=== PATIENT | female | born 1950 | race Caucasian/White ===

== ENCOUNTER 2023-01-04 13:51 | Outpatient (OUT) | payer MEDICARE, BC, SELFPAY ==
--- NOTE | 2023-01-04 | XR_ITS ---
The [address] [address] Patient Name: JOSE YANG MRN: [id number] date: 1950 Sex: F Assigned Patient Location: [facility] Current Patient Location: [facility] Accession/Order Number: [id number] Exam Date: 01/04/2023 13:50 Report Date: 01/05/2023 19:03 At the request of: GALINA HDEZ Procedure: XR ankle LT min 3V EXAM: XR foot LT min 3V, XR ankle LT min 3V HISTORY: LEFT FOOT PAIN COMPARISON: None. TECHNIQUE: 3 views of the left ankle and 3 views of the left foot were obtained. FINDINGS/IMPRESSION: Left ankle: 1. No acute fracture or subluxation is seen. Evidence of prior surgery at the tibial plafond. 2. Mild polyarticular osteoarthritis. Left foot: 1. Evidence of open reduction and internal fixation with arthrodesis hardware at the first metatarsophalangeal joint with periprosthetic lucency measuring up to 4 mm. I do not see fracture of the hardware. However the joint space remains visible. 2. Moderate polyarticular osteoarthritis at the tarsometatarsal, metatarsophalangeal and interphalangeal joints. Electronically authenticated by: TAHMINA BURRELL Date: 01/05/2023 19:03
--- NOTE | 2023-01-04 | XR_ITS ---
The [address] [address] Patient Name: JOSE YANG MRN: [id number] date: 1950 Sex: F Assigned Patient Location: [facility] Current Patient Location: [facility] Accession/Order Number: [id number] Exam Date: 01/04/2023 13:50 Report Date: 01/05/2023 19:03 At the request of: GALINA HDEZ Procedure: XR foot LT min 3V EXAM: XR foot LT min 3V, XR ankle LT min 3V HISTORY: LEFT FOOT PAIN COMPARISON: None. TECHNIQUE: 3 views of the left ankle and 3 views of the left foot were obtained. FINDINGS/IMPRESSION: Left ankle: 1. No acute fracture or subluxation is seen. Evidence of prior surgery at the tibial plafond. 2. Mild polyarticular osteoarthritis. Left foot: 1. Evidence of open reduction and internal fixation with arthrodesis hardware at the first metatarsophalangeal joint with periprosthetic lucency measuring up to 4 mm. I do not see fracture of the hardware. However the joint space remains visible. 2. Moderate polyarticular osteoarthritis at the tarsometatarsal, metatarsophalangeal and interphalangeal joints. Electronically authenticated by: TAHMINA BURRELL Date: 01/05/2023 19:03
== END 2023-01-04 13:52 | disposition home or self-care (01) ==
PROVIDERS: Visit Provider Podiatrist Foot & Ankle Surgery
DX: M25.572 Pain in left ankle and joints of left foot (principal); M79.672 Pain in left foot
CPT/HCPCS: 73610; 73630

== ENCOUNTER 2024-01-31 14:35 | Outpatient (OUT) | payer MEDICARE, BC, SELFPAY ==
--- NOTE | 2024-01-31 14:44 | XR_ITS ---
The [address] [address] Patient Name: JOSE YANG MRN: [id number] date: 1950 Sex: F Assigned Patient Location: [facility] Current Patient Location: Accession/Order Number: [id number] Exam Date: 01/31/2024 14:50 Report Date: 02/01/2024 13:35 At the request of: GALINA HDEZ Procedure: XR ankle LT min 3V PROCEDURE: XR ankle LT min 3V, XR foot LT min 3V HISTORY: Left Ankle Pain ; left ankle and heel pain since falling 2 weeks ago COMPARISON: XR ankle left 01/04/2023 FINDINGS: BONES:Nondisplaced fracture through anterior neck of the calcaneus. Mechanical fusion the first metatarsophalangeal joint via dorsal plate and screws. Prior bone harvesting from distal tibial metaphysis. SOFT TISSUES:No visible soft tissue swelling. EFFUSION:None visible. OTHER: Negative. XR/XR ankle LT min 3V IMPRESSION: 1. Nondisplaced fracture involving anterior neck/process of the calcaneus. Electronically authenticated by: LAKEISHA MCGARRY Date: 02/01/2024 13:35
--- NOTE | 2024-01-31 14:48 | XR_ITS ---
The [address] [address] Patient Name: JOSE YANG MRN: [id number] date: 1950 Sex: F Assigned Patient Location: [facility] Current Patient Location: Accession/Order Number: [id number] Exam Date: 01/31/2024 14:50 Report Date: 02/01/2024 13:35 At the request of: GALINA HDEZ Procedure: XR foot LT min 3V PROCEDURE: XR ankle LT min 3V, XR foot LT min 3V HISTORY: Left Ankle Pain ; left ankle and heel pain since falling 2 weeks ago COMPARISON: XR ankle left 01/04/2023 FINDINGS: BONES:Nondisplaced fracture through anterior neck of the calcaneus. Mechanical fusion the first metatarsophalangeal joint via dorsal plate and screws. Prior bone harvesting from distal tibial metaphysis. SOFT TISSUES:No visible soft tissue swelling. EFFUSION:None visible. OTHER: Negative. XR/XR foot LT min 3V IMPRESSION: 1. Nondisplaced fracture involving anterior neck/process of the calcaneus. Electronically authenticated by: LAKEISHA MCGARRY Date: 02/01/2024 13:35
== END 2024-01-31 14:36 | disposition home or self-care (01) ==
LOC: RAD 14:38
PROVIDERS: Visit Provider Podiatrist Foot & Ankle Surgery
DX: M25.572 Pain in left ankle and joints of left foot (principal); S92.025D Nondisplaced fracture of anterior process of left calcaneus, subsequent encounter for fracture with routine healing; M24.675 Ankylosis, left foot
CPT/HCPCS: 73610; 73630

== ENCOUNTER 2024-02-28 13:30 | Outpatient (OUT) | payer MEDICARE, BC, SELFPAY ==
--- NOTE | 2024-02-28 13:34 | XR_ITS ---
The [address] [address] Patient Name: JOSE YANG MRN: [id number] date: 1950 Sex: F Assigned Patient Location: [facility] Current Patient Location: Accession/Order Number: [id number] Exam Date: 02/28/2024 13:35 Report Date: 02/29/2024 05:14 At the request of: GALINA HDEZ Procedure: XR foot LT min 3V PROCEDURE: XR foot LT min 3V HISTORY: Left Foot Pain COMPARISON: XR foot left 01/31/2024, 01/03/2023, CT foot 01/21/2023 FINDINGS: BONES:Prior mechanical fusion the first metatarsophalangeal joint via dorsal plate and screws; no appreciable hardware fracture or loosening. Persistent thin linear lucency at base of the neck of the anterior calcaneus suggestive of nondisplaced fracture. SOFT TISSUES:No visible soft tissue swelling. EFFUSION:None visible. OTHER: Negative. XR/XR foot LT min 3V IMPRESSION: 1. Fracture of anterior neck of calcaneus versus summation artifact. Appearance is similar to prior study suggesting fracture. Consider CT foot for additional evaluation. 2. Stable surgical changes and fusion of first metatarsophalangeal joint. Electronically authenticated by: LAKEISHA MCGARRY Date: 02/29/2024 05:14
--- OUTSIDE RECORDS SUMMARY | 2024-02-28 13:49 | XMS_ITS | CCD ---
Author Organization [facility] Care Team Providers Care Shift Superintendent Name Role Phone CHRISTIANERADHA Elpidio Unavailable Unavailable Physician, PCP Unknown Unavailable Unavailab Rock Moran Primary Care Physician Unavail able Rock Ulrich Unavailable Unavailable Joseph Waters Primary Care Physician Unavailab Rock Moran Primary Care Physician Unavail able Joseph Waters Primary Care Physician Unavailab Kika Castellanos Primary Care Provider Joseph Waters Primary Care Physician Unavailab Joseph Villalobos Primary Care Physician Unavailab Kika Castellanos Primary Care Provider Joseph Waters Primary Care Physician Unavailab le Joseph Waters Primary Care Physician Unavailab brenna HeRock montes Primary Care Physician Unavail able Joseph Waters Primary Care Physician Unavailab Joseph Villalobos Primary Care Physician Unavailab le Joseph Waters Primary Care Physician Unavailab Kika Castellanos Primary Care Provider [phone] Rock Ulrich Primary Care Physician Unavail able Joseph Waters Primary Care Physician Unavailab Rock Moran Primary Care Physician Unavail able Joseph Waters Primary Care Physician Unavailab Rock Moran Primary Care Physician Unavail able Joseph Waters Primary Care Physician Unavailab Rock Moran Unavailable Unavailable Kika Patrick DO Primary Care Provider [phone] Joseph Waters Primary Care Physician Unavailab le Joseph Waters Primary Care Physician Unavailab le Joseph Waters Primary Care Physician Unavailab brenna MéndezreKika mae DO Primary Care Provider Joseph Waters Primary Care Physician Unavailab GALINA Naqvi Admitting Unavailable DR LAKEISHA MCGARRY Consulting Unavailable GALINA HDEZ Attending Unavailable GALINA HDEZ Consulting Unavailable AASHISH PAUL Admitting Unavailable AASHISH PAUL Attending Unavailable ZIEBER, DR LAKEISHA Mea Consulting Unavailable BEVERLY, AASHISH Consulting Unavailable WEST, DR BORIS Panchal Consulting Unavailable BEVERLY, AASHISH Admitting Unavailable BEVERLY, AASHISH Attending Unavailable BEVERLY, AASHISH Consulting Unavailable BEVERLY, AASHISH Admitting Unavailable BEVERLY, AASHISH Attending Unavailable WEST, DR BORIS Panchal Consulting Unavailable BEVERLY, AASHISH Consulting Unavailable BEVERLY, AASHISH Admitting Unavailable BEVERLY, AASHISH Attending Unavailable WEST, DR BORIS Panchal Consulting Unavailable BEVERLY, AASHISH Consulting Unavailable BEVERLY, AASHISH Admitting Unavailable BEVERLY, AASHISH Attending Unavailable WEST, DR BORIS Panchal Consulting Unavailable BEVERLY, AASHISH Consulting Unavailable BEVERLY, AASHISH Admitting Unavailable BEVERLY, AASHISH Attending Unavailable ZIEBER, DR LAKEISHA Mae Consulting Unavailable BEVERLY, AASHISH Consulting Unavailable BEVERLY, AASHISH Admitting Unavailable BEVERLY, AASHISH Attending Unavailable ZIEBER, DR LAKEISHA Mae Consulting Unavailable BEVERLY, AASHISH Consulting Unavailable Joseph Waters Primary Care Physician Unavailab brenna Waters, Joseph Dowell Primary Care Physician Unavailab Joseph Villalobos Primary Care Physician Unavailab brenna Waters, Joseph Dowell Primary Care Physician Unavailab le Celina GALICIA, Kika Red Primary Care Provider FABIANO NICOLAS Referring Unavaila KIKA Winters Primary Care Unavailable Celina GALICIA, Kika Red Primary Care Provider Celina DO, Kika Red Primary Care Provider [phone] Joseph Waters Primary Care Physician UnavailRock Harris Unavailable Unavailable Lillian Inman CNP Primary Care Unavailable Joseph Waters Attending Unavailable Celina DO, Kika [facility] Unava ilable Maxime JENKINS, Coco Hirsch Attending Pravin Yee MD Referring Unavaila ble Maxime JENKINS, Coco Hirsch Attending Elsy Patrick DO, Kika [facility] Unava ilable Celina DO, Kika [facility] Unava ilable Bert LOPES, Lillian Hirsch Primary Care Unavailable Joseph Waters Attending Unavailable FABIANO NICOLAS KIMBERLEE Referring Unavaila ble CELINAIKKA CAM Primary Care Unavailable FABIANO NICOLAS KIMBERLEE Referring Unavaila ble KIKA PATRICK Neda Primary Care Unavailable FABIANO NICOLAS KIMBERLEE Referring Unavaila ble KIKA PATRICK Neda Primary Care Unavailable GERSON, FABIANO KIMBERLEE Referring Unavaila medardo PATRICK KIKA Red Primary Care Unavailable CelinaKika mae DO Primary Care Provider Kika Patrick DO Primary Care Provider [phone] Bert MANAGER SOCIAL SERVICESLillian Unavailable Celina GALICIA Kika Red Unavailable RINE, LILLIAN L Attending Unavailable RINE, LILLIAN L Attending Unavailable RINE, LILLIAN L Attending Unavailable RINE, LILLIAN L Attending Unavailable Rine [employer] - MANAGER SOCIAL SERVICES, Lillian L Primary Care Provider RINE, LILLIAN L Referring Unavailable KIKA PATRICK Primary Care Unavailable RINE, LILLIAN L Referring Unavailable KIKA PATRICK Primary Care Unavailable RINE, LILLIAN L Primary Care Unavailable Allergies Allergy Classification Reported Allergen(s) Allergy Type Date of Onset Reaction(s) Facility Adhesive Tape (14 sources) [facility] Cephalosporins (antibiotic) (15 sources) Cefuroxime; Translations: [Ceftin] [facility] eriBULin (1 source) eriBULin; Translations: [levofloxacin] [facility] Nafronyl (1 source) Nafronyl; Translations: [Adhesive Tape] Drug Allergy sensitive to [employer] [facility] NSAIDs (15 sources) Etodolac; Translations: [etodolac] Drug Allergy 7 abdominal pain [facility] Quinolones (antibiotic) (14 sources) levoFLOXacin Drug Allergy 7 [facility] (20 sources) Adhesive Tape; Translations: [Adhesive Tape] Allergy to substance (disorder) 0 sensitive to [employer] (20 sources) Cefuroxime; Translations: [Ceftin] Drug Allergy [facility] Repository (20 sources) Etodolac; Translations: [etodolac] Drug Allergy 7 abdominal pain [facility] (20 sources) levoFLOXacin; Translations: [levofloxacin] Drug Allergy 7 Hives, Itching, Unknown [facility] (20 sources) eriBULin; Translations: [levofloxacin] Drug Allergy [facility] (20 sources) Cefuroxime Drug Allergy 2 [place], [place] (1 source) Cefuroxime Drug Allergy [facility] Repository (1 source) levoFLOXacin Drug Allergy [facility] Repository (1 source) endolac; Translations: [endolac] Propensity to adverse reactions to drug (disorder) [facility] Repository (10 sources) Cefuroxime Drug Allergy 2 Hives, Itching, Rash [facility] Healthcare Work Phone: (10 sources) Etodolac Propensity to adverse reactions 7 Unknown [facility] (10 sources) Wound Dressing Adhesive Drug Intolerance 7 [facility] Medications Current Medications Medication Drug Class(es) Dates Sig (Normalized) Sig (Original) alendronic acid 70 mg oral tablet (20 sources) Bisphosphonate alendronate (FOS AMAX) 70 MG tablet Take 1 tablet by mouth every 7 days Wednesdays Active End: 04-05-2023 take 1 tablet by mouth every week in the morning alendronate 70 mg oral tablet 04/05/2023 take 1 tablet (70 mg) by oral route once weekly in the morning, at least 30 min before first food, beverage, or medication of day apixaban 5 mg oral tablet (20 sources) Factor Xa Inhibitor Start: 12-12-2019 take 1 tablet by mouth twice daily apixaban (ELIQUIS) 5 MG TABS tablet Take 1 tablet by mouth 2 times daily 180 tablet 3 05/04/2023 Active Start: 02-03-2018 End: 05-23-2018 take 1 tablet by mouth twice daily ELIQUIS 2.5 MG TABS tablet take 1 tablet by mouth twice a day 0 02/03/2018 Active atorvastatin 10 mg oral tablet (20 sources) HMG-CoA Reductase Inhibitor Start: 11-01-2023 take 1 tablet by mouth once daily atorvastatin (Lipitor) 10 MG tablet Indications: Dry eye syndrome of both eyes , Saddle embolism of abdominal aorta (CMS/HCC) Take 1 tablet (10 mg) by mouth Daily 68 tablet 1 11/01/2023 Active Start: 10-31-2023 End: 10-31-2023 take 1 tablet by mouth every other day, then take 1 tablet by mouth every other day atorvastatin (Lipitor) 10 MG tablet Indications: Dry eye syndrome of both eyes , Saddle embolism of abdominal aorta (CMS/HCC) TAKE 1 TABLET BY MOUTH EVERY OTHER DAY ALTERNATING WITH ONE HALF TABLET EVERY OTHER DAY 68 tablet 1 10/31/2023 10/31/2023 Discontinued (Reorder) Start: 10-09-2018 End: 10-31-2023 take 1 tablet by mouth once daily atorvastatin (Lipitor) 10 MG tablet Indications: Dry eye syndrome of both eyes , Saddle embolism of abdominal aorta (CMS/HCC) Take 1 tablet (10 mg) by mouth Daily 68 tablet 1 11/01/2023 Active azithromycin 250 mg oral tablet (1 source) Macrolide Antimicrobial Start: 01-24-2024 End: 01-28-2024 take 2 tablets by mouth once daily, then take 1 tablet by mouth once daily azithromycin (Zithromax) 250 MG tablet Indications: Symptoms of upper respiratory infection (URI) Take 2 tablets (500 mg) by mouth Daily for 1 day, THEN 1 tablet (250 mg) Daily for 4 days. 6 tablet 01/24/2024 01/28/2024 Active biotin 10 mg oral tablet (20 sources) End: 06-26-2020 take 1 tablet by mouth in the morning biotin 10 MG tablet Take 1 tablet by mouth in the morning. Active Calcium Carbonate / Vitamin D (10 sources) Calcium Carbonate-Vitamin D (CALTRATE 600+D PO) Indications: Vitamin D deficiency Caltrate 600+D Active cetirizine hydrochloride 10 mg oral capsule (9 sources) Histamine-1 Receptor Antagonist Start: 11-01-2023 Cetirizine HCl 10 MG capsule Administer ZYRTEC 10mg PO pre-infusion (REMICADE). 11/01/2023 Active Start: 06-17-2022 take 10 mg by mouth once daily 10 mg, Oral, DAILY, First dose on Tue06/17/22 at 2100, Until Discontinued Substituted for Loratadine (CLARITIN). 50 ml clindamycin 12 mg/ml injection (2 sources) Lincosamide Antibacterial Start: 06-17-2022 End: 06-18-2022 600 mg, IntraVENous, EVERY 8 HOURS, 3 doses, First dose on Tue06/17/22 at 1830, Last dose on Tue06/18/22 at 1030 Antimicrobial Indications: Surgical Prophylaxis Start: 06-17-2022 End: 06-17-2022 clindamycin (CLEOCIN) 900 mg in dextrose 5 % 50 mL IVPB diclofenac sodium 50 mg delayed release oral tablet (20 sources) Nonsteroidal Anti-inflammatory Drug Start: 02-18-2018 take 1 tablet by mouth twice daily diclofenac (VOLTAREN) 50 MG EC tablet take 1 tablet by mouth twice a day 0 02/18/2018 Active diphenhydrAMINE (1 source) Histamine-1 Receptor Antagonist Start: 06-17-2022 diphenhydrAMINE (BENADRYL) capsule 25 mg doxycycline hyclate 100 mg oral tablet (2 sources) Tetracycline-class Drug Start: 12-30-2023 End: 01-09-2024 doxycycline (Vibra-Tabs) 100 MG tablet Indications: Tick bite of back wall of thorax, unspecified location, subsequent encounter Take 1 tablet (100 mg) by mouth in the morning and 1 tablet (100 mg) before bedtime. Do all this for 10 days. Take with a full glass of water and do not lie down for at least 30 minutes after.. 20 tablet 12/30/2023 01/09/2024 Active DULoxetine 30 mg delayed release oral capsule (20 sources) Serotonin and Norepinephrine Reuptake Inhibitor Start: 04-02-2020 take 1 capsule by mouth once daily at bedtime DULoxetine (CYMBALTA) 30 MG extended release capsule take 1 capsule by mouth once daily at bedtime 04/02/2020 Active fluticasone propionate 0.05 mg/actuat metered dose nasal spray (20 sources) Corticosteroid Start: 08-02-2023 take 2 spray(s) nasal route once daily as needed for rhinitis fluticasone (Flonase) 50 MCG/ACT nasal spray Indications: Environmental and seasonal allergies Administer 2 sprays into each nostril Daily as needed for rhinitis or allergies 16 g 2 08/02/2023 Active Start: 06-17-2022 1 spray, Nasal , PRN, Starting on Nisreen 06/17/22 at 2031, Until Discontinued, Rhinitis, Allergies Start: 05-10-2022 fluticasone (F LONASE) 50 MCG/ACT nasal spray 1 spray by Nasal route as needed 05/10/2022 Active inFLIXimab 100 mg injection (20 sources) Tumor Necrosis Factor Pablito inFLIXimab (Remicade ) 100 MG injection Indications: 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) as directed Intravenous Active inFLIXimab (SACHIN ESTHER IV) Infuse intravenously Active Remicade 100 mg intravenous solution infuse 3 mg/kg over no less than 2 hour(s) by intravenous route every 8 weeks inFLIXimab (SACHIN ESTHER IV) Infuse intravenously 0 Active loratadine 10 mg oral tablet (20 sources) take 1 tablet by mouth every twenty-four hours as needed loratadine (Claritin) 10 MG tablet Take 1 tablet by mouth Daily as needed for allergies Active 12 hr loratadine 5 mg / pseudoephedrine sulfate 120 mg extended release oral tablet (10 sources) alpha-Adrenergi c Agonist Start: 08-02-19 End: 08-02-19 25 take 1 tablet by mouth once in the morning, then take 1 tablet by mouth every twelve hours at bedtime loratadine-pseudoeph edrine ER (SM Loratadine D 12HR) 5-120 MG 12 hr tablet Indications: Environmental and seasonal allergies Take 1 tablet by mouth in the morning and 1 tablet before bedtime. Do not crush, chew, or split.. 08/02/2023 08/01/2024 Active Magnesium (20 sources) Magnesium 400 MG capsule Indications: Medicare annual wellness visit, subsequent as directed Orally Active take 1 tablet by mouth twice ryan ly magnesium 200 MG TABS tablet Take 1 tablet by mouth 2 times daily Active take 1 tablet by mouth twice ryan ly magnesium 200 MG TABS tablet Take 1 tablet by mouth 2 times daily 0 Active take 1 tablet by mouth once sj y Magnesium 500 MG TABS Magnesium magnesium 200 mg oral tablet take 1 tablet by oral route daily [facility] ([id number]) 0 Active take 1 tablet by mouth once sj y magnesium 200 mg oral tablet take 1 tablet by oral route daily 24 hr metFORMIN hydrochloride 500 mg extended release oral tablet (20 sources) Biguanide Start: 01-09-2017 End: 12-16-2023 take 1 tablet by mouth once daily at dinner metFORMIN XR (Glucophage-XR) 500 MG 24 hr tablet Indications: Elevated glucose TAKE 1 TABLET BY MOUTH DAILY WITH EVENING MEAL 90 tablet 1 12/16/2023 Active take 1 tablet by mouth once sj y metformin 500 mg oral tablet take 1 tablet by oral route daily methotrexate 25 mg/ml injectable solution (20 sources) Folate Analog Metabolic Inhibitor Start: 04-05-2023 inject 0.05 mL by intramuscular injection every week methotrexate sodium 25 mg/mL injection solution 04/05/2023 inject 0.05 milliliter by intramuscular route once weekly Start: 04-05-2023 inject 0.05 mL by in tramuscular injection every week methotrexate sodium 25 mg/mL injection solution 04/05/2023 inject 0.05 milliliter by intramuscular route once weekly Start: 03-29-2022 inject 0.7 mL by int ramuscular injection every week methotrexate sodium 25 mg/mL injection solution 03/29/2022 inject 0.7 milliliter by intramuscular route once weekly Start: 06-26-2020 inject 0.9 mL by int ramuscular injection every week methotrexate sodium injection solution 25 mg/mL 06/26/2020 inject 0.9 milliliter by intramuscular route once weekly Start: 10-05-2019 inject 0.6 mL by sub cutaneous injection every week methotrexate 50 MG/2ML injection INJECT 0.6 ML SUBCUTANEOUSLY ONCE A WEEK 07/23/2023 Active Start: 09-19-2019 inject 0.6 mL by int ramuscular injection every week methotrexate sodium 25 mg/mL injection solution 09/19/2019 inject 0.6 milliliter (15 mg) by intramuscular route once weekly inject 0.6 mL by int ramuscular injection every week methotrexate sodium 25 mg/mL injection solution inject 0.6 milliliter (15 mg) by intramuscular route once weekly Methotrexate, PF , 15 MG/0.4ML SOAJ Inject into the skin once a week 0 Active methylPREDNISolone 4 mg oral tablet (3 sources) Corticosteroid Start: 05-04-2023 methylPREDNISo lone (MEDROL DOSEPACK) 4 MG tablet Take as per the package insert. 1 kit 05/04/2023 Active Start: 07-08-2020 End: 07-08-2020 methylPREDNISolone acetate ( DEPO-MEDROL) injection 80 mg 5 ml metoprolol tartrate 1 mg/ml injection (1 source) beta-Adrenergic Pablito Start: 06-17-2022 metoprolol (LOPRESSOR) injection 5 mg Multiple Vitamins-Minerals (PRESERVISION AREDS 2+MULTI VIT) CAPS (20 sources) take 1 capsule by mouth in the morning Multiple Vitamins-Minerals (PRESERVISION AREDS 2+MULTI VIT) CAPS Take 1 capsule by mouth in the morning and 1 capsule in the evening. Active take 1 capsule by mo uth in the morning Multiple Vitamins-Minerals (PRESERVISION AREDS 2+MULTI VIT) CAPS Take 1 capsule by mouth in the morning and 1 capsule in the evening. 0 Active take 2 capsules by mouth twice d aily Multiple Vitamins-Minerals (PRESERVISION AREDS 2+MULTI VIT) CAPS Take 2 capsules by mouth 2 times daily 0 Active Multiple Vitamins-Minerals (PreserVision AREDS 2+Multi Vit) capsule (10 sources) take 1 capsule by mouth in the morning Multiple Vitamins-Minerals (PreserVision AREDS 2+Multi Vit) capsule Take 1 capsule by mouth in the morning and 1 capsule in the evening. Take with meals. Active omeprazole 20 mg delayed release oral capsule (20 sources) Proton Pump Inhibitor Start: take 1 capsule by mouth in the morning omeprazole (PriLOSEC) [address] capsule Indications: Gastroesophageal reflux disease without esophagitis Take 1 capsule (20 mg) by mouth in the morning and 1 capsule (20 mg) before bedtime. Do not crush or chew.. 180 capsule 1 05/20/2023 Active Start: 11-07-2019 take 1 capsule by mo ut once daily omeprazole 40 mg oral capsule,delayed release(DR/EC) 11/07/2019 take 1 capsule by oral route daily Start: 10-30-2018 take 1 capsule by mo uth once daily omeprazole 40 mg oral capsule,delayed release(DR/EC) 10/30/2018 take 1 capsule by oral route daily Start: 10-24-2018 take 1 capsule by mo ut once daily before mealtime omeprazole 40 mg oral capsule,delayed release(DR/EC) 10/24/2018 take 1 capsule (40 mg) by oral route once daily before a meal in combination with clarithromycin Start: 01-03-2017 take 1 tablet by ledy th twice daily omeprazole 20 MG EC tablet Take 1 tablet by mouth 2 times daily 0 01/03/2017 Active Start: 03-09-2016 End: 05-23-2018 take 1 capsule by mouth once daily before mealtime omeprazole 40 mg oral capsule,delayed release(DR/EC) 03/09/2016 05/23/2018 take 1 capsule (40 mg) by oral route once daily before a meal ondansetron (ZOFRAN-ODT) disintegrating tablet 4 mg (1 source) Start: 06-17-2022 ondansetron (Z OFRAN-ODT) disintegrating tablet 4 mg oxyCODONE (3 sources) Opioid Agonist Start: 06-17-2022 oxyCODONE (YOLI ICODONE) immediate release tablet 5 mg Start: 06-17-2022 End: 06-22-2022 take 1 tablet by mouth every six hours as needed for pain oxyCODONE (ROXICODONE) 5 MG immediate release tablet Indications: S/P total knee arthroplasty, left Take 1 tablet by mouth every 6 hours as needed for Pain for up to 5 days. Intended supply: 5 days. Take lowest dose possible to manage pain Max Daily Amount: 20 mg 20 tablet 0 06/17/2022 06/22/2022 Active pregabalin 75 mg oral capsule (6 sources) Start: 06-17-2022 End: 07-01-2022 take 1 capsule by mouth twice daily as needed for pain pregabalin (LYRICA) 75 MG capsule Indications: S/P total knee arthroplasty, left Take 1 capsule by mouth 2 times daily as needed (breakthrough pain) for up to 14 days. Max Daily Amount: 150 mg 28 capsule 06/17/2022 Active traMADol hydrochloride 50 mg oral tablet (20 sources) Opioid Agonist Start: 07-14-2023 take 1 tablet by mouth every six hours for pain traMADol (Ultram) 50 MG tablet Indications: Chronic low back pain, unspecified back pain laterality, unspecified whether sciatica present Take 1 tablet (50 mg) by mouth every 6 (six) hours if needed for severe pain 28 tablet 07/14/2023 Active Start: 07-14-2019 End: 06-17-2022 take 0.5-1 tablets by mouth every six hours for pain traMADol (ULTRAM) 50 MG tablet TAKE 2 TO 1 TABLET BY MOUTH EVERY 6 HOURS IF NEEDED FOR PAIN 0 07/14/2019 06/17/2022 Discontinued (Stop Taking at Discharge) End: 10-24-2018 take 0.5 tablet by mouth once daily as needed for pain tramadol 50 mg oral tablet 10/24/2018 take 0.5 tablet daily as needed for pain 7 actuat umeclidinium 0.0625 mg/actuat / vilanterol 0.025 mg/actuat dry powder inhaler (20 sources) Anticholinergic, beta2-Adrenergic Agonist Start: 04-05-2023 take 1 puff(s) by inhalation once daily Anoro Ellipta 62.5 mcg-25 mcg/actuation powder for inhalation 04/05/2023 inhale 1 puff by inhalation route once daily at the same time each day Start: 04-05-2023 take 1 puff(s) by in halation once daily Anoro Ellipta 62.5 mcg-25 mcg/actuation powder for inhalation 04/05/2023 inhale 1 puff by inhalation route once daily at the same time each day Start: 01-29-2022 take 1 puff(s) by in halation once daily Anoro Ellipta inhalation blister with device 62.5-25 mcg/actuation 01/29/2022 inhale 1 puff by inhalation route once daily at the same time each day Start: 12-29-2020 take 1 puff(s) by in halation once daily Anoro Ellipta inhalation blister with device 62.5-25 mcg/actuation 12/29/2020 inhale 1 puff by inhalation route once daily at the same time each day Start: 06-26-2020 take 1 puff(s) by in halation once daily Anoro Ellipta inhalation blister with device 62.5-25 mcg/actuation 06/26/2020 inhale 1 puff by inhalation route once daily at the same time each day Start: 05-07-2019 take 1 puff(s) by in halation once daily Anoro Ellipta 62.5-25 mcg/actuation inhalation blister with device 05/07/2019 inhale 1 puff by inhalation route once daily at the same time each day Umeclidinium-Gregorio anterol (Anoro Ellipta) 62.5-25 MCG/ACT aerosol powder Inhale. Active take 1 puff(s) by in halation once daily umeclidinium-vilanterol (ANORO ELLIPTA) 62.5-25 MCG/INH AEPB inhaler Inhale 1 puff into the lungs daily Active vitamin b12 0.1 mg oral tablet (20 sources) Vitamin B12 take 1 tablet by mouth in the morning cyanocobalamin (Vitamin B-12) 100 MCG tablet Indications: Medicare annual wellness visit, subsequent Take 100 mcg by mouth in the morning. Active Completed/Discontinued Medications Medication Drug Class(es) Dates Sig (Normalized) Sig (Original) acetaminophen 325 mg oral tablet (20 sources) Start: 06-17-2022 take 650 mg by mouth every six hours, then take 4000 mg by mouth every twenty-four hours 650 mg, Oral, EVERY 6 HOURS, First dose on [facility] 06/17/22 at 1500, Until Discontinued Maximum dose of acetaminophen is 4000 mg from all sources in 24 hours. Post-op Start: 06-17-2022 End: 06-17-2022 acetaminophen (TYLENOL) tabl et 1,000 mg take 2 tablets by mo uth twice daily acetaminophen (TYLENOL) 500 MG tablet Take 2 tablets by mouth 2 times daily Active Acetaminophen (T YLENOL ARTHRITIS PAIN PO) Indications: Medicare annual wellness visit, subsequent Tylenol Arthritis Pain Active acetaminophen (T YLENOL) 500 MG tablet Take by mouth 0 Active acetaminophen 325 mg / HYDROcodone bitartrate 5 mg oral tablet (2 sources) Opioid Agonist Start: 01-19-2024 End: 01-19-2024 1 tablet, Oral, ONCE, 1 dose, On [facility] 01/19/24 at 2030 Start: 01-19-2024 End: 01-22-2024 HYDROcodone-acetaminophen (N ORCO) 5-325 MG per tablet Indications: Sprain of left foot, initial encounter , Contusion of left knee, initial encounter , Contusion of back, unspecified laterality, initial encounter Take 1 tablet by mouth every 6 hours as needed for Pain for up to 3 days. Intended supply: 3 days. Take lowest dose possible to manage pain Max Daily Amount: 4 tablets 12 tablet 01/19/2024 01/22/2024 Active 30 actuat aclidinium bromide 0.4 mg/actuat dry powder inhaler (20 sources) Start: 12-14-2018 End: 05-07-2019 take 1 puff(s) by inhalation every twelve hours Tudorza Pressair 400 mcg/actuation inhalation aerosol powdr breath activated 12/14/2018 05/07/2019 inhale 1 puff (400 mcg) by inhalation route every 12 hours [id number] 200 actuat albuterol 0.09 mg/actuat metered dose inhaler (20 sources) beta2-Adrenerg ic Agonist ProAir HFA inhalation HFA aerosol inhaler 90 mcg/actuation inhale 2 puffs by inhalation route as needed ProAir HFA inhal ation HFA aerosol inhaler 90 mcg/actuation inhale 2 puffs by inhalation route as needed ProAir HFA inhal ation HFA aerosol inhaler 90 mcg/actuation inhale 2 puffs by inhalation route as needed bisacodyl 5 mg delayed release oral tablet (1 source) Stimulant Laxative Start: 06-17-2022 take 5 mg by mouth once daily as needed 5 mg, Oral, DAILY PRN, Starting on Tue06/17/22 at 1407, Until Discontinued, Constipation First line therapy for constipation. Post-op 5 ml bupivacaine hydrochloride 5 mg/ml injection (1 source) Amide Local Anesthetic Start: 07-08-2020 End: 07-08-2020 bupivacaine (PF) (MARCAINE) 0.5 % injection 150 mg Start: 07-08-2020 End: 07-08-2020 bupivacaine (PF) (MARCAINE) 0.5 % injection 150 mg calcium carbonate 500 mg chewable tablet (17 sources) Start: 06-18-2022 take 500 mg by mouth once daily in the morning 500 mg, Oral, EVERY MORNING, First dose on Tue06/18/22 at 0900, Until Discontinued take 1 tablet by ledy once daily in the morning Calcium Carbonate (CALTRATE 600 PO) Take 1 tablet by mouth every morning Active take 1 tablet by ledy th once daily in the morning Calcium Carbonate (CALTRATE 600 PO) Take 1 tablet by mouth every morning 0 Active calcium carbonate 1250 mg / cholecalciferol 0.01 mg oral tablet (10 sources) Vitamin D take 1 tablet by mouth twice daily Calcium 500 + D 500 mg-10 mcg (400 unit) tablet take 1 tablet by oral route 2 times a day take 1 tablet by mouth twice ryan ly Calcium 500 + D 500 mg-10 mcg (400 unit) tablet take 1 tablet by oral route 2 times a day calcium chloride 0.0014 meq/ml / potassium chloride 0.004 meq/ml / sodium chloride 0.103 meq/ml / sodium lactate 0.028 meq/ml injectable solution (1 source) Start: 06-17-2022 End: 06-17-2022 lactated ringers IV soln infusion celecoxib 100 mg oral capsule (20 sources) Nonsteroidal Anti-inflammatory Drug Start: 06-17-2022 End: 06-17-2022 celecoxib (CELEBREX) capsule 100 mg End: 05-23-2018 take 1 capsule by mouth once daily celecoxib 200 mg oral capsule 05/23/2018 take 1 capsule (200 mg) by oral route once daily cholecalciferol 0.025 mg oral tablet (20 sources) Vitamin D Start: 06-17-2022 take 2000 [IU] by mouth once daily in the evening 2,000 Units, Oral, EVERY EVENING, First dose on Nisreen 06/17/22 at 2100, Until Discontinued Start: 12-29-2020 take 1 tablet by ledy three times daily Vitamin D3 25 mcg (1,000 unit) tablet 12/29/2020 take 1 tablet by oral route 3 times a day Start: 11-29-2019 End: 06-17-2022 Cholecalciferol (VITAMIN D3) 1.25 MG (17958 UT) CAPS take 1 tablet by ledy th once in the morning cholecalciferol (RA Vitamin D-3) 25 MCG (1000 UT) tablet Indications: Vitamin D deficiency Take 25 mcg by mouth in the morning. Active take 1 capsule by mo [facility] once daily in the evening Cholecalciferol (VITAMIN D) 50 MCG (2000 UT) CAPS capsule Take 1 capsule by mouth every evening Active take 1 tablet by ledy th once daily Vitamin D3 125 mcg (5,000 unit) oral tablet take 1 tablet by oral route daily cyclobenzaprine hydrochloride 10 mg oral tablet (20 sources) Muscle Relaxant End: 10-24-2018 take 1 tablet by mouth twice daily as needed cyclobenzaprine 10 mg oral tablet 10/24/2018 take 1 tablet (10 mg) by oral route 2 times per day as needed dexlansoprazole 60 mg delayed release oral capsule (20 sources) Proton Pump Inhibitor Start: 03-20-2018 End: 10-10-2018 take 1 capsule by mouth once daily Dexilant 60 mg oral capsule,biphase delayed releas 03/20/2018 10/10/2018 take 1 capsule (60 mg) by oral route once daily dimenhyDRINATE 50 mg oral tablet (1 source) Start: 06-17-2022 End: 06-17-2022 dimenhyDRINATE (DRAMAMINE) tablet 50 mg Start: 06-17-2022 End: 06-17-2022 dimenhyDRINATE (DRAMAMINE) t ablet 50 mg fexofenadine hydrochloride 180 mg oral tablet (1 source) Histamine-1 Receptor Antagonist Start: 07-31-2021 End: 06-17-2022 take 1 tablet by mouth once daily fexofenadine (TAMMIE) 180 MG tablet 1 tablet Swallow whole with water; do not take with fruit juices. Orally Once a day for 30 day(s) 0 07/31/2021 06/17/2022 Discontinued (LIST CLEANUP) Fish Oil Oral 1,200-144-216 mg Capsule (16 sources) End: 01-29-2014 take 1 capsule by mouth once daily Fish Oil Oral 1,200-144-216 mg Capsule 01/29/2014 Take 1 capsule by mouth once a day Fish Oils (19 sources) End: 01-29-2014 take 1 capsule by mouth once daily Fish Oil Oral 1,200-144-216 mg Capsule 01/29/2014 Take 1 capsule by mouth once a day folic acid 1 mg oral tablet (20 sources) Start: 12-27-2019 take 2 tablets by mouth once daily folic acid 1 mg oral tablet 12/27/2019 take 2 tablets by oral route daily take 1 tablet by mouth in the ev ening folic acid (Folvite) 1 MG tablet Indications: 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) Take 1 mg by mouth in the evening. Takes two tablets in evening Active take 1 tablet by mouth once sj y folic acid (FOLVITE) 1 MG tablet Take 1 tablet by mouth daily 0 Active gabapentin 300 mg oral capsule (1 source) Anti-epileptic Agent Start: 06-17-2022 End: 06-17-2022 gabapentin (NEURONTIN) capsule 300 mg Start: 06-17-2022 End: 06-17-2022 gabapentin (NEURONTIN) capsu le 300 mg Glucosamine-Chondroitin Complx oral capsule (20 sources) End: 03-14-2018 take 2 capsules by mouth once daily Glucosamine-Chondroitin Complx oral capsule 03/14/2018 take 2 capsules by oral route daily hyoscyamine sulfate 0.125 mg sublingual tablet (20 sources) Start: 03-09-2016 End: 05-23-2018 hyoscyamine sulfate 0.125 mg sublingual tablet, sublingual 03/09/2016 05/23/2018 place 1 tablet under tongue by translingual route As needed End: 03-09-2016 take 1 tablet by mouth every four hours as needed hyoscyamine sulfate 0.125 mg oral tablet 03/09/2016 take 1 tablet (0.125 mg) by oral route every 4 hours as needed iohexol (OMNIPAQUE 240) injection 10 mL (1 source) Start: 07-08-2020 End: 07-08-2020 iohexol (OMNIPAQUE 240) injection 10 mL iopamidol (ISOVUE-370) 76 % injection 100 mL (1 source) Start: 04-26-2022 End: 04-26-2022 iopamidol (ISOVUE-370) 76 % injection 100 mL 10 ml lidocaine hydrochloride 10 mg/ml injection (1 source) Antiarrhythmic, Amide Local Anesthetic Start: 07-08-2020 End: 07-08-2020 lidocaine PF 1 % injection Suprep Bowel Prep Kit 17.5-3.13-1.6 gram oral recon soln (20 sources) Start: 05-23-2018 Suprep Bowel P rep Kit 17.5-3.13-1.6 gram oral recon soln 05/23/2018 take as directed Start: 03-14-2018 End: 05-23-2018 Suprep Bowel Prep Kit 17.5-3 .13-1.6 gram oral recon soln 03/14/2018 05/23/2018 take as directed meloxicam 15 mg oral tablet (20 sources) Nonsteroidal Anti-inflammatory Drug Start: 04-11-2013 End: 03-14-2018 take 1 tablet by mouth once daily as needed meloxicam oral tablet 15 mg 04/11/2013 03/14/2018 take 1 tablet (15 mg) by oral route once daily as needed multivitamin Oral capsule (20 sources) End: 03-09-2016 take 1 capsule by mouth once daily multivitamin Oral capsule 03/09/2016 take 1 capsule by oral route daily 10 actuat olodaterol 0.0025 mg/actuat / tiotropium 0.0025 mg/actuat inhalation spray (1 source) Anticholinergic, beta2-Adrenergic Agonist Start: 06-17-2022 take 2 puff(s) by inhalation once daily 2 puff, Inhalation, DAILY, First dose on Tue06/17/22 at 1430, Until Discontinued Substituted for Umeclidinium-Gregorio anterol (ANORO ELLIPTA). pantoprazole 40 mg delayed release oral tablet (1 source) Proton Pump Inhibitor Start: 06-18-2022 take 40 mg by mouth once daily before breakfast 40 mg, Oral, DAILY BEFORE BREAKFAST, First dose on Tue06/18/22 at 0700, Until Discontinued Do not crush or break. Substituted for Omeprazole (PRILOSEC). PreserVision AREDS-2 [id number] xn-znol-ri-mg oral capsule (20 sources) take 1 capsule by mouth twice daily PreserVision AREDS-2 [id number]-tnwc-bu-mg oral capsule take 1 capsule by oral route 2 times a day Psyllium (20 sources) End: 04-11-2013 Metamucil Oral 3.3 gram/5.95 gram Powder 04/11/2013 Take 1 scoop dissovled in water once a day raNITIdine 150 mg oral capsule (20 sources) Histamine-2 Receptor Antagonist End: 04-11-2013 take 1 capsule by mouth once daily ranitidine HCl Oral capsule 150 mg 04/11/2013 take 1 capsule by oral route daily sennosides, fpc 8.6 mg oral tablet (1 source) Start: 06-17-2022 take 1 tablet by mouth once daily as needed 8.6 mg (1 tablet), Oral, DAILY PRN, Starting on Tue06/17/22 at 1407, Until Discontinued, Constipation Second line therapy for constipation, After 24 hours, if no result from first line PRN therapy, give second line therapy in combination with first line therapy. Post-op 5 ml sodium chloride 9 mg/ml injection (4 sources) Start: 06-17-2022 take 1 dose intravenously twice daily 5-40 mL, IntraVENous, EVERY 12 HOURS SCHEDULED (2 times per day), First dose on Tue06/17/22 at 2100, Until Discontinued For Line Patency: Peripheral IV = 5 mL; Midline or Central Line = 10 mL/lumen.&nb sp; If following IV push medication, administer flush at same rate as the IV push. Flush volume is determined by type of infusion therapy being given. &nbs p;For non-viscous solutions use: Periph eral IV = 5 mL Midline or Central Line = 10 mL/lumen &n bsp;For viscous solutions (i.e. blood components, parenteral nutrition, contrast media, or after obtaining blood sample) use: Periph eral IV = 10 mL Midline or Central Line = 20 mL/lumen Post-op Start: 06-17-2022 take 1 mL by mouth every hour IntraVENous, at 100 mL/hr, CONTINUOUS, Starting on Nisreen 06/17/22 at 1430 May convert to saline lock once PO intake >500mL in 8 hours Post-op Start: 06-17-2022 IntraVENous, a t 5-250 mL/hr, PRN, if patient receiving piggyback infusions and maintenance fluids are not ordered OR KVO fluids to protect IV site / prevent frequent line interruptions/ long duration, Starting on Nisreen 06/17/22 at 1407 For piggyback infusion, administer at same rate as piggyback for a total of 25 mL. Enter 25 mL into dose field and piggyback rate into rate field of order. If piggyback is infusing at a rate less than 100 mL/hr, enter 25 mL into dose field and 100 mL/hr into rate field of order. For KVO fluids, enter rate of 20 mL/hr or less into rate field of order. Post-op Start: 06-17-2022 take 5-40 mL intrave nously once as needed 5-40 mL, IntraVENous, PRN, Starting on Nisreen 06/17/22 at 1407, Until Discontinued, Line Care, After every IV line use For Line Patency: Peripheral IV = 5 mL; Midline or Central Line = 10 mL/lumen. If following IV push medication, administer flush at same rate as the IV push. Flush volume is determined by type of infusion therapy being given. For non-viscous solutions use: Peripheral IV = 5 mL Midline or Central Line = 10 mL/lumen For viscous solutions (i.e. blood components, parenteral nutrition, contrast media, or after obtaining blood sample) use: Peripheral IV = 10 mL Midline or Central Line = 20 mL/lumen Post-op Suprep Bowel Prep Kit 17.5-3.13-1.6 gram oral recon soln (3 sources) Start: 05-23-2018 Suprep Bowel P rep Kit 17.5-3.13-1.6 gram oral recon soln 05/23/2018 take as directed Start: 03-14-2018 End: 05-23-2018 Suprep Bowel Prep Kit 17.5-3 .13-1.6 gram oral recon soln 03/14/2018 05/23/2018 take as directed Problems Active Problems Problem Classification Problem Date Documented Date Episodic/Chronic Aortic and peripheral arterial embolism or thrombosis (12 sources) Aortic bifurcation syndrome; 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] Onset: 023 07-26-2022 Chronic Cardiac dysrhythmias (1 source) Tachycardia; Translations: [Tachycardia, unspecified] Episodic Chronic obstructive pulmonary disease and bronchiectasis (20 sources) Chronic airway obstruction, not elsewhere classified; Translations: [Chronic obstructive lung disease] Onset: 019 07-26-2022 Chronic Coagulation and hemorrhagic disorders (20 sources) Primary hypercoagulable state; Translations: [Hypercoagulability state] Onset: 019 07-26-2022 Chronic Diabetes mellitus without complication (3 sources) Prediabetes; Translations: [Prediabetes] 11-29-2023 Episodic Disorders of lipid metabolism (20 sources) Mixed hyperlipidemia; Translations: [Mixed hyperlipidemia] Onset: 023 Resolve d: 024 07-26-2022 Chronic Esophageal disorders (20 sources) Dyskinesia of esophagus; Translations: [Esophageal reflux] Onset: 014 07-26-2022 Chronic Essential hypertension (12 sources) Essential hypertension; Translations: [Essential (primary) hypertension] Onset: 023 07-26-2022 Chronic Headache; including migraine (10 sources) Migraine without aura, not refractory ; Translations: [Migraine without aura, not intractable, without status migrainosus] Onset: 07-26-2022 Chronic Heart valve disorders (1 source) Abnormal cardiac rate; Translations: [Unspecified abnormalities of heart beat] Episodic Hemorrhoids (20 sources) Unspecified hemorrhoids without mention of complication; Translations: [Hemorrhoids] Episodic Immunizations and screening for infectious disease (20 sources) Other and unspecified nonspecific immunological findings; Translations: [Raised antibody titer] Episodic Nutritional deficiencies (10 sources) Vitamin D deficiency; Translations: [Vitamin D deficiency, unspecified] Onset: 07-26-2022 Chronic Osteoarthritis (20 sources) Arthritis of right hip; Translations: [Unilateral primary osteoarthritis, right hip] Onset: Chronic Other circulatory disease (1 source) Upper respiratory tract finding; Translations: [Other specified symptoms and signs involving the circulatory and respiratory systems] 01-24-2024 Episodic Other connective tissue disease (20 sources) History of total knee arthroplasty; Translations: [Presence of left artificial knee joint] Onset: Chronic Other connective tissue disease (4 sources) Pain in left foot; Translations: [PAIN IN LEFT FOOT] Onset: Episodic Other connective tissue disease (1 source) Pain in left lower limb; Translations: [Pain in left leg] Episodic Other diseases of veins and lymphatics (20 sources) Lymphedema of bilateral lower limbs; Translations: [Lymphedema, not elsewhere classified] Onset: 05-09-2022 Chronic Other diseases of veins and lymphatics (2 sources) Lymphedema, not elsewhere classified; Translations: [Lymphedema, not elsewhere classified] Onset: Chronic Other diseases of veins and lymphatics (1 source) Vascular insufficiency; Translations: [Venous insufficiency (chronic) (peripheral)] Episodic Other diseases of veins and lymphatics (1 source) Venous insufficiency (chronic) (peripheral); Translations: [Venous insufficiency (chronic) (peripheral)] Onset: Episodic Other endocrine disorders (10 sources) Adrenal hyperplasia; Translations: [Other specified disorders of adrenal gland] Onset: 06-12-2 023 06-12-2023 Chronic Other gastrointestinal disorders (10 sources) Irritable bowel syndrome; Translations: [Irritable bowel syndrome without diarrhea] Onset: 07-26-2022 Chronic Other lower respiratory disease (14 sources) Solitary pulmonary nodule Onset: Episodic Other lower respiratory disease (20 sources) Solitary pulmonary nodule Onset: Episodic Other nervous system disorders (10 sources) Chronic pain; Translations: [Other chronic pain] Onset: Resolve d: 07-27-2022 Chronic Other nutritional; endocrine; and metabolic disorders (16 sources) 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 Other nutritional; endocrine; and metabolic disorders (17 sources) Methylenetetrahydrofolate reductase deficiency Chronic Other nutritional; endocrine; and metabolic disorders (12 sources) 5,10-Methylenetetrahydrofola te reductase deficiency; Translations: [Methylenetetrahydrofolate reductase deficiency] Onset: 07-26-2022 Chronic Other upper respiratory disease (10 sources) Allergic disposition; Translations: [Other allergic rhinitis] Onset: 07-26-2022 Chronic Residual codes; unclassified (17 sources) Tobacco user; Translations: [Tobacco Abuse] Onset: Chronic Residual codes; unclassified (1 source) Postmenopausal state; Translations: [Asymptomatic age-related postmenopausal state] Episodic Residual codes; unclassified (20 sources) Tobacco use Onset: Episodic Residual codes; unclassified (1 source) Menopause present; Translations: [Asymptomatic menopausal state] Episodic Retinal detachments; defects; vascular occlusion; and retinopathy (10 sources) Nonexudative age-related macular degeneration; Translations: [Nonexudative age-related macular degeneration, bilateral, early dry stage] Onset: 07-26-2022 Chronic Rheumatoid arthritis and related disease (12 sources) Rheumatoid arthritis of multiple joints; Translations: [Rheumatoid arthritis 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] Onset: 07-26-2022 Chronic Spondylosis; intervertebral disc disorders; other back problems (10 sources) Inflammation of sacroiliac joint; Translations: [Sacroiliitis, not elsewhere classified] Onset: 07-26-2022 Chronic Sprains and strains (4 sources) Sprain of left ankle; Translations: [Sprain of unspecified ligament of left ankle, initial encounter] Onset: 024 01-19-2024 Episodic Substance-related disorders (20 sources) Tobacco use disorder Onset: Chronic Superficial injury; contusion (6 sources) Tick bite; Translations: [Insect bite (nonvenomous) of unspecified back wall of thorax, subsequent encounter] Onset: 024 12-30-2023 Episodic Thyroid disorders (10 sources) Hypothyroidism; Translations: [Other specified hypothyroidism] Onset: 07-26-2022 Chronic Unclassified (2 sources) Patient encounter status; Translations: [Screening breast examination] Past or Other Problems Problem Classification Problem Date Documented Da te Episodic/Chronic Abdominal pain (20 sources) Abdominal pain, unspecified site; Translations: [Abdominal pain] Onset: 11-29-2016 Episodic Acquired foot deformities (10 sources) Toe joint rigid; Translations: [Hallux rigidus, left foot] Onset: 02-16-2023 Resolved: 02-16-2023 02-16-2023 Chronic Allergic reactions (10 sources) Eczema; Translations: [Dermatitis, unspecified] Onset: 07-26-2022 07-26-2022 Episodic Anxiety disorders (10 sources) Acute stress disorder; Translations: [Acute stress reaction] Onset: 07-26-2022 Resolved: 07-27-2022 07-27-2022 Chronic Complications of surgical procedures or medical care (10 sources) Pseudarthrosis after fusion or arthrodesis; Translations: [Pseudarthrosis after fusion or arthrodesis] Onset: 02-16-2023 Resolved: 02-16-2023 02-16-2023 Episodic Diverticulosis and diverticulitis (20 sources) Diverticulitis of colon (without mention of hemorrhage); Translations: [Diverticulitis of intestine, part unspecified, without perforation or abscess without bleeding] Onset: 05-23-2018 Resolved: 07-27-2022 07-27-2022 Chronic Fracture of lower limb (1 source) Displaced fracture of proximal phalanx of left lesser toe(s), initial encounter for closed fracture; Translations: [DSPL FX PRX PHAL LT LSR TOE INIT CL] Onset: 06-11-2021 Episodic Gastrointestinal hemorrhage (20 sources) Hematemesis; Translations: [Hematemesis] Onset: 05-23-2018 Episodic Other acquired deformities (10 sources) Leg length inequality; Translations: [Unequal limb length (acquired), unspecified site] Onset: 07-26-2022 07-26-2022 Episodic Other bone disease and musculoskeletal deformities (1 source) Other specified disorders of bone density and structure, unspecified site; Translations: [Other specified disorders of bone density and structure, unspecified site] Onset: 09-27-2023 Episodic Other connective tissue disease (1 source) Arthrodesis status; Translations: [ARTHRODESIS STATUS] Onset: 03-09-2021 Episodic Other connective tissue disease (10 sources) Pain of left lower leg; Translations: [Pain in left lower leg] Onset: 07-26-2022 Resolved: 07-27-2022 07-27-2022 Episodic Other diseases of veins and lymphatics (20 sources) Occlusion of iliac vein; Translations: [Compression of vein] Onset: 05-09-2022 05-09-2022 Episodic Other eye disorders (12 sources) Tear film insufficiency; Translations: [Dry eye syndrome of unspecified lacrimal gland] Onset: 07-26-2022 07-26-2022 Episodic Other female genital disorders (11 sources) Abnormal uterine bleeding; Translations: [Abnormal uterine and vaginal bleeding, unspecified] Onset: 07-26-2022 Resolved: 07-27-2022 07-27-2022 Chronic Other female genital disorders (20 sources) Pelvic congestion syndrome; Translations: [Other specified conditions associated with female genital organs and menstrual cycle] Onset: 02-03-2018 02-03-2018 Episodic Other lower respiratory disease (20 sources) Shortness of breath Onset: 09-27-2018 Episodic Other lower respiratory disease (20 sources) Solitary nodule of lung; Translations: [Solitary pulmonary nodule] Onset: 09-03-2019 Episodic Other lower respiratory disease (20 sources) Shortness of breath Onset: 09-27-2018 Episodic Other lower respiratory disease (10 sources) Imaging of lung abnormal ; Translations: [Other nonspecific abnormal finding of lung field] Onset: 07-26-2022 Resolved: 07-27-2022 07-27-2022 Episodic Other non-traumatic joint disorders (1 source) Pain in left ankle and joints of left foot; Translations: [PAIN IN LEFT ANKLE] Onset: 08-12-2021 Episodic Other screening for suspected conditions (not mental disorders or infectious disease) (3 sources) Patient encounter status; Translations: [Encounter for screening mammogram for malignant neoplasm of breast] Onset: 09-27-2023 Episodic Phlebitis; thrombophlebitis and thromboembolism (20 sources) Acute venous embolism and thrombosis of unspecified deep vessels of lower extremity; Translations: [Acute deep vein thrombosis of lower limb] Onset: 09-18-2018 Resolved: 07-27-2022 09-18-2018 Episodic Pulmonary heart disease (10 sources) Saddle embolus of pulmonary artery; Translations: [Saddle embolus of pulmonary artery with acute cor pulmonale] Onset: 07-26-2022 Resolved: 07-27-2022 07-27-2022 Chronic Pulmonary heart disease (20 sources) Pulmonary embolism; Translations: [Other pulmonary embolism and infarction] Onset: 09-18-2018 Resolved: 07-27-2022 09-18-2018 Episodic Residual codes; unclassified (20 sources) Family history of polyp of colon; Translations: [Family history of colonic polyps] Onset: 12-20-2011 12-20-2011 Episodic Residual codes; unclassified (16 sources) Tobacco user; Translations: [Tobacco use disorder] Onset: 10-10-2018 Episodic Residual codes; unclassified (10 sources) History of colectomy; Translations: [Acquired absence of other specified parts of digestive tract] Onset: 07-26-2022 07-26-2022 Episodic Residual codes; unclassified (1 source) Asymptomatic menopausal state; Translations: [Asymptomatic menopausal state] Onset: 09-27-2023 Episodic Screening and history of mental health and substance abuse codes (20 sources) Personal history of nicotine dependence Onset: 07-15-2021 Episodic Spondylosis; intervertebral disc disorders; other back problems (20 sources) Backache; Translations: [Dorsalgia, unspecified] Onset: 02-02-2018 Resolved: 07-27-2022 02-03-2018 Episodic Unclassified (2 sources) Onset: 05-05-2022 05-05-2022 Results Test Name Value Interpretation Reference Range Facility XR KNEE LEFT (1-2 VIEWS)on 03-27-2023 XR KNEE LEFT (1-2 VIEWS) EXAMINATION: THREE XRAY VIEWS OF THE LUMBAR SPINE; TWO XRAY VIEWS OF THE LEFT KNEE 01/19/2024 8:49 pm; 01/19/2024 8:51 pm COMPARISON: Left knee films 06/17/2022, CT abdomen/pelvis 02/22/2018. HISTORY: ORDERING SYSTEM PROVIDED HISTORY: Trauma/pain TECHNOLOGIST PROVIDED HISTORY: Trauma/pain FINDINGS: LUMBAR SPINE: There is no acute fracture or subluxation. The lower thoracic and lumbar vertebral bodies are normal in height and alignment. The posterior elements are intact and aligned. There is minimal spondylosis within the lower lumbar spine. There is mild disc space loss and endplate sclerosis at L4-L5 and L5-S1. No destructive osseous lesion is seen. Multiple surgical devices overlie the lower abdomen and pelvis, including bilateral iliac stents. LEFT KNEE: Frontal and lateral views of the left knee were performed. There is no acute fracture or dislocation. A joint effusion is not identified. There are postsurgical changes evident status post left knee arthroplasty and patellar resurfacing, with stable chronic lucency beneath the tibial stem, unchanged from 06/17/2022, and likely postsurgical in etiology. Mild atherosclerotic calcifications are seen. No additional soft tissue abnormality is evident. IMPRESSION: LUMBAR SPINE: No acute abnormality of the lumbar spine. LEFT KNEE: No acute abnormality of the left knee. Intact left knee arthroplasty, without evidence of orthopedic hardware complication. Interpreted by: Ra Bowers MD Signed by: Ra Bowers MD 01/25/24 Final result Normal [facility] XR LUMBAR SPINE (2-3 VIEWS)o n 01-25-2024 XR LUMBAR SPINE (2-3 VIEWS) EXAMINATION: THREE XRAY VIEWS OF THE LUMBAR SPINE; TWO XRAY VIEWS OF THE LEFT KNEE 01/19/2024 8:49 pm; 01/19/2024 8:51 pm COMPARISON: Left knee films 06/17/2022, CT abdomen/pelvis 02/22/2018. HISTORY: ORDERING SYSTEM PROVIDED HISTORY: Trauma/pain TECHNOLOGIST PROVIDED HISTORY: Trauma/pain FINDINGS: LUMBAR SPINE: There is no acute fracture or subluxation. The lower thoracic and lumbar vertebral bodies are normal in height and alignment. The posterior elements are intact and aligned. There is minimal spondylosis within the lower lumbar spine. There is mild disc space loss and endplate sclerosis at L4-L5 and L5-S1. No destructive osseous lesion is seen. Multiple surgical devices overlie the lower abdomen and pelvis, including bilateral iliac stents. LEFT KNEE: Frontal and lateral views of the left knee were performed. There is no acute fracture or dislocation. A joint effusion is not identified. There are postsurgical changes evident status post left knee arthroplasty and patellar resurfacing, with stable chronic lucency beneath the tibial stem, unchanged from 06/17/2022, and likely postsurgical in etiology. Mild atherosclerotic calcifications are seen. No additional soft tissue abnormality is evident. IMPRESSION: LUMBAR SPINE: No acute abnormality of the lumbar spine. LEFT KNEE: No acute abnormality of the left knee. Intact left knee arthroplasty, without evidence of orthopedic hardware complication. Interpreted by: Ra Bowers MD Signed by: Ra Bowers MD 01/25/24 Final result Normal [facility] No Panel Informationon 01-18 1. No acute osseous abnormality. 2. Status post 1st metatarsophalangeal arthrodesis without complication identified. No significant osseous fusion of the joint. [facility] EXAMINATION: THREE XRAY VIEWS OF THE LEFT FOOT; THREE XRAY VIEWS OF THE LEFT ANKLE 01/19/2024 8:47 pm; 01/19/2024 8:48 pm COMPARISON: CT left foot 01/21/2023. HISTORY: ORDERING SYSTEM PROVIDED HISTORY: Trauma/pain TECHNOLOGIST PROVIDED HISTORY: Trauma/pain FINDINGS: Diffuse osseous demineralization. The ankle mortise is intact. Old screw tract in the distal tibial epiphysis. The tibial plafond and talar dome are normal in appearance. The subtalar joint is intact. Normal midfoot alignment is maintained. Status post 1st metatarsophalangeal arthrodesis. Severe 1st metatarsophalangeal degenerative changes without significant osseous fusion identified. No hardware complication is seen. No fracture or dislocation. The soft tissues are unremarkable. [facility] Ayaan Gary MD - 01/19/2024 EXAMINATION: THREE XRAY VIEWS OF THE LEFT FOOT; THREE XRAY VIEWS OF THE LEFT ANKLE 01/19/2024 8:47 pm; 01/19/2024 8:48 pm COMPARISON: CT left foot 01/21/2023. HISTORY: ORDERING SYSTEM PROVIDED HISTORY: Trauma/pain TECHNOLOGIST PROVIDED HISTORY: Trauma/pain FINDINGS: Diffuse osseous demineralization. The ankle mortise is intact. Old screw tract in the distal tibial epiphysis. The tibial plafond and talar dome are normal in appearance. The subtalar joint is intact. Normal midfoot alignment is maintained. Status post 1st metatarsophalangeal arthrodesis. Severe 1st metatarsophalangeal degenerative changes without significant osseous fusion identified. No hardware complication is seen. No fracture or dislocation. The soft tissues are unremarkable. IMPRESSION: 1. No acute osseous abnormality. 2. Status post 1st metatarsophalangeal arthrodesis without complication identified. No significant osseous fusion of the joint. [facility] No Panel InformationOrdered By: Ayaan Gary on 01-19-2024 [facility] Work Phone: XR ANKLE LEFT (MIN 3 VIEWS)o n 01-19-2024 XR ANKLE LEFT (MIN 3 VIEWS) EXAMINATION: THREE XRAY VIEWS OF THE LEFT FOOT; THREE XRAY VIEWS OF THE LEFT ANKLE 01/19/2024 8:47 pm; 01/19/2024 8:48 pm COMPARISON: CT left foot 01/21/2023. HISTORY: ORDERING SYSTEM PROVIDED HISTORY: Trauma/pain TECHNOLOGIST PROVIDED HISTORY: Trauma/pain FINDINGS: Diffuse osseous demineralization. The ankle mortise is intact. Old screw tract in the distal tibial epiphysis. The tibial plafond and talar dome are normal in appearance. The subtalar joint is intact. Normal midfoot alignment is maintained. Status post 1st metatarsophalangeal arthrodesis. Severe 1st metatarsophalangeal degenerative changes without significant osseous fusion identified. No hardware complication is seen. No fracture or dislocation. The soft tissues are unremarkable. IMPRESSION: 1. No acute osseous abnormality. 2. Status post 1st metatarsophalangeal arthrodesis without complication identified. No significant osseous fusion of the joint. Interpreted by: Ayaan Gary MD Signed by: Ayaan Gary MD 01/19/24 Final result Normal [facility] XR Ankle - left 3 [facility] Study observation (narrative) [facility] XR FOOT LEFT (MIN 3 VIEWS)on 01-19-2024 XR FOOT LEFT (MIN 3 VIEWS) EXAMINATION: THREE XRAY VIEWS OF THE LEFT FOOT; THREE XRAY VIEWS OF THE LEFT ANKLE 01/19/2024 8:47 pm; 01/19/2024 8:48 pm COMPARISON: CT left foot 01/21/2023. HISTORY: ORDERING SYSTEM PROVIDED HISTORY: Trauma/pain TECHNOLOGIST PROVIDED HISTORY: Trauma/pain FINDINGS: Diffuse osseous demineralization. The ankle mortise is intact. Old screw tract in the distal tibial epiphysis. The tibial plafond and talar dome are normal in appearance. The subtalar joint is intact. Normal midfoot alignment is maintained. Status post 1st metatarsophalangeal arthrodesis. Severe 1st metatarsophalangeal degenerative changes without significant osseous fusion identified. No hardware complication is seen. No fracture or dislocation. The soft tissues are unremarkable. IMPRESSION: 1. No acute osseous abnormality. 2. Status post 1st metatarsophalangeal arthrodesis without complication identified. No significant osseous fusion of the joint. Interpreted by: Ayaan Gary MD Signed by: Ayaan Gary MD 01/19/24 Final result Normal [facility] XR Foot - left 3 [facility] Radiology Study observation (narrative) [facility] DEXA BONE DENSITY AXIAL SKEL ETONon 09-28-2023 DEXA BONE DENSITY AXIAL SKELETON EXAMINATION: BONE DENSITOMETRY 09/27/2023 12:43 pm TECHNIQUE: A bone density dual x-ray absorptiometry (DXA) scan was performed of the lumbar spine and left hip on a [employer] system. COMPARISON: 07/14/2021. HISTORY: ORDERING SYSTEM PROVIDED HISTORY: Osteopenia after menopause Gender: F Age: 72 y/o FINDINGS: LUMBAR SPINE: L1-L4 BMD: 0.946 g/cm2 T-score: -1.9 Z-score: -0.4 There has been no statistically significant change in the bone mineral density of the lumbar spine since the prior exam date listed above. LEFT TOTAL HIP: BMD: 0.778 g/cm2 T-score: -1.8 Z-score: -0.4 LEFT FEMORAL NECK: BMD: 0.737 g/cm2 T-score: -2.2 Z-score: -0.5 There has been no statistically significant change in the bone mineral density of the total hip since the prior exam date listed above. FRAX 10-YEAR PROBABILITY OF FRACTURE: 10-year fracture risk is performed using the [employer] FRAX calculator based on patient-reported risk factors. Major osteoporotic fracture: 17.1% Hip fracture: 4.2% Other situations known to alter the reliability of the FRAX score should be considered when making treatment decisions, including chronic glucocorticoid use and past treatments. Further guidance on treatment can be found at the National Osteoporosis Foundation's website bonesource.org. IMPRESSION: Osteopenia by WHO criteria. RECOMMENDATIONS: 1. All patients should optimize their calcium and vitamin D intake. 2. Consider FDA-approved medical therapies in postmenopausal women and men aged 50 years and older, based on the following: - A hip or vertebral (clinical or morphometric) fracture - T-score less than or equal to -2.5 at the femoral neck or spine after appropriate evaluation to exclude secondary causes - Low bone density (T-score between -1.0 and -2.5 at the femoral neck or spine) and a 10-year probability of a hip fracture greater than or equal to 3% or a 10-year probability of a major osteoporosis-related fracture greater than or equal to 20% based on FRAX calculation. - Clinician judgment and/or patient preferences may indicate treatment for people with 10-year fracture probabilities above or below these levels - Further guidance on treatment can be found at the National Osteoporosis Foundation's website bonesource.org. 3. Patients with diagnosis of osteoporosis or at high risk for fracture should have regular bone mineral density tests. For patients eligible for Medicare, routine testing is allowed once every 2 years. The testing frequency can be increased to one year for patients who have rapidly progressing disease, those who are receiving or discontinuing medical therapy to restore bone mass or have additional risk factors. Template code: [id number] Interpreted by: Des Millan MD Signed by: Des Millan MD 09/28/23 Final result Normal [facility] DBT Breast - bilateral scree christina 09-27-2023 No evidence of malignancy. Advise annual screening mammography. BI-RADS 2 BIRADS: BIRADS - CATEGORY 2 Benign Findings. Normal interval follow-up is recommended in 12 months. OVERALL ASSESSMENT - BENIGN A letter of notification will be sent to the patient regarding the results. The [employer] recommends annual mammograms for women 40 years and older. [facility] EXAMINATION: SCREENING DIGITAL BILATERAL MAMMOGRAM WITH TOMOSYNTHESIS, 09/27/2023 TECHNIQUE: Screening mammography was performed with tomosynthesis including MLO and CC views of the bilateral breasts. Computer aided detection was used for the interpretation of this exam. COMPARISON: 25 August 2022; 07 May 2021 HISTORY: Screening. Positive family history of breast cancer; sister at age 50. 5 year history of oral contraception. Month history of hormonal replacement therapy. No prior breast interventions. FINDINGS: Both breasts are composed of scattered fibroglandular density. No skin thickening, nipple contour changes, suspicious calcifications, suspicious masses, areas of architectural distortion or significant interval changes are noted. A stable nodule is present outer central right breast middle depth containing a biopsy marker.. [facility] Radiology Study observation (narrative) [facility] DBT Breast - bilateral scree ningOrdered By: Caron De La Cruz on 09-27-2023 [facility] Work Phone: [facility] DIGITAL SCREEN BILA JAVIERALotiffani 09-27-2023 [facility] DIGITAL SCREEN BILATERAL EXAMINATION: SCREENING DIGITAL BILATERAL MAMMOGRAM WITH TOMOSYNTHESIS, 09/27/2023 TECHNIQUE: Screening mammography was performed with tomosynthesis including MLO and CC views of the bilateral breasts. Computer aided detection was used for the interpretation of this exam. COMPARISON: 25 August 2022; 07 May 2021 HISTORY: Screening. Positive family history of breast cancer; sister at age 50. 5 year history of oral contraception. Month history of hormonal replacement therapy. No prior breast interventions. FINDINGS: Both breasts are composed of scattered fibroglandular density. No skin thickening, nipple contour changes, suspicious calcifications, suspicious masses, areas of architectural distortion or significant interval changes are noted. A stable nodule is present outer central right breast middle depth containing a biopsy marker.. IMPRESSION: No evidence of malignancy. Advise annual screening mammography. BI-RADS 2 BIRADS: BIRADS - CATEGORY 2 Benign Findings. Normal interval follow-up is recommended in 12 months. OVERALL ASSESSMENT - BENIGN A letter of notification will be sent to the patient regarding the results. The [employer] recommends annual mammograms for women 40 years and older. Interpreted by: Caron De La Cruz MD Signed by: Caron De La Cruz MD 09/27/23 Final result Normal [facility] No Panel Informationon 04-05 Tobacco smoking status Former Tobacco User Invalid Interpretation Code InnoCentive CT Chest w/o Contraston 02 CT Chest w/o Contrast EXAMINATION: CT Ch est w/o Contrast HISTORY: Solitary pulmonary nodule COMPARISON: CT chest 03/22/2022 TECHNIQUE: CT examination of the chest without IV contrast. Coronal and sagittal reformations were performed. Dose reduction techniques were achieved by using automated exposure control and/or adjustment of mA and/or kV according to patient size and/or use of iterative reconstruction technique. FINDINGS: Right lower lobe pulmonary nodule has decreased in size compared to the previous exam, now measuring 8 mm (image 34 series 3) Minimal lingular airspace disease is stable. There is no new nodule or mass. There is no pleural or pericardial fluid. There is no hilar or mediastinal adenopathy. There is a small hiatal hernia. There are coronary artery calcifications. There is no dilatation of the thoracic aorta or central pulmonary arteries. There is no cardiac enlargement. There is no chest wall abnormality. Thyroid gland and thoracic inlet are normal. There is no significant osseous abnormality. Limited images of the upper abdomen demonstrate a stable 2.8 cm left adrenal mass. There is a stone in the right kidney. IMPRESSION: Decrease in size of previously described right lower lobe pulmonary nodule. Lung rads category 2. 12 month follow-up CT scan recommended. Radiation Dose Estimate: CTDI(mGy):0.329459 / / / kVp:110.412465 / mAs:0.304006 / / / DLP(mGy-cm):2.107586Il dy Part: Chest CTDI(mGy):3.595833 / / / kVp:110.092390 / mAs:49.706337 / / / DLP(mGy-cm):131.067451 Body Part: Chest Final Dictated by: Albania Gregory MD Dictated DT/TM: 03.29.2023 12:12 pm Signed by: Albania Gregory MD Signed (Electronic Signature): 03.29.2023 12:23 pm (If Report Is Signed, Electronically Signed in Other Vendor System) Normal [facility] No Panel Informationon 09-09 Tobacco smoking status Former Smoker Invalid Interpretation Code [facility] [employer] Radiologyon 08-25-2022 MG Breast Screening Mammogram Invalid Interpretation Code 50 - 74 [facility] [email or web address] Basic Metabolic Panelon Anion gap [Moles/Vol] 6 mmol/L Low 9 - 17 mmol/L [facility] Calcium [Mass/Vol] 8.9 mg/dL 8.6 - 10. 4 mg/dL [facility] Chloride [Moles/Vol] 109 mmol/L High 98 - 10 7 mmol/L [facility] [employer] CO2 [Moles/Vol] 26 mmol/L 20 - 31 mmol/L [facility] Creatinine [Mass/Vol] 0.7 mg/dL 0.50 - 0.90 mg/dL [facility] [employer] GFR/1.73 sq M.predicted MDRD (S/P/Bld) [Vol rate/Area] - PINF [facility] Comment on above: These results are not intended for use in patients <18 years of age. eGFR results are calculated without a race factor using the 2020 CKD-EPI equation. Careful clinical correlation is recommended, particularly when comparing to results calculated using previous equations. The CKD-EPI equation is less accurate in patients with extremes of muscle mass, extra-renal metabolism of creatine, excessive creatine ingestion, or following therapy that affects renal tubular secretion. Glucose [Mass/Vol] 112 mg/dL High 70 - 99 mg/dL [facility] Interpretation and review of laboratory results Abnormal [facility] Potassium [Moles/Vol] 4.7 mmol/L 3.7 - 5.3 mmol/L [facility] Sodium [Moles/Vol] 141 mmol/L 135 - 144 mmol/L [facility] [employer] [facility] Urea nitrogen [Mass/Vol] 12 mg/dL 8 - 23 mg/dL [facility] Urea nitrogen/Creatinine (Bld) [Mass ratio] 17 9 - 20 [facility] Glucose, Whole Bloodon 06-18 Glucose [Mass/Vol] 103 mg/dL High 74 - 100 mg/dL [facility] Interpretation and review of laboratory results Abnormal [facility] [employer] Hemoglobin and Hematocriton 06-18-2022 Hematocrit (Bld) [Volume fraction] 33.6 % Low 36.3 - 47.1 % [facility] Hemoglobin (Bld) [Mass/Vol] 10.8 g/dL Low 11.9 - 15.1 g/dL [facility] Interpretation and review of laboratory results Abnormal [facility] Glucose, Whole Bloodon 06-17 Glucose [Mass/Vol] 206 mg/dL High 74 - 100 mg/dL [facility] Interpretation and review of laboratory results Abnormal [facility] Glucose [Mass/Vol] 213 mg/dL High 74 - 100 mg/dL [facility] Interpretation and review of laboratory results Abnormal [facility] XR CHEST (2 VW)on 05-25-2022 No acute process. [facility] EXAMINATION: TWO XRAY VIEWS OF THE CHEST 05/25/2022 10:03 am COMPARISON: 03/03/2015 HISTORY: ORDERING SYSTEM PROVIDED HISTORY: PREOP TECHNOLOGIST PROVIDED HISTORY: PREOP FINDINGS: The lungs are without acute focal process. There is no effusion or pneumothorax. The cardiomediastinal silhouette is stable. The osseous structures are stable. [facility] Kika Joyner MD - 05/25/2022 EXAMINATION: TWO XRAY VIEWS OF THE CHEST 05/25/2022 10:03 am COMPARISON: 03/03/2015 HISTORY: ORDERING SYSTEM PROVIDED HISTORY: PREOP TECHNOLOGIST PROVIDED HISTORY: PREOP FINDINGS: The lungs are without acute focal process. There is no effusion or pneumothorax. The cardiomediastinal silhouette is stable. The osseous structures are stable. IMPRESSION: No acute process. [facility] Work Phone: Radiology Study observation (narrative) [facility]MARYLigoCy[facility] Pharm[facility] Phone: XR CHEST (2 VW)Ordered By: Maikol Joyner on 05-25-2022 [facility] Phone: Otolaryngology Office/Clinic Noteon 05-10-2022 Otolaryngology Office/Clinic Note Chief Complaint Pt states Here for HL History of Present Illness History of Present Illness HPI: Jose is here today as a new patient for HL. States she had recent hearing test at outside facility [facility] in [place] and was told she had HL in both ears.THis was recently repeated and there is low freq 20 db conductive hearing loss in 2 frequencies. She feels she is listening in a tunnel often. NO pain or drainage. She feels hearing is more difficult on day to day basis Review of Systems General Adult ROS Fatigue: No Appetite change: No Other General: No Weakness: No Weight gain: No Weight Loss: No Cardiovascular Chest pain/pressure: No Claudication: No Edema: No Orthopnea: No Other Cardiovascular: No Palpitations: No Syncope: No EENMT Bleeding gums: No Dental pain: No Ear drainage: No Ear pain: No Facial pain: No Hearing loss: Yes Hoarseness: No Mouth lesions: No Nasal congestion: No Nasal discharge: No Nosebleeds: No Other EENMT: No Postnasal drainage: No Sore_throat: No Tinnitus: Yes Vision Changes: No Gastrointestinal Abdominal pain: No Constipation: No Diarrhea: No Dysphagia: No Fecal incontinence: No Heartburn: No Nausea: No Other GI: No Stools, black/bloody: No Vomiting: No Vomiting blood: No Genitourinary Decreased urine output: No Dysuria: No Frequency: No Genital irritation: No Hematuria: No Hesitancy: No Impaired urge sensation: No Other Genitourinary: No Polyuria: No Sexual dysfunction: No Urgency: No Urinary Incontinence: No Vaginal discharge: No Hematologic/Lymphatic Musculoskeletal Neurological Psychiatric Respiratory Apnea: No Cough: No Hemoptysis: No Other Respiratory: No Shortness_of_breath: No Snoring: No Sputum production: No Wheezing: No Skin Physical Exam Additional Vitals No qualifying data available. Overall:[Communication mode is clear, normal] [Appearance- no acute distress, appears stated age and is well nourished] Assistive device:[ none] Head:[normocephalic, no trauma, lesions or asymmetry] Ocular appearance:[ Conjuctiva- clear and bright, no drainage or infection. EOM intact] Ears:[ external ear- normal shape, no signs of infection, mass, lesion or asymmetry bilaterally. Ear canal is healthy, free from wax and infection, bilaterally] [Eardrum-healthy, no sign of infection, trauma, perforation or infection] [Middle ear- healthy, no obvious fluid present or infection] Nose:[ External- healthy, no sign of asymmetry, lesion or infection] Septum:[ Midline, no sign of perforation, infection or deviation] Turbinates:[ normal, no hypertrophy, mass or polyp] Nasal passages:[ clear, no infection, drainage or obstruction] Oral cavity:[ Normal, tongue healthy no mass, lesion or infection. Soft and hard palate normal. Bimanual palpation is normal. Mucosa moist, free from infection][ Benign gingiva, good dental hygiene][Tonsil size is normal, no asymmetry, mass or lesionn][oropharynx- clear, no evidence of post nasal drip, cobblestoning or other abnormalities] Nasopharynx:[ unable to view with mirror due to gagging] Larynx:[ Unable to view with mirror due to gagging] Neck:[ Salivary gland exam is normal, no enlargement or tenderness. No lymph node enlargement. TMJ exam is normal, no tenderness noted][ Thyroid exam is normal, no masses or tenderness] Mental Status:[Alert and oriented x3][Mood and affect normal][Gait is normal]. Tympanogram: [neg pressure bilat] Assessment/Plan 1. Conductive hearing loss in left ear Pt has conductive hearing loss low freq, this is mild and likely related to ET issues. Pt advised ear exam is normal. Included in differential diagnosis is otosclerosis, however this at this point would only be monitored. Suggest at least annual checks for hearing. PLan also to try meds to see if will help with symptoms. Rx written for prednisone and flonase. REcheck in several weeks to reassess. 2. Abnormal auditory perception 3. Dysfunction of both eustachian tubes Medical Decision Making Chronic conditions NOT treated during this visit that affected my overall medical decision making: [] Treatment plans discussed but not opted for at this time: [] Prescribed medication that requires intensive monitoring for toxicity: [] I have reviewed the patient?s medication list for medication interactions/contraind ications and/or for upcoming procedures: [yes or no] Time Spent with the Patient I have personally spent [35] minutes on this date, directly related to today's patient visit, including pre and post visit work, for this date of service. Time listed does not include time spent on separately billable services. Problem List/Past Medical History Ongoing Acute deep vein thrombosis (DVT) of lower extremity Arthritis Difficulty swallowing Diverticulitis Dyspepsia Fibromyalgia GERD Heartburn Hx pulmonary embolism MTHFR gene mutation Rheumatoid arthri (more content not included)... Normal [facility] CTA ABDOMEN PELVIS W WO CONT Mirna 04-26-2022 CTA ABDOMEN PELVIS W WO CONTRAST EXAMINATION: CTA ABDOMEN PELVIS W WO CONTRAST HISTORY: STAT Creatinine as needed:->Yes. 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 Iliac stents were also placed. COMPARISON: 02/22/2018. TECHNIQUE: Contrast-enhanced CTA was performed of the abdomen and pelvis. Delayed images were obtained on 2 separate occasions. MIP (maximum intensity projection) images were performed. Dose reduction techniques were achieved by using automated exposure control and/or adjustment of mA and/or kV according to patient size and/or use of iterative reconstruction technique. FINDINGS: CT ABDOMEN AND PELVIS: The liver is unremarkable. No renal hydronephrosis is evident. Spleen is unremarkable. Pancreas is unremarkable. No fluid is seen within the abdomen or pelvis. Colonic diverticula are noted. The uterus and adnexa are unremarkable. Degenerative changes seen in the lumbar spine predominantly at L5-S1 with disc space narrowing. CTA: The aorta is widely patent. No significant visceral vessel stenosis is seen. No aneurysm is noted. Plaque is seen within the common iliac arteries but no significant stenosis. Amplatzer plugs are seen within the bilateral internal iliac veins. Coil embolization an Amplatzer plug embolization was performed of the left ovarian vein. An Amplatzer plug is seen at the expected location of the right ovarian vein. There are bilateral common iliac stents. Stent patency is difficult to evaluate however, with delayed imaging there was progressive enhancement within the stents suggesting stent patency. On the arterial portion of the scan the mean Hounsfield reading was 65 Hounsfield units. On the immediate delayed image the Hounsfield reading was 120 and on the second delayed image the Hounsfield reading was 134 units. This likely indicates bilateral common iliac stent patency. IMPRESSION: 1. Probable bilateral common iliac stent patency. 2. Status post Amplatzer plug placement in the bilateral internal iliac veins, expected location of the right ovarian vein origin and embolization was performed of the left ovarian vein. 3. No abdominal aortic aneurysm. 4. No visceral artery stenosis. 5. See above for details. Interpreted by: Gayla Ying MD Signed by: Gayla Ying MD 04/26/22 Final result Normal [facility] 1. Probable bilateral common iliac stent patency. 2. Status post Amplatzer plug placement in the bilateral internal iliac veins, expected location of the right ovarian vein origin and embolization was performed of the left ovarian vein. 3. No abdominal aortic aneurysm. 4. No visceral artery stenosis. 5. See above for details. [facility] EXAMINATION: CTA ABDOMEN PELVIS W WO CONTRAST HISTORY: STAT Creatinine as needed:->Yes. 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 Iliac stents were also placed. COMPARISON: 02/22/2018. TECHNIQUE: Contrast-enhanced CTA was performed of the abdomen and pelvis. Delayed images were obtained on 2 separate occasions. MIP (maximum intensity projection) images were performed. Dose reduction techniques were achieved by using automated exposure control and/or adjustment of mA and/or kV according to patient size and/or use of iterative reconstruction technique. FINDINGS: CT ABDOMEN AND PELVIS: The liver is unremarkable. No renal hydronephrosis is evident. Spleen is unremarkable. Pancreas is unremarkable. No fluid is seen within the abdomen or pelvis. Colonic diverticula are noted. The uterus and adnexa are unremarkable. Degenerative changes seen in the lumbar spine predominantly at L5-S1 with disc space narrowing. CTA: The aorta is widely patent. No significant visceral vessel stenosis is seen. No aneurysm is noted. Plaque is seen within the common iliac arteries but no significant stenosis. Amplatzer plugs are seen within the bilateral internal iliac veins. Coil embolization an Amplatzer plug embolization was performed of the left ovarian vein. An Amplatzer plug is seen at the expected location of the right ovarian vein. There are bilateral common iliac stents. Stent patency is difficult to evaluate however, with delayed imaging there was progressive enhancement within the stents suggesting stent patency. On the arterial portion of the scan the mean Hounsfield reading was 65 Hounsfield units. On the immediate delayed image the Hounsfield reading was 120 and on the second delayed image the Hounsfield reading was 134 units. This likely indicates bilateral common iliac stent patency. [facility] Gayla Ying MD - 04/26/2022 EXAMINATION: CTA ABDOMEN PELVIS W WO CONTRAST HISTORY: STAT Creatinine as needed:->Yes. 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 Iliac stents were also placed. COMPARISON: 02/22/2018. TECHNIQUE: Contrast-enhanced CTA was performed of the abdomen and pelvis. Delayed images were obtained on 2 separate occasions. MIP (maximum intensity projection) images were performed. Dose reduction techniques were achieved by using automated exposure control and/or adjustment of mA and/or kV according to patient size and/or use of iterative reconstruction technique. FINDINGS: CT ABDOMEN AND PELVIS: The liver is unremarkable. No renal hydronephrosis is evident. Spleen is unremarkable. Pancreas is unremarkable. No fluid is seen within the abdomen or pelvis. Colonic diverticula are noted. The uterus and adnexa are unremarkable. Degenerative changes seen in the lumbar spine predominantly at L5-S1 with disc space narrowing. CTA: The aorta is widely patent. No significant visceral vessel stenosis is seen. No aneurysm is noted. Plaque is seen within the common iliac arteries but no significant stenosis. Amplatzer plugs are seen within the bilateral internal iliac veins. Coil embolization an Amplatzer plug embolization was performed of the left ovarian vein. An Amplatzer plug is seen at the expected location of the right ovarian vein. There are bilateral common iliac stents. Stent patency is difficult to evaluate however, with delayed imaging there was progressive enhancement within the stents suggesting stent patency. On the arterial portion of the scan the mean Hounsfield reading was 65 Hounsfield units. On the immediate delayed image the Hounsfield reading was 120 and on the second delayed image the Hounsfield reading was 134 units. This likely indicates bilateral common iliac stent patency. IMPRESSION: 1. Probable bilateral common iliac stent patency. 2. Status post Amplatzer plug placement in the bilateral internal iliac veins, expected location of the right ovarian vein origin and embolization was performed of the left ovarian vein. 3. No abdominal aortic aneurysm. 4. No visceral artery stenosis. 5. See above for details. [facility] Work Phone: Radiology Study observation (narrative) [employer] Phone: CTA ABDOMEN PELVIS W WO CONT RASTOrdered By: Gayla Ying on 04-26-2022 [facility] VL DUP LOWER EXTREMITY VENOU S LEFTon 04-09-2022 Ronaldo Mancera DO - 04/09/2022 [facility] Vascular Lower Extremities DVT Study Procedure Patient Name CELIA Date of Study 04/09/2022 JOSE Cassidy Date of 1950 Gender Female Age 71 year(s) Race Room Number Corporate ID [id number] # Patient Acct [id number] # MR # [id number] [employer] Donte Simmons RVT Interpreting Physician Ronaldo Mancera DO Referring [facility] Referring Physician Nurse Lillian Practitioner Additional Comments Results were called to Rosemary Inman 04/09/22 @ 1500. Procedure Type of Study: Veins: Lower Extremities DVT Study, Venous Scan Lower Left. Indications for Study:Hx of DVT and Pain and swelling. Patient Status:STAT. Technical Quality:Adequate visualization. Comments:Simultaneous real time imaging utilizing B-Mode, color doppler and spectral waveform analysis was performed on the left lower extremity for venous examination of the deep and superficial systems. Conclusions Summary No evidence of superficial or deep venous thrombosis in the left lower extremity. Signature Left Impression: The common femoral, superficial and deep femoral, popliteal, tibials, peroneal, and saphenous veins were evaluated. All veins were compressible with normal doppler responses. Velocities are measured in cm/s ; Diameters are measured in cm Left Lower Extremities DVT Study Measurements Left 2D Measurements + +------ ----+ +- --------- + !Location !Visualized!Compressib ility!Thrombosis! + +------ ----+ +- --------- + !Common Femoral !Yes !Yes !None ! + +------ ----+ +- --------- + !Prox Femoral !Yes !Yes !None ! + +------ ----+ +- --------- + !Mid Femoral !Yes !Yes !None ! + +------ ----+ +- --------- + !Dist Femoral !Yes !Yes !None ! + +------ ----+ +- --------- + !Deep Femoral !Yes !Yes !None ! + +------ ----+ +- --------- + !Popliteal !Yes !Yes !None ! + +------ ----+ +- --------- + !Sapheno Femoral Junction !Yes !Yes !None ! + +------ ----+ +- --------- + !PTV !Yes !Yes !None ! + +------ ----+ +- --------- + !Peroneal !Yes !Yes !None ! + +------ ----+ +- --------- + !Gastroc !Yes !Yes !None ! + +------ ----+ +- --------- + !GSV Thigh !Yes !Yes !None ! + +------ ----+ +- --------- + !GSV Knee !Yes !Yes !None ! + +------ ----+ +- --------- + !GSV Ankle !Yes !Yes !None ! + +------ ----+ +- --------- + !SSV !Yes !Yes !None ! + +------ ----+ +- --------- + Left Doppler Measurements + ------+------+------+- --------- + !Location !Signal!Reflux!Reflux (msec) ! + ------+------+------+- --------- + !Common Femoral !Phasic! ! ! + ------+------+------+- --------- + !Prox Femoral !Phasic! ! ! + ------+------+------+- --------- + !Popliteal !Phasic! ! ! + ------+------+------+- --------- + [employer] Phone: Radiology Study observation (narrative) [employer] Phone: VL DUP LOWER EXTREMITY VENOU S LEFTOrdered By: Ronaldo Mancera on 04-09-2022 [employer] Phone: No Panel Informationon 03-29 Body mass index (BMI) [Percentile] Per age and sex 0.1 {percentile} Invalid Interpretation Code [place] [id number] Per age and sex 0.1 {percentile} Invalid Interpretation Code [employer] No Panel Informationon 07-15 4 Invalid Interpretation Code [employer] 7 Invalid Interpretation Code [employer] DEXA BONE DENSITY AXIAL SKBRADLY ETONon 07-14-2021 Osteopenia by WHO criteria. [facility] EXAMINATION: BONE DENSITOMETRY 07/14/2021 11:19 am TECHNIQUE: A bone density dual x-ray absorptiometry (DEXA) scan was performed of the lumbar spine and left hip on a [employer] system. COMPARISON: July 11, 2019 HISTORY: ORDERING SYSTEM PROVIDED HISTORY: Routine general medical examination at a health care facility FINDINGS: LUMBAR SPINE: The bone mineral density in the lumbar spine including the L1-L4 levels is measured at 0.934 g/cm2, which corresponds to a T-score of -2.0 and a Z-score of -0.5. This is within the osteopenia range by WHO criteria. This reflects increased from prior study by 6% LEFT HIP: The bone mineral density in the total hip is measured at 0.801 g/cm2 corresponding to a T-score of -1.6 and a Z-score of -0.3. This is within the osteopenia range by WHO criteria. The bone mineral density of the femoral neck is measured at 0.721 g/cm2 corresponding to a T-score of -2.3 and a Z-score of 0.7. This is within the osteopenia range by WHO criteria. 10 year probability major osteoporotic fracture 17.2%. Hip 4%. [facility] Ronaldo Mancera DO - 07/14/2021 EXAMINATION: BONE DENSITOMETRY 07/14/2021 11:19 am TECHNIQUE: A bone density dual x-ray absorptiometry (DEXA) scan was performed of the lumbar spine and left hip on a [employer] system. COMPARISON: July 11, 2019 HISTORY: ORDERING SYSTEM PROVIDED HISTORY: Routine general medical examination at a health care facility FINDINGS: LUMBAR SPINE: The bone mineral density in the lumbar spine including the L1-L4 levels is measured at 0.934 g/cm2, which corresponds to a T-score of -2.0 and a Z-score of -0.5. This is within the osteopenia range by WHO criteria. This reflects increased from prior study by 6% LEFT HIP: The bone mineral density in the total hip is measured at 0.801 g/cm2 corresponding to a T-score of -1.6 and a Z-score of -0.3. This is within the osteopenia range by WHO criteria. The bone mineral density of the femoral neck is measured at 0.721 g/cm2 corresponding to a T-score of -2.3 and a Z-score of 0.7. This is within the osteopenia range by WHO criteria. 10 year probability major osteoporotic fracture 17.2%. Hip 4%. IMPRESSION: Osteopenia by WHO criteria. [employer] Phone: Radiology Study observation (narrative) [employer] Phone: DEXA BONE DENSITY AXIAL SKEL ETONOrdered By: Ronaldo Mancera on 07-14-2021 [employer] Phone: Comprehensive Metabolic Pane casper 06-15-2021 Albumin [Mass/Vol] 4.4 g/dL Normal 3.6-5.1 [facility] [employer] Comment on above: Performed By: #### C MP, TSH reflex FT4, LIPD #### [facility] [address], [place] [id number] Albumin/Globulin [Mass ratio] 2.1 {ratio} Normal 1.0-2.5 [facility] [employer] Comment on above: Performed By: #### C MP, TSH reflex FT4, LIPD #### [facility] [address] [place] [id number] ALP [Catalytic activity/Vol] 79 U/L Normal 35-119 [facility] [employer] Comment on above: Performed By: #### C MP, TSH reflex FT4, LIPD #### [facility] [address], [place] [id number] ALT [Catalytic activity/Vol] 17 U/L Normal 6-33 [facility] [employer] Comment on above: Result Comment: 01/14 Female reference range changed. Performed By: #### C MP, TSH reflex FT4, LIPD #### [facility] [address], [place] [id number] Anion gap [Moles/Vol] 17 mmol/L Normal 12-20 [place] Comment on above: Result Comment: Effe ctive 02/19/2019 reference range changed. Performed By: #### C MP, TSH reflex FT4, LIPD #### [facility] [address], [place] [id number] AST [Catalytic activity/Vol] 20 U/L Normal 9-34 [facility] Comment on above: Performed By: #### C MP, TSH reflex FT4, LIPD #### [facility] [address], [place] [id number] Bilirubin [Mass/Vol] 0.31 mg/dL Normal 0.30-1.20 [facility] Comment on above: Performed By: #### C MP, TSH reflex FT4, LIPD #### [facility] [address], [place] [id number] BUN/CREA 18 Ratio Normal 6-22 [facility] Comment on above: Performed By: #### C MP, TSH reflex FT4, LIPD #### [facility] [address], [place] [id number] Calcium [Mass/Vol] 9.7 mg/dL Normal 8.6-10.[address] [facility] Comment on above: Performed By: #### C MP, TSH reflex FT4, LIPD #### [facility] [address], [place] [id number] Chloride [Moles/Vol] 105 mmol/L Normal 98-107 [facility] Comment on above: Performed By: #### C MP, TSH reflex FT4, LIPD #### [facility] [address], [place] [id number] CO2 [Moles/Vol] 25 mmol/L Normal 20-31 [facility] Comment on above: Performed By: #### C MP, TSH reflex FT4, LIPD #### [facility] [address], [place] [id number] Creatinine [Mass/Vol] 0.8 mg/dL Normal 0.6-1.4 [facility] [employer] Comment on above: Performed By: #### C MP, TSH reflex FT4, LIPD #### [facility] [address], [place] [id number] eGFRAA 89 mL/min/1.73m2 Normal >60 [facility] Comment on above: Performed By: #### C MP, TSH reflex FT4, LIPD #### [facility] [address], [place] [id number] eGFRNAA 73 mL/min/1.73m2 Normal >60 [facility] [employer] Comment on above: Performed By: #### C MP, TSH reflex FT4, LIPD #### [facility] [address], [place] [id number] Globulin (S) [Mass/Vol] 2.1 g/dL Normal 1.9-3.7 [facility] [employer] Comment on above: Performed By: #### C MP, TSH reflex FT4, LIPD #### [facility] [address], [place] [id number] Glucose [Mass/Vol] 86 mg/dL Normal 65-99 [facility] [employer] Comment on above: Result Comment: For FASTING Glucose --- ADA reference ranges: Normal 65-99 mg/dl Prediabetes 100-125 Diabetes >/= 126 Performed By: #### C MP, TSH reflex FT4, LIPD #### [facility] [address], [place] [id number] Potassium [Moles/Vol] 4.6 mmol/L Normal 3.5-5.5 [facility] [employer] Comment on above: Performed By: #### C MP, TSH reflex FT4, LIPD #### [facility] [address], [place] [id number] Protein [Mass/Vol] 6.5 g/dL Normal 6.1-8.1 [facility] [employer] Comment on above: Performed By: #### C MP, TSH reflex FT4, LIPD #### [facility] [address], [place] [id number] Sodium [Moles/Vol] 141 mmol/L Normal 135-[address] [facility] Comment on above: Performed By: #### C MP, TSH reflex FT4, LIPD #### [facility] [address], [place] [id number] Urea nitrogen [Mass/Vol] 14 mg/dL Normal 7-25 [facility] Specialist Comment on above: Performed By: #### C MP, TSH reflex FT4, LIPD #### [facility] [address], [place] [id number] Hemoglobin A1Con 06-15-2021 EAG 128.37 Normal [facility] Comment on above: Performed By: #### A 1C #### [facility] [address], [place] [id number] HbA1c (Bld) [Mass fraction] 6.1 % High 4.0-6.0 [facility] Specialist Comment on above: Performed By: #### A 1C #### [facility] [address], [place] [id number] Lipid Panelon 06-15-2021 Cholesterol [Mass/Vol] 221 mg/dL High 125-200 [facility] Special[facility] Comment on above: Result Comment: Low risk < 200mg/dL Borderline risk 201-239 mg/dl High risk > or equal to 240 Performed By: #### C MP, TSH reflex FT4, LIPD #### [facility] [address], [place] [id number] Cholesterol in HDL [Mass/Vol] 93 mg/dL Normal >40 [facility] Special[facility] Comment on above: Result Comment: High Cardiovascular Risk HDL <40 mg/dL Low Cardiovascular Risk HDL > or equal to 60 mg/dl Performed By: #### C MP, TSH reflex FT4, LIPD #### [facility] [address], [place] [id number] Cholesterol in LDL [Mass/Vol] 102 mg/dL Normal [facility] Specialist Comment on above: Result Comment: LDL ATP III CLASSIFICATION LDL less than 100 mg/dl Optimal LDL 100-129 mg/dl Near or above optimal LDL 130-159 Borderline high LDL 160-189 High LDL greater than 189 mg/dl Very High Performed By: #### C MP, TSH reflex FT4, LIPD #### [facility] [address], [place] [id number] Cholesterol in VLDL [Mass/Vol] 26 mg/dL Normal [facility] Specialist Comment on above: Performed By: #### C MP, TSH reflex FT4, LIPD #### [facility] [address], [place] [id number] Cholesterol.total/Cho lesterol in HDL [Mass ratio] 2 {ratio} Normal [facility] Specialist Comment on above: Performed By: #### C MP, TSH reflex FT4, LIPD #### [facility] [address], [place] [id number] Triglyceride [Mass/Vol] 128 mg/dL Normal 30-150 [facility] Specialist Comment on above: Result Comment: TRIG ATPIII CLASSIFICATIONS TRIG less than 150 mg/dl Normal TRIG 150-199 mg/dl Borderline High TRIG 200-500 mg/dl High TRIG greather than 500 mg/dl Very High Performed By: #### C MP, TSH reflex FT4, LIPD #### [facility] [address], [place] [id number] TSH w/ Reflex to Free T4on 0 06-15-2021 TSH 1.520 uIU/mL Normal 0.400-4.500 [facility] [employer] Comment on above: Performed By: #### C MP, TSH reflex FT4, LIPD #### [facility] [address], [place] [id number] [facility]RON[facility] WALTER DIGITAL SCREEN SELF REFERRAL W OR WO CAD BILATERALon 05-07-2021 No evidence of malignancy. Advise annual screening mammography. BI-RADS 2 BIRADS: BIRADS - CATEGORY 2 Benign Findings. Normal interval follow-up is recommended in 12 months. OVERALL ASSESSMENT - BENIGN A letter of notification will be sent to the patient regarding the results. The [employer] recommends annual mammograms for women 40 years and older. [facility] EXAMINATION: SCREENING DIGITAL BILATERAL MAMMOGRAM WITH TOMOSYNTHESIS, 05/07/2021 TECHNIQUE: Screening mammography of the bilateral breasts was performed with tomosynthesis. 2D standard and 3D tomosynthesis combination imaging performed through both breasts in the MLO and CC projection. Computer aided detection was utilized in the interpretation of this exam. COMPARISON: 17 March 2020; 31 October 2018 HISTORY: Screening. Positive family history of breast cancer; maternal grandmother around age 50 and sister at age 60. 6 year history of oral contraceptive usage. Short term hormonal replacement therapy less than 1 year. Prior right surgical biopsy in cyst aspiration. FINDINGS: The breasts are composed of scattered fibroglandular tissue. No skin thickening, nipple contour changes, malignant type microcalcifications areas of architectural distortion or significant interval changes are noted. Stable breast mass is present outer central right breast containing a biopsy clip. Few benign-appearing calcifications are noted. [facility] Radiology Study observation (narrative) [employer] Phone: [employer] DIGITAL SCREEN SELF REFERRAL W OR WO CAD BILATERALOrdered By: Caron Jono on 05-07-2021 [employer] Phone: ALT-SGPTon 04-26-2021 ALT [Catalytic activity/Vol] 16 U/L Normal 0-31 [facility] Comment on above: Result Comment: [facility] [address] AST-SGOTon 04-26-2021 AST-SGOT 20 U/L Normal 0-41 [facility] Comment on above: Result Comment: Perf ormed at [facility] [address] [facility] [address] C REACTIVE PROTEIN (INFLAMMA TORY)on 04-26-2021 C REACTIVE PROTEIN 0.2 mg/dL Normal 0.000-0.744 [facility] Comment on above: Result Comment: Perf ormed at [facility] 0 [facility] [address] [facility] [address] [place] [address] CLIA No. [id number] CAP Accreditation No. [id number] Refractory Mixer: Quique Garcia M.D. CBC W/AUTO DIFFon 04-26-2021 ABS NEUTROPHILS 3.3 X10E9/L Normal 1.5-6.6 [facility] Basophils (Bld) [#/Vol] 0.0 10*3/uL Normal 0.0-0.2 [facility] Comment on above: Result Comment: Perf ormed at [facility] [address] [facility] [address] Basophils/100 WBC (Bld) 0.8 % Normal [facility] Eosinophils (Bld) [#/Vol] 0.1 10*3/uL Normal 0.0-0.4 [facility] Eosinophils/100 WBC (Bld) 1.8 % Normal [facility] Erythrocyte distribution width (RBC) [Ratio] 15.9 % High 11.5-15.0 [facility] Hematocrit (Bld) [Volume fraction] 40.4 % Normal 35-47 [facility] Hemoglobin (Bld) [Mass/Vol] 13.2 g/dL Normal 11.7-15.5 [facility] Lymphocytes (Bld) [#/Vol] 0.9 10*3/uL Low 1.0-3.5 [facility] Lymphocytes/100 WBC (Bld) 18.3 % Normal [facility] MCH (RBC) [Entitic mass] 30.8 pg Normal 27-34 [facility] MCHC (RBC) [Mass/Vol] 32.6 g/dL Normal 32-36 [facility] [employer] MCV (RBC) [Entitic vol] 95 fL Normal 80-100 [facility] Monocytes (Bld) [#/Vol] 0.4 10*3/uL Normal 0-0.9 [facility] Monocytes/100 WBC (Bld) 8.6 % Normal [facility] Neutrophils/100 WBC (Bld) 70.5 % Normal [facility] Platelet mean volume (Bld) [Entitic vol] 8.6 fL Normal 7-12 [facility] Platelets (Bld) [#/Vol] 272 10*3/uL Normal 150-450 [facility] RBC 4.27 X10E12/L Normal 3.80-5.20 [facility] WBC (Bld) [#/Vol] 4.7 10*3/uL Normal 4.0-11.0 [facility] CREATININE WITH GFRon 2021 Creatinine [Mass/Vol] 0.85 mg/dL Normal 0.40-1.00 [facility] Comment on above: Result Comment: METH OD TRACEABLE TO IDMS STANDARD GFR/1.73 sq M.predicted among blacks MDRD (S/P/Bld) [Vol rate/Area] mL/min/{1.73_m2} Normal >59 [facility] Comment on above: Result Comment: Perf ormed at [facility] [address] [address] GFR/1.73 sq M.predicted among non-blacks MDRD (S/P/Bld) [Vol rate/Area] mL/min/{1.73_m2} Normal >59 [facility] SED RATEon 04-26-2021 SED RATE 11 mm/h Normal 0-30 [facility] Comment on above: Result Comment: Perf ormed at [facility] [address] [address] C-Reactive ProteinOrdered By : Hiren Gary on 09-01-2020 CRP [Mass/Vol] mg/L 0.0 - 5.0 mg/L [employer] Phone: DirectLaw Phone: Sedimentation RateOrdered By : Hiren Gary on 09-01-2020 Sed Rate 17 mm 0 - 20 mm [employer] Phone: Direct[employer] Phone: IR INJ ARTHROGRAM HIP RIGHTO rdered By: Hiren Gary on 07-08-2020 Successful fluoroscopic-guided right hip joint injection. [employer] Phone: EXAMINATION: FLUOROSCOPIC GUIDED INJECTION OF THE RIGHT HIP 07/08/2020 10:39 am HISTORY: ORDERING SYSTEM PROVIDED HISTORY: Arthritis of right hip Right hip osteoarthritis. Joint injection has been requested. FLUOROSCOPY DOSE AND TYPE OR TIME AND EXPOSURES: 0.3 minutes, 1.97 mGy, 1 fluoroscopic spot image. PROCEDURE: TURNAROUND ENGINEER: Ra Sam MD Informed consent was obtained and universal protocol was observed. Under standard sterile condition, local anesthesia with subcutaneous 2% lidocaine was administered. A skin entry site was selected with fluoroscopy. A 22 gauge spinal needle was inserted into the right hip joint under fluoroscopic guidance. Approximately 2 ml of iodinated contrast was injected into the joint to confirm location. Subsequently, 6 ml of a mixture of 80 mg of Depo-Medrol and 4 mL 0.5% Marcaine was injected into the joint. The needle was removed and a sterile bandage was placed. [employer] Phone: Drew, pn Incoming Radiant Results From [employer] - 07/08/2020 1:45 PM EDT EXAMINATION: FLUOROSCOPIC GUIDED INJECTION OF THE RIGHT HIP 07/08/2020 10:39 am HISTORY: ORDERING SYSTEM PROVIDED HISTORY: Arthritis of right hip Right hip osteoarthritis. Joint injection has been requested. FLUOROSCOPY DOSE AND TYPE OR TIME AND EXPOSURES: 0.3 minutes, 1.97 mGy, 1 fluoroscopic spot image. PROCEDURE: TURNAROUND ENGINEER: Ra Sam MD Informed consent was obtained and universal protocol was observed. Under standard sterile condition, local anesthesia with subcutaneous 2% lidocaine was administered. A skin entry site was selected with fluoroscopy. A 22 gauge spinal needle was inserted into the right hip joint under fluoroscopic guidance. Approximately 2 ml of iodinated contrast was injected into the joint to confirm location. Subsequently, 6 ml of a mixture of 80 mg of Depo-Medrol and 4 mL 0.5% Marcaine was injected into the joint. The needle was removed and a sterile bandage was placed. IMPRESSION: Successful fluoroscopic-guided right hip joint injection. [employer] Work Phone: [employer] Phone: CALPROTECTIN, FECALon 2020 CALPROTECTIN, FECAL 32 ug/g Normal <=49 [facility] Comment on above: Result Comment: REFE RENCE INTERVAL: Calprotectin, Fecal by Immunoassay Less than 50 ug/g.........Normal 50-120 ug/g...............Borderline elevated, test should be re-evaluated in 4-6 weeks. 121 ug/g or greater.......Elevated Performed by [employer], [address] [place] [id number] [email or web address], Horace Domingo MD, Lab. Director [employer] (FECE S)on 07-03-2020 H. PYLORI AG, FECES Negative Normal NEGATIVE [facility] Comment on above: Result Comment: Test performed at [facility] [address] [place] [id number] CLIA Number [id number] CAP Accreditation Number [id number] ------ LACTOFERRIN, FECALon 021 LACTOFERRIN, FECAL Negative Normal Negative [facility] Comment on above: Result Comment: Perf ormed at [facility] [address] [place] [id number] [facility] [address] [place] [address] CLIA No. [id number] CAP Accreditation No. [id number] Refractory Mixer: Quique Garcia M.D. No Panel Informationon 06-26 3 Invalid Interpretation Code [facility] DIGITAL SCREEN BILA TERALon 03-17-2020 No mammographic evidence of malignancy. BIRADS: BIRADS - CATEGORY 2 Benign, no evidence of malignancy. Normal follow-up is recommended in 12 months. OVERALL ASSESSMENT - BENIGN A letter of notification will be sent to the patient regarding the results. [employer] recommends annual mammograms for women 40 years and older. [place], [place] EXAMINATION: SCREENI NG DIGITAL BILATERAL MAMMOGRAM WITH TOMOSYNTHESIS 03/17/2020 TECHNIQUE: Screening mammography was performed with tomosynthesis including MLO and CC views of the bilateral breasts. Computer aided detection was used for the interpretation of this exam. COMPARISON: 10/31/2018, 06/29/2017 HISTORY: Screening. Remote right breast biopsy. Family history of breast cancer. FINDINGS: There are scattered areas of fibroglandular density. No new dominant mass, suspicious microcalcifications, or other abnormality seen. Stable right breast mass with associated biopsy clip. Lifetime risk for breast cancer of 15.0% per the Tyrer-Cuzick model. [place], [place] Drew, Mhpn Incoming Radiant Results From [facility] - 03/17/2020 1:58 PM EST EXAMINATION: SCREENING DIGITAL BILATERAL MAMMOGRAM WITH TOMOSYNTHESIS 03/17/2020 TECHNIQUE: Screening mammography was performed with tomosynthesis including MLO and CC views of the bilateral breasts. Computer aided detection was used for the interpretation of this exam. COMPARISON: 10/31/2018, 06/29/2017 HISTORY: Screening. Remote right breast biopsy. Family history of breast cancer. FINDINGS: There are scattered areas of fibroglandular density. No new dominant mass, suspicious microcalcifications, or other abnormality seen. Stable right breast mass with associated biopsy clip. Lifetime risk for breast cancer of 15.0% per the Tyrer-Cuzick model. IMPRESSION: No mammographic evidence of malignancy. BIRADS: BIRADS - CATEGORY 2 Benign, no evidence of malignancy. Normal follow-up is recommended in 12 months. OVERALL ASSESSMENT - BENIGN A letter of notification will be sent to the patient regarding the results. [employer] recommends annual mammograms for women 40 years and older. RF Code [employer] Otheron 01-30-2020 1. Normal appearance of the left ovary. Right ovary is surgically absent. 2. Endometrial stripe thickness within normal limits for a symptomatic postmenopausal female with bleeding measuring 3 mm. 3. Anteverted uterus. No uterine mass or fibroid. [facility] [place] EXAMINATION: PELVIC ULTRASOUND 01/30/2020 TECHNIQUE: Transabdominal and transvaginal pelvic ultrasound was performed with color doppler flow evaluation. COMPARISON: 07/03/2018 HISTORY: ORDERING SYSTEM PROVIDED HISTORY: DUB (dysfunctional uterine bleeding) TECHNOLOGIST PROVIDED HISTORY: 69-year-old female with dysfunctional uterine bleeding FINDINGS: Measurements: Uterus: 5.2 x 4.6 x 2.2 cm Endometrial stripe: 3 mm Right Ovary: Surgically absent. Left Ovary: 3.0 x 1.6 x 1.6 cm. Ultrasound Findings: Uterus: Uterus demonstrates normal myometrial echotexture. No uterine mass or fibroid. Anteverted uterus. Endometrial stripe: Endometrial stripe is within normal limits. Right Ovary: Surgically absent. Left Ovary: Left ovary is within normal limits. Free Fluid: No evidence of free fluid. [facility] [place] Drew, Mhpn Incoming Radiant Results From [facility] [employer] - 01/30/2020 2:19 PM EST EXAMINATION: PELVIC ULTRASOUND 01/30/2020 TECHNIQUE: Transabdominal and transvaginal pelvic ultrasound was performed with color doppler flow evaluation. COMPARISON: 07/03/2018 HISTORY: ORDERING SYSTEM PROVIDED HISTORY: DUB (dysfunctional uterine bleeding) TECHNOLOGIST PROVIDED HISTORY: 69-year-old female with dysfunctional uterine bleeding FINDINGS: Measurements: Uterus: 5.2 x 4.6 x 2.2 cm Endometrial stripe: 3 mm Right Ovary: Surgically absent. Left Ovary: 3.0 x 1.6 x 1.6 cm. Ultrasound Findings: Uterus: Uterus demonstrates normal myometrial echotexture. No uterine mass or fibroid. Anteverted uterus. Endometrial stripe: Endometrial stripe is within normal limits. Right Ovary: Surgically absent. Left Ovary: Left ovary is within normal limits. Free Fluid: No evidence of free fluid. IMPRESSION: 1. Normal appearance of the left ovary. Right ovary is surgically absent. 2. Endometrial stripe thickness within normal limits for a symptomatic postmenopausal female with bleeding measuring 3 mm. 3. Anteverted uterus. No uterine mass or fibroid. [employer] Otheron 09-19-2019 3 Invalid Interpretation Code [facility] DEXA BONE DENSITY AXIAL [facility] 07-11-2019 Osteoporosis by WHO criteria. Fracture risk is high. Pharmacological treatment if not already prescribed, should be started. [employer] EXAMINATION: BONE DENSITOMETRY 07/11/2019 2:26 pm TECHNIQUE: A bone density dual x-ray absorptiometry (DEXA) scan was performed of the lumbar spine and left hip on a [employer] system. COMPARISON: 06/10/2011 HISTORY: ORDERING SYSTEM PROVIDED HISTORY: Asymptomatic age-related postmenopausal state 68-year-old female with asymptomatic age-related postmenopausal state FINDINGS: LUMBAR SPINE: The bone mineral density in the lumbar spine including the L1-L4 levels is measured at 0.881 g/cm2, which corresponds to a T-score of -2.5 and a Z-score of -0.8. This is within the osteoporosis range by WHO criteria. This represents a 2% decrease in bone mineral density from 06/10/2011. LEFT HIP: The bone mineral density in the total hip is measured at 0.792 g/cm2 corresponding to a T-score of -1.7 and a Z-score of -0.4. This is within the osteopenia range by WHO criteria. This represents a 5.5% decrease in bone mineral density from 06/10/2011. The bone mineral density of the femoral neck is measured at 0.695 g/cm2 corresponding to a T-score of -2.5 and a Z-score of -0.9. This is within the osteoporosis range by WHO criteria. [employer] Drew, Mhpn Incoming Radiant Results From [facility] - 07/11/2019 3:09 PM EDT EXAMINATION: BONE DENSITOMETRY 07/11/2019 2:26 pm TECHNIQUE: A bone density dual x-ray absorptiometry (DEXA) scan was performed of the lumbar spine and left hip on a [employer] system. COMPARISON: 06/10/2011 HISTORY: ORDERING SYSTEM PROVIDED HISTORY: Asymptomatic age-related postmenopausal state 68-year-old female with asymptomatic age-related postmenopausal state FINDINGS: LUMBAR SPINE: The bone mineral density in the lumbar spine including the L1-L4 levels is measured at 0.881 g/cm2, which corresponds to a T-score of -2.5 and a Z-score of -0.8. This is within the osteoporosis range by WHO criteria. This represents a 2% decrease in bone mineral density from 06/10/2011. LEFT HIP: The bone mineral density in the total hip is measured at 0.792 g/cm2 corresponding to a T-score of -1.7 and a Z-score of -0.4. This is within the osteopenia range by WHO criteria. This represents a 5.5% decrease in bone mineral density from 06/10/2011. The bone mineral density of the femoral neck is measured at 0.695 g/cm2 corresponding to a T-score of -2.5 and a Z-score of -0.9. This is within the osteoporosis range by WHO criteria. IMPRESSION: Osteoporosis by WHO criteria. Fracture risk is high. Pharmacological treatment if not already prescribed, should be started. [employer] Otheron 02-05-2019 4 Invalid Interpretation Code InnoCentive [employer] DIGITAL SCREEN W OR WO C AD BILATERALon 11-01-2018 Benign findings. BI-RADS 2 BIRADS: BIRADS - CATEGORY 2 Benign, no evidence of malignancy. Normal interval follow-up is recommended in 12 months. OVERALL ASSESSMENT - BENIGN A letter of notification will be sent to the patient regarding the results. The [employer] recommends annual mammograms for women 40 years and older. [facility] [place] EXAMINATION: BILATER AL DIGITAL SCREENING MAMMOGRAM, 10/31/2018 TECHNIQUE: CC and MLO views of the left and right breasts were obtained. Computer aided detection was utilized in the interpretation of this exam. 3D tomosynthesis images were obtained. COMPARISON: June 29, 2017, October 08, 2015 HISTORY: Screening. FINDINGS: The breasts are heterogeneously dense. There is no suspicious mass, suspicious microcalcification, or area of architectural distortion. Biopsied ovoid mass in the central right breast again demonstrated. [place], [place] Drew, Mhpn Incoming Radiant Results From [employer] - 11/01/2018 8:14 AM EDT EXAMINATION: BILATERAL DIGITAL SCREENING MAMMOGRAM, 10/31/2018 TECHNIQUE: CC and MLO views of the left and right breasts were obtained. Computer aided detection was utilized in the interpretation of this exam. 3D tomosynthesis images were obtained. COMPARISON: June 29, 2017, October 08, 2015 HISTORY: Screening. FINDINGS: The breasts are heterogeneously dense. There is no suspicious mass, suspicious microcalcification, or area of architectural distortion. Biopsied ovoid mass in the central right breast again demonstrated. IMPRESSION: Benign findings. BI-RADS 2 BIRADS: BIRADS - CATEGORY 2 Benign, no evidence of malignancy. Normal interval follow-up is recommended in 12 months. OVERALL ASSESSMENT - BENIGN A letter of notification will be sent to the patient regarding the results. [employer] recommends annual mammograms for women 40 years and older. [facility] No Panel Informationon 06-26 Colonoscopy Invalid Interpretation Code [facility] Glarity [facility] Basic Metabolic Panelon BUN/Creatinine Ratio 21 mg/mg Normal [facility] Calcium 8.8 mg/dL Normal 8.5-10.6 [facility] Chloride 107 mmol/L Normal 98-107 [facility] CO2 27 mmol/L Normal 21-32 [facility] Creatinine 0.81 mg/dL Normal 0.55-1.02 [facility] Glucose mass conc 68 mg/dL Low 74-106 [facility] Potassium molar conc 4.4 mmol/L Normal 3.5-5.1 [facility] Sodium 143 mmol/L Normal 136-145 [facility] Urea nitrogen 17 mg/dL Normal 7-18 [facility] CBC with Differentialon 07-0 -2017 Basophils Auto #/vol (Bld) 0.0 thou/mcL Normal 0.0-0.2 [facility] Basophils/100 WBC Auto (Bld) 0.8 % Normal 0-3 [facility] Diff Method AUTOMATED DIFFERENTIAL Normal [facility] Eosinophils 0.1 thou/mcL Normal 0.0-0.4 [facility] Eosinophils/100 leukocytes 1.3 % Normal 0-7 [facility] Erythrocyte distribution width Auto Ratio (RBC) 13.6 % Normal 11.7-15.0 [facility] Erythrocytes (RBC) 4.86 x(10)6/mcL Normal 3.80-5.60 [facility] Hematocrit (HCT) 42.6 % Normal 34.0-50.0 [facility] Hemoglobin mass conc (Bld) 14.4 g/dL Normal 11.5-17.0 [facility] Lymphocytes 1.6 thou/mcL Normal 0.7-4.5 [facility] Lymphocytes/100 leukocytes 27.7 % Normal 14-46 [facility] MCH 29.6 Picograms Normal 27.0-34.0 [facility] MCHC mass conc (RBC) 33.7 g/dL Normal 32.0-36.0 [facility] M[facility] 87.6 fL Normal 80-98 [facility] Monocytes 0.5 thou/mcL Normal 0.1-1.0 [facility] Monocytes/100 leukocytes 8.5 % Normal 4-13 [facility] Neutrophils 3.4 thou/mcL Normal 1.5-7.8 [facility] Neutrophils/100 WBC Auto (Bld) 61.7 % Normal 40-74 [facility] Platelet mean volume (PMV) 8.5 fL Normal 7.5-11.2 [facility] Platelets 282 thou/mcL Normal 140-415 [facility] WBC (Leukocytes) 5.6 thou/mcL Normal 4.0-10.5 [facility] Partial Thromboplastin Time (aPTT)on 08-18-2017 aPTT 27 Sec Normal 24.4-37.5 [facility] Prothrombin Timeon 8 INR Coag RelTime (Bld) 1.0 {INR} Normal 0.8-1.2 [facility] Comment on above: Result Comment: SATYA DREW THE INDUCTION PHASE OF ORAL ANTICOAGULATION, THE INR MAY NOT REFLECT THE ANTICOAGULANT STATUS OF THE PATIENT. THERAPEUTIC RANGES FOR INR'S ARE: MOST CLINICAL SITUATIONS: INR 2.0-3.0 MECHANICAL PROSTHETIC VALVES: INR 2.5-3.5 CRITICAL: INR 5.0 Prothrombin time (PT) Coag time (PPP) 10.1 Sec Normal 9.4-12.5 [facility] Cardiacon 11-29-2016 CRP mass conc 6.0 mg/L Invalid Interpretation Code 0.0-4.9 [facility] Hematologyon 11-29-2016 Basophils #/vol (Bld) 0.0 10*3/uL Invalid Interpretation Code 0.0-0.1 [employer] Basophils/100 WBC (Bld) 0.60 % Invalid Interpretation Code 0.0-1.0 [facility] Eosinophils #/vol (Bld) 0.10 10*3/uL Invalid Interpretation Code 0.0-0.5 [facility] Eosinophils/100 WBC (Bld) 2.20 % Invalid Interpretation Code 0.0-7.0 [facility] Hematocrit Volume Fraction (Bld) 40.50 % Invalid Interpretation Code 35.7-47.1 [facility] Hemoglobin mass conc (Bld) 13.90 g/dL Invalid Interpretation Code 11.9-15.7 [facility] Lymphocytes #/vol (Bld) 1.10 10*3/uL Invalid Interpretation Code 0.9-3.1 [facility] Lymphocytes/100 WBC (Bld) 18.30 % Invalid Interpretation Code 15.0-46.0 [facility] MCH Entitic mass (RBC) 30.30 pg Invalid Interpretation Code 23.2-33.3 [facility] MCV Entitic volume (RBC) 88.0 fL Invalid Interpretation Code 82.0-98.4 [facility] Monocytes #/vol (Bld) 0.50 10*3/uL Invalid Interpretation Code 0.3-1.0 [facility] Monocytes/100 WBC (Bld) 8.70 % Invalid Interpretation Code 4.0-12.0 [employer] Neutrophils #/vol (Bld) 4.30 10*3/uL Invalid Interpretation Code 1.8-7.9 [facility] Neutrophils/100 WBC (Bld) 70.20 % Invalid Interpretation Code 43.0-76.0 [facility] Platelets #/vol (Bld) 256.0 10*3/uL Invalid Interpretation Code 150-400 [facility] RBC #/vol (Bld) 4.60 10*6/uL Invalid Interpretation Code 3.72-5.24 [facility] WBC #/vol (Bld) 6.0 10*3/uL Invalid Interpretation Code 3.9-10.3 [facility] Metabolic Panelon 11-29-2016 Albumin mass conc 4.0 g/dL Invalid Interpretation Code 3.7-4.5 [facility] ALP enzyme act/vol 101.0 U/L Invalid Interpretation Code 31-155 [facility] ALT enzyme act/vol 18.0 U/L Invalid Interpretation Code 0-50 [facility] Anion gap molar conc 14 mmol/L Invalid Interpretation Code 10-20 [employer] [employer] AST enzyme act/vol 20.0 U/L Invalid Interpretation Code 0-40 [employer] Bilirubin mass conc 0.10 mg/dL Invalid Interpretation Code 0.0-1.0 [employer] Calcium mass conc 9.40 mg/dL Invalid Interpretation Code 8.5-10.8 [employer] [employer] Chloride molar conc 103 mmol/L Invalid Interpretation Code 100-112 [employer] [employer] CO2 molar conc 29 mmol/L Invalid Interpretation Code 23-30 [employer] Creatinine mass conc 0.90 mg/dL Invalid Interpretation Code 0.5-1.5 [employer] GFR/1.73 sq M predicted among non-blacks MDRD vol rate/area (S/P/Bld) 63 mL/min/{1.73_m2} Invalid Interpretation Code [employer] Glucose mass conc 99.0 mg/dL Invalid Interpretation Code 80-117 [employer] Potassium molar conc 4.1 mmol/L Invalid Interpretation Code 3.5-5.3 [employer] Protein mass conc 7.10 g/dL Invalid Interpretation Code 6.3-7.9 [employer] Sodium molar conc 142 mmol/L Invalid Interpretation Code 135-148 [employer] Urea nitrogen mass conc 14.0 mg/dL Invalid Interpretation Code 7-25 [employer] Urea nitrogen/Creatinine mass ratio 16 mg/mg Invalid Interpretation Code 6-20 [employer] Otheron 10-16-2017 Albumin/Globulin mass ratio 1.3 {ratio} Invalid Interpretation Code 1.0-2.4 [facility] Erythrocyte distribution width Ratio (RBC) 12.90 % Invalid Interpretation Code 11.5-15.5 [facility] MCHC mass conc (RBC) 34.40 g/dL Invalid Interpretation Code 32.0-36.0 [facility] Platelet mean volume Entitic volume (Bld) 8.40 fL Invalid Interpretation Code 7.4-10.4 [facility] Vital Signs Date Time Vital Sign Value Performing Clinician Facility 01-19-2024 21:30-0500 Diastolic blood pressure 94 mm[Hg] Lillian Akosuae [employer] - MANAGER [employer] Work Phone: [facility] [employer] [place] 01-19-2024 21:30-0500 Heart rate 85 /min Lillian Rine [employer] - MANAGER [employer] [facility] [place] 01-19-2024 21:30-0500 Respiratory rate 18 /min Lillian Rine [employer] - MANAGER [employer]IAL SERVICES Work Phone: [facility] [place] 01-19-2024 21:30-0500 Systolic blood pressure 171 mm[Hg] Lillian Rine [employer] - MANAGER SOCIAL SERVICES [facility] [place] 01-19-2024 21:00-0500 SaO2% (BldA) [Mass fraction] 93 % Lillian Rine [employer] - MANAGER [employer]IAL SERVICES Work Phone[facility] [place] 01-19-2024 20:19-0500 Body temperature 98.6 [degF] Lillian Akosuae [employer] - MANAGER [employer] Work Phone: [facility] 12-30-2023 09:40-0500 Body height 165.1 cm Lillian Rine MANAGER SOCIAL SERVICES Work Phone: [facility] 12-30-2023 09:40-0500 Body mass index (BMI) [Ratio] 25.39 kg/m2 Lillian Rine MANAGER SOCIAL SERVICES Work Phone: [facility] 12-30-2023 09:40-0500 Body temperature 96.91 [degF] Lillian Rine MANAGER SOCIAL SERVICES Work Phone: [facility] 12-30-2023 09:40-0500 Body weight 69.22 kg Lillian Rine MANAGER SOCIAL SERVICES Work Phone: [facility] 12-30-2023 09:40-0500 Diastolic blood pressure 76 mm[Hg] Lillian Rine MANAGER SOCIAL SERVICES Work Phone: [facility] 12-30-2023 09:40-0500 Heart rate 86 /min Lillian Rine MANAGER SOCIAL SERVICES Work Phone: [facility] 12-30-2023 09:40-0500 Respiratory rate 18 /min Lillian Rine MANAGER SOCIAL SERVICES Work Phone: [facility] 12-30-2023 09:40-0500 SaO2% (BldA) [Mass fraction] 95 % Lillian Rine MANAGER SOCIAL SERVICES Work Phone: [facility] 12-30-2023 09:40-0500 Systolic blood pressure 138 mm[Hg] Lillian Rine MANAGER SOCIAL SERVICES Work Phone: [facility] 11-29-2023 09:37-0400 Body height 165.1 cm Lillian Rine MANAGER SOCIAL SERVICES Work Phone: [facility] 11-29-2023 09:37-0400 Body mass index (BMI) [Ratio] 25.46 kg/m2 Lillian Rine MANAGER SOCIAL SERVICES Work Phone: [facility] 11-29-2023 09:37-0400 Body temperature 98.4 [degF] Lillian Rine MANAGER SOCIAL SERVICES Work Phone: [facility] 11-29-2023 09:37-0400 Body weight 69.4 kg Lillian Rine MANAGER SOCIAL SERVICES Work Phone: [facility] 11-29-2023 09:37-0400 Diastolic blood pressure 88 mm[Hg] Lillian Rine MANAGER SOCIAL SERVICES Work Phone: [facility] 11-29-2023 09:37-0400 Heart rate 86 /min Lillian Southe MANAGER SOCIAL SERVICES Work Phone: [facility] 11-29-2023 09:37-0400 Respiratory rate 18 /min Lillian Akousae MANAGER SOCIAL SERVICES Work Phone: [facility] 11-29-2023 09:37-0400 SaO2% (BldA) [Mass fraction] 98 % Lillian Akosuae MANAGER SOCIAL SERVICES Work Phone: [facility] 11-29-2023 09:37-0400 Systolic blood pressure 148 mm[Hg] Lillian Akosuae MANAGER SOCIAL SERVICES Work Phone: [facility] 09-27-2023 12:37-0400 Body height 165.1 cm [facility] 09-27-2023 12:37-0400 Body mass index (BMI) [Ratio] 25.29 kg/m2 [facility] 09-27-2023 12:37-0400 Body weight 68.95 kg [facility] 04-05-2023 13:05-0500 Body height 162.56 cm [employer] 04-05-2023 13:05-0500 Body mass index (BMI) [Ratio] 26.43 kg/m2 [employer] 04-05-2023 13:05-0500 Body surface area Derived from formula 1.78 m2 [facility] [employer] 04-05-2023 13:05-0500 Body temperature 97.2 [degF] Joseph Waters [facility] [employer] 04-05-2023 13:05-0500 Body weight 69.85 kg Joseph [employer] 04-05-2023 13:05-0500 Diastolic blood pressure 70 mm[Hg] Joseph [employer] 04-05-2023 13:05-0500 Heart rate 84 /min Joseph Story [employer] [facility] 04-05-2023 13:05-0500 Respiratory rate 18 /min Joseph Story [facility] [employer] [facility] 04-05-2023 13:05-0500 Systolic blood pressure 134 mm[Hg] Joseph Rochahard [employer] [facility] 06-18-2022 09:16-0400 Respiratory rate 18 /min Hiren Gary MD Work Phone: [facility] 06-18-2022 07:06-0400 Body temperature 97.59 [degF] Hiren Gary MD Work Phone: [facility] 06-18-2022 07:06-0400 Diastolic blood pressure 70 mm[Hg] Hiren Gary MD Work Phone: [facility] 06-18-2022 07:06-0400 Heart rate 68 /min Hiren Gary MD Work Phone: [facility] 06-18-2022 07:06-0400 SaO2% (BldA) [Mass fraction] 96 % Hiren Gary MD Work Phone: [facility] 06-18-2022 07:06-0400 Systolic blood pressure 153 mm[Hg] Hiren Gary MD Work Phone: [facility] 06-17-2022 09:20-0400 Body height 165.1 cm Hiren Gary MD Work Phone: [facility] 06-17-2022 09:20-0400 Body mass index (BMI) [Ratio] 25.33 kg/m2 Hiren Gary MD Work Phone: [facility] 06-17-2022 09:20-0400 Body weight 69.04 kg Hiren Gary MD Work Phone: [facility] 03-29-2022 12:50-0500 Body height 163.83 cm Joseph Waters Story [employer] [facility] 03-29-2022 12:50-0500 Body mass index (BMI) [Ratio] 26.03 kg/m2 Joseph [employer] 03-29-2022 12:50-0500 Body surface area Derived from formula 1.78 m2 [employer] 03-29-2022 12:50-0500 Body temperature 98 [degF] Joseph [employer] 03-29-2022 12:50-0500 Body weight 69.85 kg [employer] 03-29-2022 12:50-0500 Body weight 0.1 {percentile} [employer] 03-29-2022 12:50-0500 Diastolic blood pressure 70 mm[Hg] [employer] 03-29-2022 12:50-0500 Heart rate 68 /min [employer] 03-29-2022 12:50-0500 Respiratory rate 16 /min [employer] 03-29-2022 12:50-0500 Systolic blood pressure 120 mm[Hg] [employer] 01-06-2022 12:52-0500 Body temperature 98.1 [degF] [employer] 01-06-2022 12:52-0500 Body weight 69.4 kg [employer] 01-06-2022 12:52-0500 Diastolic blood pressure 70 mm[Hg] [employer] 01-06-2022 12:52-0500 Heart rate 68 /min [employer] 01-06-2022 12:52-0500 Respiratory rate 16 /min Joseph [employer] 01-06-2022 12:52-0500 Systolic blood pressure 122 mm[Hg] Joseph [employer] 07-15-2021 12:35-0400 Body height 163.83 cm Joseph [employer] [facility] 07-15-2021 12:35-0400 Body mass index (BMI) [Ratio] 24.76 kg/m2 Joseph [employer] 07-15-2021 12:35-0400 Body surface area Derived from formula 1.74 m2 [employer] [facility] 07-15-2021 12:35-0400 Body temperature 97 [degF] Joseph [employer] [facility] 07-15-2021 12:35-0400 Body weight 66.45 kg Joseph [employer] [facility] 07-15-2021 12:35-0400 Diastolic blood pressure 60 mm[Hg] Joseph [employer] 07-15-2021 12:35-0400 Heart rate 92 /min Joseph [employer] [facility] 07-15-2021 12:35-0400 Respiratory rate 16 /min Joseph [employer] [facility] 07-15-2021 12:35-0400 Systolic blood pressure 118 mm[Hg] Ojseph [employer] 01-14-2021 12:55-0500 Body height 163.83 cm [employer] 01-14-2021 12:55-0500 Body mass index (BMI) [Ratio] 25.35 kg/m2 Joseph [employer] 01-14-2021 12:55-0500 Body surface area Derived from formula 1.76 m2 [employer] [facility] 01-14-2021 12:55-0500 Body temperature 97.9 [degF] Joseph [employer] [facility] 01-14-2021 12:55-0500 Body weight 68.04 kg Joseph [employer] 01-14-2021 12:55-0500 Diastolic blood pressure 70 mm[Hg] [employer] 01-14-2021 12:55-0500 Heart rate 84 /min [employer] 01-14-2021 12:55-0500 Respiratory rate 18 /min [employer] [facility] 01-14-2021 12:55-0500 Systolic blood pressure 152 mm[Hg] [employer] 12-29-2020 12:08-0500 Body height 163.83 cm [employer] [facility] 12-29-2020 12:08-0500 Body mass index (BMI) [Ratio] 25.35 kg/m2 Joseph [employer] [facility] 12-29-2020 12:08-0500 Body surface area Derived from formula 1.76 m2 [employer] [facility] 12-29-2020 12:08-0500 Body temperature 97.5 [degF] [employer] 12-29-2020 12:08-0500 Body weight 68.04 kg [employer] 12-29-2020 12:08-0500 Diastolic blood pressure 74 mm[Hg] Joseph [employer] 12-29-2020 12:08-0500 Heart rate 76 /min Joseph Waters [employer] 12-29-2020 12:08-0500 Respiratory rate 16 /min Joseph [employer] 12-29-2020 12:08-0500 Systolic blood pressure 138 mm[Hg] Joseph [employer] 07-08-2020 10:39-0400 Diastolic blood pressure 73 mm[Hg] [facility] Work Phone: 07-08-2020 10:39-0400 Heart rate 80 /min [facility] Work Phone: 07-08-2020 10:39-0400 Respiratory rate 12 /min [facility] Work Phone: 07-08-2020 10:39-0400 SaO2% (BldA) [Mass fraction] 96 % [facility] Work Phone: 07-08-2020 10:39-0400 Systolic blood pressure 169 mm[Hg] [facility] Work Phone: 06-26-2020 12:39-0400 Body height 163.83 cm Joseph [employer] 06-26-2020 12:39-0400 Body mass index (BMI) [Ratio] 24.17 kg/m2 Joseph [employer] 06-26-2020 12:39-0400 Body surface area Derived from formula 1.72 m2 Joseph [employer] 06-26-2020 12:39-0400 Body temperature 98 [degF] Joseph [employer] 06-26-2020 12:39-0400 Body weight 64.86 kg Joseph [employer]ume [employer] 06-26-2020 12:39-0400 Diastolic blood pressure 66 mm[Hg] Joseph Story [employer] 06-26-2020 12:39-0400 Heart rate 78 /min Joseph Story [employer] 06-26-2020 12:39-0400 Respiratory rate 16 /min Joseph Waters Story [employer] 06-26-2020 12:39-0400 Systolic blood pressure 118 mm[Hg] Joseph [employer]Blume [employer] 12-27-2019 12:30-0500 BMI (Body Mass Index) 24.21 kg/m2 Joseph Waters [employer] 12-27-2019 12:30-0500 Body Temperature 97.9 [degF] Joseph Waters Story [employer] 12-27-2019 12:30-0500 Body weight 66 kg Joseph [employer]Bl[employer] 12-27-2019 12:30-0500 BP Diastolic 64 mm[Hg] Joseph Waters [employer] 12-27-2019 12:30-0500 BP Systolic 126 mm[Hg] Joseph VALOREMncBl[employer] 12-27-2019 12:30-0500 BSA (Body Surface Area) 1.74 m2 Joseph [employer] 12-27-2019 12:30-0500 Height 165.1 cm Joseph Waters [employer] 12-27-2019 12:30-0500 Pulse (Heart Rate) 92 /min Joseph Waters Story [employer] 12-27-2019 12:30-0500 Respiratory Rate 20 /min Joseph RochaBenhauerle [employer] 09-19-2019 12:11-0400 Body Temperature 97.5 [degF] Joseph Lynch [employer] 09-19-2019 12:11-0400 Body weight 63.65 kg Joseph [employer] 09-19-2019 12:11-0400 BP Diastolic 78 mm[Hg] Joseph [employer] 09-19-2019 12:11-0400 BP Systolic 130 mm[Hg] Joseph [employer]Bl[employer] 09-19-2019 12:11-0400 Pulse (Heart Rate) 72 /min Joseph Bar [employer] 09-03-2019 13:35-0400 Body Temperature 97.8 [degF] Joseph Story [employer] 09-03-2019 13:35-0400 Body weight 63.65 kg Joseph RochaBlume [employer] 09-03-2019 13:35-0400 BP Diastolic 70 mm[Hg] Joseph [employer]Bl[employer] 09-03-2019 13:35-0400 BP Systolic 120 mm[Hg] Joseph Waters [employer] 09-03-2019 13:35-0400 Pulse (Heart Rate) 80 /min Joseph Waters [employer] 09-03-2019 13:35-0400 Respiratory Rate 14 /min Joseph RochaCrossfader 07-25-2019 16:40-0400 BMI (Body Mass Index) 23.63 kg/m2 Rock Ulrich [employer] 07-25-2019 16:40-0400 Body Temperature 97.8 [degF] Rock [employer] 07-25-2019 16:40-0400 Body weight 64.41 kg Rock Story [employer] 07-25-2019 16:40-0400 BP Diastolic 64 mm[Hg] Rock Story [employer] 07-25-2019 16:40-0400 BP Systolic 122 mm[Hg] Rock R[employer]Blume [employer] 07-25-2019 16:40-0400 BSA (Body Surface Area) 1.72 m2 Rock [employer] 07-25-2019 16:40-0400 Height 165.1 cm Rock Ulrich [employer] 07-25-2019 16:40-0400 Pulse (Heart Rate) 72 /min Rock [employer]jaAr[employer] 05-07-2019 13:09-0400 BMI (Body Mass Index) 23.46 kg/m2 Joseph [employer] 05-07-2019 13:09-0400 Body Temperature 98.1 [degF] Joseph RochaBenhauerle [employer] 05-07-2019 13:09-0400 Body weight 63.96 kg Joseph [employer] 05-07-2019 13:09-0400 BP Diastolic 80 mm[Hg] Joseph [employer] 05-07-2019 13:09-0400 BP Systolic 138 mm[Hg] Joseph [employer] 05-07-2019 13:09-0400 BSA (Body Surface Area) 1.71 m2 Joseph [employer] 05-07-2019 13:09-0400 Height 165.1 cm Joseph Story [employer] 05-07-2019 13:09-0400 Pulse (Heart Rate) 76 /min Joseph Petersonncdouglas richardson [employer] 05-07-2019 13:09-0400 Respiratory Rate 14 /min Joseph Petersonncdouglas [employer] 02-19-2019 13:22-0500 Body height 162.6 cm [facility] Work Phone: 02-19-2019 13:22-0500 Body mass index (BMI) [Ratio] 24.03 kg/m2 [facility] Work Phone: 02-19-2019 13:22-0500 Body weight 63.5 kg [facility] Work Phone: 02-19-2019 13:22-0500 Diastolic blood pressure 66 mm[Hg] [facility] Work Phone: 02-19-2019 13:22-0500 Heart rate 82 /min [facility] Work Phone: 02-19-2019 13:22-0500 Respiratory rate 18 /min [facility] Work Phone: 02-19-2019 13:22-0500 SaO2% (BldA) [Mass fraction] 94 % [facility] Work Phone: 02-19-2019 13:22-0500 Systolic blood pressure 132 mm[Hg] [facility] Work Phone: 02-05-2019 16:39-0500 BMI (Body Mass Index) 23.66 kg/m2 Joseph Story [employer] 02-05-2019 16:39-0500 Body Temperature 97.7 [degF] Joseph Petersonnchard Cris [employer] 02-05-2019 16:39-0500 Body weight 63.5 kg Joseph Waters [employer] 02-05-2019 16:39-0500 BP Diastolic 62 mm[Hg] Joseph R[employer]Bl[employer] 02-05-2019 16:39-0500 BP Systolic 130 mm[Hg] Joseph Waters [employer] 02-05-2019 16:39-0500 BSA (Body Surface Area) 1.7 m2 Joseph Waters [employer] 02-05-2019 16:39-0500 Height 163.83 cm Joseph [employer] 02-05-2019 16:39-0500 Pulse (Heart Rate) 90 /min Joseph [facility] Dipika [employer] 02-05-2019 16:39-0500 Respiratory Rate 18 /min Joseph [employer] 01-23-2019 18:07-0500 BMI (Body Mass Index) 23.83 kg/m2 Rock TruongNanosolarStoryBlume Distillation 01-23-2019 18:07-0500 Body Temperature 97.8 [degF] Rock [employer] 01-23-2019 18:07-0500 Body weight 63.96 kg Rock TruongNanosolarStoryBlume Distillation 01-23-2019 18:07-0500 BP Diastolic 74 mm[Hg] [employer] 01-23-2019 18:07-0500 BP Systolic 130 mm[Hg] Rock [employer] 01-23-2019 18:07-0500 BSA (Body Surface Area) 1.71 m2 [employer] 01-23-2019 18:07-0500 Height 163.83 cm Rock Story [employer] 01-23-2019 18:07-0500 Pulse (Heart Rate) 76 /min Rock cejaArbor[employer] 10-30-2018 17:06-0400 Pulse Oximetry 98 % Joseph R[employer]Blume [employer] 10-30-2018 17:06-0400 SaO2% (BldA) [Mass fraction] 98 % Joseph Waters [employer] 10-30-2018 16:37-0400 Body Temperature 97.4 [degF] Joseph PetersonZaya 10-30-2018 16:37-0400 Body weight 63.5 kg Joseph PetersonMevion Medical Systems[employer] Inc[employer] 10-30-2018 16:37-0400 BP Diastolic 70 mm[Hg] Joseph PetersonCycell [employer] 10-30-2018 16:37-0400 BP Systolic 138 mm[Hg] Joseph PetersonCycell Inc 10-30-2018 16:37-0400 Pulse (Heart Rate) 82 /min Joseph Rochahard Dipika [employer]Arboribus 10-30-2018 16:37-0400 Respiratory Rate 18 /min Joseph Waters Note 10-24-2018 17:03-0400 BMI (Body Mass Index) 23.49 kg/m2 Rock Ulrich [employer] 10-24-2018 17:03-0400 Body Temperature 98.5 [degF] Rock RochaCrossfader 10-24-2018 17:03-0400 Body weight 63.05 kg Rock Ulrich [employer] 10-24-2018 17:03-0400 BP Diastolic 76 mm[Hg] Rock Ulrich Story [employer] 10-24-2018 17:03-0400 BP Systolic 134 mm[Hg] Rock Ulrich [employer] 10-24-2018 17:03-0400 BSA (Body Surface Area) 1.69 m2 Rock BernalCaring in PlacencBlume [employer] 10-24-2018 17:03-0400 Height 163.83 cm Rock SalonBookrncBlume Distillation 10-24-2018 17:03-0400 Pulse (Heart Rate) 76 /min Rock richardson [employer] 10-10-2018 12:34-0400 Pulse Oximetry 98 % Joseph [employer] 10-10-2018 12:34-0400 SaO2% (BldA) [Mass fraction] 98 % Joseph [employer] 10-10-2018 11:59-0400 BMI (Body Mass Index) 23.32 kg/m2 Joseph [employer] 10-10-2018 11:59-0400 Body Temperature 98 [degF] Joseph VALOREMnchard Cris dorman [employer] 10-10-2018 11:59-0400 Body weight 62.6 kg Joseph [employer] 10-10-2018 11:59-0400 BP Diastolic 62 mm[Hg] [employer] 10-10-2018 11:59-0400 BP Systolic 140 mm[Hg] Joseph [employer] 10-10-2018 11:59-0400 BSA (Body Surface Area) 1.69 m2 Joseph Waters [employer] 10-10-2018 11:59-0400 Height 163.83 cm Joseph RochaBlume [employer]illation 10-10-2018 11:59-0400 Pulse (Heart Rate) 84 /min Joseph Bar [employer] 10-10-2018 11:59-0400 Respiratory Rate 18 /min Joseph Waters [employer] 07-19-2018 16:44-0400 BMI (Body Mass Index) 23.15 kg/m2 Joseph Waters [employer] 07-19-2018 16:44-0400 Body Temperature 99.7 [degF] Rock [facility] Health 07-19-2018 16:44-0400 Body weight 62.14 kg Rock BernalNanothera Corp 07-19-2018 16:44-0400 BP Diastolic 64 mm[Hg] Rock [employer] 07-19-2018 16:44-0400 BP Systolic 124 mm[Hg] Rock [employer] 07-19-2018 16:44-0400 BSA (Body Surface Area) 1.68 m2 Joseph Waters [employer] 07-19-2018 16:44-0400 Height 163.83 cm Rock [employer] 07-19-2018 16:44-0400 Pulse (Heart Rate) 112 /min Rock SalonBookrncP[employer] 05-23-2018 16:23-0400 BMI (Body Mass Index) 23.32 kg/m2 Rock [employer] 05-23-2018 16:23-0400 Body Temperature 98.1 [degF] Rock Story [employer] 05-23-2018 16:23-0400 Body weight 62.6 kg Rock Story [employer] 05-23-2018 16:23-0400 BP Diastolic 70 mm[Hg] Rock TruongNanosolarStoryBlume Distillation 05-23-2018 16:23-0400 BP Systolic 132 mm[Hg] Rock SalonBookrncBlume [employer]illation 05-23-2018 16:23-0400 BSA (Body Surface Area) 1.69 m2 Rock RochaBl[employer] 05-23-2018 16:23-0400 Height 163.83 cm Rock TruongNanosolarStoryBlume [employer]illation 05-23-2018 16:23-0400 Pulse (Heart Rate) 100 /min Rock cejaAr[employer]ibus 05-23-2018 16:23-0400 Weight 62.6 kg Rock RochaBl[employer] 03-14-2018 18:10-0500 BMI (Body Mass Index) 23.66 kg/m2 Rock TruongNanosolarStoryBlume [employer]illation 03-14-2018 18:10-0500 Body Temperature 98.1 [degF] Rock RochaCrossfader 03-14-2018 18:10-0500 Body weight 63.5 kg Rock BernalCaring in [employer]acencBlume [employer] 03-14-2018 18:10-0500 BP Diastolic 74 mm[Hg] Rock SalonBookrncBlume [employer]illation 03-14-2018 18:10-0500 BP Systolic 136 mm[Hg] Rock [employer] 03-14-2018 18:10-0500 BSA (Body Surface Area) 1.7 m2 Rock BernalCaring in [employer]Bl[employer] 03-14-2018 18:10-0500 Height 163.83 cm Rock BernalCaring in PlacencBlume [employer] 03-14-2018 18:10-0500 Pulse (Heart Rate) 80 /min Rock Story [employer] 03-14-2018 18:10-0500 Weight 63.5 kg Rock SalonBookrncBlume [employer]illation 11-29-2016 17:39-0400 BMI (Body Mass Index) 23.18 kg/m2 [employer] 11-29-2016 17:39-0400 Body Temperature 98.9 [degF] Rock Alchipazaelappening StoryCrossfader 11-29-2016 17:39-0400 Body weight 62.6 kg Rock TruongNanosolarStoryBlume [employer]illation 11-29-2016 17:39-0400 BP Diastolic 64 mm[Hg] [employer] 11-29-2016 17:39-0400 BP Systolic 140 mm[Hg] [employer] 11-29-2016 17:39-0400 BSA (Body Surface Area) 1.69 m2 [employer] 11-29-2016 17:39-0400 Height 164.34 cm [employer] 11-29-2016 17:39-0400 Pulse (Heart Rate) 100 /min Rock [employer] 11-29-2016 17:39-0400 Weight 62.6 kg Rock Ulrich [employer] 03-09-2016 16:44-0500 BMI (Body Mass Index) 22.59 kg/m2 Rock Ulrich [employer] 03-09-2016 16:44-0500 Body Temperature 98.1 [degF] Rock Truongappening StoryCrossfader 03-09-2016 16:44-0500 Body weight 61.01 kg Rock BernalCaring in PlacencBlume [employer] 03-09-2016 16:44-0500 BP Diastolic 86 mm[Hg] Rock [employer] 03-09-2016 16:44-0500 BP Systolic 162 mm[Hg] Rock BernalNanothera Corp 03-09-2016 16:44-0500 BSA (Body Surface Area) 1.67 m2 Rock SalonBookrncBlume [employer]illation 03-09-2016 16:44-0500 Height 164.34 cm Rock BernalCaring in [facility]acencBlume [employer] 03-09-2016 16:44-0500 Pulse (Heart Rate) 84 /min Rock cejaAr[employer]ibus 03-09-2016 16:44-0500 Weight 61.01 kg Rock BernalNanothera Corp 01-29-2014 16:52-0500 BMI (Body Mass Index) 20.32 kg/m2 Rock [employer] 01-29-2014 16:52-0500 Body Temperature 99.6 [degF] [facility] 01-29-2014 16:52-0500 Body weight 56.25 kg Rock RochaAndela Inc 01-29-2014 16:52-0500 BP Diastolic 70 mm[Hg] Rock BernalCaring in [employer]ela [employer] 01-29-2014 16:52-0500 BP Systolic 112 mm[Hg] Rock [employer] 01-29-2014 16:52-0500 BSA (Body Surface Area) 1.61 m2 Rock SalonBookrncBlume [employer]illation 01-29-2014 16:52-0500 Height 166.37 cm Rock [employer] [facility] 01-29-2014 16:52-0500 Pulse (Heart Rate) 92 /min Rock [employer] Story [facility] [employer] 01-29-2014 16:52-0500 Weight 56.25 kg Rock SalonBookrncBlume [employer]illation 04-11-2013 17:22-0500 BMI (Body Mass Index) 19.83 kg/m2 Rock [employer] 04-11-2013 17:22-0500 Body Temperature 97.1 [degF] Rock Alchipazaelappening Story [facility] [employer] 04-11-2013 17:22-0500 Body weight 54.89 kg Rock SalonBookrncAndela [facility] 04-11-2013 17:22-0500 BP Diastolic 72 mm[Hg] [employer] 04-11-2013 17:22-0500 BP Systolic 150 mm[Hg] [employer] 04-11-2013 17:22-0500 BSA (Body Surface Area) 1.59 m2 [employer] 04-11-2013 17:22-0500 Height 166.37 cm Rock Burns [employer] 04-11-2013 17:22-0500 Pulse (Heart Rate) 76 /min Rock richardson [employer] 04-11-2013 17:22-0500 Weight 54.89 kg Rock Burns [employer] Encounters Encounter Date Encounter Type Care Provider Facility Start: 01-24-2024 End: 01-24-2024 Telephone encounter Lillian Inman MANAGER SOCIAL SERVICES Work Phone: [facility] Comment on above: URI Start: 01-19-2024 End: 01-19-2024 [facility]: Sprain of left ankle , unspecified ligament, initial encounter (Primary Dx); Sprain of left foot, initial encounter; Contusion of left knee, initial encounter; Contusion of back, unspecified laterality, initial encounter Start: 12-30-2023 End: 12-30-2023 Bamboo flowsheet Lillian L Akosuae MANAGER SOCIAL SERVICES Work Phone: [facility] Start: 12-30-2023 End: 12-30-2023 Bamboo flowsheet Lillian L Akosuae MANAGER SOCIAL SERVICES Work Phone: [facility] Start: 12-30-2023 End: 12-30-2023 Office outpatient visit 15 minutes Lillian Joel Southe MANAGER SOCIAL SERVICES Work Phone: [facility] Comment on above: Tick bite of back wa ll of thorax, unspecified location, subsequent encounter (Primary Dx) Start: 12-30-2023 End: 12-30-2023 ambulatory LILLIAN Joel SOUTHE Not Available Start: 12-16-2023 End: 12-16-2023 Refill Lillian Joel Southe MANAGER SOCIAL SERVICES Work Phone: [facility] Comment on above: Elevated glucose Start: 11-29-2023 End: 11-29-2023 Bamboo flowsheet Lillian L Rine MANAGER SOCIAL SERVICES Work Phone: [facility] Start: 11-29-2023 End: 11-29-2023 Bamboo flowsheet Lillian L Rine MANAGER SOCIAL SERVICES Work Phone: [facility] Start: 11-29-2023 End: 11-29-2023 Office outpatient visit 25 minutes Lillian L Akosuae MANAGER SOCIAL SERVICES Work Phone: [facility] Comment on above: Prediabetes (Primary Dx); Essential hypertension (CMS/HCC); Methylenetetrahydrofolate reductase deficiency (CMS/HCC); 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) Start: 11-29-2023 End: 11-29-2023 ambulatory LILLIAN L RINE Not Available Start: 10-31-2023 End: 10-31-2023 Refill Lillian L Rine MANAGER SOCIAL SERVICES Work Phone: [facility] Comment on above: Dry eye syndrome of both eyes; Saddle embolism of abdominal aorta (CMS/HCC) Start: 10-31-2023 End: 11-01-2023 Refill Lillian L Rine MANAGER SOCIAL SERVICES Work Phone: [facility] Comment on above: Dry eye syndrome of both eyes; Saddle embolism of abdominal aorta (CMS/HCC) Start: 09-27-2023 End: 09-29-2023 ambulatory LILLIAN L AKOSUAE [facility] Start: 09-27-2023 End: 09-29-2023 Subsequent hospital visit by physician [facility] Mammography Comment on above: Encounter for screen ing mammogram for malignant neoplasm of breast Start: 08-02-2023 End: 08-02-2023 ambulatory LILLIAN L RINE Not Available Start: 04-05-2023 ambulatory Lillian Inman DRAWING KILN OPERATOR Fac ility:[facility] Start: 04-05-2023 Office outpatient vi sit 25 minutes Joseph Cary [facility] Office Start: 03-29-2023 End: 03-30-2023 ambulatory Lillian Inman DRAWING KILN OPERATOR Facility:[facility] Start: 02-16-2023 End: 02-16-2023 ambulatory LILLIAN INMAN Not Available Start: 11-09-2022 End: 11-10-2022 ambulatory FABIANO NICOLAS [facility] Start: 09-01-2022 End: 09-01-2022 Subsequent hospital visit by physician Maria [facility] Comment on above: Arrived Start: 08-30-2022 End: 08-30-2022 Subsequent hospital visit by physician Jose Houston [facility] Comment on above: Arrived Start: 08-11-2022 End: 08-11-2022 Subsequent hospital visit by physician Maria Victoria Scott [facility] Comment on above: Arrived Start: 08-06-2022 End: 08-06-2022 Subsequent hospital visit by physician Jose Houston [facility] Comment on above: Arrived Start: 07-28-2022 End: 07-28-2022 Subsequent hospital visit by physician Jose Houston [facility] Comment on above: Arrived Start: 07-21-2022 End: 07-21-2022 Subsequent hospital visit by physician Maria Victoria Scott PT [facility] Comment on above: Arrived Start: 07-19-2022 End: 07-19-2022 Subsequent hospital visit by physician Fabiana Graham [facility] Comment on above: Arrived Start: 07-16-2022 End: 07-16-2022 Subsequent hospital visit by physician Maria Victoria Scott [facility] Comment on above: Arrived Start: 07-14-2022 End: 07-14-2022 Subsequent hospital visit by physician Jose Houston [facility] Comment on above: Arrived Start: 07-13-2022 End: 07-13-2022 Subsequent hospital visit by physician Jose Houston PTA [facility] Comment on above: Arrived Start: 06-28-2022 End: 06-28-2022 Subsequent hospital visit by physician Maria Victoria Scott [facility] Comment on above: Arrived Start: 06-24-2022 End: 06-24-2022 Subsequent hospital visit by physician Maria Victoria Scott [facility] Comment on above: Arrived Start: 06-21-2022 End: 06-21-2022 Subsequent hospital visit by physician Maria Victoria Scott PT [facility] Physical Therapy Comment on above: Arrived Start: 06-17-2022 End: 06-18-2022 Subsequent hospital visit by physician Hiren Gary MD Work Phone: [facility] Comment on above: S/P total knee arthr oplasty, left (Primary Dx) Start: 06-10-2022 End: 06-11-2022 ambulatory [facility] Start: 06-10-2022 End: 06-10-2022 Subsequent hospital visit by physician Mitzy Jeffery OT [facility] Start: 06-07-2022 End: 06-08-2022 ambulatory Pravin Randhawa MD Facility[facility] Start: 06-04-2022 End: 06-04-2022 Subsequent hospital visit by physician Jennifer Garcia PT [facility] Physical Therapy Comment on above: Arrived Start: 06-03-2022 End: 06-04-2022 ambulatory [facility] Start: 06-03-2022 End: 06-03-2022 Subsequent hospital visit by physician Mitzy Jeffery OT [facility] Start: 05-25-2022 End: 05-27-2022 Subsequent hospital visit by physician Hiren Gary MD Work Phone: [facility] Radiology Comment on above: Arrived Start: 05-18-2022 End: 05-19-2022 ambulatory [facility] Start: 05-18-2022 End: 05-18-2022 Subsequent hospital visit by physician Mitzy Jeffery OT [facility] Occup[facility] Comment on above: Arrived Start: 05-10-2022 End: 05-11-2022 ambulatory Kika Patrick DO Facility:[facility] Start: 04-26-2022 End: 04-29-2022 ambulatory [facility] Start: 04-26-2022 End: 04-28-2022 Subsequent hospital visit by physician [facility] Cat Scan Room [facility] CT Scan Comment on above: Venous reflux Start: 04-09-2022 End: 04-11-2022 Subsequent hospital visit by physician [facility] Room [facility] Vascular Lab Comment on above: Left leg pain Start: 03-29-2022 Office outpatient vi sit 25 minutes Joseph Waters Other [facility] Office Start: 01-06-2022 Medicare Lab Joseph Waters Other [facility] Start: 01-06-2022 Office outpatient vi sit 25 minutes Joseph Waters Other [facility] Office Start: 12-09-2021 End: 12-10-2021 ambulatory GALINA HDEZ Facility:H1 Start: 08-06-2021 End: 08-07-2021 ambulatory AASHISH PAUL Facility:H1 Start: 07-17-2021 End: 07-17-2021 Subsequent hospital visit by physician [facility] Comment on above: Arrived Start: 07-15-2021 End: 07-15-2021 Subsequent hospital visit by physician Maria Victoria Scott PT [facility] Physical Therapy Comment on above: Arrived Start: 07-15-2021 Office outpatient vi sit 15 minutes Joseph Waters Other [facility] Start: 07-14-2021 End: 07-14-2021 Subsequent hospital visit by physician Sanna See PT [facility] Physical Therapy Comment on above: Arrived Start: 07-14-2021 End: 07-16-2021 Patient encounter status [facility] Mammography Start: 07-14-2021 End: 07-16-2021 Subsequent hospital visit by physician Chris Kapadia [facility] [place] Mammography Comment on above: Routine general medi amparo examination at a health care facility; Menopause Start: 07-09-2021 End: 07-09-2021 Subsequent hospital visit by physician Hong [facility] Comment on above: Arrived Start: 07-07-2021 End: 07-07-2021 Subsequent hospital visit by physician Maria Victoria [facility] Comment on above: Arrived Start: 06-30-2021 End: 06-30-2021 Subsequent hospital visit by physician Hong [facility] Comment on above: Arrived Start: 06-26-2021 End: 06-26-2021 Subsequent hospital visit by physician Maria Victoria Scott PT [facility] Physical Therapy Comment on above: Arrived Start: 06-24-2021 End: 06-24-2021 Subsequent hospital visit by physician Dory Harris PTA [facility] Physical Therapy Comment on above: Arrived Start: 06-19-2021 End: 06-19-2021 Subsequent hospital visit by physician Maria Victoria Scott PT [facility] Physical Therapy Comment on above: Arrived Start: 06-09-2021 End: 06-10-[address] BORIS GUTHRIE Facility:H1 Start: 05-12-2021 End: 05-13-2021 ambulatory AASHISH PAUL Facility:H1 Start: 05-07-2021 End: 05-09-2021 Subsequent hospital visit by physician [facility] Mammography Room At [facility] Comment on above: Breast cancer screen ing by mammogram Start: 04-21-2021 End: 04-22-2021 ambulatory AASHISH PAUL Facility:H1 Start: 02-24-2021 End: 02-25-2021 ambulatory AASHISH PAUL Facility:H1 Start: 01-14-2021 Office outpatient vi sit 25 minutes Joseph Waters Other [facility] Start: 01-13-2021 End: 01-14-2021 ambulatory AASHISH PAUL Facility:H1 Start: 12-29-2020 Office outpatient vi sit 25 minutes Joseph Waters Other [facility] Start: 12-16-2020 End: 12-17-2020 ambulatory AASHISH PAUL Facility:H1 Start: 10-17-2020 End: 10-17-2020 Subsequent hospital visit by physician Brooke Palafox PT [facility] Physical Therapy Comment on above: Arrived Start: 10-15-2020 End: 10-15-2020 Subsequent hospital visit by physician Brooke Palafox PT [facility] Physical Therapy Comment on above: Arrived Start: 10-13-2020 End: 10-13-2020 Subsequent hospital visit by physician Dory Harris PTA [facility] Physical Therapy Comment on above: Arrived Start: 10-08-2020 End: 10-08-2020 Subsequent hospital visit by physician Brooke Palafox PT [facility] Physical Therapy Comment on above: Arrived Start: 10-06-2020 End: 10-06-2020 Subsequent hospital visit by physician Jose Houston [facility] Comment on above: Arrived Start: 10-03-2020 End: 10-03-2020 Subsequent hospital visit by physician [facility] Comment on above: Arrived Start: 10-01-2020 End: 10-01-2020 Subsequent hospital visit by physician Brooke [facility] Comment on above: Arrived Start: 09-29-2020 End: 09-29-2020 Subsequent hospital visit by physician Brooke [facility] Comment on above: Arrived Start: 09-26-2020 End: 09-26-2020 Subsequent hospital visit by physician Brooke [facility] Comment on above: Arrived Start: 09-24-2020 End: 09-24-2020 Subsequent hospital visit by physician Corazon Poole [facility] Comment on above: Arrived Start: 09-22-2020 End: 09-22-2020 Subsequent hospital visit by physician Corazon Poole [facility] Comment on above: Arrived Start: 09-19-2020 End: 09-19-2020 Subsequent hospital visit by physician Corazon Poole [facility] Comment on above: Arrived Start: 09-18-2020 End: 09-18-2020 Subsequent hospital visit by physician Jose Houston PTA [facility] Comment on above: Arrived Start: 09-16-2020 End: 09-16-2020 Subsequent hospital visit by physician Jose Houston PTA [facility] Comment on above: Arrived Start: 09-10-2020 End: 09-10-2020 Subsequent hospital visit by physician Brooke [facility]afox [facility] Comment on above: Arrived Start: 09-09-2020 End: 09-09-2020 Subsequent hospital visit by physician Corazon Poole PT [facility] Comment on above: Arrived Start: 09-05-2020 End: 09-05-2020 Subsequent hospital visit by physician Brooke Palafox [facility] Comment on above: Arrived Start: 09-01-2020 End: 09-01-2020 Subsequent hospital visit by physician Kika Patrick DO Work Phone: [facility] Laboratory Start: 07-08-2020 End: 07-10-2020 Subsequent hospital visit by physician [facility] Gen Radiologist [facility] Radiology Comment on above: Arthritis of right h ip Start: 06-30-2020 End: 06-30-2020 Subsequent hospital visit by physician [facility] Veterinary Medicine Doctor Rm [facility] EKG Comment on above: Tachycardia; Abnormal heart rate Start: 06-26-2020 Office outpatient vi sit 15 minutes Joseph Magalys Waters Other [facility] Office Start: 03-17-2020 End: 03-19-2020 Subsequent hospital visit by physician [facility] Mammography Room At [facility] Mammography Comment on above: Encounter for screen ing breast examination Start: 01-30-2020 End: 02-01-2020 Subsequent hospital visit by physician [facility] Ultrasound Room [facility] Ultrasound Comment on above: DUB (dysfunctional u terine bleeding) Start: 12-27-2019 Office outpatient vi sit 25 minutes Joseph D Waters Other [facility] Start: 09-19-2019 Office outpatient vi sit 25 minutes Joseph D Waters Other [facility] Start: 09-03-2019 Office outpatient vi sit 25 minutes Joseph D Waters Other [facility] Start: 07-30-2019 End: 07-30-2019 Subsequent hospital visit by physician [facility] Cardiopulm Rehab Rm 3 [facility] Comment on above: Arrived Start: 07-26-2019 End: 07-26-2019 Subsequent hospital visit by physician [facility] Cardiopulm Rehab Rm 3 [facility] Comment on above: Arrived Start: 07-25-2019 Office outpatient vi sit 15 minutes Rock Ulrich Other [facility] Start: 07-23-2019 End: 07-23-2019 Subsequent hospital visit by physician [facility] Cardiopulm Rehab Rm 3 [facility] Re[facility] Comment on above: Arrived Start: 07-19-2019 End: 07-19-2019 Subsequent hospital visit by physician [facility] Cardiopulm Rehab Rm 3 [facility] Comment on above: Arrived Start: 07-18-2019 End: 07-18-2019 Subsequent hospital visit by physician [facility] Cardiopulm Rehab Rm 3 [facility] Card[facility] Re[facility] Comment on above: Arrived Start: 07-16-2019 End: 07-16-2019 Subsequent hospital visit by physician [facility] Cardiopulm Rehab Rm 3 [facility] Re[facility] Comment on above: Arrived Start: 07-12-2019 End: 07-12-2019 Subsequent hospital visit by physician [facility] Cardiopulm Rehab Rm 3 [facility] Card[facility] Re[facility] Comment on above: Arrived Start: 07-11-2019 End: 07-13-2019 Subsequent hospital visit by physician [facility] Dexa [facility] Mammography Comment on above: Asymptomatic age-rel ated postmenopausal state Start: 07-05-2019 End: 07-05-2019 Subsequent hospital visit by physician [facility] Cardiopulm Rehab Rm 3 [facility] Comment on above: Arrived Start: 07-04-2019 End: 07-04-2019 Subsequent hospital visit by physician [facility] Cardiopulm Rehab Rm 3 [facility] Comment on above: Arrived Start: 07-02-2019 End: 07-02-2019 Subsequent hospital visit by physician [facility] Cardiopulm Rehab Rm 3 [facility] Comment on above: Arrived Start: 06-28-2019 End: 06-28-2019 Subsequent hospital visit by physician [facility] Cardiopulm Rehab Rm 3 [facility] Comment on above: Arrived Start: 06-27-2019 End: 06-27-2019 Subsequent hospital visit by physician [facility] Cardiopulm Rehab Rm 3 [facility] Card[facility] Re[facility] Comment on above: Arrived Start: 06-25-2019 End: 06-25-2019 Subsequent hospital visit by physician [facility] Cardiopulm Rehab Rm 3 [facility] Cardiac Re[facility] Comment on above: Arrived Start: 05-16-2019 End: 05-16-2019 Subsequent hospital visit by physician [facility] Cardiopulm Rehab Rm 3 [facility] Cardiac Re[facility] Start: 05-07-2019 Office outpatient vi sit 25 minutes Joseph Waters Other [facility] Office Start: 04-26-2019 End: 04-26-2019 Subsequent hospital visit by physician [facility] Cardiopulm Rehab Rm 3 [facility] Cardiac Re[facility] Comment on above: Arrived Start: 04-25-2019 End: 04-25-2019 Subsequent hospital visit by physician [facility] Cardiopulm Rehab Rm 3 [facility] Cardiac Rehab Comment on above: Arrived Start: 04-19-2019 End: 04-19-2019 Subsequent hospital visit by physician [facility] Cardiopulm Rehab [address] [facility] Cardiac Rehab Comment on above: Arrived Start: 04-18-2019 End: 04-18-2019 Subsequent hospital visit by physician [facility] Cardiopulm Rehab [address] [facility] Cardiac Rehab Comment on above: Arrived Start: 04-16-2019 End: 04-16-2019 Subsequent hospital visit by physician [facility] Cardiopulm Rehab [address] [facility] Cardiac Rehab Comment on above: Arrived Start: 04-12-2019 End: 04-12-2019 Subsequent hospital visit by physician [facility] Cardiopulm Rehab 3 [facility] Cardiac Rehab Comment on above: Arrived Start: 04-09-2019 End: 04-09-2019 Subsequent hospital visit by physician [facility] Cardiopulm Rehab 3 [facility] Cardiac Rehab Comment on above: Arrived Start: 04-05-2019 End: 04-05-2019 Subsequent hospital visit by physician [facility] Cardiopulm Rehab [address] [facility] Cardiac Rehab Comment on above: Arrived Start: 04-04-2019 End: 04-04-2019 Subsequent hospital visit by physician [facility] Cardiopulm Rehab [address] [facility] Cardiac Rehab Comment on above: Arrived Start: 04-02-2019 End: 04-02-2019 Subsequent hospital visit by physician [address] Cardiac Rehab Comment on above: Arrived Start: 03-29-2019 End: 03-29-2019 Subsequent hospital visit by physician [address] Cardiac Rehab Comment on above: Arrived Start: 03-26-2019 End: 03-26-2019 Subsequent hospital visit by physician [facility] [address] [facility] Cardiac Rehab Comment on above: Arrived Start: 03-22-2019 End: 03-22-2019 Subsequent hospital visit by physician [address] Cardiac Rehab Comment on above: Arrived Start: 03-21-2019 End: 03-21-2019 Subsequent hospital visit by physician [address] Cardiac Rehab Start: 03-19-2019 End: 03-19-2019 Subsequent hospital visit by physician [address] Cardiac Rehab Comment on above: Arrived Start: 03-15-2019 End: 03-15-2019 Subsequent hospital visit by physician [address] Cardiac Rehab Comment on above: Arrived Start: 03-12-2019 End: 03-12-2019 Subsequent hospital visit by physician [address] Cardiac Rehab Comment on above: Arrived Start: 03-08-2019 End: 03-08-2019 Subsequent hospital visit by physician [facility] Demarcus [facility] Cardiac Rehab Comment on above: Arrived Start: 03-07-2019 End: 03-07-2019 Subsequent hospital visit by physician [facility] [address] [facility] Cardiac Rehab Comment on above: Arrived Start: 03-05-2019 End: 03-05-2019 Subsequent hospital visit by physician [facility] Demarcus [facility] Cardiac Rehab Comment on above: Arrived Start: 02-19-2019 End: 02-19-2019 Subsequent hospital visit by physician Chris Perez [facility] Cardiac Rehab Comment on above: Arrived Start: 02-12-2019 End: 02-12-2019 Subsequent hospital visit by physician Brooke Palafox PT [facility] Physical Therapy Comment on above: Arrived Start: 02-09-2019 End: 02-09-2019 Subsequent hospital visit by physician Jose Houston PTA [facility] Physical Therapy Comment on above: Arrived Start: 02-08-2019 End: 02-08-2019 Subsequent hospital visit by physician Jose Houston PTA [facility] Physical Therapy Comment on above: Arrived Start: 02-05-2019 Office outpatient vi sit 15 minutes Joseph Waters Other [facility] Office Start: 02-02-2019 End: 02-02-2019 Subsequent hospital visit by physician Jose Houston PTA [facility] Physical Therapy Comment on above: Arrived Start: 01-31-2019 End: 01-31-2019 Subsequent hospital visit by physician Maria Victoria [place] PT [facility] Physical Therapy Comment on above: Arrived Start: 01-23-2019 Office outpatient vi sit 15 minutes Rock Ulrich Other [facility] Office Start: 01-22-2019 End: 01-22-2019 Subsequent hospital visit by physician Brooke Palafox PT [facility] Physical Therapy Comment on above: Arrived Start: 01-19-2019 End: 01-19-2019 Subsequent hospital visit by physician Maria Victoria [place] [facility] Physical Therapy Comment on above: Arrived Start: 01-17-2019 End: 01-17-2019 Subsequent hospital visit by physician Jose Houston [facility] Physical Therapy Comment on above: Arrived Start: 01-12-2019 End: 01-12-2019 Subsequent hospital visit by physician Brooke Palafox [facility] Physical Therapy Comment on above: Arrived Start: 01-09-2019 End: 01-09-2019 Subsequent [facility] Comment on above: Arrived Start: 01-05-2019 End: 01-05-2019 Subsequent hospital visit by physician Jose Houston [facility] Comment on above: Arrived Start: 01-03-2019 End: 01-03-2019 Subsequent hospital visit by physician Jose Houston [facility] Comment on above: Arrived Start: 01-01-2019 End: 01-01-2019 Subsequent hospital visit by physician Jose Houston [facility] Comment on above: Arrived Start: 12-28-2018 End: 12-28-2018 Subsequent hospital visit by physician Brooke Palafox [facility] Physical Therapy Comment on above: Arrived Start: 10-31-2018 End: 11-02-2018 Subsequent hospital visit by physician [facility] Mammography Room At [facility] Mammography Comment on above: Screening breast exa mination Start: 10-30-2018 Office outpatient vi sit 15 minutes Joseph Waters Other [facility] Office Start: 10-24-2018 Office outpatient vi sit 15 minutes Rock Ulrich Other [facility] Office Start: 10-24-2018 Office Services Rock ford Other [facility] Office Start: 10-18-2018 Procedure Joseph Waters Other [facility] Start: 10-10-2018 Office consultation new/estab patient 80 min Joseph Waters Other [facility] Office Start: 07-19-2018 Office outpatient vi sit 15 minutes Rock Ulrich Other [facility] Office Start: 06-26-2018 Procedure Rock ford Other [facility] Start: 05-23-2018 Office outpatient vi sit 15 minutes Rock Ulrich Other [facility] Office Start: 03-27-2018 Procedure Rock Truong ck Other [facility] Start: 03-14-2018 Office outpatient vi sit 15 minutes Rock Ulrich Other [facility] Office Start: 08-19-2017 End: 08-19-2017 Ambulatory RADHA E CHRISTIANE Facility:[place] Start: 11-29-2016 Office consultation new/estab patient 40 min Rock Ulrich Other [facility] Office Start: 03-09-2016 Office outpatient vi sit 15 minutes Rock Ulrich Other [facility] Office Start: 11-18-2015 Procedure Rock Bernalazael ck Other [facility] Start: 01-29-2014 Office Services Rock Bernalazael ck Other [facility] Office Start: 04-11-2013 Office Services Rock Bernalazael ck Other [facility] Start: 03-22-2012 Office Services Rock Bernalazael ck Other [facility] Office Procedures Date Procedure Procedure Detail Performing Clinician Start: 01-19-2024 End: 01-19-2024 Radex spine lumbosacral 2/3 views Sang Holt PA-C Work Phone: Start: 09-27-2023 End: 09-27-2023 Screening mammography bi 2-view breast inc cad Lillian Inman [employer] Work Phone: Start: 04-05-2023 Docrev cur meds by janine Waters Start: 03-29-2023 CT Chest w/o Contrast for Lung Nodule Follow Up (LUNG1) Joseph Waters Start: 03-29-2023 Ct thorax w/o contrast material Joseph woo Start: 06-18-2022 GLUCOSE, WHOLE BLOOD Hiren Gary MD Work Phone: Start: 06-18-2022 Basic metabolic panel calcium total Abig ail Altagracia PA Work Phone: Start: 06-17-2022 GLUCOSE, WHOLE BLOOD Hiren Gary MD Work Phone: Start: 06-17-2022 GLUCOSE, WHOLE BLOOD Hiren Gary MD Work Phone: Start: 06-17-2022 End: 06-17-2022 Arthrp kne condyle&platu medial&lat compartments Hiren Gary MD Work Phone: Start: 05-25-2022 Radiologic exam chest 2 views Hiren aiken MD Work Phone: Start: 04-26-2022 Ct angio abd&plvis cntrst mtrl w/wo cntrst img Fabiano Nicolas MD Work Phone: Start: 04-09-2022 Dup-scan xtr veins unilateral/limited study Lillian L Rine Work Phone: Start: 04-08-2022 CT of chest Joseph Waters Start: 03-29-2022 Docrev cur meds by Alleantia Joseph Jt Start: 01-06-2022 Docrev cur meds by Alleantia Joseph Jt Start: 01-06-2022 Nodify Lung Nodule Risk Assessment-blood Joseph Waters Start: 12-28-2021 CT low dose lung CA screen Joseph Waters Start: 07-15-2021 Docrev cur meds by Alleantia Joseph Jt Start: 07-14-2021 Dxa bone density study 1/> sites axial skel Lillian L Bert Work Phone: Start: 05-07-2021 Screening mammography bi 2-view breast inc cad Lillian L Akosuae Work Phone: Start: 01-14-2021 Docrev cur meds by [employer] Joseph Waters Start: 01-06-2021 PET study for localization of tumor Joseph Waters Start: 12-29-2020 Docrev cur meds by Alleantia Joseph Jt Start: 12-27-2020 CT low dose lung CA screen Joseph Waters Start: 09-01-2020 C-reactive protein Hiren Gary MD Work Phone: Start: 09-01-2020 Sedimentation rate rbc automated Hiren Gary MD Work Phone: Start: 07-08-2020 Injection hip arthrography w/o anesthesia Hiren Gary MD Work Phone: Start: 06-26-2020 Docrev cur meds by Alleantia Joseph Waters Start: 03-17-2020 Screening mammography bi 2-view breast inc cad Lillian L Rine Work Phone: Start: 01-30-2020 Us pelvic nonobstetric real-time image complete Lillian Inman Work Phone: Start: 01-30-2020 Us transvaginal Lillian Inman Work Phone: Start: 12-27-2019 Doc meds verified w/pt or re Joseph Waters Start: 12-20-2019 CT of thorax with contrast Joseph Waters Start: 12-20-2019 Ct thorax w/o & w/contrast material Joseph Waters Start: 09-19-2019 Doc meds verified w/pt or re Joseph Waters Start: 09-06-2019 CT low dose lung CA screen Joseph Waters Start: 09-03-2019 Doc meds verified w/pt or re Joseph Waters Start: 09-03-[address] attenuation skull base mid-thigh Joseph Waters Start: 07-25-2019 Doc meds verified w/pt or re Rock Heac ock Start: 07-11-2019 Dxa bone density study 1/> sites axial skel Lillian Inman Work Phone: Start: 05-07-2019 Doc meds verified w/pt or re Joseph Waters Start: 04-19-2019 PULMONARY PHASE II Hpf Scanning Start: 04-16-2019 PULMONARY PHASE II Hpf Scanning Start: 03-07-2019 PULMONARY PHASE II Hpf Scanning Start: 02-19-2019 PULMONARY PHASE II Hpf Scanning Start: 02-05-2019 Doc meds verified w/pt or re Joseph Waters Start: 02-05-2019 Pulmaonary Rehbilitation Consultation Joseph Waters Start: 01-23-2019 Doc meds verified w/pt or re Rock Heac ock Start: 10-31-2018 Screening digital breast tomosynthesis bi Lillian Inman Work Phone: Start: 10-30-2018 Doc meds verified w/pt or re Joseph Waters Start: 10-24-2018 Doc meds verified w/pt or re Rock Heac ock Start: 10-10-2018 Doc meds verified w/pt or re Joseph Waters Start: 10-10-2018 Radiologic exam chest 2 views Rock hanson Start: 10-10-2018 Unlisted pulmonary service/procedure Rock Ulrich Start: 10-04-2018 Radiologic exam chest 2 views Joseph nixon Start: 06-22-2018 Colonoscopy flx dx w/collj spec when pfrmd Rock Ulrich Start: 06-22-2018 Egd percutaneous placement gastrostomy tube Rock Ulrich Start: 06-22-2018 Esophagogastroduodenoscopy Joseph Waters Start: 06-22-2018 Esophagogastroduodenoscopy transoral diagnostic Rock Ulrich Start: 06-22-2018 Colonoscopy Mth Mt Start: 05-23-2018 Egd percutaneous placement gastrostomy tube Rock Ulrich Start: 05-23-2018 Doc meds verified w/pt or re Rock Heac ock Start: 03-14-2018 Colonoscopy flx dx w/collj spec when pfrmd Joseph Waters Start: 03-14-2018 Doc meds verified w/pt or re Rock Heac ock Start: 12-11-2016 Ct abdomen & pelvis w/o contrast material Rock Ulrich Start: 12-11-2016 CT of abdomen and pelvis without contrast Joseph Waters Start: 11-29-2016 Blood count complete auto&auto difrntl wbc Rock Ulrich Start: 11-29-2016 C-reactive protein Rock Ulrich Start: 11-29-2016 C-reactive protein measurement Joseph perez Start: 11-29-2016 Complete blood count Joseph Waters Start: 11-29-2016 Comprehensive metabolic panel Rock hanson Start: 11-29-2016 Doc meds verified w/pt or re Rock Heac ock Start: 01-29-2014 Doc meds verified w/pt or re Rock Heac ock Start: 01-29-2014 Flu immunize no order/admin Rock Trunog ck Start: 01-29-2014 Tobacco abuse prevention Rock Ulrich Start: 04-11-2013 Doc meds verified w/pt or re Rock Heac ock Start: 04-11-2013 Flu immunize no order/admin Rock Bernalaco ck Start: 04-11-2013 Tobacco abuse prevention Rock Ulrich Plan of Treatment Date Care Activity Detail Author Start: 06-22-2028 Screening for malignant neoplasm of colon [facility] Start: 07-02-2025 DTaP/Tdap/Td vaccine (3 - Td or Tdap) DTaP/Tdap/Td vaccine (3 - Td or Tdap) [facility] Start: 07-02-2025 DTaP/Tdap/Td vaccine (3 - Td) DTaP/Tdap/Td vaccine (3 - Td) [facility] [place], [place] Start: 07-02-2025 DTaP/Tdap/Td vaccine (5 - Td or Tdap) DTaP/Tdap/Td vaccine (5 - Td or Tdap) [facility] Start: 02-12-2025 Influenza vaccination Influenza Vacc ine (#1) [facility] Comment on above: Postponed from 10/15 (Patient Refused) Start: 09-26-2024 Screening for malignant neoplasm of breast [facility] Start: 05-09-2024 End: 05-09-2024 Patient encounter procedure 05/09/2024 1:00 PM EDT Office Visit [facility] Part of [place] [id number] Nehemiah Espinoza MD [address] [place] [address] F/U DVT [facility] of [facility] [facility] Comment on above: F/U DVT Start: 02-26-2024 Hemoglobin A1c measurement Diabetes: Hemoglobin A1C [facility] Start: 11-29-2023 End: 11-29-2023 Patient encounter procedure [facility] Comment on above: Essential hypertensi on ([facility]) Start: 10-16-2023 COVID-19 Vaccine ( season) COVID-19 Vaccine ( season) [facility] Start: 10-16-2023 Influenza vaccination Influenza Vacc ine (#1) [facility] Start: 09-15-2023 Influenza vaccination Flu vaccine (# 1) [facility] Start: 08-26-2023 Screening for malignant neoplasm of breast Breast cancer screen [facility] Start: 05-04-2023 End: 05-04-2023 Patient encounter procedure 05/04/2023 Office Visit Oncology Nehemiah Espinoza MD [address] [place], [place] [id number] [facility] Part [facility] Start: 04-09-2023 Urine screening for protein Diabetes: Urine Protein Screening [facility] Start: 03-29-2023 CT Chest w/o C ontrast for Lung Nodule Follow Up (LUNG1) [facility] Start: 01-10-2023 Annual Wellness Visi t (Medicare) Annual Wellness Visit (Medicare) [facility] Start: 11-09-2022 End: 11-09-2022 Patient encounter procedure 11/09/2022 Office Visit Vascular Surgery Fabiano Nicolas MD [facility] [id number] [id number] [place] [address] [facility] [place] Start: 10-15-2022 COVID-19 Vaccine () COVID-19 Vaccine () [facility] Start: 09-14-2022 Influenza vaccination Flu vaccine (# 1) [facility] Start: 09-08-2022 End: 09-08-2022 Patient encounter procedure 09/08/2022 Appointment Physical Therapy Maria Victoria Scott PT [facility] Start: 09-06-2022 End: 09-06-2022 Patient encounter procedure 09/06/2022 Appointment Physical Therapy Jose Houston PTA [facility] Start: 09-06-2022 End: 09-06-2022 Patient encounter procedure 09/06/2022 Appointment Physical Therapy Jose Houston PTA [facility] Start: 09-01-2022 End: 09-01-2022 Patient encounter procedure 09/01/2022 Appointment Physical Therapy Maria Victoria Scott PT [facility] Start: 08-30-2022 End: 08-30-2022 Patient encounter procedure 08/30/2022 Appointment Physical Therapy Jose Houston PTA [facility] Start: 08-25-2022 End: 08-25-2022 Patient encounter procedure 08/25/2022 Appointment Physical Therapy Jose Houston PTA [facility] Start: 08-23-2022 End: 08-23-2022 Patient encounter procedure 08/23/2022 Appointment Physical Therapy Jose Houston PTA [facility] Start: 08-19-2022 End: 08-19-2022 Patient encounter procedure 08/19/2022 Appointment Physical Therapy Maria Victoria Scott, PT [facility] Start: 08-16-2022 End: 08-16-2022 Patient encounter procedure 08/16/2022 Appointment Physical Therapy Maria Victoria Scott, PT [facility] Start: 08-13-2022 End: 08-13-2022 Patient encounter procedure 08/13/2022 Appointment Physical Therapy Jose Houston, BOT[employer] PROFESSOR [facility] Start: 08-11-2022 End: 08-11-2022 Patient encounter procedure 08/11/2022 Appointment Physical Therapy Maria Victoria Scott, PT [facility] Start: 08-09-2022 End: 08-09-2022 Patient encounter procedure 08/09/2022 Appointment Physical Therapy Jose Houston BOTANY PROFESSOR [facility] Start: 08-06-2022 End: 08-06-2022 Patient encounter procedure 08/06/2022 Appointment Physical Therapy Jose Houston BOTANY PROFESSOR [facility] Start: 08-04-2022 End: 08-04-2022 Patient encounter procedure 08/04/2022 Appointment Physical Therapy Jose Houston, BOT[employer] PROFESSOR [facility] Start: 08-02-2022 End: 08-02-2022 Patient encounter procedure 08/02/2022 Appointment Physical Therapy Jose Houston BOTANY PROFESSOR [facility] Start: 07-30-2022 End: 07-30-2022 Patient encounter procedure 07/30/2022 Appointment Physical Therapy Jose Houston BOTANY PROFESSOR [facility] Start: 07-28-2022 End: 07-28-2022 Patient encounter procedure 07/28/2022 Appointment Physical Therapy Jose Houston BOTANY PROFESSOR [facility] Start: 07-26-2022 End: 07-26-2022 Patient encounter procedure 07/26/2022 Appointment Physical Therapy Jose Houston BOTANY PROFESSOR [facility] Start: 07-23-2022 End: 07-23-2022 Patient encounter procedure 07/23/2022 Appointment Physical Therapy Jennifer Garcia, PT [facility] Start: 07-21-2022 End: 07-21-2022 Patient encounter procedure 07/21/2022 Appointment Physical Therapy Maria Victoria Scott, PT [facility] Start: 07-19-2022 End: 07-19-2022 Patient encounter procedure 07/19/2022 Appointment Physical Therapy Fabiana Graham, BOT[employer] PROFESSOR [facility] Start: 07-16-2022 End: 07-16-2022 Patient encounter procedure 07/16/2022 Appointment Physical Therapy Maria Victoria Scott, PT [facility] Start: 07-14-2022 End: 07-14-2022 Patient encounter procedure 07/14/2022 Appointment Physical Therapy Maria Victoria Scott, PT [facility] Start: 07-13-2022 End: 07-13-2022 Patient encounter procedure 07/13/2022 Appointment Physical Therapy Jose Houston BOTANY PROFESSOR [facility] Start: 07-09-2022 End: 07-09-2022 Patient encounter procedure 07/09/2022 Appointment Physical Therapy Jose Houston BOTANY PROFESSOR [facility] Start: 07-07-2022 End: 07-07-2022 Patient encounter procedure 07/07/2022 Appointment Physical Therapy Maria Victoria Scott, PT [facility] Start: 07-05-2022 End: 07-05-2022 Patient encounter procedure 07/05/2022 Appointment Physical Therapy Maria Victoria Scott, PT [facility] Start: 07-02-2022 End: 07-02-2022 Patient encounter procedure 07/02/2022 Appointment Physical Therapy Maria Victoria Scott, PT [facility] Start: 06-30-2022 End: 06-30-2022 Patient encounter procedure 06/30/2022 Appointment Physical Therapy Jose Houston BOTANY PROFESSOR [facility] Start: 06-28-2022 End: 06-28-2022 Patient encounter procedure 06/28/2022 Appointment Physical Therapy Maria Victoria Scott, PT [facility] Start: 06-24-2022 End: 06-24-2022 Patient encounter procedure 06/24/2022 Appointment Physical Therapy Maria Victoria Scott, PT [facility] Start: 06-21-2022 End: 06-21-2022 Patient encounter procedure 06/21/2022 Appointment Physical Therapy Maria Victoria Scott, PT [facility] Start: 06-17-2022 End: 06-17-2022 Admission to same day surgery center 06/17/2022 Surgery IP Unit Hiren Gary MD [address] [place] [address] KNEE TOTAL ARTHROPLASTY [facility] Comment on above: KNEE TOTAL ARTHROPLA [facility] Start: 06-17-2022 End: 06-17-2022 Anesthesia consultation 06/17/2022 Anesthesia Event IP Unit Abdirahman Carrie M, SODA DIALYZER - DELTA SYSTEM [employer] [address] [place] [id number] [facility] Start: 06-17-2022 End: 06-17-2022 Arthrp kne condyle&platu medial&lat compartments KNEE TOTAL ARTHROPLASTY Chronic pain of left knee Primary osteoarthritis of left knee Rheumatoid arthritis involving left knee, unspecified whether rheumatoid factor present ([facility]) 06/17/2022 11:[address] [facility] Start: 06-17-2022 Subsequent hospital visit by physician 06/17/2022 Hospital Encounter IP Unit Hiren Gary MD [address] [place] [address] [facility] Start: 06-15-2022 Lipid panel Lipids [facility] Start: 06-10-2022 End: 06-10-2022 Patient encounter procedure 06/10/2022 Appointment Occupational Therapy Mitzy Trinidad OT [facility] Start: 06-04-2022 End: 06-04-2022 Patient encounter procedure 06/04/2022 Appointment Physical Therapy [facility] Start: 06-03-2022 End: 06-03-2022 Patient encounter procedure 06/03/2022 Appointment Occupational Therapy Mitzy Trinidad, KOFI [facility] Start: 05-07-2022 Screening for malignant neoplasm of breast Breast cancer screen [facility] Start: 05-05-2022 End: 05-05-2022 Patient encounter procedure 05/05/2022 Office Visit Oncology Nehemiah Espinoza MD [address] [place] [address] [facility] Start: 05-04-2022 End: 05-04-2022 Patient encounter procedure 05/04/2022 Office Visit Vascular Surgery Fabiano Nicolas MD [address] [id number] [id number] [place] [address] [facility] [place] Start: 04-08-2022 CT of chest [facility] Start: 04-08-2022 CT Chest w/o C ontrast for Lung Nodule Follow Up (LUNG1) [facility] Start: 04-07-2022 End: 04-07-2022 Patient encounter procedure 04/07/2022 Office Visit Oncology Princess Lane MD [address] [place] [address] [facility] Start: 10-31-2021 COVID-19 Vaccine (5 - Booster for Moderna series) COVID-19 Vaccine (5 - Booster for Moderna series) [facility] Start: 07-17-2021 End: 07-17-2021 Patient encounter procedure 07/17/2021 Appointment Physical Therapy Maria Victoria Scott, PT [facility] Start: 07-15-2021 End: 07-15-2021 Patient encounter procedure 07/15/2021 Appointment Physical Therapy Maria Victoria Scott, PT [facility] Start: 07-14-2021 End: 07-14-2021 Patient encounter procedure [facility] Start: 07-10-2021 End: 07-10-2021 Patient encounter procedure 07/10/2021 Appointment Physical Therapy Maria Victoria Scott, PT [facility] Start: 07-10-2021 Subsequent hospital visit by physician 07/10/2021 Hospital Encounter Physical Therapy Maria Victoria Scott, PT [facility] Start: 07-09-2021 End: 07-09-2021 Patient encounter procedure 07/09/2021 Appointment Physical Therapy Hong Roy [facility] Physical Therapy Start: 07-07-2021 End: 07-07-2021 Patient encounter procedure 07/07/2021 Appointment Physical Therapy Maria Victoria Scott, PT [facility] Physical Therapy Start: 07-03-2021 End: 07-03-2021 Patient encounter procedure 07/03/2021 Appointment Physical Therapy Maria Victoria Scott, PT [facility] Physical Therapy Start: 07-01-2021 End: 07-01-2021 Patient encounter procedure 07/01/2021 Appointment Physical Therapy Maria Victoria Scott, PT [facility] Physical Therapy Start: 06-30-2021 End: 06-30-2021 Patient encounter procedure 06/30/2021 Appointment Physical Therapy Hong Roy [facility] Physical Therapy Start: 06-26-2021 End: 06-26-2021 Patient encounter procedure 06/26/2021 Appointment Physical Therapy Maria Victoria Scott, PT [facility] Physical Therapy Start: 06-24-2021 End: 06-24-2021 Patient encounter procedure 06/24/2021 Appointment Physical Therapy Dory Harris, MATILDE [facility] Physical Therapy Start: 06-22-2021 End: 06-22-2021 Patient encounter procedure 06/22/2021 Appointment Physical Therapy Hong Roy [facility] Physical Therapy Start: 04-08-2021 End: 04-08-2021 Patient encounter procedure 04/08/2021 Office Visit Oncology Princess Lane MD [address] [place] [address] [facility] Start: 03-17-2021 Screening for malignant neoplasm of breast Breast cancer screen [place], [place] Start: 02-08-2021 Glaucoma screening Diabetes: R etinopathy Screening [facility] Start: 01-06-2021 PET study for localization of tumor PET IMAGING SKULL BASE TO MID-THIGH [facility] Start: 12-21-2020 COVID-19 Vaccine (4 - Booster for Moderna series) COVID-19 Vaccine (4 - Booster for Moderna series) [facility] Start: 10-17-2020 End: 10-17-2020 Patient encounter procedure 10/17/2020 Appointment Physical Therapy Brooke Palafox, PT [facility] Start: 10-15-2020 Influenza vaccination Flu vaccine (# 1) [facility] Work Phone: Start: 10-15-2020 End: 10-15-2020 Patient encounter procedure 10/15/2020 Appointment Physical Therapy Brooke Palafox PT [facility] Start: 10-13-2020 End: 10-13-2020 Patient encounter procedure 10/13/2020 Appointment Physical Therapy Brooke Palafox PT [facility] Start: 10-10-2020 End: 10-10-2020 Patient encounter procedure 10/10/2020 Appointment Physical Therapy Brooke Palafox PT [facility] Start: 10-08-2020 End: 10-08-2020 Patient encounter procedure 10/08/2020 Appointment Physical Therapy Brooke Palafox PT [facility] Start: 10-06-2020 End: 10-06-2020 Patient encounter procedure 10/06/2020 Appointment Physical Therapy Brooke Palafox PT [facility] Start: 10-05-2020 COVID-19 Vaccine (3 - Booster for Moderna series) COVID-19 Vaccine (3 - Booster for Moderna series) [facility] Start: 10-03-2020 End: 10-03-2020 Patient encounter procedure 10/03/2020 Appointment Physical Therapy Brooke Palafox PT [facility] Start: 10-01-2020 End: 10-01-2020 Patient encounter procedure [facility] Start: 09-29-2020 End: 09-29-2020 Patient encounter procedure 09/29/2020 Appointment Physical Therapy Brooke Palafox PT [facility] Start: 09-26-2020 End: 09-26-2020 Patient encounter procedure 09/26/2020 Appointment Physical Therapy Brooke Palafox PT [facility] Start: 09-24-2020 End: 09-24-2020 Patient encounter procedure 09/24/2020 Appointment Physical Therapy Brooke Palafox PT [facility] Start: 09-22-2020 End: 09-22-2020 Patient encounter procedure 09/22/2020 Appointment Physical Therapy Corazon Poole, PT [facility] Physical Therapy Start: 09-19-2020 End: 09-19-[address] [facility] Physical Therapy Start: 09-18-2020 End: 09-18-2020 Patient encounter procedure 09/18/2020 Appointment Physical Therapy Jose Houston, MATILDE [facility] Start: 09-16-2020 End: 09-16-2020 Patient encounter procedure 09/16/2020 Appointment Physical Therapy Jose Houston, MATILDE [facility] Start: 09-12-2020 End: 09-12-2020 Patient encounter procedure 09/12/2020 Appointment Physical Therapy Corazon Poole, PT [facility] Physical Therapy Start: 09-10-2020 End: 09-10-2020 Patient encounter procedure 09/10/2020 Appointment Physical Therapy Brooke Palafox, PT [facility] Physical Therapy Start: 09-09-2020 End: 09-09-2020 Patient encounter procedure 09/09/2020 Appointment Physical Therapy Corazon Poole, PT [facility] Physical Therapy Start: 09-05-2020 End: 09-05-2020 Patient encounter procedure 09/05/2020 Appointment Physical Therapy Brooke Palafox, PT [facility] Physical Therapy Start: 04-09-2020 End: 04-09-2020 Office Visit 04/09/2020 Office Visit Oncology Princess Lane MD [address] [place] [address] [facility] Start: 03-17-2020 End: 03-17-2020 Appointment 03/17/2020 Appointment Radiology [facility] Mammography Start: 02-04-2020 Cervical cancer screen Cervical canc er screen [place], [place] Start: 12-20-2019 CT of thorax with contrast CT chest w/ and w/o contrast [facility] Start: 11-01-2019 Breast cancer screen Breast cancer s [place], [place] Start: 11-01-2019 Screening for malignant neoplasm of breast Breast cancer screen [place], [place] Start: 10-16-2019 Influenza vaccination Flu vaccine (# 1) [place], [place] Start: 10-10-2019 End: 10-10-2019 Office Visit [facility] Start: 09-03-[address] 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 Start: 07-25-2019 End: 07-25-2019 Appointment 07/25/[address] [facility] Start: 07-23-2019 End: 07-23-2019 Appointment 07/23/[address] [facility] Start: 07-19-2019 End: 07-19-2019 Appointment 07/19/[address] [facility] Start: 07-16-2019 End: 07-16-2019 Appointment 07/16/[address] [facility] Start: 07-12-2019 End: 07-12-2019 Appointment 07/12/[address] [facility] Start: 07-11-2019 End: 07-11-[address] [facility] Start: 07-09-2019 End: 07-09-2019 Appointment 07/09/[address] [facility] Start: 07-05-2019 End: 07-05-2019 Appointment 07/05/[address] [facility] Start: 07-04-2019 End: 07-04-2019 Appointment 07/04/[address] [facility] Start: 07-02-2019 End: 07-02-2019 Appointment 07/02/[address] [facility] Start: 06-28-2019 End: 06-28-2019 Appointment 06/28/[address] [facility] Start: 06-27-2019 End: 06-27-2019 Appointment 06/27/[address] [facility] Start: 05-24-2019 End: 05-24-2019 Appointment 05/24/[address] [facility] Start: 05-23-2019 End: 05-23-2019 Appointment 05/23/[address] [facility] Start: 05-21-2019 End: 05-21-2019 Appointment 05/21/[address] [facility] Start: 05-17-2019 End: 05-17-2019 Appointment 05/17/[address] [facility] Start: 05-16-2019 End: 05-16-2019 Appointment 05/16/[address] [facility] Start: 05-14-2019 End: 05-14-2019 Appointment 05/14/[address] [facility] Start: 05-10-2019 End: 05-10-2019 Appointment 05/10/[address] [facility] Start: 05-09-2019 End: 05-09-2019 Appointment 05/09/[address] [facility] Start: 05-07-2019 End: 05-07-2019 Appointment 05/07/[address] [facility] Start: 05-03-2019 End: 05-03-2019 Appointment 05/03/[address] [facility] Start: 05-02-2019 End: 05-02-2019 Appointment 05/02/[address] [facility] Start: 04-30-2019 End: 04-30-2019 Appointment 04/30/[address] [facility] Start: 04-26-2019 End: 04-26-2019 Appointment 04/26/[address] [facility] Start: 04-25-2019 End: 04-25-2019 Appointment 04/25/[address] [facility] Start: 04-23-2019 End: 04-23-2019 Appointment 04/23/[address] [facility] Start: 04-19-2019 End: 04-19-2019 Appointment 04/19/[address] [facility] Start: 04-18-2019 End: 04-18-2019 Appointment 04/18/[address] [facility] Start: 04-16-2019 End: 04-16-2019 Appointment 04/16/[address] [facility] Start: 04-12-2019 End: 04-12-2019 Appointment 04/12/[address] [facility] Start: 04-11-2019 End: 04-11-2019 Appointment 04/11/[address] [facility] Start: 04-09-2019 Annual Wellness Visi t (AWV) Annual Wellness Visit (AWV) [facility] Start: 04-09-2019 End: 04-09-2019 Office Visit 04/09/2019 Office Visit Oncology Pooja Carrillo MD [address] [facility] [place] [address] [phone] [facility] Start: 04-09-2019 End: 04-09-2019 Appointment 04/09/[address] [facility] Start: 04-05-2019 End: 04-05-2019 Appointment 04/05/[address] [facility] Start: 04-04-2019 End: 04-04-2019 Appointment 04/04/[address] [facility] Start: 04-02-2019 End: 04-02-2019 Appointment 04/02/[address] [facility] Start: 03-29-2019 End: 03-29-2019 Appointment 03/29/[address] [facility] Start: 03-28-2019 End: 03-28-2019 Appointment 03/28/[address] [facility] Start: 03-26-2019 End: 03-26-2019 Appointment 03/26/[address] [facility] Start: 03-22-2019 End: 03-22-2019 Appointment 03/22/[address] [facility] Start: 03-21-2019 End: 03-21-2019 Appointment 03/21/[address] [facility] Start: 03-19-2019 End: 03-19-2019 Patient encounter procedure 03/19/[address] [facility] Start: 03-15-2019 End: 03-15-2019 Patient encounter procedure 03/15/[address] [facility] Start: 03-14-2019 End: 03-14-2019 Patient encounter procedure 03/14/[address] [facility] Start: 03-12-2019 End: 03-12-2019 Patient encounter procedure 03/12/[address] [facility] Start: 03-08-2019 End: 03-08-2019 Patient encounter procedure 03/08/[address] [facility] Start: 03-07-2019 End: 03-07-2019 Patient encounter procedure 03/07/[address] [facility] Start: 02-12-2019 End: 02-12-2019 Appointment 02/12/2019 Appointment Physical Therapy Brooke Palafox PT [facility] Physical Therapy Start: 02-09-2019 End: 02-09-2019 Appointment 02/09/2019 Appointment Physical Therapy Jose Houston [facility] Start: 02-08-2019 End: 02-08-2019 Appointment 02/08/2019 Appointment Physical Therapy Jose Houston [facility] Start: 02-06-2019 End: 02-06-2019 Appointment 02/06/2019 Appointment Physical Therapy Jose Houston [facility] Start: 02-02-2019 End: 02-02-2019 Appointment 02/02/2019 Appointment Physical Therapy Jose Houston [facility] Start: 01-31-2019 End: 01-31-2019 Appointment [facility] Start: 01-29-2019 End: 01-29-2019 Appointment 01/29/2019 Appointment Physical Therapy Jose Houston [facility] Start: 01-26-2019 End: 01-26-2019 Appointment 01/26/2019 Appointment Physical Therapy Jose Houston [facility] Start: 01-24-2019 End: 01-24-2019 Appointment 01/24/2019 Appointment Physical Therapy Jose Houston [facility] Start: 01-22-2019 End: 01-22-2019 Appointment 01/22/2019 Appointment Physical Therapy Brooke Palafox PT [facility] Physical Therapy Start: 01-19-2019 End: 01-19-2019 Appointment [facility] Start: 01-17-2019 End: 01-17-2019 Appointment 01/17/2019 Appointment Physical Therapy [facility] Start: 01-15-2019 End: 01-15-2019 Appointment 01/15/2019 Appointment Physical Therapy Brooke Palafox PT [facility] Physical Therapy Start: 01-12-2019 End: 01-12-2019 Appointment 01/12/2019 Appointment Physical Therapy Brooke Palafox PT [facility] Physical Therapy Start: 01-10-2019 End: 01-10-2019 Appointment 01/10/2019 Appointment Physical Therapy Jose Houston PTA [facility] Physical Therapy Start: 01-09-2019 End: 01-09-2019 Appointment 01/09/2019 Appointment Physical Therapy Brooke Palafox PT [facility] Physical Therapy Start: 01-05-2019 End: 01-05-2019 Appointment 01/05/2019 Appointment Physical Therapy Jose Houston PTA [facility] Physical Therapy Start: 01-03-2019 End: 01-03-2019 Appointment 01/03/2019 Appointment Physical Therapy Jose Houston PTA [facility] Physical Therapy Start: 01-01-2019 End: 01-01-2019 Appointment 01/01/2019 Appointment Physical Therapy Jose Houston, MATILDE [facility] Physical Therapy Start: 10-15-2018 Influenza vaccination Flu vaccine (# 1) [place], [place] Start: 10-10-2018 Unlisted pulmonary service/procedure Complete Pulmonary Function Test @ [facility] Start: 10-10-2018 Chest PA & LAT [facility] Start: 10-04-2018 Chest PA & LAT [facility] Start: 2017 Pneumococcal 65+ yea rs Vaccine (2 of 2 - PPSV23) Pneumococcal 65+ years Vaccine (2 of 2 - PPSV23) [place], [place] Start: 2012 Respiratory Syncytia l Virus (RSV) or age 60 yrs+ (1 - 1-dose 60+ series) Respiratory Syncytial Virus (RSV) or age 60 yrs+ (1 - 1-dose 60+ series) [facility] Start: 2012 Respiratory Syncytia l Virus (RSV) or age 60 yrs+ (1 - Risk 60-74 years 1-dose series) Respiratory Syncytial Virus (RSV) or age 60 yrs+ (1 - Risk 60-74 years 1-dose series) [facility] Start: 09-22-2012 Colon Cancer Screen FIT/FOBT Colon Cancer Screen FIT/FOBT [place] Start: 09-22-2012 Screening for malignant neoplasm of colon Colon Cancer Screen FIT/FOBT [place] Start: 1997 Screening for malignant neoplasm of colon [facility] Start: 1992 Lipid screen Lipid screen [place], [place] Start: 11-27-1987 Diabetes screen Diabetes screen [facility] Start: 1970 Hepatitis C screening Hepatitis C [facility] Start: 11-27-1967 HIV screen HIV screen [place], [place] Start: 1964 Depression Screen Depression Screen [facility] Start: 1962 Lipid panel [facility] Start: 1962 Lipid screen Lipid screen [place], [place] Start: 1952 Annual Wellness Visi t (AWV) Annual Wellness Visit (AWV) [facility] Start: 1952 Hepatitis C screen Hepatitis C scree n [place], [place] Start: 1952 Hepatitis C screening Hepatitis C [facility] End: 06-20-2022 Basic metabolic 2000 panel - Serum or Plasma Basic Metabolic Panel Lab Routine Daily for 3 Days starting 06/18/2022 until 06/20/2022, 1 completed [facility] Phone: Comment on above: Daily for 3 Days sta rting 06/18/2022 until 06/20/2022, 1 completed Glucose [Mass/volume ] in Serum or Plasma POCT Glucose Point of Care Testing Routine 4X Daily (AC & HS) until discontinued starting 06/17/2022 [facility] Phone: Comment on above: 4X Daily (AC & HS) u ntil discontinued starting 06/17/2022 Nasal Cannula Oxygen Nasal Cannu la Oxygen Respiratory Care Routine Daily until discontinued starting 06/17/2022 [facility] Phone: Comment on above: Daily until disconti nued starting 06/17/2022 Oxygen therapy [Minimum Data Set] Initiate Oxygen Therapy Protocol Respiratory Care Routine As Needed until discontinued starting 06/17/2022 [facility] Phone: Comment on above: As Needed until disc ontinued starting 06/17/2022 End: 06-17-2022 TYPE AND SCREEN TYPE AND SCREEN Blood Bank Routine One Time for 1 Occurrences starting 06/17/2022 until 06/17/2022 [facility] Work Phone: Comment on above: One Time for 1 Occur rences starting 06/17/2022 until 06/17/2022 XR Knee - left 1 or 2 Views XR KNEE LEFT (1-2 VIEWS) Imaging STAT 01/19/2024 8:51 PM EST [facility] End: 06-17-2022 XR KNEE LEFT (1-2 VIEWS) [facility] Work Phone: Comment on above: Once for 1 Occurrenc es starting 06/17/2022 until 06/17/2022 XR Lumbar spine 2 or 3 Views XR LUMBAR SPINE (2-3 VIEWS) Imaging STAT 01/19/2024 8:49 PM EST [facility] Immunizations Immunization Date Immunization Notes Care Provider Aruna victor 12-22-2021 Influenza, High-dose Seasonal, Quadrivalent, Preservative Free Lillian Rine [employer] Work Phone: [facility] 12-22-2021 influenza virus vacc ine, unspecified formulation Lillian Rine [employer]NAGER [employer] Work Phone: [facility] 11-11-2020 Influenza, Seasonal, Quadrivalent, Adjuvanted Lillian Rine MANAGER [employer] Work Phone: [facility] 11-03-2020 influenza, high dose seasonal, preservative-free [employer] 10-26-2020 COVID-19, Moderna, 100mcg/0.5ml [employer] 05-05-2020 COVID-19, Moderna, 100mcg/0.5ml [employer] 04-07-2020 COVID-19, Moderna, 100mcg/0.5ml [employer] 11-15-2019 influenza, seasonal, injectable Lillian Rine MANAGER [employer] Work Phone: [facility] 11-01-2019 influenza, injectabl e, quadrivalent, preservative free Lillina Rine MANAGER SOCIAL SERVICES Work Phone: [facility] 04-23-2019 pneumococcal polysaccharide vaccine, 23 valent Lillian Rine MANAGER [employer] Work Phone: [facility] 11-30-2018 influenza, injectabl e, quadrivalent, preservative free Lillian Rine MANAGER [employer] SERVICES Work Phone: [facility] 11-27-2018 pneumococcal conjuga te vaccine, 13 valent Lillian Rine MANAGER [employer] Work Phone: [facility] 08-29-2018 zoster vaccine recombinant Joseph [facility] 07-26-2018 zoster vaccine recombinant Lillian Rine MANAGER [employer] SERVICES Work Phone: [facility] 06-15-2018 zoster vaccine recombinant Joseph Waters [facility] 05-11-2018 zoster vaccine recombinant Lillian Rine MANAGER [employer] Work Phone: [facility] 12-26-2017 pneumococcal conjuga te vaccine, 13 valent Lillian Rine MANAGER [employer] Work Phone: [facility] 12-06-2017 influenza, injectabl e, quadrivalent, contains preservative Lillian Rine MANAGER [employer] SERVICES Work Phone: [facility] 12-01-2017 influenza, injectabl e, quadrivalent, preservative free Lillian Rine MANAGER [employer] Work Phone: [facility] 12-15-2016 Influenza Vaccine, unspecified formulation [place] 12-15-2016 influenza, seasonal, injectable Lillian Rine MANAGER [employer] Work Phone: [facility] 12-07-2016 influenza, injectabl e, quadrivalent, preservative free Lillian Rine MANAGER [employer] Work Phone: [facility] 12-05-2015 influenza, injectabl e, quadrivalent, preservative free Lillian Rine MANAGER [employer] Work Phone: [facility] 07-03-2015 tetanus toxoid, redu maxim diphtheria toxoid, and acellular pertussis vaccine, adsorbed Lillian Rine MANAGER [employer] SERVICES Work Phone: [facility] 12-02-2014 influenza, injectabl e, quadrivalent, preservative free Lillian Rine MANAGER [employer] Work Phone: [facility] 06-28-2013 tetanus toxoid, redu maxim diphtheria toxoid, and acellular pertussis vaccine, adsorbed Lillian Rine MANAGER [employer] Work Phone: [facility] 07-21-2011 tetanus and diphther ia toxoids, adsorbed, preservative free, for adult use (5 Lf of tetanus toxoid and 2 Lf of diphtheria toxoid) Lillian Rine MANAGER [employer]IAL SERVICES Work Phone: [facility] 02-15-2008 tetanus toxoid, redu maxim diphtheria toxoid, and acellular pertussis vaccine, adsorbed [employer] 02-14-2002 hepatitis B vaccine, adult dosage [employer] 02-14-2002 tetanus and diphther ia toxoids, not adsorbed, for adult use [employer] Payers Date Payer Category Payer [facility] [id number] 2019 Medicare MEDICARE MEDICAR E PART A AND B xxxxxxxxxxx 2019-Present [phone] [address] [address] [place] [address] xxxxxxxxxxx [id number] 2019 Medicare 2019 Unknown BCBS [facility] CARE SUPP xxxxxxxxxxxx 2019-Present [address] [place] [address] xxxxxxxxxxxx [id number] 2019 Unknown 2017 Private Health Insurance [id number] 2014 Unknown xxxxxxxx [id number] 1959 Medicare [id number] 2.16.840.1.384901.3.441 1959 Unknown [id number] 2.16.840.1.795892.3.441 1952 Unknown [id number] 2.16.840.1.778538.3.579.2 .593 1952 Unknown [id number] 2.16.840.1.286352.3.579.2 .593 1952 Unknown [id number] 2.16.840.1.223406.3.579.2 .593 1952 Unknown [id number] 2.16.840.1.405401.3.579.2 .593 1952 Unknown [id number] 2.16.840.1.870529.3.579.2 .593 1952 Unknown [id number] 2.16.840.1.392903.3.579.2 .593 1952 Unknown [id number] 2.16.840.1.715821.3.579.2 .593 1952 Unknown [id number] 2.16.840.1.586153.3.579.2 .593 1952 Unknown [id number] 2.16.840.1.792874.3.579.2 .174 1952 Unknown [id number] 2.16.840.1.015605.3.579.2 .196 1952 Unknown [id number] 2.16.840.1.087171.3.579.2 .196 1952 Unknown [id number] 2.16.840.1.201371.3.579.2 .196 1952 Unknown [id number] 2.16.840.1.019507.3.579.2 .196 1952 Unknown [id number] 2.16.840.1.924772.3.579.2 .196 1952 Unknown [id number] 2.16.840.1.362962.3.579.2 .175 1952 Unknown [id number] 2.16.840.1.901003.3.579.2 .175 1952 Unknown [id number] 2.16.840.1.921236.3.579.2 .175 1952 Unknown [id number] 2.16.840.1.785385.3.579.2 .175 1952 Unknown [id number] 2.16.840.1.983311.3.579.2 .1259 1952 Unknown [id number] 2.16.840.1.600041.3.579.2 .1259 1952 Unknown [id number] 2.16.840.1.416407.3.579.2 .1259 1952 Unknown [id number] 2.16.840.1.239778.3.579.2 .1259 1952 Unknown [id number] 2.16.840.1.158597.3.579.2 .173 1952 Unknown [id number] 2.16.840.1.768507.3.579.2 .173 1952 Unknown [id number] 2.16.840.1.700080.3.579.2 .173 Private Health Insurance [id number] 2.840.1.732169.3.441 Unknown [id number] 2.840.1.507946.3.441 Unknown [id number] 2.840.1.978518.3.441 Unknown [id number] 2.840.1.518991.3.441 Social History Date Type Detail Facility Start: 10-09-2018 End: 11-09-2022 [facility] Start: Caffeine [facility] History of tobacco use Cigar Smoker [facility] [place] Start: 10-09-2018 End: 11-22-2023 Alcohol intake Yes [email or web address] Start: 1950 Sex Assigned At Not on file [facility] [place] Start: 10-09-2018 End: 12-30-2023 Alcohol intake Current drinker of alcohol (finding) [place], [place] History of tobacco use Cigarette Smoker [facility] Work Phone: Start: 02-19-2019 End: 11-22-2023 Cigarettes smoked current (pack per day) - Reported [email or web address] Start: 10-10-2019 End: 11-09-2022 Tobacco use and exposure [facility] [place] [place] Start: 05-15-2022 End: 05-25-2022 Exposure to SARS-CoV-2 (event) Not sure [place] History of tobacco use Current smoker [facility] [employer] Work Phone: PHQ-2 Score [employer] Start: 11-09-2022 Tobacco Comment 1 ppd smoker x 33 yrs; quit 2005 [facility] Start: 09-28-2022 Tobacco smoking status NHIS Tobacco smoking consumption unknown [facility] Work Phone: Within the last year , have you been afraid of your partner or ex-partner? No [facility] Do you belong to any clubs or organizations such as anabaptist groups, unions, fraternal or athletic groups, or school groups? Yes [facility] Are you now , , , , never or living with a partner? [facility] How often to you hav e a drink containing alcohol? Monthly or less [facility] How many standard dr inks containing alcohol do you have on a typical day? 1 or 2 [facility] How often do you hav e 6 or more drinks on 1 occasion? Never [facility] How hard is it for y ou to pay for the very basics like food, housing, medical care, and heating Somewhat hard [facility] Do you feel stress - tense, restless, nervous, or anxious, or unable to sleep at night because your mind is troubled all the time - these days [OSQ] Only a little [facility] Start: 07-26-2022 Alcohol Comment 1-2 drinks less than monthly in the past year [facility] Start: 1950 Sex assigned at Female [facility] Start: 04-28-2022 Gender identity Identifies as female gender (finding) [facility] Start: 07-26-2022 Sexual orientation Heterosexual (finding) [facility] How often to you hav e a drink containing alcohol? 2-4 times a month [facility] (I/We) worried wheth er (my/our) food would run out before (I/we) got money to buy more. Never true [facility] Medical Equipment Procedure Code Equipment Code Equipment Origin al Text Equipment Identifier Dates Dup Use [id number] I mpl Knee Psn Tib Stm 5 Deg Sz D L - [id number] Start: 06-17-2022 Component Artc S urf Ps 6-9 Cd 12 Mm Lt Tib Knee Fix Bear - [id number] Start: 06-17-2022 Cement Bne 40gm Hi Visc Radpq For Rev Surg - [id number] Start: 06-17-2022 Cement Bne 40gm Hi Visc Radpq For Rev Surg - [id number] Start: 06-17-2022 Component Pat [id number] Thk8mm Std Vivacit-E Ángel Inset For - [id number] Start: 06-17-2022 Component Fem Sz 7 Brian L Knee Co Chrom Ángel Post Stbl Cor - [id number] Start: 06-17-2022 Daily testing [id number] Start: 11-29-2023 Daily testing [id number] Start: 11-29-2023 Clinical Notes 01-22-2019 to 01-24-2024 Telephone Encounter - Lillian Inman NP - 01/24/2024 6:03 AM ESTTelephone Encounter - Lillian Inman NP - 01/24/2024 6:03 AM Danielle Inman NP - 12/30/2023 9:30 AM ESTPatient InstructionsInstructions Note Date & Type Note Facility 01-24-2024 Telephone encounter Note Sent antibiotic given that she has resp sx and spouse in hospital, pt aware per personal text, call if no better [facility] 01-24-2024 Miscellaneous Notes Sent antibiotic given that she has resp sx and spouse in hospital, pt aware per personal text, call if no better documented in this encounter [facility] 12-30-2023 History of Present illness Narrative Jose Yang is a 73 y.o. female presents with chief complaint of Tick Removal (Removed Tick about a week ago Tuesday however feels it had been in for over a week feeding) HPI: Approx 2 weeks had spot itching, could see something in mirror, spouse thought was a mole Eventually after 1-2 weeks, he pulled a large tic off of her , this was engorged with blood. Off for about a week. Has had some itching in the area since For the week the tic was on her, has some headaches, but weather has been changing and this did not strike her odd She has no fever, no rashes, no numbness or tingling, NGO has resolved Wondering what to do now SUBJECTIVE: MEDICATIONS: Current Outpatient Medications Medication Instructions Acetaminophen (TYLENOL ARTHRITIS PAIN PO) Tylenol Arthritis Pain atorvastatin (LIPITOR) 10 mg, Oral, Daily biotin 10 MG tablet 1 tablet, Daily Calcium Carbonate-Vitamin D (CALTRATE 600+D PO) Caltrate 600+D Cetirizine HCl 10 MG capsule Administer ZYRTEC 10mg PO pre-infusion (REMICADE). cholecalciferol (RA VITAMIN D-3) 25 mcg, Daily cyanocobalamin (VITAMIN B-12) 100 mcg, Daily Cymbalta 30 mg, Daily doxycycline (VIBRA-TABS) 100 mg, Oral, 2 times daily, Take with a full glass of water and do not lie down for at least 30 minutes after. Eliquis 5 mg, 2 times daily fluticasone (Flonase) 50 MCG/ACT nasal spray 2 sprays, Each Nostril, Daily PRN folic acid (FOLVITE) 1 mg, Every evening glucose blood test strip Daily testing inFLIXimab (Remicade) 100 MG injection as directed Intravenous Lancet Devices (Autolet) lancing device Daily testing loratadine (Claritin) 10 MG tablet 1 tablet, Daily PRN loratadine-pseudoephedrine ER (SM Loratadine D 12HR) 5-120 MG 12 hr tablet 1 tablet, Oral, 2 times daily, Do not crush, chew, or split. Magnesium 400 MG capsule as directed Orally metFORMIN XR (Glucophage-XR) 500 MG 24 hr tablet TAKE 1 TABLET BY MOUTH DAILY WITH EVENING MEAL methotrexate 50 MG/2ML injection INJECT 0.6 ML SUBCUTANEOUSLY ONCE A WEEK Multiple Vitamins-Minerals (PreserVision AREDS 2+Multi Vit) capsule 1 capsule, 2 times daily with meals omeprazole (PRILOSEC) 20 mg, Oral, 2 times daily, Do not crush or chew. traMADol (ULTRAM) 50 mg, Oral, Every 6 hours PRN Umeclidinium-Vilanterol (Anoro Ellipta) 62.5-25 MCG/ACT aerosol powder Inhale. ALLERGIES: Allergies Allergen Reactions Etodolac Unknown Levofloxacin Hives, Itching and Unknown Wound Dressing Adhesive Cefuroxime Hives, Itching and Rash SURGICAL HISTORY: Past Surgical History: Procedure Laterality Date BACK SURGERY 1997 BREAST BIOPSY COLECTOMY 08/2018 sigmoid COLONOSCOPY 03/[address] ANGIO HEAD 06/16/2017 CT ANGIO HEAD 06/16/2017 CT ANGIOGRAM NECK 06/16/2017 CT ANGIOGRAM NECK 06/16/2017 FOOT SURGERY Left 11/2020 revision OTHER SURGICAL HISTORY 04/2017 ablasion OTHER SURGICAL HISTORY 2012 fatty tissue removed from deltoid muscle MT FUSION BIG TOE,I-P JT+TENDN XFER Left 11/2019 [facility] [place] REMOVAL OF OVARIAN CYST(S) Right 1973 TOTAL KNEE ARTHROPLASTY Right 08/[address] Quezada FAMILY HISTORY: Family History Problem Relation Name Age of Onset Aortic aneurysm Mother ruptured Other (CVA) Father Hypertension Sister Atrial fibrillation Sister Other ([place]) Sister Diabetes Sister Breast cancer Sister Emphysema Brother youngest COPD Daughter Thyroid disease Daughter Other (back problem) Daughter SOCIAL HISTORY: Social History Tobacco Use Smoking status: Unknown Substance Use Topics Alcohol use: Yes Comment: 1-2 drinks less than monthly in the past year Depression: Not at risk (08/02/2023) PHQ-2 PHQ-2 Score: 0 REVIEW OF SYMPTOMS: Review of Systems Constitutional: Negative for activity change. Eyes: Negative for visual disturbance. Respiratory: Negative for cough and wheezing. Cardiovascular: Negative for chest pain and leg swelling. Gastrointestinal: Negative for abdominal pain. Genitourinary: Negative for difficulty urinating. Musculoskeletal: Negative for arthralgias. Skin: See hpi Neurological: Negative for weakness. Psychiatric/Behavioral: Negative. Allergic/Immunologic: Negative for environmental allergies. OBJECTIVE: Visit Vitals BP 138/76 (BP Location: Left arm, Patient Position: Sitting, BP Cuff Size: Adult) Pulse 86 Temp 96.9 F (Tympanic) Resp 18 Ht 5' 5 Wt 152 lb 9.6 oz SpO2 95% BMI 25.39 kg/m Smoking Status Unknown BSA 1.78 m Physical Exam Constitutional: Appearance: Normal appearance. Comments: Appears bright and animated to her baseline Eyes: Pupils: Pupils are equal, round, and reactive to light. Neck: Comments: No cervical or supraclavicular or axillary nodes Cardiovascular: Rate and Rhythm: Normal rate and regular rhythm. Pulses: Normal pulses. Heart sounds: Normal heart sounds. Pulmonary: Effort: Pulmonary effort is normal. Breath sounds: Normal breath sounds. Musculoskeletal: Cervical back: Normal range of motion and neck supple. Lymphadenopathy: Cervical: No cervical adenopathy. Skin: General: Skin is warm and dry. Comments: 4-5 mm area that is slightly reddened to the right mid back, under bra, no open areas, some mild induration, no necrosis, no fluctuance, no surrounding redness, no other red areas are noted on the trunk Neurological: General: No focal deficit present. Mental Status: She is alert and oriented to person, place, and time. Psychiatric: Mood and Affect: Mood normal. Comments: Animated and cheerful ASSESSMENT AND PLAN: Assessment/Plan Diagnoses and all orders for this visit: Tick bite of back wall of thorax, unspecified location, subsequent encounter Comments: tick on a week, area is reddened a bit, on biologic. will treat with doxycycline, take until gone, call if any concerns. Orders: - doxycycline (Vibra-Tabs) 100 MG tablet; Take 1 tablet (100 mg) by mouth in the morning and 1 tablet (100 mg) before bedtime. Do all this for 10 days. Take with a full glass of water and do not lie down for at least 30 minutes after.. Follow up for mar recheck as previous. documented in this encounter [facility] 12-30-2023 Instructions Lillian Inman NP - 12/30/2023 9:30 AM EST Take the doxycyline twice daily and do not take at the same time as supplements documented in this encounter [facility] 11-29-2023 History of Present illness Narrative Jose Yang is a 73 y.o. female presents with chief complaint of Follow-up (Just found out her best friend past away suddenly) HPI: Here for recheck Crying, best friend suddenly passed, she is devastated Otherwise has been in an ok place in time She is utd with her specialist, not thinking clear enough to really rev today Has been walking daily, has upcoming 5 k, did this last year with a cane, does not need the cane this year Tolerates meds well Unsure what type of magnesium she is taking Sleeps fair Tolerates the antcoa well and does not need anything at this time SUBJECTIVE: MEDICATIONS: Current Outpatient Medications Medication Instructions Acetaminophen (TYLENOL ARTHRITIS PAIN PO) Tylenol Arthritis Pain atorvastatin (LIPITOR) 10 mg, Oral, Daily biotin 10 MG tablet 1 tablet, Daily Calcium Carbonate-Vitamin D (CALTRATE 600+D PO) Caltrate 600+D Cetirizine HCl 10 MG capsule Administer ZYRTEC 10mg PO pre-infusion (REMICADE). cholecalciferol (RA VITAMIN D-3) 25 mcg, Daily cyanocobalamin (VITAMIN B-12) 100 mcg, Daily Cymbalta 30 mg, Daily Eliquis 5 mg, 2 times daily fluticasone (Flonase) 50 MCG/ACT nasal spray 2 sprays, Each Nostril, Daily PRN folic acid (FOLVITE) 1 mg, Every evening glucose blood test strip Daily testing inFLIXimab (Remicade) 100 MG injection as directed Intravenous Lancet Devices (Autolet) lancing device Daily testing loratadine (Claritin) 10 MG tablet 1 tablet, Daily PRN loratadine-pseudoephedrine ER (SM Loratadine D 12HR) 5-120 MG 12 hr tablet 1 tablet, Oral, 2 times daily, Do not crush, chew, or split. Magnesium 400 MG capsule as directed Orally metFORMIN XR (Glucophage-XR) 500 MG 24 hr tablet TAKE 1 TABLET BY MOUTH DAILY WITH EVENING MEAL methotrexate 50 MG/2ML injection INJECT 0.6 ML SUBCUTANEOUSLY ONCE A WEEK Multiple Vitamins-Minerals (PreserVision AREDS 2+Multi Vit) capsule 1 capsule, 2 times daily with meals omeprazole (PRILOSEC) 20 mg, Oral, 2 times daily, Do not crush or chew. traMADol (ULTRAM) 50 mg, Oral, Every 6 hours PRN Umeclidinium-Vilanterol (Anoro Ellipta) 62.5-25 MCG/ACT aerosol powder Inhale. ALLERGIES: Allergies Allergen Reactions Etodolac Unknown Levofloxacin Hives, Itching and Unknown Wound Dressing Adhesive Cefuroxime Hives, Itching and Rash SURGICAL HISTORY: Past Surgical History: Procedure Laterality Date BACK SURGERY 1998 BREAST BIOPSY COLECTOMY 08/2018 sigmoid COLONOSCOPY 03/[address] ANGIO HEAD 06/16/2017 CT ANGIO HEAD 06/16/2017 CT ANGIOGRAM NECK 06/16/2017 CT ANGIOGRAM NECK 06/16/2017 FOOT SURGERY Left 11/2020 revision OTHER SURGICAL HISTORY 04/2017 ablasion OTHER SURGICAL HISTORY 2012 fatty tissue removed from deltoid muscle MT FUSION BIG TOE,I-P JT+TENDN XFER Left 11/2019 [facility] [place] REMOVAL OF OVARIAN CYST(S) Right 1973 TOTAL KNEE ARTHROPLASTY Right 08/[address] Quezada FAMILY HISTORY: Family History Problem Relation Name Age of Onset Aortic aneurysm Mother ruptured Other (CVA) Father Hypertension Sister Atrial fibrillation Sister Other (NV) Sister Diabetes Sister Breast cancer Sister Emphysema Brother youngest COPD Daughter Thyroid disease Daughter Other (back problem) Daughter SOCIAL HISTORY: Social History Tobacco Use Smoking status: Unknown Substance Use Topics Alcohol use: Yes Comment: 1-2 drinks less than monthly in the past year Depression: Not at risk (08/02/2023) PHQ-2 PHQ-2 Score: 0 REVIEW OF SYMPTOMS: Review of Systems Constitutional: Negative for activity change. Eyes: Negative for visual disturbance. Respiratory: Negative for cough and wheezing. Cardiovascular: Negative for chest pain and leg swelling. Gastrointestinal: Negative for abdominal pain. Genitourinary: Negative for difficulty urinating. Musculoskeletal: Negative for arthralgias. Neurological: Negative for weakness. Psychiatric/Behavioral: Negative. Allergic/Immunologic: Negative for environmental allergies. OBJECTIVE: Visit Vitals BP 148/88 (BP Location: Left arm, Patient Position: Sitting, BP Cuff Size: Adult) Pulse 86 Temp 98.4 F (Tympanic) Resp 18 Ht 5' 5 Wt 153 lb SpO2 98% BMI 25.46 kg/m Smoking Status Unknown BSA 1.78 m Physical Exam Constitutional: Appearance: Normal appearance. Eyes: Pupils: Pupils are equal, round, and reactive to light. Cardiovascular: Rate and Rhythm: Normal rate and regular rhythm. Pulses: Normal pulses. Heart sounds: Normal heart sounds. Pulmonary: Effort: Pulmonary effort is normal. Breath sounds: Normal breath sounds. Musculoskeletal: Cervical back: Normal range of motion and neck supple. Skin: General: Skin is warm and dry. Neurological: General: No focal deficit present. Mental Status: She is alert. Psychiatric: Mood and Affect: Mood normal. Comments: Alert , crying at intervals Rev nov 2023 labs Rev mammo of 09-27-23 Rev dexa of 09-28-23, penviviana, worst -2.2 left fem neck Rev 09-12-23 rheum consult, increase remicade dose prior and that helped her pain ASSESSMENT AND PLAN: Assessment/Plan Diagnoses and all orders for this visit: Prediabetes Comments: labs 11-26-23 , aic 6%.discussed diet at length. she has already made a few changes. call as needed. 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 documented in this encounter [facility] 11-29-2023 Instructions Lillian Inman NP - 11/29/2023 9:30 AM EDT Keep up the exercise, do the resistance training More fiber in diet, more protein, consider up to 2 tablespoons per day of the sal seeds, add slow Continue the walking Protein at bedtime , check bs when you feel hot flash Prolia injection order sent to [facility] , call if you do not hear from there Consider magnesium glycinate or combo (not solely the mag oxide) documented in this encounter [facility] 09-01-2022 History of Present illness Narrative [facility] Daily Note Patient: Jose Yang : 1950 CSN #: [id number] Referring Physician: Hiren Gary MD Date: 09/01/2022 Diagnosis: s/p L TKA, Z96.652 Treatment Diagnosis: s/p L TKA Onset Date: 06/17/22 PT Insurance Information: Medicare Part A and B Total # of Visits Approved: 30 Per Physician Order Total # of Visits to Date: 29 No Show: 0 Canceled Appointment: 0 09/10/22 Plan of Care/Recert Due Pre-Treatment Pain: 03/26 Subjective: Patient reports she took the dog for a walk yesterday. Exercises: Exercise 1: HEP: heel prop, quad sets, heel slides Exercise 2: Scifit x 10 mins Exercise 3: Knee flex/ext step stretches [id number] ea Exercise 4: Slantboard stretch 30sec x3 Exercise 6: Prone knee extension x3 min; prone TKE's x10 Exercise 7: Sit/stands no armrests x10; focus on L knee flexion Exercise 8: Supine heel slides with strap x8 Exercise 10: TKE PurpleTB 15x ea Exercise 12: Startrac knee flex 5pl, SL 2x15; knee ext, 3pl, 2x10 Exercise 13: Cybex leg press 6pl, DL 2x15; 3pl, SL 2x10 Manual: Joint Mobilization: PROM L knee within tolerance, gentle patellar mob's, knee ext mob's in supine Soft Tissue Mobilizaton: STM to L HS, calf to decrease tone and pain Modalities: HP to L HS in prone to improve knee extension ROM Assessment Assessment: L knee extension lacking 2* with therapist overpressure in supine following DTM to L HS and calf. Educated patient on sciatic nerve glides to help decrease L HS tone. AROM L knee flexion: 123*. Will continue. Activity Tolerance Activity Tolerance: Patient tolerated treatment well Patient Education Exercise technique Pt verbalized/demonstrated good understanding: [x] Yes [] No, pt required further clarification. Post Treatment Pain: 03/26 Plan Plan Frequency: 2 Plan weeks: 4 Goals (Total # of Visits to Date: 29) Short Term Goals Time Frame for Short Term Goals: 3 weeks Short Term Goal 1: Patient to initiate HEP for improved L knee ROM and strength.-met Short Term Goal 2: Patient to have improved L knee ROM 2-100* for improved mobility.-partially met (3-116*) Short Term Goal 3: Initiate manual techniques/modalities prn to decrease pain and edema and improve mobility.-met Hotel Administrative Assistant Goals Time Frame for Halfway Goals : 6 weeks Halfway Goal 1: Patient to be independent and compliant with HEP. Halfway Goal 2: Patient to have improved L knee AROM 0-130* for improved functional mobility.-progressing (3-121*) Halfway Goal 3: Patient to have improved L LE strength >/=4/5 grossly all major joints and planes for improved functional mobility.-progressing Halfway Goal 4: Patient to be able to walk and negotiate stairs reciprocally with no AD, no gait deviations and no increase in pain to return to PLOF.-progressing Minutes Tracking: Time In: 1024 Time Out: 1113 Minutes: 49 Timed Code Treatment Minutes: 48 Minutes Maria Victoria Scott PT, DPT Date: 09/01/2022 documented in this encounter [facility] 08-30-2022 History of Present illness Narrative [facility] Daily Note Patient: Jose Yang : 1950 CSN #: [id number] Referring Physician: Hiren Gary MD Date: 08/30/2022 Treatment Diagnosis: s/p L TKA Onset Date: 06/17/22 PT Insurance Information: Medicare Part A and B Total # of Visits Approved: 30 Per Physician Order Total # of Visits to Date: No Show: 0 Canceled Appointment: 0 09/10/22 Plan of Care/Recert Due Pre-Treatment Pain: 2/10 Subjective: Pt states she went back to the surgeon today and he is happy with progress so far and happy to see the motion advanced. Pt rates current pain a 2/10 Exercises: Exercise 1: HEP: heel prop, quad sets, heel slides Exercise 2: Scifit x 10 mins Exercise 3: Knee flex/ext step stretches [id number] ea Exercise 4: Slantboard stretch 30sec x3 Exercise 6: Prone heel prop x3 min Exercise 7: Sit/stands no armrests x10; focus on L knee flexion Exercise 9: FSU/ LSU. 8 inch 15x, SD 8 inch 10x only FSU today Exercise 10: TKE PurpleTB 15x ea Exercise 11: prone knee flexion stretch 10x 10 sec Exercise 12: Startrac knee flex 5pl, SL 2x15 Exercise 13: Cybex leg press 6pl, DL 2x15; 3pl, SL 2x10 Manual: Joint Mobilization: PROM L knee within tolerance, gentle patellar mob's, knee ext mob's in supine Assessment Assessment: L knee AROM lacking 3 to 120*. Better tolerance to exercises today. Will continue to progress as tolerable. Activity Tolerance Activity Tolerance: Patient tolerated treatment well Patient Education Patient Education: Continue ROM, HEP Pt verbalized/demonstrated good understanding: [x] Yes [] No, pt required further clarification. Post Treatment Pain: 03/26 Plan Plan Frequency: 2 Plan weeks: 4 Goals (Total # of Visits to Date: 28) Short Term Goals Time Frame for Short Term Goals: 3 weeks Short Term Goal 1: Patient to initiate HEP for improved L knee ROM and strength.-met Short Term Goal 2: Patient to have improved L knee ROM 2-100* for improved mobility.-partially met (3-116*) Short Term Goal 3: Initiate manual techniques/modalities prn to decrease pain and edema and improve mobility.-met Hotel Administrative Assistant Goals Time Frame for Halfway Goals : 6 weeks Halfway Goal 1: Patient to be independent and compliant with HEP. Halfway Goal 2: Patient to have improved L knee AROM 0-130* for improved functional mobility.-progressing (3-121*) Halfway Goal 3: Patient to have improved L LE strength >/=4/5 grossly all major joints and planes for improved functional mobility.-progressing Hotel Administrative Assistant Goal 4: Patient to be able to walk and negotiate stairs reciprocally with no AD, no gait deviations and no increase in pain to return to PLOF.-progressing Minutes Tracking: Time In: 1317 Time Out: 1400 Minutes: 43 Timed Code Treatment Minutes: 41 Minutes Jose Houston, BOTANY PROFESSOR Date: 08/30/2022 documented in this encounter [facility] 08-11-2022 History of Present illness Narrative [facility] Daily Note Patient: Jose Yang : 1950 CSN #: [id number] Referring Physician: Hiren Gary MD Date: 08/11/2022 Diagnosis: s/p L TKA, Z96.652 Treatment Diagnosis: s/p L TKA Onset Date: 06/17/22 PT Insurance Information: Medicare Part A and B Total # of Visits Approved: 30 Per Physician Order Total # of Visits to Date: 22 No Show: 0 Canceled Appointment: 0 09/10/22 Plan of Care/Recert Due Pre-Treatment Pain: 04/23 Subjective: Patient reports she is feeling pretty well today; no complaints. Exercises: Exercise 1: HEP: heel prop, quad sets, heel slides Exercise 2: Scifit x 6 mins, airdyne bike seat number 3; 5 mins for flexion Exercise 3: Knee flex/ext step stretches [id number] ea Exercise 4: Slantboard stretch 30sec x3 Exercise 7: Sit/stands B armrests x10; focus on L knee flexion Exercise 9: FSU/ LSU. 6 inch 10x, SD 4 inch 5x, 6in 5x Manual: Muscle Energy: MET to correct L innominate anterior rotation in supine Modalities: IFC and CP to L knee and HP to L HS x15 min to decrease pain/edema Assessment Assessment: Patient has attended 22 PT visits s/p L TKA and has met goals for initiating HEP and functional ROM/strengthening exercises. Patient with current ROM L knee 3-116*, progressing toward LTG. Current L LE strength is 4- to 4/5 grossly and patient was able to progress to 6in step downs today with no increase in pain and fair eccentric quad control. Patient with mild leg length discrepancy with R LE ~1cm shorter than L LE d/t hx of scoliosis and pelvic rotation. Able to correct pelvic rotation with MET today but L leg remains longer. Fitted patient for small heel lift in R shoe to normalize gait and decrease hip pain. Patient to benefit from continued physical therapy 2x/wk for 4 more weeks to meet remaining goals and return to PLOF. Activity Tolerance Activity Tolerance: Patient tolerated treatment well Patient Education Exercise technique , UPOC Pt verbalized/demonstrated good understanding: [x] Yes [] No, pt required further clarification. Post Treatment Pain: 03/26 Plan Plan Frequency: 2 Plan weeks: 4 Goals (Total # of Visits to Date: 22) Short Term Goals Time Frame for Short Term Goals: 3 weeks Short Term Goal 1: Patient to initiate HEP for improved L knee ROM and strength.-met Short Term Goal 2: Patient to have improved L knee ROM 2-100* for improved mobility.-progressing (2-97* 6/2) Short Term Goal 3: Initiate manual techniques/modalities prn to decrease pain and edema and improve mobility.-met Hotel Administrative Assistant Goals Time Frame for Hotel Administrative Assistant Goals : 6 weeks Halfway Goal 1: Patient to be independent and compliant with HEP. Halfway Goal 2: Patient to have improved L knee AROM 0-130* for improved functional mobility.-progressing (3-116*) Hotel Administrative Assistant Goal 3: Patient to have improved L LE strength >/=4/5 grossly all major joints and planes for improved functional mobility. Hotel Administrative Assistant Goal 4: Patient to be able to walk and negotiate stairs reciprocally with no AD, no gait deviations and no increase in pain to return to PLOF.-progressing Minutes Tracking: Time In: 1119 Time Out: 1221 Minutes: 62 Timed Code Treatment Minutes: 61 Minutes Maria Victoria Scott PT, DPT Date: 08/11/2022 documented in this encounter [facility] 07-21-2022 History of Present illness Narrative [facility] Daily Note Patient: Jose Yang : 1950 CSN #: [id number] Referring Physician: Hiren Gary MD Date: 07/21/2022 Diagnosis: s/p L TKA, Z96.652 Treatment Diagnosis: s/p L TKA Onset Date: 06/17/22 PT Insurance Information: Medicare Part A and B Total # of Visits Approved: 24 Per Physician Order Total # of Visits to Date: 13 No Show: 0 Canceled Appointment: 0 08/13/22 Plan of Care/Recert Due Pre-Treatment Pain: 7/10 Subjective: Patient reports 7/10 R knee pain before taking tramadol today, 4/10 afterwards. Reports sharp pains in anterior lee and soreness in HS and calf. Pt reports a lot of increased pain following last session when they tried increasing reps of sit/stands and she tried reciprocal stairsx2. Exercises: Exercise 1: HEP: heel prop, quad sets, heel slides Exercise 2: Scifit x8min, L3, hills airdyne bike 4 mins seat 5-scifit today Exercise 3: Knee flex/ext step stretches [id number] ea Exercise 4: Slantboard stretch [id number] Exercise 7: Sit/stands B armrests x10; focus on L knee flexion Exercise 9: 6in FSU x0 Manual: Soft Tissue Mobilizaton: STM to L tibialis anterior, HS, calf patellar tendon and quad to decrease tone and pain Other: Passive L tibialis anterior stretch in supine [id number] to decrease tone and pain Modalities: IFC and CP to L tibialis anterior and quad and HP to HS and calf x15 min to decrease pain Assessment Assessment: Decreased reps of sit/stands and held reciprocal stairs this date d/t increased pain. Focused on manual techniques to decrease tone and pain in L anterior lee and quad. Will continue to progress as tolerated. Activity Tolerance Activity Tolerance: Patient tolerated treatment well, Patient limited by pain Patient Education Exercise technique, continue stretching routine at home in prone and massage tender areas followed by ice to decrease pain Pt verbalized/demonstrated good understanding: [x] Yes [] No, pt required further clarification. Post Treatment Pain: 04/23 Plan Plan Frequency: 3 Plan weeks: 4 Goals (Total # of Visits to Date: 13) Short Term Goals Time Frame for Short Term Goals: 3 weeks Short Term Goal 1: Patient to initiate HEP for improved L knee ROM and strength.-met Short Term Goal 2: Patient to have improved L knee ROM 2-100* for improved mobility.-progressing (2-97* 6/2) Short Term Goal 3: Initiate manual techniques/modalities prn to decrease pain and edema and improve mobility.-met Hotel Administrative Assistant Goals Time Frame for Hotel Administrative Assistant Goals : 6 weeks Hotel Administrative Assistant Goal 1: Patient to be independent and compliant with HEP. Halfway Goal 2: Patient to have improved L knee AROM 0-130* for improved functional mobility. Halfway Goal 3: Patient to have improved L LE strength >/=4/5 grossly all major joints and planes for improved functional mobility. Hotel Administrative Assistant Goal 4: Patient to be able to walk and negotiate stairs reciprocally with no AD, no gait deviations and no increase in pain to return to PLOF. Minutes Tracking: Time In: 1615 Time Out: 1715 Minutes: 60 Timed Code Treatment Minutes: 59 Minutes Maria Victoria Scott PT, DPT Date: 07/21/2022 documented in this encounter [facility] [employer] Work Phone: 07-19-2022 History of Present illness Narrative [facility] Daily Note Patient: Jose Yang : 1950 CSN #: [id number] Referring Physician: Hiren Gary MD Date: 07/19/2022 Treatment Diagnosis: s/p L TKA Onset Date: 06/17/22 PT Insurance Information: Medicare Part A and B Total # of Visits Approved: 24 Per Physician Order Total # of Visits to Date: 12 No Show: 0 Canceled Appointment: 0 08/13/22 Plan of Care/Recert Due Pre-Treatment Pain: 6/10 Subjective: Pt reports pain 6/10 upon entering clinic. Biggest complaint is sleeping issues d/t pain and discomfort. Exercises: Exercise 1: HEP: heel prop, quad sets, heel slides Exercise 2: Scifit x8min, L3, hills airdyne bike 4 mins seat 5 Exercise 3: Knee flex/ext step stretches [id number] ea Exercise 4: Slantboard stretch [id number] Exercise 5: Seated heel slides x5; LAQ/marches x5 ea; SAQ AAROM x10 Exercise 6: Supine heel prop x3 min Exercise 7: Sit/stands B armrests x20; focus on L knee flexion Exercise 8: Supine heel slides with strap x8 Exercise 9: 4in FSU x10; 6in FSU x5 Exercise 10: TKE GTB 15x ea Exercise 11: prone knee flexion stretch 10x 10 sec Manual: Joint Mobilization: PROM L knee within tolerance, gentle patellar mob's, knee ext mob's in supine Modalities: IFC with CP to L knee in supine, 15min to reduce pain and discomfort. Assessment Assessment: Pt completed charted ex with mild discomfort throughout, continues to demo quad weakness while performing step ups and sit to stands. Removal of sterie strips this session with no adverse reactions. Continue to progress per tolerance to further progress towards goals. Activity Tolerance Activity Tolerance: Patient tolerated treatment well, Patient limited by pain Patient Education Patient Education: Continue ROM, HEP Pt verbalized/demonstrated good understanding: [x] Yes [] No, pt required further clarification. Post Treatment Pain: /10 Plan Plan Frequency: 3 Plan weeks: 4 Goals (Total # of Visits to Date: 12) Short Term Goals Time Frame for Short Term Goals: 3 weeks Short Term Goal 1: Patient to initiate HEP for improved L knee ROM and strength.-met Short Term Goal 2: Patient to have improved L knee ROM 2-100* for improved mobility.-progressing (2-97* 07/16) Short Term Goal 3: Initiate manual techniques/modalities prn to decrease pain and edema and improve mobility.-met Halfway Goals Time Frame for Hotel Administrative Assistant Goals : 6 weeks Halfway Goal 1: Patient to be independent and compliant with HEP. Halfway Goal 2: Patient to have improved L knee AROM 0-130* for improved functional mobility. Hotel Administrative Assistant Goal 3: Patient to have improved L LE strength >/=4/5 grossly all major joints and planes for improved functional mobility. Hotel Administrative Assistant Goal 4: Patient to be able to walk and negotiate stairs reciprocally with no AD, no gait deviations and no increase in pain to return to PLOF. Minutes Tracking: Time In: 1355 Time Out: 1501 Minutes: 66 Timed Code Treatment Minutes: 60 Minutes Fabiana Graham PTA Date: 07/19/2022 documented in this encounter [facility] [employer] Phone: 07-16-2022 History of Present illness Narrative [facility] Daily Note Patient: Jose Yang : 1950 CSN #: [id number] Referring Physician: Hiren Gary MD Date: 07/16/2022 Diagnosis: s/p L TKA, Z96.652 Treatment Diagnosis: s/p L TKA Onset Date: 06/17/22 PT Insurance Information: Medicare Part A and B Total # of Visits Approved: 24 Per Physician Order Total # of Visits to Date: 11 No Show: 0 Canceled Appointment: 0 08/13/22 Plan of Care/Recert Due Pre-Treatment Pain: 05/24 Subjective: Patient reports 3-05/24 pain today. Exercises: Exercise 1: HEP: heel prop, quad sets, heel slides Exercise 2: Scifit x6min, L3, hills airdyne bike 4 mins seat 5 Exercise 3: Knee flex/ext step stretches [id number] ea Exercise 4: Slantboard stretch [id number] Exercise 7: Sit/stands B armrests x10; focus on L knee flexion Exercise 9: 4in FSU x10; 6in FSU x5 Exercise 10: TKE GTB 15x ea Exercise 11: prone knee flexion stretch 10x 10 sec Manual: Joint Mobilization: PROM L knee within tolerance, gentle patellar mob's, knee ext mob's in supine Soft Tissue Mobilizaton: STM to quad to decrease tone and pain Modalities: IFC and CP to L knee x15 min to decrease pain Assessment Assessment: Patient has attended 11 PT visits for L TKA and met goals for initiating HEP and functional strengthening and ROM exercises. Pt's best ROM is with standing stretches: 2-97* today with knee flexion step stretch and with GTB TKE exercise. Patient demo's L quad weakness and decreased control with 6in step up and would benefit from continued physical therapy 3x/wk for up to 4 more weeks to meet remaining goals and return to PLOF. Activity Tolerance Activity Tolerance: Patient tolerated treatment well, Patient limited by pain Patient Education Exercise technique Pt verbalized/demonstrated good understanding: [x] Yes [] No, pt required further clarification. Post Treatment Pain: 04/23 Plan Plan Frequency: 3 Plan weeks: 4 Goals (Total # of Visits to Date: 11) Short Term Goals Time Frame for Short Term Goals: 3 weeks Short Term Goal 1: Patient to initiate HEP for improved L knee ROM and strength.-met Short Term Goal 2: Patient to have improved L knee ROM 2-100* for improved mobility.-progressing (2-97* /) Short Term Goal 3: Initiate manual techniques/modalities prn to decrease pain and edema and improve mobility.-met Halfway Goals Time Frame for Hotel Administrative Assistant Goals : 6 weeks Hotel Administrative Assistant Goal 1: Patient to be independent and compliant with HEP. Halfway Goal 2: Patient to have improved L knee AROM 0-130* for improved functional mobility. Hotel Administrative Assistant Goal 3: Patient to have improved L LE strength >/=4/5 grossly all major joints and planes for improved functional mobility. Halfway Goal 4: Patient to be able to walk and negotiate stairs reciprocally with no AD, no gait deviations and no increase in pain to return to PLOF. Minutes Tracking: Time In: 1245 Time Out: 1340 Minutes: 55 Timed Code Treatment Minutes: 54 Minutes Maria Victoria Scott PT, DPT Date: 07/16/2022 documented in this encounter [facility] [employer] Phone: 07-14-2022 History of Present illness Narrative [facility] Daily Note Patient: Jose Yang : 1950 CSN #: [id number] Referring Physician: Hiren Gary MD Date: 07/14/2022 Treatment Diagnosis: s/p L TKA Onset Date: 06/17/22 PT Insurance Information: Medicare Part A and B Total # of Visits Approved: 13 Per Physician Order Total # of Visits to Date: 10 No Show: 0 Canceled Appointment: 0 07/19/22 Plan of Care/Recert Due Pre-Treatment Pain: 05/24 Subjective: Pt reports she feels like the stretching is helping but its still been sore. Pt rates current pain a /10. Exercises: Exercise 2: Scifit x6min, L3, hills airdyne bike 4 mins seat Exercise 3: Knee flex/ext step stretches [id number] ea Exercise 6: Supine heel prop x2 min Exercise 8: Supine heel slides with strap x8 Exercise 9: 4in FSU x10 Manual: Joint Mobilization: PROM L knee within tolerance, seated EOB tibial distraction and knee flex; gentle patellar mob's, knee ext mob's in supine Modalities: IFC with CP 15 mins for discomfort. Assessment Assessment: Pt reassessed by Maria Victoria Aceves PT/ DPT for insurance update. Pt L knee flexion AROM in supine 90* and extension after heel prop lacking 5*. Continued to stress importance of prolonged stretching for greater ROM. Activity Tolerance Activity Tolerance: Patient tolerated treatment well, Patient limited by pain Patient Education Patient Education: Continue ROM. Pt verbalized/demonstrated good understanding: [x] Yes [] No, pt required further clarification. Post Treatment Pain: 4/10 Plan Plan Frequency: 3 Plan weeks: 4 Goals (Total # of Visits to Date: 10) Short Term Goals Time Frame for Short Term Goals: 3 weeks Short Term Goal 1: Patient to initiate HEP for improved L knee ROM and strength.-met Short Term Goal 2: Patient to have improved L knee ROM 2-100* for improved mobility.-progressing (2-90* 07/05) Short Term Goal 3: Initiate manual techniques/modalities prn to decrease pain and edema and improve mobility.-met Halfway Goals Time Frame for Hotel Administrative Assistant Goals : 6 weeks Hotel Administrative Assistant Goal 1: Patient to be independent and compliant with HEP. Hotel Administrative Assistant Goal 2: Patient to have improved L knee AROM 0-130* for improved functional mobility. Halfway Goal 3: Patient to have improved L LE strength >/=4/5 grossly all major joints and planes for improved functional mobility. Halfway Goal 4: Patient to be able to walk and negotiate stairs reciprocally with no AD, no gait deviations and no increase in pain to return to PLOF. Minutes Tracking: Time In: 1301 Time Out: 1400 Minutes: 59 Timed Code Treatment Minutes: 57 Minutes Jose Houston PTA Date: 07/14/2022 documented in this encounter [facility] [employer] Phone: 06-28-2022 History of Present illness Narrative [facility] Out[facility] Physical Therapy Daily Note Patient: Jose Yang : 1950 CSN #: [id number] Referring Physician: Hiren Gary MD Date: 06/28/2022 Diagnosis: s/p L TKA, Z96.652 Treatment Diagnosis: s/p L TKA Onset Date: 06/17/22 PT Insurance Information: Medicare Part A and B Total # of Visits Approved: 13 Per Physician Order Total # of Visits to Date: 3 No Show: 0 Canceled Appointment: 0 07/19/22 Plan of Care/Recert Due Pre-Treatment Pain: 07/24 Subjective: L knee pain still around 5-6/10 and really stiff; she didn't get to exercise much this weekend d/t Mother's day celebrations. Exercises: Exercise 2: Scifit x10min, L1.0, hills Exercise 3: Knee flex/ext step stretches [id number] ea Exercise 4: Slantboard stretch [id number] Manual: Joint Mobilization: PROM L knee within tolerance, seated EOB tibial distraction and knee flex; gentle patellar mob's Soft Tissue Mobilizaton: Light effleurage towards heart and STM to quad, HS, calf to decrease tone and pain Modalities: IFC and CP to L knee in elevation x15 min to decrease pain and edema Assessment Assessment: Pt with improved L knee PROM 3-80* today with therapist overpressure following manual techniques to decrease tone and encourage fluid return to the heart. Will continue. Activity Tolerance Activity Tolerance: Patient tolerated treatment well, Patient limited by pain Patient Education Exercise technique Pt verbalized/demonstrated good understanding: [x] Yes [] No, pt required further clarification. Post Treatment Pain: 05/24 Plan Plan Frequency: 3 Plan weeks: 4 Goals (Total # of Visits to Date: 3) Short Term Goals Time Frame for Short Term Goals: 3 weeks Short Term Goal 1: Patient to initiate HEP for improved L knee ROM and strength.-met Short Term Goal 2: Patient to have improved L knee ROM 2-100* for improved mobility.-progressing Short Term Goal 3: Initiate manual techniques/modalities prn to decrease pain and edema and improve mobility.-met Hotel Administrative Assistant Goals Time Frame for Hotel Administrative Assistant Goals : 6 weeks Hotel Administrative Assistant Goal 1: Patient to be independent and compliant with HEP. Hotel Administrative Assistant Goal 2: Patient to have improved L knee AROM 0-130* for improved functional mobility. Halfway Goal 3: Patient to have improved L LE strength >/=4/5 grossly all major joints and planes for improved functional mobility. Hotel Administrative Assistant Goal 4: Patient to be able to walk and negotiate stairs reciprocally with no AD, no gait deviations and no increase in pain to return to OF. Minutes Tracking: Time In: 1132 Time Out: 1228 Minutes: 56 Timed Code Treatment Minutes: 55 Minutes Maria Victoria Scott PT, DPT Date: 06/28/2022 documented in this encounter [facility] [employer] Phone: 06-24-2022 History of Present illness Narrative [facility] Therapy Daily Note Patient: Jose Yang : 1950 CSN #: [id number] Referring Physician: Hiren Gary MD Date: 06/24/2022 Diagnosis: s/p L TKA, Z96.652 Treatment Diagnosis: s/p L TKA Onset Date: 06/17/22 PT Insurance Information: Medicare Part A and B Total # of Visits Approved: 13 Per Physician Order Total # of Visits to Date: 2 No Show: 0 Canceled Appointment: 0 07/19/22 Plan of Care/Recert Due Pre-Treatment Pain: 6/10 Subjective: Pt reports 5-6/10 pain in L knee; they checked for infection and everything's okay. Exercises: Exercise 1: HEP: heel prop, quad sets, heel slides Exercise 2: Scifit x7min, L1.0, hills Exercise 3: Knee flex/ext step stretches [id number] ea Exercise 4: Slantboard stretch [id number] Exercise 5: Seated heel slides x5; LAQ/marches x5 ea Exercise 6: Supine heel prop x2 min Exercise 7: Therapist assisted SLR's x5 Exercise 8: Supine heel slides with strap x8 Modalities: IFC and CP to L knee x15 min to decrease pain/edema Assessment Assessment: Initiaed L knee ROM/strengthening within patient tolerance. Patient with improved L knee extension lacking 6* from full extension today; flexion limited to 65* today. Will continue. Activity Tolerance Activity Tolerance: Patient tolerated treatment well, Patient limited by pain Patient Education Exercise technique Pt verbalized/demonstrated good understanding: [x] Yes [] No, pt required further clarification. Post Treatment Pain: 4/10 Plan Plan Frequency: 3 Plan weeks: 4 Goals (Total # of Visits to Date: 2) Short Term Goals Time Frame for Short Term Goals: 3 weeks Short Term Goal 1: Patient to initiate HEP for improved L knee ROM and strength.-met Short Term Goal 2: Patient to have improved L knee ROM 2-100* for improved mobility.-progressing Short Term Goal 3: Initiate manual techniques/modalities prn to decrease pain and edema and improve mobility.-met Hotel Administrative Assistant Goals Time Frame for Halfway Goals : 6 weeks Hotel Administrative Assistant Goal 1: Patient to be independent and compliant with HEP. Hotel Administrative Assistant Goal 2: Patient to have improved L knee AROM 0-130* for improved functional mobility. Hotel Administrative Assistant Goal 3: Patient to have improved L LE strength >/=4/5 grossly all major joints and planes for improved functional mobility. Halfway Goal 4: Patient to be able to walk and negotiate stairs reciprocally with no AD, no gait deviations and no increase in pain to return to PLOF. Minutes Tracking: Time In: 1345 Time Out: 1443 Minutes: 58 Timed Code Treatment Minutes: 57 Minutes Maria Victoria Scott PT, DPT Date: 06/24/2022 documented in this encounter [facility] [employer] Phone: 06-21-2022 History of Present illness Narrative [facility] Out[facility] Physical Therapy Evaluation Date: 06/21/2022 Patient: Jose Yang : 1950 CSN #: [id number] Referring Physician: Hiren Gary MD Medical Diagnosis: s/p L TKA, Z96.652 Treatment Diagnosis: s/p L TKA Onset Date: 06/17/22 PT Insurance Information: Medicare Part A and B Total # of Visits Approved: 13 Total # of Visits to Date: 1 No Show: 0 Canceled Appointment: 0 Subjective Subjective: Patient reports redness and warmth since surgery and she will have this checked later today. 6/10 pain on average. Pt currently walking with a walker, Stairs are getting easier at home, she's in a split level home. She is compliant with icing, elevation and pain meds and with exercises. Additional Pertinent Hx: COPD, DM, fibromyalgia, RA, GERD, HLD, emphysema, hx of foot fusion, hx of R TKA, hx of back surgery Observations: General Observations Description: Pt amb with antalgic gait and FWW with lack of L TKE but no LOB. Moderate L knee edema and redness/warmth Objective AROM AROM LLE (degrees) L Knee Flexion (0-145): 10-84* Strength Strength LLE L Hip Flexion: 3-/5 L Hip ABduction: 3/5 L Hip ADduction: 3/5 L Knee Flexion: 3/5 L Knee Extension: 3-/5 L Ankle Dorsiflexion: 3+/5 Special Tests: Strength RLE R Hip Flexion: 4/5 R Hip ABduction: 4/5 R Hip ADduction: 4+/5 R Knee Flexion: 4-/5 R Knee Extension: 4/5 R Ankle Dorsiflexion: 4-/5 Strength LLE L Hip Flexion: 3-/5 L Hip ABduction: 3/5 L Hip ADduction: 3/5 L Knee Flexion: 3/5 L Knee Extension: 3-/5 L Ankle Dorsiflexion: 3+/5 Exercises: Exercise 1: HEP: heel prop, quad sets, heel slides Manual: Joint Mobilization: PROM L knee within tolerance Modalities: CP to L knee x10min to decrease pain/edema; held estim this date d/t pt getting checked today for possible infection Functional Outcome Measures Any of your usual work, housework, or school activities: Quite a Bit of Difficulty Your usual hobbies, recreational, or sporting activities: Extreme Difficulty or Unable to Perform Activity Getting into or out of the bath: Quite a Bit of Difficulty Walking between rooms: Moderate Difficulty Putting on your shoes or socks: Moderate Difficulty Squatting: Extreme Difficulty or Unable to Perform Activity Lifting an object, like a bag of groceries from the floor: Quite a Bit of Difficulty Performing light activities around your home: Quite a Bit of Difficulty Performing heavy activities around your home: Extreme Difficulty or Unable to Perform Activity Getting into or out of a car: Moderate Difficulty Walking 2 blocks: Quite a Bit of Difficulty Walking a mile: Extreme Difficulty or Unable to Perform Activity Going up or down 10 stairs (about 1 flight of stairs): Quite a Bit of Difficulty Standing for 1 hour: Extreme Difficulty or Unable to Perform Activity Sitting for 1 hour: A Little Bit of Difficulty Running on even ground : Extreme Difficulty or Unable to Perform Activity Running on uneven ground : Extreme Difficulty or Unable to Perform Activity Making sharp turns while running fast : Extreme Difficulty or Unable to Perform Activity Hopping: Extreme Difficulty or Unable to Perform Activity Rolling over in bed: A Little Bit of Difficulty LEFS Total Score: 18 Assessment Assessment: Patient is 71 year old female s/p L TKA who presents with increased pain 6/10 on average that is worse with WB'ing and functional mobility.Pt amb with antalgic gait and FWW with lack of L TKE but no LOB. Moderate L knee edema and redness/warmth. Patient with decreased L knee ROM 10-60* before stretching and 8-84* after stretching. Patient with decreased L LE strength 3-/5 grossly all major joints and planes. Patient to benefit from physical therapy to decrease pain and edema and improve ROM and strength to return to PLOF. Therapy Prognosis: Good Decision Making: Low Complexity Patient Education PT eval, POC, HEP Pt verbalized/demonstrated good understanding: [X] Yes [] No, pt required further clarification. Goals Short Term Goals Time Frame for Short Term Goals: 3 weeks Short Term Goal 1: Patient to initiate HEP for improved L knee ROM and strength. Short Term Goal 2: Patient to have improved L knee ROM 2-100* for improved mobility. Short Term Goal 3: Initiate manual techniques/modalities prn to decrease pain and edema and improve mobility. Hotel Administrative Assistant Goals Time Frame for Hotel Administrative Assistant Goals : 6 weeks Halfway Goal 1: Patient to be independent and compliant with HEP. Hotel Administrative Assistant Goal 2: Patient to have improved L knee AROM 0-130* for improved functional mobility. Halfway Goal 3: Patient to have improved L LE strength >/=4/5 grossly all major joints and planes for improved functional mobility. Hotel Administrative Assistant Goal 4: Patient to be able to walk and negotiate stairs reciprocally with no AD, no gait deviations and no increase in pain to return to PLOF. Minutes Tracking: Time In: 1300 Time Out: 1340 Minutes: 40 Timed Code Treatment Minutes: 30 Minutes Maria Victoria Scott PT, DPT 06/21/2022 documented in this encounter [facility] [employer] Phone: 06-18-2022 History of Present illness Narrative Discharge instructions completed at this time. Medications reviewed and questions answered. Educated on total knee discharge instructions from Dr. Gary's office. Educated the patient on signs and symptoms of infection and when to call the office. All other questions and concerns answered at this time. Entered patient's room for morning vital signs and head to toe assessment. Patient resting in the chair at this time. A&O x4, calm, and cooperative. Patient complains of pain at this time, no pain medication can be given at this time but patient stated she would take some when she can get it. Vital signs and head to toe assessment completed at this time, see flowsheets for more details. Patient denies no more needs at this time. Call light within reach. Chair wheels locked. Bed in lowest position. Orthopaedic Surgery Progress Note Subjective: Patient resting comfortably in bed. Pain well controlled. Ambulating to the bathroom. Denies chest pain or SOB. Denies numbness or tingling in her toes. Urinating without difficulty. Vitals VITALS: BP 132/62 Pulse 84 Temp 98.4 F (36.9 C) (Temporal) Resp 18 Ht 5' 5 (1.651 m) Wt 152 lb 3.2 oz (69 kg) LMP 09/22/2003 SpO2 93% BMI 25.33 kg/m DRAIN/TUBE OUTPUT: PHYSICAL EXAM: Orientation: alert and oriented to person, place and time Left Lower Extremity Incision: dressing in place, clean, dry, and intact Lower Extremity Motor : Moving lower extremities without difficulty today. Able to dorsiflex and plantar flex foot/ankle. Lower Extremity Sensory: Neurovascularly intact to gross sensation and touch in lower extremities. Pulses: present 2+ bilaterally lower extremities. LABS: INR: No results found for: PTINR CBC: Lab Results Component Value Date/Time WBC 4.6 05/25/2022 09:15 AM RBC 4.58 05/25/2022 09:15 AM RBC 4.65 04/04/2019 11:54 AM HGB 13.9 05/25/2022 09:15 AM HCT 44.9 05/25/2022 09:15 AM MCV 98.0 05/25/2022 09:15 AM MCH 30.3 05/25/2022 09:15 AM MCHC 31.0 05/25/2022 09:15 AM RDW 14.1 05/25/2022 09:15 AM PLT 273 05/25/2022 09:15 AM MPV 9.9 05/25/2022 09:15 AM BMP: Lab Results Component Value Date/Time NA 141 06/18/2022 05:33 AM K 4.7 06/18/2022 05:33 AM CL 109 06/18/2022 05:33 AM CO2 26 06/18/2022 05:33 AM BUN 12 06/18/2022 05:33 AM LABALBU 4.0 05/25/2022 09:15 AM CREATININE 0.70 06/18/2022 05:33 AM CALCIUM 8.9 06/18/2022 05:33 AM GFRAA >60 02/03/2018 06:09 AM LABGLOM >60 06/18/2022 05:33 AM GLUCOSE 112 06/18/2022 05:33 AM GLUCOSE 86 04/04/2019 11:54 AM ASSESSMENT AND PLAN: Post operative day 1 status post Left Total Knee Arthroplasty 1: Weight bearing as tolerated 2: Continue Deep venous thrombosis prophylaxis - Eliquis, SCDs, TEDs 3: Continue physical therapy 4: D/C Plan: Home today 5: Continue Pain Control 6: Dressing to remain in place until follow up. May shower over dressing 7: Outpatient follow up in 2 weeks Hiren Gary MD Orthopaedic Surgeon [facility] 06/18/2022 6:36 AM Vitals and assessment completed as charted. Patient resting in bed with no distress noted when auto service writer entered room. Patient complains of 5/10 pain to let knee, auto service writer helped position knee on a pillow and gave an ice pack. Patient denies any further needs. Call light remains within reach. RESPIRATORY ASSESSMENT PROTOCOL Patient Name: Jose Yang Room#: 0314/0314-01 : 1950 Admitting diagnosis: Chronic pain of left knee [M25.562, G89.29] Primary osteoarthritis of left knee [M17.12] Rheumatoid arthritis involving left knee, unspecified whether rheumatoid factor present (HCC) [M06.9] S/P total knee arthroplasty, left [Z96.652] Medical History: Past Medical History: Diagnosis Date Antiphospholipid syndrome (HCC) possible Arthritis rhuematoid diagnosis Chronic back pain COPD (chronic obstructive pulmonary disease) (HCC) Diabetes mellitus (HCC) Fibromyalgia GERD (gastroesophageal reflux disease) Hx of blood clots saddle & left leg DVT Hyperlipidemia Lupus anticoagulant positive Macular degeneration MTHFR mutation Pelvic congestion syndrome Rheumatoid arthritis ([facility]) PATIENT ASSESSMENT LABORATORY DATA Hematology: Lab Results Component Value Date/Time WBC 4.6 05/25/2022 09:15 AM RBC 4.58 05/25/2022 09:15 AM RBC 4.65 04/04/2019 11:54 AM HGB 13.9 05/25/2022 09:15 AM HCT 44.9 05/25/2022 09:15 AM PLT 273 05/25/2022 09:15 AM Chemistry: No results found for: PHART, [id number], PO2ART, [id number], [id number], PBEA VITALS Pulse: 75 Respirations: 16 BP: (!) 158/83 SpO2: 95 % O2 Device: Nasal cannula Temp: 97.5 F (36.4 C) SKIN COLOR [x] Normal [] Pale [] Dusky [] Cyanotic RESPIRATORY PATTERN [x] Normal [] Dyspnea [] Nito-Low [] Kussmaul [] Biots AMBULATORY [] Yes [] No [x] With Assistance PEAK FLOW Predicted: Personal Best: Patient Acuity 0 1 2 3 4 Score Level of Consciousness (LOC) [x] Alert & Oriented or Pt normal LOC [] Confused;follows directions [] Confused & uncooper-ative [] Obtunded [] Comatose 0 Respiratory Rate (RR) [x] Reg. rate & pattern. 12 - 20 bpm [] Increased RR. Greater than 20 bpm [] SOB w/ exertion or RR greater than 24 bpm [] Access- ory muscle use at rest. Abn. resp. [] SOB at rest. 0 Bilateral Breath Sounds (BBS) [] Clear [x] Diminish-ed bases [] Diminish-ed t/o, or rales [] Sporadic, scattered wheezes or rhonchi [] Persistentwheezes and, or absent BBS 1 Cough [x] Strong, effective, & non-prod. [] Effective & prod. Less than 25 ml (2 TBSP) over past 24 hrs [] Ineffective & non-prod to less than 25 ML over past 24 hrs [] Ineffective and, or greater than 25 ml sputum prod. past 24 hrs. [] Nonspon- taneous; Requires suctioning 0 Pulmonary History (PULM HX) [] No smoking and no chronic pulmonary history [] Former smoker. Quit over 12 mos. ago [] Current smoker or quit w/ in 12 mos [x] Pulm. History and, or 20 pk/yr smoking hx [] Admitted w/ acute pulm. dx and, or has been admitted w/ pulm. dx 2 or more times over past 12 mos 3 Surgical History this Admit (SURG HX) [] No surgery [x] General surgery [] Lower abdominal [] Thoracic or upper abdominal [] Thoracic w/ pulm. disease 1 Chest X-Ray (CXR)/CT Scan [x] Clear or not applicable [] Not available [] Atelectasis or pleural effusions [] Localized infiltrate or pulm. edema [] Con-solidated Infiltrates, bilateral, or in more than 1 lobe 0 TOTAL ACUITY: 5 CARE PLAN If Acuity Level is 2, 3, or 4 in any of the following: [] BILATERAL BREATH SOUNDS (BBS) [x] PULMONARY HISTORY (PULM HX) [] Respiratory Rate (RR) Goal: Improve respiratory functions in patients with airway disease and decrease WOB [x] AEROSOL PROTOCOL Total Acuity: 14-28 [] Secondary Assessment in 24 hrs Total Acuity: 9-13 [] Secondary Assessment in 24 hrs Total Acuity: 4-8 [x] Secondary Assessment in 24 hrs Total Acuity: 0-3 [] Secondary Assessment in 48 hrs HHN AEROSOL THERAPY with [physician-ordered bronchodilator(s)] q 4 & Albuterol PRN q2 hrs. Breath-Actuated Neb if BBS Acuity = 4, and pt. can use MP. Notify physician if condition deteriorates. HHN AEROSOL THERAPY with [physician-ordered bronchodilator(s)] QID and Albuterol PRN q4 hrs. Breath-Actuated Neb if BBS Acuity = 4, and pt. can use MP. Notify physician if condition deteriorates. MDI THERAPY with 2 actuations of [physician-ordered bronchodilator(s)] via spacer TID Albuterol and PRN q4 hrs. If unable to utilize MDI: HHN [physician-ordered bronchodilator(s)] TID and Albuterol PRN q4 hrs. Notify physician if condition deteriorates. MDI THERAPY with [physician-ordered bronchodilator(s)] via spacer TID PRN. If unable to utilize MDI: HHN [physician-ordered bronchodilator(s)] TID PRN. Notify physician if condition deteriorates. If Acuity Level is 2, 3, or 4 in any of the following: [] COUGH [] SURGICAL HISTORY (SURG HX) [] CHEST XRAY (CXR) Goal: Improvement in sputum mobilization in patients with ineffective airway clearance. Reverse atelectasis. [] Bronchopulmonary Hygiene Protocol Total Acuity: 14-28 [] Secondary Assessment in 24 hrs Total Acuity: 9-13 [] Secondary Assessment in 24 hrs Total Acuity: 4-8 [] Secondary Assessment in 24 hrs Total Acuity: 0-3 [] Secondary Assessment in 48 hrs METANEB QID with [physician-ordered bronchodilator(s)] if CXR Acuity = 4; otherwise: PD&P, Oscillatory Therapy, or Vest QID & PRN AND PEP QID & PRN NT Sxn PRN for ineffective cough METANEB QID with [physician-ordered bronchodilator(s)] if CXR Acuity = 4; otherwise: PD&P, Oscillatory Therapy or Vest QID & PRN AND PEP QID & PRN NT Sxn PRN for ineffective cough PD&P, Oscillatory Therapy, or Vest TID & PRN AND PEP TID & PRN Instruct patient to self-perform IS q1hr WA If Acuity Level is 2 or above in the following: [] PULMONARY HISTORY (PULM HX) Goal: Assist patient in quitting smoking to slow or stop the progression of lung disease. [] Smoking Cessation Protocol SMOKING CESSATION EDUCATION provided according to policy RT_201: (dina with an X) ____Yes ____ No ____ NA Smoking Cessation Booklet given: ____Yes ____No ____Patient Refused SpO2 97% on 2 L via nasal cannula, oxygen decreased to 1 L at this time, SpO2 remains 96%. Hospitalist consult called at this time to Dr. Burton. Shea DRAWING KILN OPERATOR also aware. Patient arrived on floor at this time, [facility]. Report received at bedside from SUPERIOR COURT JUDGE. Admission vitals and assessment obtained as charted. Blood pressure slightly elevated, vitals otherwise WNL. SpO2 94% on 2 L via nasal cannula. Patient denies pain. Patient is alert and oriented x4. Patient has numbness and tingling to BLE due to spinal block but is able to move both feet. Lungs clear to diminished throughout. Non-pitting edema present to BLE. Dressing to left knee incision is clean, dry and intact with no drainage noted. Assessment otherwise as charted. Patient is resting in the bed with bed alarm on and call light in reach, denies other needs. Abby BHATT to review admission navigator shortly. Care ongoing. [facility]red [facility]. When in elevator pt reports it feels like she bit her lip. Upon further inspection, bottom right lip does look slightly swollen and slightly red, so likely did have a small amount of trauma to lip while under anesthesia. Report given to NOVA Jennings, answered all questions. Discharge Criteria Inpatients must meet Criteria 1 through 7. All other patients are either YES or N/A. If a NO is chosen then Anesthesia or Surgeon must be notified. 1. Minimum 30 minutes after last dose of sedative medication. Yes 2. Systolic BP between 90 - 160. Diastolic BP between 60 - 90. Yes 3. Pulse between 60 - 120 Yes 4. Respirations between 8 - 25. Yes 5. SpO2 92% - 100%. Yes, on 2L NC. 6. Able to cough and swallow or return to baseline function. Yes 7. Alert and oriented or return to baseline mental status. Yes, somewhat drowsy still, but ok to transfer to [facility] per ZAYNAB Maradiaga. Pt wakes to voice, nasal trumpet removed without difficulty. Shemar instruction from Deb NEWBY received in this office. documented in this encounter [facility] [employer] Phone: 06-17-2022 Hospital Discharge instructions Fay Alford RN - 06/17/2022 12:56 PM EDT Total Joint Replacement Discharge Instructions To prevent Clot formation, you have been placed on an anticoagulant Surgical Site Care: Dressing to remain clean, dry, and intact until follow up in office in 2 weeks Sutures may be present and will likely be removed at 2 week follow up Showering is permitted over dressing as long as dressing remains fully intact. Do no shower if dressing is peeling or compromised Physical Therapy: Full Weight Bearing Status Precautions Per Physical Therapy handout Pain Medications You were given pain medication Wean off pain medications as you deem appropriate as long as pain is under control Cold packs/Ice packs/Machine May be used 3 times daily for 15-30 minutes as necessary Be sure to have a barrier (cloth, clothing, towel) between the site and the ice pack to prevent frostbite Contact [facility] office if Increased redness, swelling, drainage of any kind, and/or pain to surgery site. As well as new onset fevers and or chills. These could signify an infection. Calf or thigh tenderness to touch as well as increased swelling or redness. This could signify a clot formation. Numbness or tingling to an area around the incision site or below the incision site (toes). Any rash appears, increased or new onset nausea/vomiting occur. This may indicate a reaction to a medication. - [facility] Follow up with Surgeon at scheduled appointment time. documented in this encounter [facility] [employer] Phone: 06-07-2022 Note This is a Telephone Appointment *This visit was conducted by Telephone with real time communication and interaction. This was performed due to the current COVID-19 pandemic in order to minimize exposure to both patients and staff. The patient verbally consented to treatment. The patient understands their rights, the HIPAA risks and that they will be charged accordingly for the services rendered. Chief Complaint Pt states telephone follow up History of Present Illness History of Present Illness HPI: Jose is here today following up via telephone for HL. SHe has really not noticed any changes with medication treatment Review of Systems General Adult ROS Fatigue: No Appetite change: No Other General: No Weakness: No Weight gain: No Weight Loss: No Cardiovascular Chest pain/pressure: No Claudication: No Edema: No Orthopnea: No Other Cardiovascular: No Palpitations: No Syncope: No EENMT Bleeding gums: No Dental pain: No Ear drainage: No Ear pain: No Facial pain: No Hearing loss: No Hoarseness: No Mouth lesions: No Nasal congestion: No Nasal discharge: No Nosebleeds: No Other EENMT: No Postnasal drainage: No Sore_throat: No Tinnitus: No Vision Changes: No Gastrointestinal Abdominal pain: No Constipation: No Diarrhea: No Dysphagia: No Fecal incontinence: No Heartburn: No Nausea: No Other GI: No Stools, black/bloody: No Vomiting: No Vomiting blood: No Genitourinary Decreased urine output: No Dysuria: No Frequency: No Genital irritation: No Hematuria: No Hesitancy: No Impaired urge sensation: No Other Genitourinary: No Polyuria: No Sexual dysfunction: No Urgency: No Urinary Incontinence: No Vaginal discharge: No Hematologic/Lymphatic Musculoskeletal Neurological Psychiatric Respiratory Apnea: No Cough: No Hemoptysis: No Other Respiratory: No Shortness_of_breath: No Snoring: No Sputum production: No Wheezing: No Skin Physical Exam General: No audible acute distress. Normal conversant. Alert and oriented x 4. Attentive and appropriate. Asks appropriate questions. No gross deficits in reasoning memory or intellect. Respiratory: No audible labored breathing. No audible wheezing or stridor noted. Additional Vitals No qualifying data available. Assessment/Plan 1. Conductive hearing loss in left ear Pt has hearing loss left side with minimal change on medications. Discussed monitoring vs imaging or attempt at water pills. Pt wishes to monitor for now and will call office if wishes to proceed with additional testing or treatment.Suggest continuing flonase as directed Time Spent with the Patient Today's visit was performed via telehealth and utilized an audio only connection. Duration of the visit in conversation with the patient: [24 min] Problem List/Past Medical History Ongoing Acute deep vein thrombosis (DVT) of lower extremity Arthritis Difficulty swallowing Diverticulitis Dyspepsia Fibromyalgia GERD Heartburn Hx pulmonary embolism MTHFR gene mutation Rheumatoid arthritis, adult Historical No qualifying data Procedure/Surgical History Esophagogastroduodenoscopy cyst and right tubal removal (1972) ruptured disc (1997) lipoma excised (2009) right knee surgery (2016) total knee replacement (09/06/2017) stents (02/02/2018) colonoscopy (03/17/2018) colonoscopy (06/26/2018) Colectomy Robotic X/Xi (Left) (08/24/2018) Foot joint operations, toe fused, bone spur excised (11/2019) Colonoscopy Esophagogastrodenoscopy with Biopsy/Snare (07/21/2020) Medications alendronate 70 mg oral tablet Anoro Ellipta 62.5 mcg-25 mcg/inh inhalation powder atorvastatin 10 mg oral tablet, 10 mg= 1 tabs, Oral, ///Sa atorvastatin 10 mg oral tablet, 0.5, Oral, Mo// DULoxetine 30 mg oral delayed release capsule Eliquis 5 mg oral tablet, 5 mg, Oral, BID fluticasone 50 mcg/inh nasal spray, 1 sprays, Nasal, Daily, 1 refills folic acid 1 mg oral tablet, 2 mg= 2 tabs, Oral, Daily Glucosamine Chondroitin, 3 caps, Oral, Daily magnesium oxide 500 mg oral tablet, 500 mg= 1 tabs, Oral, Daily magnesium sulfate/potassium sulfate/sodium sulfate 1.6 g-3.13 g-17.5 g/177 mL oral liquid, 177 mL, Oral, BID metFORMIN, 500 mg, Oral methotrexate 25 mg/mL injectable solution omeprazole 40 mg oral delayed release capsule, 40 mg= 1 caps, Oral, Daily, 3 refills predniSONE 5 mg oral tablet, 5 mg= 1 tabs, Oral, Daily PreserVision oral capsule, 1 caps, Oral, BID RA VITAMIN D3 1,000 UNIT TAB traMADol 50 mg oral tablet, 50 mg= 1 tabs, Oral, q4hr, PRN Tylenol, 500 mg, Oral, As Indicated Vitamin B-12, 1, Oral, Daily Allergies Ceftin (Hives) endolac (Nausea) levoFLOXacin (Hives) Social History Alcohol Current, Beer, Wine, Liquor, 1-2 times per month Exercise Exercise type: Walking. Home/Environment Lives with Significant other. Living situation: Home/Independent. Nutrition/Health (more content not included)... [facility] 06-04-2022 History of Present illness Narrative [facility] Physical Therapy Gait Training/Discharge Summary Date: 06/04/2022 Patient Name: Jose Yang : 1950 (71 y.o.) [facility] #: [id number] Referring Physician: Hiren Gary MD Diagnosis: Z01.812 - encounter for pre-procedural laboratory examination (Left TKA) Reason for Referral: [] Crutch Training [x] Walker Training [] Other: Subjective: Pt arrives for pre-op evaluation for a left total knee replacement on 06/17/2022. Pt states she is planning on going home following surgery and participating in outpatient physical therapy. Pt lives in split level home with 6 steps between each level. 4 steps to enter. One handrail for all stairs in the home. Pt currently ambulating with single point cane and reports she has a walker at home that she will use initially post-op. Pt states she had a right TKA in 2018 and reports fair recovery, however, pt continues to have strength problems with the right knee specifically when she is going up and down stairs. Pt has good support system that will help with ADLs initially post-op. Objective Assessment: [x] Strength of uninvolved extremities are all within functional limits [] Other: Weight Bearing Status: [] Right Extremity [x] Left Extremity [] NWB [] PWB [x] WBAT [] TTWB Treatment: [x] Instructed in appropriate gait with crutches/walker [x] Crutches/walker fitted to patient at accurate height [x] Instructed on gait training at level ground [x] Instructed on gait training with use of stairs [x] Instructed on sit to stand utilizing crutches/walker [] Other: Home Exercise Program - Instructed Patient: [x] Handout given regarding LE ROM / strengthening exercises Treatment Goals: [x] Met [] Not Met 06/04/2022 [x] Patient will be independent crutch/walker training Treatment Plan: [x] Gait training, as noted above [x] Exercise education, as stated above Rehab Potential: [] Poor [] Fair [x] Good [] Excellent If there are any questions regarding the plan of care, please do not hesitate to contact the center. Thank you for your referral. Therapist s Signature: Jennifer Garica PT, DPT Date: 06/04/2022 To be completed by the referring physicians By signing below, I agree to the above treatment plan. Physician s Signature: Date: 06/04/2022 documented in this encounter [facility] [email or web address] [facility] [employer] Phone: 04-09-2022 Note [facility] Vascular Lower Extremities DVT Study Procedure Patient Name CELIA Date of Study 04/09/2022 JOSE Cassidy Date of 1950 Gender Female Age 71 year(s) Race Room Number Corporate ID [id number] # Patient Acct [id number] # MR # [id number] [employer] Donte Simmons, JUAN RAMON Interpreting Physician Ronaldo Mancera DO Referring Bert [facility] Referring Physician Nurse Lillian Practitioner Additional Comments Results were called to Rosemary Inman 04/09/22 @ 1500. Procedure Type of Study: Veins: Lower Extremities DVT Study, Venous Scan Lower Left. Indications for Study:Hx of DVT and Pain and swelling. Patient Status:STAT. Technical Quality:Adequate visualization. Comments:Simultaneous real time imaging utilizing B-Mode, color doppler and spectral waveform analysis was performed on the left lower extremity for venous examination of the deep and superficial systems. Conclusions Summary No evidence of superficial or deep venous thrombosis in the left lower extremity. Signature Left Impression: The common femoral, superficial and deep femoral, popliteal, tibials, peroneal, and saphenous veins were evaluated. All veins were compressible with normal doppler responses. Velocities are measured in cm/s ; Diameters are measured in cm Left Lower Extremities DVT Study Measurements Left 2D Measurements + -+ + +------- ---+ !Location !Visualized!Compressibility!Thrombos is! + -+ + +------- ---+ !Common Femoral !Yes !Yes !None ! + -+ + +------- ---+ !Prox Femoral !Yes !Yes !None ! + -+ + +------- ---+ !Mid Femoral !Yes !Yes !None ! + -+ + +------- ---+ !Dist Femoral !Yes !Yes !None ! + -+ + +------- ---+ !Deep Femoral !Yes !Yes !None ! + -+ + +------- ---+ !Popliteal !Yes !Yes !None ! + -+ + +------- ---+ !Sapheno Femoral Junction !Yes !Yes !None ! + -+ + +------- ---+ !PTV !Yes !Yes !None ! + -+ + +------- ---+ !Peroneal !Yes !Yes !None ! + -+ + +------- ---+ !Gastroc !Yes !Yes !None ! + -+ + +------- ---+ !GSV Thigh !Yes !Yes !None ! + -+ + +------- ---+ !GSV Knee !Yes !Yes !None ! + -+ + +------- ---+ !GSV Ankle !Yes !Yes !None ! + -+ + +------- ---+ !SSV !Yes !Yes !None ! + -+ + +------- ---+ Left Doppler Measurements + +------+ ------+ ---+ !Location !Signal!Reflux!Reflux (msec) ! + +------+ ------+ ---+ !Common Femoral !Phasic! ! ! + +------+ ------+ ---+ !Prox Femoral !Phasic! ! (more content not included)... [facility] 12-10-2021 Note PROCEDURE: XR FOOT L T MIN 3 VIEWS HISTORY: Pain in left foot COMPARISON: XR foot left 08/06/2021 FINDINGS: BONES:Mechanical fusion of the first metatarsophalangeal joint without is of hardware fracture or loosening. No bone fracture or dislocation. SOFT TISSUES:No visible soft tissue swelling. EFFUSION:None visible. OTHER: Negative. IMPRESSION: 1. No acute bone abnormality. 2. Stable surgical changes without evidence of hardware failure or change in alignment. Electronically authenticated by: LAKEISHA MCGARRY Date: 2021-12-09 22:02 [facility] 08-06-2021 Note PROCEDURE: XR ANKLE LT MIN 3 V, XR FOOT LT MIN 3 VIEWS HISTORY: Pain of left ankle joint ; acute lateral foot and ankle pain; rolled ankle 3 weeks ago COMPARISON: XR foot left 06/09/2021 FINDINGS: BONES:Prior mechanical fusion of the first metatarsophalangeal joint without is of hardware fracture or loosening. Stable alignment and ongoing bone healing of prior mid diaphyseal fracture of the third proximal phalanx. Unremarkable ankle joint. SOFT TISSUES:No visible soft tissue swelling. EFFUSION:None visible. OTHER: Negative. IMPRESSION: 1. No acute bone abnormality or suspicious findings of the ankle joint. 2. Stable alignment and ongoing bone healing of third proximal phalanx fracture. 3. Stable fusion of first metatarsophalangeal joint without hardware fracture or loosening. Electronically authenticated by: LAKEISHA MCGARRY Date: 2021-08-06 16:55 [facility] 08-06-2021 Note PROCEDURE: XR ANKLE LT MIN 3 V, XR FOOT LT MIN 3 VIEWS HISTORY: Pain of left ankle joint ; acute lateral foot and ankle pain; rolled ankle 3 weeks ago COMPARISON: XR foot left 06/09/2021 FINDINGS: BONES:Prior mechanical fusion of the first metatarsophalangeal joint without is of hardware fracture or loosening. Stable alignment and ongoing bone healing of prior mid diaphyseal fracture of the third proximal phalanx. Unremarkable ankle joint. SOFT TISSUES:No visible soft tissue swelling. EFFUSION:None visible. OTHER: Negative. IMPRESSION: 1. No acute bone abnormality or suspicious findings of the ankle joint. 2. Stable alignment and ongoing bone healing of third proximal phalanx fracture. 3. Stable fusion of first metatarsophalangeal joint without hardware fracture or loosening. 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 No pain today. Exercises: Exercise 1: Bike 10 min, L2.5 Exercise 3: FSU/SSU 6 20x Exercise 4: sit to stands 38p7--2# Exercise 6: BTB lateral/monster/retro walking at countertop 3 laps Exercise 7: DL and SL heel raises x10; standing feet together/heel to toe 60sec ea Exercise 8: toe walking, heel walking, bee bop walking 2 laps ea Manual: Soft Tissue Mobilizaton: Thermaprobe R hip and IT band Modalities: IFC and HP to R hip in sidelying x15 min to decrease soreness Assessment Assessment: Patient has attended 12 PT visits for B knee pain and met all goals for independence with HEP and improved R LE strength 4+/5 grossly and improved B ankle strength 4+/5 and reports 80-90% improvement in symptoms since beginning PT. Patient educated to continue with HEP. Will place patient on hold for two weeks and then dc prn. Activity Tolerance Activity Tolerance: Patient tolerated treatment well Patient Education Exercise technique; continue HEP Pt verbalized/demonstrated good understanding: [x] Yes [] No, pt required further clarification. Post Treatment Pain: 0/10 Plan Plan Frequency: 3 Plan weeks: 4 Goals (Total # of Visits to Date: 12) Short Term Goals Time Frame for Short term goals: 2 weeks Short term goal 1: Patient to initiate HEP for improved B hip and knee strength.-met Short term goal 2: Patient to be instructed in R LE strengthening and B ankle strengthening to improve stability with gait. -met/cont Short term goal 3: Initiate manual techniques/modalities prn to decrease pain and improve mobility. -met Hotel Administrative Assistant Goals Time Frame for jail goals : 6 weeks jail goal 1: Patient to be independent and compliant with HEP.-met terminal worker goal 2: Patient to have improved R LE strength >/=4+/5 all major joints and planes for improved gait and transfers.-met jail goal 3: Patient to have improved B ankle strength >/=4+/5 all planes for improved stability and dynamic balance.-met jail goal 4: Patient to report >/=75% improvement in symptoms for improved QOL.-met (80-90%) Minutes Tracking: Time In: 1014 Time Out: 1115 Minutes: 61 Timed Code Treatment Minutes: 60 Minutes Maria Victoria Scott PT , DPT Date: 07/17/2021 documented in this encounter [facility] [employer] Phone: 07-15-2021 History of Present illness Narrative [facility] Physical Therapy Daily Note Patient: Jose Yang : 1950 CSN #: [id number] Referring Physician: Hiren Gary MD Date: 07/15/2021 Diagnosis: Pain in L knee, M25.562; L knee chondromalacia, 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 Knees are a little achey but overall not bad. Exercises: Exercise 1: Bike 10 min, L2.5 Exercise 2: star trac extension 3pl 2x15, flexion 4pl 2x15 Exercise 3: FSU/SSU 6 20x Exercise 6: BTB lateral/monster/retro walking at countertop 3 laps Exercise 7: DL and SL heel raises x10; standing feet together/heel to toe 60sec ea Exercise 8: toe walking, heel walking, bee bop walking 2 laps ea Manual: Soft Tissue Mobilizaton: Thermaprobe R hip and IT band Assessment Assessment: Patient with improved R LE strength 4+/5 grossly meeting LTG's. Spoke to patient about continuing exercise at a local gym following conclusion of therapy. Continued heated thermaprobe to R TFL, IT band to decrease tone/pain. Will continue. Activity Tolerance Activity Tolerance: Patient tolerated treatment well Patient Education Exercise technique Pt verbalized/demonstrated good understanding: [x] Yes [] No, pt required further clarification. Post Treatment Pain: 02/23 Plan Plan Frequency: 3 Plan weeks: 4 Goals (Total # of Visits to Date: 11) Short Term Goals Time Frame for Short term goals: 2 weeks Short term goal 1: Patient to initiate HEP for improved B hip and knee strength.-met Short term goal 2: Patient to be instructed in R LE strengthening and B ankle strengthening to improve stability with gait. -met/cont Short term goal 3: Initiate manual techniques/modalities prn to decrease pain and improve mobility. -met Halfway Goals Time Frame for jail goals : 6 weeks jail goal 1: Patient to be independent and compliant with HEP. terminal worker goal 2: Patient to have improved R LE strength >/=4+/5 all major joints and planes for improved gait and transfers.-met jail goal 3: Patient to have improved B ankle strength >/=4+/5 all planes for improved stability and dynamic balance. terminal worker goal 4: Patient to report >/=75% improvement in symptoms for improved QOL. 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 Treatment Diagnosis: B knee pain Onset Date: 07/27/17 PT Insurance Information: Medicare Total # of Visits Approved: 12 Per Physician Order Total # of Visits to Date: 8 No Show: 0 Canceled Appointment: 0 Pre-Treatment Pain: 03/26 Subjective: States knee is a little achey, states she's not having pain Exercises: Exercise 1: Bike 10 min, L2.5 Exercise 2: star trac extension 3pl 2x15, flexion 4pl 2x15 Exercise 3: FSU/SSU 6 20x Exercise 4: sit to stands 84t1--4# Exercise 5: SKTC/opp knee to chest 3-5x Exercise 6: YTB lateral/monster/retro walking at countertop 3 laps Exercise 7: DL and SL heel raises x10; standing feet together/heel to toe 60sec ea Exercise 8: toe walking, heel walking, bee bop walking 2 laps ea Modalities: IFC/cp for soreness Assessment Assessment: Pt is feeling better, states she feels stronger in Left knee. Closed chain exercise tolerated well with no increase in sxs. Reviewed Hip stretching for home. IFC/cp for post exercise soreness. Activity Tolerance Activity Tolerance: Patient tolerated treatment well Patient Education Patient Education: HEP Pt verbalized/demonstrated good understanding: [x] Yes [] No, pt required further clarification. Post Treatment Pain: 02/23 Plan Plan Frequency: 3 Plan weeks: 4 Goals (Total # of Visits to Date: 8) Short Term Goals Time Frame for Short term goals: 2 weeks Short term goal 1: Patient to initiate HEP for improved B hip and knee strength.-met Short term goal 2: Patient to be instructed in R LE strengthening and B ankle strengthening to improve stability with gait. -met/cont Short term goal 3: Initiate manual techniques/modalities prn to decrease pain and improve mobility. -met Hotel Administrative Assistant Goals Time Frame for jail goals : 6 weeks terminal worker goal 1: Patient to be independent and compliant with HEP. terminal worker goal 2: Patient to have improved R LE strength >/=4+/5 all major joints and planes for improved gait and transfers. jail goal 3: Patient to have improved B ankle strength >/=4+/5 all planes for improved stability and dynamic balance. terminal worker goal 4: Patient to report >/=75% improvement in symptoms for improved QOL. 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 R lateral hip is much better. Exercises: Exercise 1: Bike 10 min, L2.5 Exercise 2: star trac extension 3pl 2x15, flexion 4pl 2x15 Exercise 4: sit to stands 96d0--5# Exercise 6: YTB lateral/monster/retro walking at countertop 3 laps Exercise 7: DL and SL heel raises x10; standing feet together/heel to toe 60sec ea Exercise 8: toe walking, heel walking, bee bop walking 2 laps ea Assessment Assessment: Introduced closed chain ankle strengthening and dynamic standing balance activities today to progress functional strength of B ankles and decrease fall risk. Patient able to complete full exercise routine with no rest breaks and no increase in knee pain. Patient denies need for manual techniques/modalities today. Will progress as tolerated. Activity Tolerance Activity Tolerance: Patient tolerated treatment well Patient Education Exercise technique; HEP update Pt verbalized/demonstrated good understanding: [x] Yes [] No, pt required further clarification. Post Treatment Pain: 0/10 Plan Plan Frequency: 3 Plan weeks: 4 Goals (Total # of Visits to Date: 7) Short Term Goals Time Frame for Short term goals: 2 weeks Short term goal 1: Patient to initiate HEP for improved B hip and knee strength.-met Short term goal 2: Patient to be instructed in R LE strengthening and B ankle strengthening to improve stability with gait. -met/cont Short term goal 3: Initiate manual techniques/modalities prn to decrease pain and improve mobility. -met Hotel Administrative Assistant Goals Time Frame for jail goals : 6 weeks jail goal 1: Patient to be independent and compliant with HEP. jail goal 2: Patient to have improved R LE strength >/=4+/5 all major joints and planes for improved gait and transfers. terminal worker goal 3: Patient to have improved B ankle strength >/=4+/5 all planes for improved stability and dynamic balance. jail goal 4: Patient to report >/=75% improvement in symptoms for improved QOL. 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 States she got a injection in R hip yesterday Exercises: Exercise 1: Bike 10 min, L1.5 Exercise 2: star trac extension 3pl 2x15, flexion 4pl 2x15 Exercise 3: FSU/SSU 6 15x Exercise 4: sit to stands 45i6--9# Exercise 5: SKTC/opp knee to chest 3-5x Exercise 6: YTB lateral walking at countertop 3 laps Manual: Soft Tissue Mobilizaton: Thermaprobe R hip and IT band Modalities: IFC/hp Assessment Assessment: Pt get injection in R hip yesterday and states she feels alittle better. Left knee is feeling better as pt states she noticed less pain with walking. No change in exercises today. Thermaprobe to hip and IT band. Will continue to progress as tolerated with exercise Activity Tolerance Activity Tolerance: Patient tolerated treatment well Patient Education Patient Education: HEP as tolerated Pt verbalized/demonstrated good understanding: [x] Yes [] No, pt required further clarification. Post Treatment Pain: 04/23 Plan Plan Frequency: 3 Plan weeks: 4 Goals (Total # of Visits to Date: 5) Short Term Goals Time Frame for Short term goals: 2 weeks Short term goal 1: Patient to initiate HEP for improved B hip and knee strength.-met Short term goal 2: Patient to be instructed in R LE strengthening and B ankle strengthening to improve stability with gait. -met/cont Short term goal 3: Initiate manual techniques/modalities prn to decrease pain and improve mobility. -met Halfway Goals Time Frame for jail goals : 6 weeks jail goal 1: Patient to be independent and compliant with HEP. terminal worker goal 2: Patient to have improved R LE strength >/=4+/5 all major joints and planes for improved gait and transfers. terminal worker goal 3: Patient to have improved B ankle strength >/=4+/5 all planes for improved stability and dynamic balance. terminal worker goal 4: Patient to report >/=75% improvement in symptoms for improved QOL. 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 Exercises: Exercise 1: Bike 10 min, L1.5 Exercise 2: star trac extensiopn 3pl 2x15, flexion 4pl 2x15 Exercise 3: FUU/SSU 6 10x Exercise 4: sit to stands 10x2 Exercise 5: SKTC/opp knee to chest 3-5x Exercise 6: YTB lateral walking at countertop 3 laps Manual: Soft Tissue Mobilizaton: Thermaprobe L hip and IT band Modalities: IFC and HP to L knee in hooklying x15 min to decrease pain/soreness Assessment Assessment: Added lateral walking with YTB and educated patient on glut strengthening to decrease stress on B IT bands. Patient demo's good understanding of glut sets, clamshells and DL bridges. Thermoprobe x8 min to L IT band today to decrease pain and tone. IFC and HP to L knee and HP To R knee in hooklying x15 min to decrease pain/soreness following session. Activity Tolerance Activity Tolerance: Patient tolerated treatment well Patient Education Exercise technique and progression; HEP update Pt verbalized/demonstrated good understanding: [x] Yes [] No, pt required further clarification. Post Treatment Pain: 3/10 Plan Plan Frequency: 3 Plan weeks: 4 Goals (Total # of Visits to Date: 4) Short Term Goals Time Frame for Short term goals: 2 weeks Short term goal 1: Patient to initiate HEP for improved B hip and knee strength.-met Short term goal 2: Patient to be instructed in R LE strengthening and B ankle strengthening to improve stability with gait. -met/cont Short term goal 3: Initiate manual techniques/modalities prn to decrease pain and improve mobility. -met Hotel Administrative Assistant Goals Time Frame for terminal worker goals : 6 weeks terminal worker goal 1: Patient to be independent and compliant with HEP. terminal worker goal 2: Patient to have improved R LE strength >/=4+/5 all major joints and planes for improved gait and transfers. terminal worker goal 3: Patient to have improved B ankle strength >/=4+/5 all planes for improved stability and dynamic balance. terminal worker goal 4: Patient to report >/=75% improvement in symptoms for improved QOL. Minutes Tracking: Time In: 1400 Time Out: 1504 Minutes: 64 Timed Code Treatment Minutes: 60 Minutes Maria Victoria Scott PT , DPT Date: 06/26/2021 documented in this encounter [employer] Phone: 06-24-2021 History of Present illness Narrative [facility] Daily Note Patient: Jose Yang : 1950 CSN #: [id number] Referring Physician: Hiren Gary MD Date: 06/24/2021 Treatment Diagnosis: B knee pain Onset Date: 07/27/17 Total # of Visits Approved: 12 Per Physician Order Total # of Visits to Date: 3 No Show: 0 Canceled Appointment: 0 Pre-Treatment Pain: 4/10 Subjective: pt reports pain 4/10 today in L knee and R hip. States she was sore after last visit but noticed reduced R hip tightness after manual/modalities. Exercises: Exercise 1: Bike 10 min, L1.5 Exercise 2: star trac extensiopn 3pl 2x15, flexion 4pl 2x15 Exercise 3: FUU/SSU 6 10x Exercise 4: sit to stands 10x2 Exercise 5: SKTC/opp knee to chest 3-5x Manual: Soft Tissue Mobilizaton: Thermaprobe R hip and IT band Modalities: IFC/MHP to decrease pain/tightness x15 min Assessment Assessment: Continued with current strengthening program within tolerance. Pt having c/o mild pain on distal L knee with FSU and LSU. Cued to avoid R knee valgus with sit to stands. Moderate tightness along R outer hip musculature. COntinued with IFC/MHP to decrease pain/tightness. Will progress. Activity Tolerance Activity Tolerance: Patient tolerated treatment well Patient Education Ex technique, HEP Pt verbalized/demonstrated good understanding: [x] Yes [] No, pt required further clarification. Post Treatment Pain: Plan Plan Frequency: 3 Plan weeks: 4 Goals (Total # of Visits to Date: 3) Short Term Goals Time Frame for Short term goals: 2 weeks Short term goal 1: Patient to initiate HEP for improved B hip and knee strength.-met Short term goal 2: Patient to be instructed in R LE strengthening and B ankle strengthening to improve stability with gait. -met/cont Short term goal 3: Initiate manual techniques/modalities prn to decrease pain and improve mobility. -met Hotel Administrative Assistant Goals Time Frame for terminal worker goals : 6 weeks jail goal 1: Patient to be independent and compliant with HEP. terminal worker goal 2: Patient to have improved R LE strength >/=4+/5 all major joints and planes for improved gait and transfers. terminal worker goal 3: Patient to have improved B ankle strength >/=4+/5 all planes for improved stability and dynamic balance. jail goal 4: Patient to report >/=75% improvement in symptoms for improved QOL. 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 Additional Pertinent Hx: RA, OA, mild COPD, recent stress fracture of third left toe, hx of saddle embolism DVT, hx of back surgery, R TKA Objective AROM AROM LLE (degrees) L Knee Flexion 0-145: 0-138* R knee ROM: 1-129 Strength Strength LLE L Hip Flexion: 4/5 L Hip ABduction: 4/5 L Hip ADduction: 4+/5 L Knee Flexion: 4/5 L Knee Extension: 4+/5 Special Tests: Strength RLE R Hip Flexion: 4-/5 R Hip ABduction: 4-/5 R Hip ADduction: 4/5 R Knee Flexion: 4-/5 R Knee Extension: 4-/5 Strength LLE L Hip Flexion: 4/5 L Hip ABduction: 4/5 L Hip ADduction: 4+/5 L Knee Flexion: 4/5 L Knee Extension: 4+/5 Exercises: HEP: lateral/retro/monster walks with tband, sit/stands Functional Outcome Measures Any of your usual work, housework, or school activities: A Little Bit of Difficulty Your usual hobbies, recreational, or sporting activities: Quite a Bit of Difficulty Getting into or out of the bath: No Difficulty Walking between rooms: A Little Bit of Difficulty Putting on your shoes or socks: No Difficulty Squatting: Moderate Difficulty Lifting an object, like a bag of groceries from the floor: A Little Bit of Difficulty Performing light activities around your home: A Little Bit of Difficulty Performing heavy activities around your home: Moderate Difficulty Getting into or out of a car: No Difficulty Walking 2 blocks: Moderate Difficulty Walking a mile: Quite a Bit of Difficulty Going up or down 10 stairs (about 1 flight of stairs): Moderate Difficulty Standing for 1 hour: Moderate Difficulty Sitting for 1 hour: No Difficulty Running on even ground : Extreme Difficulty or Unable to Perform Activity Running on uneven ground : Extreme Difficulty or Unable to Perform Activity Making sharp turns while running fast : Extreme Difficulty or Unable to Perform Activity Hopping: Extreme Difficulty or Unable to Perform Activity Rolling over in bed: No Difficulty LEFS Total Score: 44 Assessment Assessment: Patient is 70 year old female with dx of L knee pain who presents with increased B knee pain ~4/10 on average. Patient with good L knee ROM: 0-138*, R knee ROM: 1-129*, decreased R LE strength: 4-/5 grossly compared to L LE strength: 4/5 grossly. Decreased B ankle strength 4-/5 grossly. Patient to benefit from physical therapy to improve R LE strength and B ankle strength and dynamic balance/stability to decrease pain and return to PLOF. Therapy Prognosis: Good Decision Making: Low Complexity Patient Education PT eval, POC, HEP Pt verbalized/demonstrated good understanding: [X] Yes [] No, pt required further clarification. Goals Short Term Goals Time Frame for Short term goals: 2 weeks Short term goal 1: Patient to initiate HEP for improved B hip and knee strength. Short term goal 2: Patient to be instructed in R LE strengthening and B ankle strengthening to improve stability with gait. Short term goal 3: Initiate manual techniques/modalities prn to decrease pain and improve mobility. Halfway Goals Time Frame for terminal worker goals : 6 weeks jail goal 1: Patient to be independent and compliant with HEP. jail goal 2: Patient to have improved R LE strength >/=4+/5 all major joints and planes for improved gait and transfers. terminal worker goal 3: Patient to have improved B ankle strength >/=4+/5 all planes for improved stability and dynamic balance. terminal worker goal 4: Patient to report >/=75% improvement in symptoms for improved QOL. Minutes Tracking: Time In: 1330 Time Out: 1355 Minutes: 25 Timed Code Treatment Minutes: 24 Minutes Maria Victoria Scott, PT, DPT 06/19/2021 documented in this encounter [employer] Phone: 06-09-2021 Note PROCEDURE: XR FOOT L T MIN 3 VIEWS COMPARISON: 05/12/2021 HISTORY: Pain in left foot FINDINGS: BONES:Fusion of the first metatarsal-phalangeal joint with a dorsal plate and multiple screws. No mechanical failure. Increase in callus formation mid diaphysis of the third proximal phalanx consistent with a healing fracture. No new fracture or dislocation. SOFT TISSUES:Negative. No visible soft tissue swelling. EFFUSION:None visible. OTHER: Negative. IMPRESSION: Continued healing of a stable mid diaphyseal fracture third proximal phalanx Electronically authenticated by: BORIS GUTHRIE Date: 2021-06-09 15:10 [facility] 05-12-2021 Note PROCEDURE: XR FOOT L T MIN 3 VIEWS COMPARISON: 04/21/2021 HISTORY: Pain in left foot FINDINGS: BONES:No acute fracture or dislocation. Permeative pattern of the bones just osteopenia. Stable fusion the first metatarsal-phalangeal joint with a dorsal plate and multiple screws. No mechanical failure. Lucency surrounding the fusion hardware is stable. SOFT TISSUES:Negative. No visible soft tissue swelling. EFFUSION:None visible. OTHER: Negative. IMPRESSION: Stable first metatarsal-phalangeal joint fusion Electronically authenticated by: BORIS GUTHRIE Date: 2021-05-12 11:08 [facility] 04-21-2021 Note PROCEDURE: XR FOOT L T MIN 3 VIEWS COMPARISON: 02/24/2021 HISTORY: Pain in left foot FINDINGS: BONES:Stable fusion the first metatarsal-phalangeal joint with a dorsal plate and multiple screws. No mechanical failure. Mild permeative pattern of the bones, osteopenia. No acute fracture, dislocation or mechanical failure SOFT TISSUES:Negative. No visible soft tissue swelling. EFFUSION:None visible. OTHER: Negative. IMPRESSION: Stable exam with no acute abnormality Electronically authenticated by: BORIS GUTHRIE Date: 2021-04-21 19:33 [facility] 02-24-2021 Note PROCEDURE: XR FOOT L T MIN 3 VIEWS COMPARISON: 01/13/2021 HISTORY: Pain in left foot FINDINGS: BONES:Stable fusion of the first metatarsal-phalangeal joint with a dorsal plate and multiple screws. No acute fracture, dislocation or mechanical failure. SOFT TISSUES:Negative. No visible soft tissue swelling. EFFUSION:None visible. OTHER: Negative. IMPRESSION: Stable fusion first metatarsal-phalangeal joint Electronically authenticated by: BORIS GUTHRIE Date: 2021-02-24 13:09 [facility] 01-14-2021 Note PROCEDURE: XR FOOT L T MIN 3 VIEWS HISTORY: Pain in left foot COMPARISON: XR foot left 12/16/2020 FINDINGS: BONES:Mechanical fusion of the first metatarsophalangeal joints without evidence of hardware fracture or loosening. No bone fracture or dislocation. SOFT TISSUES:No visible soft tissue swelling. EFFUSION:None visible. OTHER: Skin tiara have been removed. IMPRESSION: 1. Stable fusion without evidence of hardware failure or change in alignment. Electronically authenticated by: LAKEISHA MCGARRY Date: 2021-01-14 07:37 [facility] 12-16-2020 Note PROCEDURE: XR FOOT L T MIN 3 VIEWS HISTORY: Pain in left foot COMPARISON: XR foot left 11/24/2020 FINDINGS: BONES:Mechanical fusion of the first metatarsophalangeal joint without evidence of hardware fracture or loosening. SOFT TISSUES:Slight dorsal swelling. Skin tiara remain. Cast material has been removed. EFFUSION:None visible. OTHER: Negative. IMPRESSION: 1. Mechanical fusion of the first metatarsophalangeal joint without evidence of hardware failure or change in alignment. Electronically authenticated by: LAKEISHA MCGARRY Date: 2020-12-16 14:20 [facility] 10-01-2020 History of Present illness Narrative [facility] Daily Note Patient: Jose Yang : 1950 CSN #: [id number] Referring Practitioner: Hiren Gary MD Referral Date : 09/01/20 Date: 10/01/2020 Diagnosis: Pain in right knee, M25.561; Presence of right artificial knee joint, Z96.651; Chondromalacia left knee, M94.262 Treatment Diagnosis: bilateral knee pain Onset Date: 09/01/20 PT Insurance Information: Medicare, [employer] Total # of Visits Approved: 18 Per Physician Order Total # of Visits to Date: 12 No Show: 0 Canceled Appointment: 0 Pre-Treatment Pain: 3/10 Subjective: Will see foot surgeon again tomorrow. Had CT scan yesterday on foot. Knee pain still about 3/10. Exercises: Exercise 2: Bike hills lv 5.0 [id number] Exercise 11: sit<>stands 10x3 cues for no valgus of knees. - green band around knees - 10# KB Exercise 13: single leg squat in SL - total gym level 9 - 3 sets Exercise 14: resisted side step at [place] - 12.0# - 5x each way Exercise 15: retro lunge using right LE only - 10x2 - infront of mirror Exercise 16: single leg standing - 3x 30s green Modalities: Moist heat: x15min R knee and R hip Mauro knees E-stim (parameters): IFC+MHP x15min R knee for pain Assessment Assessment: Pt tolerates progression of ex well. Pt without complaints of increase pain during ex. Pt requires little to no cueing for proper form this date. Will continue. Activity Tolerance Activity Tolerance: Patient Tolerated treatment well Patient Education Patient Education: progression of ex Pt verbalized/demonstrated good understanding: [x] Yes [] No, pt required further clarification. Post Treatment Pain: 2/10 Plan Times per week: 3 Plan weeks: 6 Goals (Total # of Visits to Date: 12) Short term goals Time Frame for Short term goals: 3 weeks Short term goal 1: Pt to be instructed in home program.- met Short term goal 2: Pt to begin strengthening of right LE to assist with functional mobility.- met terminal worker goals Time Frame for jail goals : 6 weeks terminal worker goal 1: Pt to report independence and compliance with home program. jail goal 2: Pt to demonstrate 4 to 4+/5 strength right hip to assist with functional mobility. terminal worker goal 3: Pt to present with good right VMO firing to assist with proper patellar tracking. jail goal 4: Pt to report pain no greater than 2/10 in right knee with ADL's and functional tasks. jail goal 5: Pt to achieve 4+/5 strength bilateral quads to assist with functional mobility. Minutes Tracking: Time In: 09 Time Out: 1032 Minutes: 62 Timed Code Treatment Minutes: 60 Minutes Brooke Palafox, PT , DPT, CMPT Date: 10/01/2020 documented in this encounter [employer] Work Phone: 09-29-2020 History of Present illness Narrative [facility] Daily Note Patient: Jose Yang : 1950 CSN #: [id number] Referring Practitioner: Hiren Gary MD Referral Date : 09/01/20 Date: 09/29/2020 Diagnosis: Pain in right knee, M25.561; Presence of right artificial knee joint, Z96.651; Chondromalacia left knee, M94.262 Treatment Diagnosis: bilateral knee pain Onset Date: 09/01/20 PT Insurance Information: Medicare, [employer] Total # of Visits Approved: 18 Per Physician Order Total # of Visits to Date: 11 No Show: 0 Canceled Appointment: 0 Pre-Treatment Pain: 4/10 Subjective: Pt with no new complaints. Can tell hips and knees are getting stronger. Exercises: Exercise 2: Bike hills lv 5.0 [id number] -- only 8mins this date d/t time restrictions Exercise 3: Sidestepping at countertop GTB at ankles - 5 mins Exercise 7: standing hip abd and ext with tband - 20x2 green Exercise 9: FSU 15x ea 6 inch Exercise 11: sit<>stands 10x3 cues for no valgus of knees. - green band around knees - 10# Exercise 13: single leg squat in SL - total gym level 9 Exercise 14: resisted side step at [place] - 12.0# - 5x each way Modalities: Moist heat: x15min R knee and R hip Mauro knees E-stim (parameters): IFC+MHP x15min R knee for pain Assessment Assessment: Pt continues with mild to moderate valgus collapse with squatting and stairs, verbal cues for correction. Will continue to progress as pt tolerates. Activity Tolerance Activity Tolerance: Patient Tolerated treatment well Patient Education Patient Education: continued strengthening to decrease right LE valgus with transitions Pt verbalized/demonstrated good understanding: [x] Yes [] No, pt required further clarification. Post Treatment Pain: 3/10 Plan Times per week: 3 Plan weeks: 6 Goals (Total # of Visits to Date: 11) Short term goals Time Frame for Short term goals: 3 weeks Short term goal 1: Pt to be instructed in home program.- met Short term goal 2: Pt to begin strengthening of right LE to assist with functional mobility.- met terminal worker goals Time Frame for terminal worker goals : 6 weeks terminal worker goal 1: Pt to report independence and compliance with home program. terminal worker goal 2: Pt to demonstrate 4 to 4+/5 strength right hip to assist with functional mobility. terminal worker goal 3: Pt to present with good right VMO firing to assist with proper patellar tracking. terminal worker goal 4: Pt to report pain no greater than 2/10 in right knee with ADL's and functional tasks. jail goal 5: Pt to achieve 4+/5 strength bilateral quads to assist with functional mobility. 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 Pt had injection in L knee on Tuesday. Exercises: Exercise 2: Bike hills lv 5.0 [id number] -- only 8mins this date d/t time restrictions Exercise 5: Quad sets x10ea (towel roll and tactile cuing needed for RLE); SLR 2x10 -- SLR only this date Exercise 7: standing hip abd with tband - 20x2 green Exercise 8: standing hip flexor stretch mauro - 30s 3x Exercise 9: FSU 15x ea 6 inch Exercise 11: sit<>stands 10x2 cues for no valgus of knees. Manual: Soft Tissue Mobalization: Warm thermoprobe R IT band. Modalities: Moist heat: x15min R knee and R hip Mauro knees E-stim (parameters): IFC+MHP x15min R knee for pain Assessment Assessment: Pt demonstrates improved ability to self-correct valgus collapse with improved awareness, but cont to demonstrate hip ABD/ER weakness, with valgus collapse becoming more apparent as pt fatigues. Warm thermoprobe to R ITB for STM, which pt tolerates well. IFC and MHP applied at end of tx for pain. Will progress as tolerated. Activity Tolerance Activity Tolerance: Patient Tolerated treatment well Patient Education Patient Education: Proper LE alignment. Pt verbalized/demonstrated good understanding: [x] Yes [] No, pt required further clarification. Post Treatment Pain: 4/10 Plan Times per week: 3 Plan weeks: 6 Goals (Total # of Visits to Date: 9) Short term goals Time Frame for Short term goals: 3 weeks Short term goal 1: Pt to be instructed in home program.- met Short term goal 2: Pt to begin strengthening of right LE to assist with functional mobility.- met jail goals Time Frame for jail goals : 6 weeks jail goal 1: Pt to report independence and compliance with home program. jail goal 2: Pt to demonstrate 4 to 4+/5 strength right hip to assist with functional mobility. jail goal 3: Pt to present with good right VMO firing to assist with proper patellar tracking. jail goal 4: Pt to report pain no greater than 2/10 in right knee with ADL's and functional tasks. jail goal 5: Pt to achieve 4+/5 strength bilateral quads to assist with functional mobility. 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 Pt states R knee isn't feeling too bad, but L knee and R hip are sore/painful. Exercises: Exercise 2: Cortica lv 5.0 [id number] -- only 8mins this date d/t time restrictions Exercise 6: Sidelying hip ABD 2x10 ea Exercise 8: standing hip flexor stretch mauro - 30s 3x Exercise 9: FSU 10x ea 6 inch Exercise 11: sit<>stands 10x2 cues for no valgus of knees. Exercise 12: Sidelying clamshell 2x10 Assessment Assessment: Pt demonstrates improvement with sit to stands, requiring less VC for valgus collapse. Focused primarily on hip strengthening this date, with fair tolerance. Limited tx time d/t pt having another appt after therapy. Activity Tolerance Activity Tolerance: Patient Tolerated treatment well Patient Education Patient Education: Reviewed exercise rationale Pt verbalized/demonstrated good understanding: [x] Yes [] No, pt required further clarification. Post Treatment Pain: 5/10 Plan Times per week: 3 Plan weeks: 6 Goals (Total # of Visits to Date: 8) Short term goals Time Frame for Short term goals: 3 weeks Short term goal 1: Pt to be instructed in home program.- met Short term goal 2: Pt to begin strengthening of right LE to assist with functional mobility.- met terminal worker goals Time Frame for jail goals : 6 weeks terminal worker goal 1: Pt to report independence and compliance with home program. terminal worker goal 2: Pt to demonstrate 4 to 4+/5 strength right hip to assist with functional mobility. jail goal 3: Pt to present with good right VMO firing to assist with proper patellar tracking. terminal worker goal 4: Pt to report pain no greater than 2/10 in right knee with ADL's and functional tasks. terminal worker goal 5: Pt to achieve 4+/5 strength bilateral quads to assist with functional mobility. 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 Cont to have increased pain first thing in the morning and again in the evening after being on her feet all day. Pt states steps are also aggravating and difficult d/t pain. Exercises: Exercise 1: HEP - alternating hip ER in hooklying with tband; sidestepping with GTB Exercise 2: Bike hills lv 5.0 [id number] Exercise 3: Sidestepping at countertop GTB at ankles - 5 mins Exercise 5: Quad sets x10ea (towel roll and tactile cuing needed for RLE); SLR 2x10 --Lilian from therapist on RLE Exercise 6: Sidelying hip ABD 2x10 ea Exercise 11: sit<>stands 10x2 cues for no valgus of knees. Exercise 12: Sidelying clamshell 2x10 Manual: Other: very light MFD with static cup placement to right lat thigh with passive hip adduction Modalities: Moist heat: x15min R knee and R hip Mauro knees E-stim (parameters): IFC+MHP x15min R knee for pain Assessment Assessment: Pt cont demonstrate significant valgus collapse with sit to stands and stair navigation d/t hip weakness. Pt demonstrates improvement with SLR with no assist needed and with min ext lag, indicating improved quad strength. Provided pt with GTB for side stepping exercise at home to cont progressing hip abd strength. Gentle MFD performed to lateral thigh/proximal ITB region to improve mobility, which pt tolerates well. Will progress as tolerated. Activity Tolerance Activity Tolerance: Patient Tolerated treatment well Patient Education Patient Education: Proper LE alignment to avoid valgus collapse. Pt verbalized/demonstrated good understanding: [x] Yes [] No, pt required further clarification. Post Treatment Pain: 4/10 Plan Times per week: 3 Plan weeks: 6 Goals (Total # of Visits to Date: 7) Short term goals Time Frame for Short term goals: 3 weeks Short term goal 1: Pt to be instructed in home program.- met Short term goal 2: Pt to begin strengthening of right LE to assist with functional mobility.- met terminal worker goals Time Frame for terminal worker goals : 6 weeks jail goal 1: Pt to report independence and compliance with home program. jail goal 2: Pt to demonstrate 4 to 4+/5 strength right hip to assist with functional mobility. terminal worker goal 3: Pt to present with good right VMO firing to assist with proper patellar tracking. jail goal 4: Pt to report pain no greater than 2/10 in right knee with ADL's and functional tasks. terminal worker goal 5: Pt to achieve 4+/5 strength bilateral quads to assist with functional mobility. 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 Brace cont to help with pain. Exercises: Exercise 1: HEP - alternating hip ER in hooklying with tband Exercise 2: Bike hills lv 2 x8mins Exercise 3: Sidestepping at countertop GTB x4-5 laps Exercise 4: Hooklying ER with GTB x15 Exercise 5: Quad sets x10ea (towel roll and tactile cuing needed for RLE); SLR 2x5 --Lilian from therapist on RLE Exercise 6: Sidelying hip ABD 2x10 ea Modalities: Moist heat: x15min R knee and R hip E-stim (parameters): IFC+MHP x15min R knee for pain Assessment Assessment: Progressed LE strengthening within pt tolerance this date. Pt demonstrates difficulty activating quad with quad set, but improved with tactile cuing. Pt also demonstrates improved quad activation with SLR, but does require occasional Lilian from therapist with SLR d/t weakness. Pt also instructed in sidelying hip ABD, which pt demonstrates increased difficulty on RLE compared to LLE, again d/t weakness. IFC and MHP applied at end of tx for pain. Will progress as tolerated. Activity Tolerance Activity Tolerance: Patient Tolerated treatment well Patient Education Patient Education: Ex progressions Pt verbalized/demonstrated good understanding: [x] Yes [] No, pt required further clarification. Post Treatment Pain: 2/10 Plan Times per week: 3 Plan weeks: 6 Goals (Total # of Visits to Date: 2) Short term goals Time Frame for Short term goals: 3 weeks Short term goal 1: Pt to be instructed in home program.- met Short term goal 2: Pt to begin strengthening of right LE to assist with functional mobility.- progressing terminal worker goals Time Frame for terminal worker goals : 6 weeks jail goal 1: Pt to report independence and compliance with home program. terminal worker goal 2: Pt to demonstrate 4 to 4+/5 strength right hip to assist with functional mobility. jail goal 3: Pt to present with good right VMO firing to assist with proper patellar tracking. terminal worker goal 4: Pt to report pain no greater than 2/10 in right knee with ADL's and functional tasks. jail goal 5: Pt to achieve 4+/5 strength bilateral quads to assist with functional mobility. Minutes Tracking: Time In: 0930 Time Out: 1030 Minutes: 60 Timed Code Treatment Minutes: 58 Minutes Corazon Poole PT, DPT Date: 09/09/2020 documented in this encounter [employer] Phone: 07-08-2020 Hospital Discharge instructions Terrie Johnson RN - 07/08/2020 Watch for signs and symptoms of infection: reddness, fever, drainage &swelling. documented in this encounter [employer] Phone: 07-08-2020 History of Present illness Narrative Patient currently rate right hip pain 3/10 when sitting. documented in this encounter [employer] Phone: 06-30-2020 History of Present illness Narrative Explained Holter monitor and diary. documented in this encounter [employer] Phone: 02-19-2019 History of Present illness Narrative Pulmonary Rehab Initial History and Assessment Jose Yang 1950 02/19/2019 Living Will: [x] Yes [] No On File: [x] Yes [] No Durable Power of Bindery Assistant: [x] Yes [] No Medical History Past Medical History: Diagnosis Date Arthritis rhuematoid diagnosis Chronic back pain COPD (chronic obstructive pulmonary disease) (HCC) Diabetes mellitus (HCC) GERD (gastroesophageal reflux disease) Hx of blood clots saddle & left leg DVT Hyperlipidemia Pelvic congestion syndrome Symptoms: [] Cough (frequency): [] Wheezing (Onset/Cause): [] Fluid Retention (Where/When): [x] Sleeping Problems (# Hours): 6-7 joint pain keeps awake [] Sputum (Volume/Color/Viscosity/Frequency): [x] Dyspnea (onset/cause): occ. Odd times [x] Extra Pillows (Number):2+ Dyspnea Index (choose one): [x] Class 1 - No dyspnea except on strenuous exercise [] Class 2 - SOB when walking up short hill [] Class 3 - Dyspnea limits walking pace (slower than others) and stops to breathe. 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 Occupational Exposures: [] Farm/Ranch [] Mines/Foundry [] Gas/Fumes [] Dust [] Sandblasting [] Welding [] Quarry [] Chemicals [] Pottery [] Asbestos Respiratory Infections/Hospitalizations: # infections/year: 1 Antibiotic use: # Hospitalizations/year 0 When/Problem: Vaccines: [x] Flu (yr): [x] Pneumonia (yr): Activities of Daily Living: [x] Independent Needs assist with: [] Hygiene [] Diet [] ADL [] Other (explain): [] Stairs Fluid Intake (glasses/day): Caffeine: 3-4/day Water: 2+/day Nutrition: Appetite: [] good [x] too good [] poor Eating out: 1/wk Special Diet:regular Stress Management: Stressors: Relaxation Techniques: Deep breathing Leisure activities/Hobbies: reading, Crossword puzzles Depression Screening: [] Have you been feeling sad...down in the dumps? [] Have you lost interest in your job, sports, hobbies, friends? [x] Do you often feel tired? [x] Do you have trouble sleeping or do you sleep too much? [] Have you been gaining or losing weight? [] Do you often feel down on yourself, that everything is your fault? [x] Do you have troubled making decisions or concentrating on your work? [] Do you often feel agitated or like you can barely move? [] Do you ever feel that life isn't worth living? *If greater than 5 symptoms listed, social media campaign manager notified. Pre- Program Assessment 1. The primary purpose of the lungs is to: [] A. Bring in fresh air [] B. Breathe out stale air [] C. Pump blood to our body [x] D. A and B 2. The muscle that does most of the work of breathing is the diaphragm? [x] True [] False [] Undecided 3. Smoking: [] A. Damages the lining of the lungs. [] B. Paralyzes cilia [] C. May increase mucous production. [x] D. All of the above 4. My illness makes me feel helpless, confused, and out of control of my life at times. [] True [x] False [] Undecided 5. What is your current Diet:regular 6. Parts of a treatment plan may include all of the following except: [] A. Bronchodilator medication. [x] B. Jogging at a fast pace. [] C. Drinking lots of fluid. [] D. Stop smoking. 7. Pursed lip breathing helps you to slow your breathing rate. [x] True [] False [] Undecided 8. Pursed lip breathing helps to prevent collapse of the airways. [] True [x] False [] Undecided 9. With diaphragmatic breathing your stomach moved out as you inhale. [x] True [] False [] Undecided 10. The environment around you does not affect your breathing. [] True [x] False [] Undecided 11. Signs of infection include: [] Normal temperature [] Increased fatigue and lack of energy [] Change in amount of sputum [] Increase appetite [x] B and C 12. Feeling full after a meal is normal and does not affect breathing. [] True [x] False [] Undecided 13. Smoking can cause lung disease. [x] True [] False [] Undecided 14. Work efficiency involves making tasks easier. [x] True [] False [] Undecided 15. If a little oxygen is good, then more is even better. [] True [x] False [] Undecided 16. I know the purpose for each of my medications. [x] True [] False [] Undecided 17. Relaxation makes you breath better. [x] True [] False [] Undecided 18. Drinking water has no effect on the mucous produced in your lungs. [] True [x] False [] Undecided 19. Exercise does not help people with lung disease. [] True [x] False [] Undecided 20. Cleaning my home equipment at least every 2 days with white vinegar and water (1:2) is vital to reduce the change of using contaminated equipment. [x] True [] False [] Undecided 21. If I take more than 1 inhaler, I know in which order to take them. [x] True [] False [] Undecided 22. Family communication promotes closeness and decreases fear for everyone. [x] True [] False [] Undecided 23. Nutrition labels on food packages contain. [] A. Calories [] B. Fat [] C. Protein [] D. Carbohydrates [x] E. All of the above Comments: Physical Findings BP: 132/66 Pulse: 82 Resp: 18 SpO2: 94 % Goals Increased stamina/strength to 30-50min total exercise by increasing 1-2 level/wk and/or 1-2min/wk to maintain SaO2 > 90%, achieve THR and RPE 11-13. Introduce weights/ therabands 1-2# for 5-10 reps. Less SOB on exertion by utilizing pursed-lip breathing. Proper use of inhalers, O2 therapy and meds. Increased knowledge of COPD and optimal management. [place] with chronic health changes. Manage stress by utilizing relaxation techniques. Increased knowledge of health eating. Improve/Maintain quality of life. Manage/Control blood pressure. documented in this encounter [facility] [employer] Phone: 02-12-2019 History of Present illness Narrative [facility] Out[facility] Therapy Daily Note Patient: Jose Yang : 1950 CSN #: [id number] Referring Practitioner: Lakeisha Jasso MD Referral Date : 12/25/18 Date: 02/12/2019 Diagnosis: Trochanteric bursitis right hip, M70.61; Lumbar pain, M54.5; Lumbar degenrative disc disease, M51.36; Left hip pain, M25.552 Treatment Diagnosis: low back pain, right LE pain Onset Date: 12/25/18 PT Insurance Information: UMR-25 visits then Med Necissity Review Total # of Visits Approved: 20 Per Physician Order Total # of Visits to Date: No Show: 0 Canceled Appointment: 0 Pre-Treatment Pain: 4/10 Subjective: Doing exercises at home. Found exercise ball and plans to continue with that at home as well. Still has good and bad days but overall is better. Exercises: Exercise 1: HEP - hip ER in hooklying with blue tband while maintaining TA and pelvic floor contraction; 01/09 rows and ext; 02/12 libyan ball - prone arm lift, prone walk out, prone reverse fly, alt UE & LE, supine table top, supine reverse crunch and crunch Exercise 2: SciFit bike 10 mins 4.0 Exercise 3: LAE/Rows purple TB 15x ea Exercise 11: joystick - 30x Exercise 12: prone alt hip ext on libyan ball / alt UE's on libyan ball / opp LE and UE alternating Exercise 13: supine double knee to chest with ball between knees 2x15; supine SLR 2x15 Assessment Assessment: Pt has completed 19 PT visits for low back and right LE pain. Strength bilateral hip ER with MMT has improved to 4+/5. Core strength is much improved. Pt does report occasional pain rating 5/10 but becoming less frequent. Pt has been instructed in home program and issued 10 free gym passes in order to ensure exercises are being performed properly. We will now discharge PT. Patient Education Patient Education: progression of exercises Pt verbalized/demonstrated good understanding: [x] Yes [] No, pt required further clarification. Post Treatment Pain: 4/10 Plan Times per week: 2-3 Plan weeks: 6 Goals (Total # of Visits to Date: 19) Short Term Goals - Time Frame for Short term goals: 3 weeks Short term goal 1: Pt to be instructed in home program. -MET []Met []Partially met []Not met Short term goal 2: Pt to report pain no greater than 7/10 in low back and right LE with ADL's. -MET []Met []Partially met []Not met Short term goal 3: Pt to begin core strengthening program for improved lumbar mobility. -MET []Met []Partially met []Not met []Met []Partially met []Not met Hotel Administrative Assistant Goals - Time Frame for jail goals : 6 weeks terminal worker goal 1: Pt to report independence and compliance with home program. - met []Met []Partially met []Not met jail goal 2: Pt to report pain no greater than 4/10 in low back and right LE with prolong standing activities. -Progressing []Met []Partially met []Not met terminal worker goal 3: Pt to demonstrate good core strength for improved lumbar mobility. - met []Met []Partially met []Not met jail goal 4: Pt to achieve 4+/5 bilateral hip ER strength to assist with ADL's. - met []Met []Partially met []Not met []Met []Partially met []Not met Minutes Tracking: Time In: 928 Time Out: 1019 Minutes: 50 Timed Code Treatment Minutes: 48 Minutes Brooke Palafox , PT, DPT, CMPT Date: 02/12/2019 documented in this encounter [employer] Work Phone: 02-12-2019 Hospital course Narrative [facility] Therapy Discharge Summary Patient: Jose Yang : 1950 CSN #: [id number] Referring physician: No admitting provider for patient encounter. Referring Practitioner: Lakeisha Jasso MD Diagnosis: Trochanteric bursitis right hip, M70.61; Lumbar pain, M54.5; Lumbar degenrative disc disease, M51.36; Left hip pain, M25.552 Date Treatment Initiated: 12/28/18 Date of Last Treatment: 02/12/19 PT Visit Information Onset Date: 12/25/18 PT Insurance Information: UMR-25 visits then [facility] Total # of Visits Approved: 20 Total # of Visits to Date: Plan of Care/Certification Expiration Date: 02/08/19 No Show: 0 Canceled Appointment: 0 Frequency/Duration 2-3 times per week 6 weeks Treatment Received [x] HP/CP [x] Electrical Stim [x] Therapeutic Exercise [] Gait Training [] Aquatics [] Ultrasound [x] Patient Education/HEP [x] Manual Therapy [] Traction [x] Neuro-qasim [x] Soft Tissue Mobs [] Home TENS [] Iontophoresis [] Orthotic casting/fitting [] Dry Needling Assessment Assessment: Pt has completed 19 PT visits for low back and right LE pain. Strength bilateral hip ER with MMT has improved to 4+/5. Core strength is much improved. Pt does report occasional pain rating 5/10 but becoming less frequent. Pt has been instructed in home program and issued 10 free gym passes in order to ensure exercises are being performed properly. We will now discharge PT. Goals Short term goals Time Frame for Short term goals: 3 weeks Short term goal 1: Pt to be instructed in home program. -MET Short term goal 2: Pt to report pain no greater than 7/10 in low back and right LE with ADL's. -MET Short term goal 3: Pt to begin core strengthening program for improved lumbar mobility. -MET terminal worker goals Time Frame for jail goals : 6 weeks terminal worker goal 1: Pt to report independence and compliance with home program. - met jail goal 2: Pt to report pain no greater than 4/10 in low back and right LE with prolong standing activities. -Progressing jail goal 3: Pt to demonstrate good core strength for improved lumbar mobility. - met terminal worker goal 4: Pt to achieve 4+/5 bilateral hip ER strength to assist with ADL's. - met Reason for Discharge [x] Goals Achieved [] Poor Follow Through/Attendance [x] Optimal Function Achieved [] Patient Discharged Self [] Hospitalization [] Physician discharge Thank you for this referral Brooke Palafox PT, DPT, CMPT Date: 02/12/2019 documented in this encounter [employer] Phone: 02-09-2019 History of Present illness Narrative [facility] Therapy Daily Note Patient: Jose Yang : 1950 CSN #: [id number] Referring Practitioner: Lakeisha Jasso MD Referral Date : 12/25/18 Date: 02/09/2019 Diagnosis: Trochanteric bursitis right hip, M70.61; Lumbar pain, M54.5; Lumbar degenrative disc disease, M51.36; Left hip pain, M25.552 Treatment Diagnosis: low back pain, right LE pain Onset Date: 12/25/18 PT Insurance Information: UMR-25 visits then Med Necissity Review Total # of Visits Approved: 18 Per Physician Order Total # of Visits to Date: 18 No Show: 0 Canceled Appointment: 0 Pre-Treatment Pain: 5/10 Subjective: Pt reports she was really sore last night for some reason but shes feeling alot better today. Pt rates current pain a 5/10. Exercises: Exercise 1: HEP - hip ER in hooklying with blue tband while maintaining TA and pelvic floor contraction; 01/09 rows and ext Exercise 2: SciFit bike 10 mins 4.0 Exercise 3: LAE/Rows purple TB 15x ea Exercise 4: Sit<>stand 2x10; 3# Exercise 5: Hooklying blue TB ER 3x10 Exercise 6: Bridges with alt leg lifts 3x3 Exercise 10: cable column - chest 6 plates, hips 5 plates - [id number] Exercise 11: joystick - 15x Exercise 14: retro walk 15.0 10x; side step 12.0 5x with jamila Manual: PROM: Mauro quad/ hip flexor/ hip IR/ ER stretching. Manual traction: PB man traction 8 mins Assessment Assessment: Pt upper ab MMT 4+/5. Pain remains in R LE. Patient Education Cont current HEP. Pt verbalized/demonstrated good understanding: [x] Yes [] No, pt required further clarification. Post Treatment Pain: 5/10 Plan Times per week: 2-3 Plan weeks: 6 Goals (Total # of Visits to Date: 18) Short Term Goals - Time Frame for Short term goals: 3 weeks Short term goal 1: Pt to be instructed in home program. -MET [x]Met []Partially met []Not met Short term goal 2: Pt to report pain no greater than 7/10 in low back and right LE with ADL's. -MET [x]Met []Partially met []Not met Short term goal 3: Pt to begin core strengthening program for improved lumbar mobility. -MET [x]Met []Partially met []Not met []Met []Partially met []Not met Hotel Administrative Assistant Goals - Time Frame for terminal worker goals : 6 weeks terminal worker goal 1: Pt to report independence and compliance with home program. []Met []Partially met [x]Not met terminal worker goal 2: Pt to report pain no greater than 4/10 in low back and right LE with prolong standing activities. -Progressing []Met [x]Partially met []Not met jail goal 3: Pt to demonstrate good core strength for improved lumbar mobility. []Met []Partially met [x]Not met jail goal 4: Pt to achieve 4+/5 bilateral hip ER strength to assist with ADL's. []Met []Partially met [x]Not met []Met []Partially met []Not met Minutes Tracking: Time In: 1103 Time Out: 1150 Minutes: 47 Timed Code Treatment Minutes: 46 Minutes Jose Houston PTA Date: 02/09/2019 documented in this encounter [employer] Phone: 01-31-2019 History of Present illness Narrative [facility] Daily Note Patient: Jose Yang : 1950 CSN #: [id number] Referring Practitioner: Lakeisha Jasso MD Referral Date : 12/25/18 Date: 01/31/2019 Diagnosis: Trochanteric bursitis right hip, M70.61; Lumbar pain, M54.5; Lumbar degenrative disc disease, M51.36; Left hip pain, M25.552 Treatment Diagnosis: low back pain, right LE pain Onset Date: 12/25/18 PT Insurance Information: UMR-25 visits then Med Necissity Review Total # of Visits Approved: 18 Per Physician Order Total # of Visits to Date: 14 No Show: 0 Canceled Appointment: 0 Pre-Treatment Pain: 4/10 Subjective: Patient reports 3-4/10 low back pain today and is feeling a little less sore today. Exercises: Exercise 1: HEP - hip ER in hooklying with blue tband while maintaining TA and pelvic floor contraction; 01/09 rows and ext Exercise 2: SciFit bike 10 mins 4.0 Exercise 3: LAE/Rows purple TB 15x ea Exercise 4: Sit<>stand 2x10; 3# Exercise 5: Hooklying blue TB ER 3x10 Exercise 6: Bridges with alt leg lifts 3x3 Exercise 7: sitting on libyan ball - 20x april and Exercise 14: retro walk 12.0 10x; side step 5.0 5x with jamila Manual: Manual traction: PB man traction 8 mins Assessment Assessment: Continued with manual lumbar traction to decrease pain. Patient able to tolerate all ther ex this date with no increase in pain. Will progress as able. Patient Education Exercise technique Pt verbalized/demonstrated good understanding: [x] Yes [] No, pt required further clarification. Post Treatment Pain: 2/10 Plan Times per week: 2-3 Plan weeks: 6 Goals (Total # of Visits to Date: 14) Short Term Goals - Time Frame for Short term goals: 3 weeks Short term goal 1: Pt to be instructed in home program. -MET []Met []Partially met []Not met Short term goal 2: Pt to report pain no greater than 7/10 in low back and right LE with ADL's. -MET []Met []Partially met []Not met Short term goal 3: Pt to begin core strengthening program for improved lumbar mobility. -MET []Met []Partially met []Not met []Met []Partially met []Not met Hotel Administrative Assistant Goals - Time Frame for jail goals : 6 weeks jail goal 1: Pt to report independence and compliance with home program. []Met []Partially met []Not met terminal worker goal 2: Pt to report pain no greater than 4/10 in low back and right LE with prolong standing activities. -Progressing []Met []Partially met []Not met jail goal 3: Pt to demonstrate good core strength for improved lumbar mobility. []Met []Partially met []Not met terminal worker goal 4: Pt to achieve 4+/5 bilateral hip ER strength to assist with ADL's. []Met []Partially met []Not met []Met []Partially met []Not met Minutes Tracking: Time In: 1618 Time Out: 1700 Minutes: 42 Timed Code Treatment Minutes: 40 Minutes Maria Victoria Toledo PT, DPT Date: 01/31/2019 documented in this encounter [facility] Phone: 01-22-2019 History of Present illness Narrative [facility] Outpatient Physical Therapy Daily Note Patient: Jose Yang : 1950 CSN #: [id number] Referring Practitioner: Lakeisha Jasso MD Referral Date : 12/25/18 Date: 01/22/2019 Diagnosis: Trochanteric bursitis right hip, M70.61; Lumbar pain, M54.5; Lumbar degenrative disc disease, M51.36; Left hip pain, M25.552 Treatment Diagnosis: low back pain, right LE pain Onset Date: 12/25/18 PT Insurance Information: UMR-[facility] Total # of Visits Approved: 18 Per Physician Order Total # of Visits to Date: 10 No Show: 0 Canceled Appointment: 0 Pre-Treatment Pain: 1-2/10 Subjective: Pt states pain in right LE is much improved. Right knee is still a little sore. States shot in left toe may be wearing off. Pain today rates about 1-2/10. Exercises: Exercise 2: SciFit bike 10 mins 4.0 Exercise 4: Standing ab iso 15x 10sec Exercise 7: sitting on libyan ball - 15x march and LAQ Exercise 10: cable column - chest 6 plates, hips 5 plates - 2q27-74 Exercise 11: joystick - 15x Exercise 12: prone alt hip ext on libyan ball / alt UE's on libyan ball / opp LE and UE alternating Exercise 13: supine double knee to chest with ball between knees 2x15; supine SLR 2x15 Exercise 14: retro walk 12.0 10x; side step 5.0 5x with jamila Assessment Assessment: Pt progressing well. Min c/o LBP during supine exercises. Pt requires min cueing during exercises for proper form and technique. Will continue to progress as pt tolerates. Patient Education Patient Education: new exercises Pt verbalized/demonstrated good understanding: [x] Yes [] No, pt required further clarification. Post Treatment Pain: 1/10 Plan Times per week: 2-3 Plan weeks: 6 Goals (Total # of Visits to Date: 10) Short Term Goals - Time Frame for Short term goals: 3 weeks Short term goal 1: Pt to be instructed in home program. -MET []Met []Partially met []Not met Short term goal 2: Pt to report pain no greater than 7/10 in low back and right LE with ADL's. -MET []Met []Partially met []Not met Short term goal 3: Pt to begin core strengthening program for improved lumbar mobility. -MET []Met []Partially met []Not met []Met []Partially met []Not met Hotel Administrative Assistant Goals - Time Frame for jail goals : 6 weeks jail goal 1: Pt to report independence and compliance with home program. []Met []Partially met []Not met jail goal 2: Pt to report pain no greater than 4/10 in low back and right LE with prolong standing activities. []Met []Partially met []Not met terminal worker goal 3: Pt to demonstrate good core strength for improved lumbar mobility. []Met []Partially met []Not met jail goal 4: Pt to achieve 4+/5 bilateral hip ER strength to assist with ADL's. []Met []Partially met []Not met []Met []Partially met []Not met Minutes Tracking: Time In: 1525 Time Out: 1622 Minutes: 57 Timed Code Treatment Minutes: 55 Minutes Brooke Palafox , PT, DPT, CMPT Date: 01/22/2019 documented in this encounter [employer] Phone: Evaluation note Diagnosis Tachycardia Tachycardia, unspecified Abnormal heart rate documented in this encounter [employer] Phone: evaluation note* Diagnosis Arthritis of right hip documented in this encounter [employer] Phone: evaluation note* Diagnosis Breast cancer screening by mammogram documented in this encounter [employer] Phone: evalcrktbj note* Diagnosis Routine general medical examination at a health care facility Menopause Symptomatic menopausal or female climacteric states documented in this encounter [facility] Phone: evaluation note* Diagnosis Left leg pain Pain in limb documented in this encounter [facility] Phone: evaluation note* Diagnosis Venous reflux Unspecified venous (peripheral) insufficiency documented in this encounter [facility] Phone: evaluation note* Diagnosis S/P total knee arthroplasty, left- Primary S/P total knee arthroplasty, left documented in this encounter [facility] Phone: evaluation note* Diagnosis Encounter for screening mammogram for malignant neoplasm of breast Other screening mammogram documented in this encounter [facility]* Diagnosis Prediabetes- Primary Other abnormal glucose Essential hypertension (CMS/HCC) Unspecified essential hypertension 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) documented [facility]* Diagnosis Elevated glucose Other abnormal glucose documented in this encounter [facility]* Diagnosis Tick bite of back wall of thorax, unspecified location, subsequent encounter- Primary documented in this encounter [facility]* Diagnosis Sprain of left ankle, unspecified ligament, initial encounter- Primary Sprain of left foot, initial encounter Contusion of left knee, initial encounter Contusion of back, unspecified laterality, initial encounter [facility] Diagnosis Dry eye syndrome of both eyes Saddle embolism of abdominal aorta (CMS/HCC) documented in this encounter [facility]* Diagnosis Symptoms of upper respiratory infection (URI)- Primary documented in this encounter [facility] Dis[facility]* Attachments The following attachments cannot be sent through Care Everywhere. * Knee Pain or Injury (Citizen Of [place]) * RICE: General Info (Citizen Of [place]) * Strain or Sprain (Citizen Of [place]) * Back Pain (Citizen Of [place]) [facility] Purpose Family History No Family History Records FoundNo Family History Records FoundNo Family History Records FoundNo Family History Records FoundNo Family History Records FoundNo Family History Records FoundNo Family History Records FoundNo Family History Records FoundNo Family History Records Found Advance Directives No Advanced Directives Records FoundDocuments on File Type Date Recorded Patient Airline Radio Operator Expl anation Advance Directives and Livin g Will Advance Directives and Livin g Will 04/14/2012 4:17 PM Power of Bindery Assistant Power of Bindery Assistant 04/14/2012 4:17 PM Latest Code Status on File Code Status Date Activated Date Inactivated Comments Full Code 02/02/2018 9:06 PM 02/03/2018 3:08 PM Full Code 02/02/2018 3:45 PM 02/02/2018 9:06 PM Full Code 02/02/2018 9:09 AM 02/02/2018 3:45 PM Full Code 04/20/2017 1:32 PM 04/23/2017 2:41 AM Full Code 04/20/2017 7:21 AM 04/20/2017 1:32 PM Documents on File Type Date Recorded Patient Airline Radio Operator Expl anation Advance Directives and Livin g Will Advance Directives and Livin g Will 04/14/2012 4:17 PM Power of Bindery Assistant Power of Bindery Assistant 04/14/2012 4:17 PM Latest Code Status on File Code Status Date Activated Date Inactivated Comments Full Code 02/02/2018 9:06 PM 02/03/2018 3:08 PM Full Code 02/02/2018 3:45 PM 02/02/2018 9:06 PM Full Code 02/02/2018 9:09 AM 02/02/2018 3:45 PM Full Code 04/20/2017 1:32 PM 04/23/2017 2:41 AM Full Code 04/20/2017 7:21 AM 04/20/2017 1:32 PM Documents on File Type Date Recorded Patient Airline Radio Operator Expl anation ACP-Advance Directive ACP-Advance Directive 04/14/2012 4:17 PM ACP-Power of Bindery Assistant ACP-Power of Bindery Assistant 04/14/2012 4:17 PM Documents on File Type Date Recorded Patient Airline Radio Operator Expl anation ACP-Advance Directive ACP-Power of Bindery Assistant ACP-Advance Directive 04/14/2012 4:17 PM ACP-Power of Bindery Assistant 04/14/2012 4:17 PM Documents on File Type Date Recorded Patient Airline Radio Operator Expl anation ACP-Advance Directive ACP-Power of Bindery Assistant ACP-Power of Bindery Assistant 07/03/2020 12:50 PM ACP-Advance Directive 04/14/2012 4:17 PM ACP-Power of Bindery Assistant 04/14/2012 4:17 PM Documents on File Type Date Recorded Patient Airline Radio Operator Expl anation ACP-Advance Directive ACP-Power of Bindery Assistant ACP-Power of Bindery Assistant 07/03/2020 12:50 PM ACP-Advance Directive 04/14/2012 4:17 PM ACP-Power of Bindery Assistant 04/14/2012 4:17 PM Documents on File Type Date Recorded Patient Airline Radio Operator Expl anation ACP-Power of Bindery Assistant 07/03/2020 12:50 PM ACP-Advance Directive 04/14/2012 4:17 PM ACP-Power of Bindery Assistant 04/14/2012 4:17 PM Latest Code Status on File Code Status Date Activated Date Inactivated Comments Full Code 02/02/2018 9:06 PM 02/03/2018 3:08 PM Code Status History Code Status Date Activated Date Inactivated Comments Full Code 02/02/2018 3:45 PM 02/02/2018 9:06 PM Full Code 02/02/2018 9:09 AM 02/02/2018 3:45 PM Full Code 04/20/2017 1:32 PM 04/23/2017 2:41 AM Full Code 04/20/2017 7:21 AM 04/20/2017 1:32 PM Documents on File Type Date Recorded Patient Airline Radio Operator Expl anation ACP-Power of Bindery Assistant 07/03/2020 12:50 PM ACP-Advance Directive 04/14/2012 4:17 PM ACP-Power of Bindery Assistant 04/14/2012 4:17 PM Latest Code Status on File Code Status Date Activated Date Inactivated Comments Full Code 02/02/2018 9:06 PM 02/03/2018 3:08 PM Code Status History Code Status Date Activated Date Inactivated Comments Full Code 02/02/2018 3:45 PM 02/02/2018 9:06 PM Full Code 02/02/2018 9:09 AM 02/02/2018 3:45 PM Full Code 04/20/2017 1:32 PM 04/23/2017 2:41 AM Full Code 04/20/2017 7:21 AM 04/20/2017 1:32 PM Latest Code Status on File Code Status Date Activated Date Inactivated Comments Full Code 06/17/2022 9:17 AM Code Status History Code Status Date Activated Date Inactivated Comments Full Code 02/02/2018 9:06 PM 02/03/2018 3:08 PM Full Code 02/02/2018 3:45 PM 02/02/2018 9:06 PM Full Code 02/02/2018 9:09 AM 02/02/2018 3:45 PM Full Code 04/20/2017 1:32 PM 04/23/2017 2:41 AM Healthcare Agents on File Name Relationship Healthcare Agent Relationship Communication Des Yang Jr. Spouse Primary Decision Maker Michelet Yang Child Secondary Decision Maker Latest Code Status on File Code Status Date Activated Date Inactivated Comments Full Code 06/17/2022 9:17 AM 06/18/2022 1:06 PM Code Status History Code Status Date Activated Date Inactivated Comments Full Code 02/02/2018 9:06 PM 02/03/2018 3:08 PM Full Code 02/02/2018 3:45 PM 02/02/2018 9:06 PM Full Code 02/02/2018 9:09 AM 02/02/2018 3:45 PM Full Code 04/20/2017 1:32 PM 04/23/2017 2:41 AM Healthcare Agents on File Name Relationship Healthcare Agent Relationship Communication Des Yang Jr. Spouse Primary Decision Maker Michelet Yang Child Secondary Decision Maker [phone] (Mobile) Healthcare Agents on File Name Relationship Healthcare Agent Relationship Communication Des Yang Jr. Spouse Primary Decision Maker Michelet Yang Child Secondary Decision Maker Healthcare Agents on File Name Relationship Healthcare Agent Relationship Communication Des Yang Jr. Spouse Primary Decision Maker Michelet Yang Child Secondary Decision Maker [phone] (Mobile) Healthcare Agents on File Name Relationship Healthcare Agent Relationship Communication Des Yang Jr. Spouse Primary Decision Maker Michelet Yang Child Secondary Decision Maker [phone] (Mobile) Healthcare Agents on File Name Relationship Healthcare Agent Relationship Communication Des Yang Jr. Spouse Primary Decision Maker Michelet Yang Child Secondary Decision Maker [phone] (Mobile) Healthcare Agents on File Name Relationship Healthcare Agent Relationship Communication Des Mauro Yang Jr. Spouse Primary Decision Maker Michelet Yang Child Secondary Decision Maker [phone] (Mobile) Healthcare Agents on File Name Relationship Healthcare Agent Relationship Communication Des Wade Yang . Spouse Primary Decision Maker Michelet Yang Child Secondary Decision Maker Healthcare Agents on File Name Relationship Healthcare Agent Relationship Communication Des Yang Jr. Spouse Primary Decision Maker Michelet Yang Child Secondary Decision Maker Healthcare Agents on File Name Relationship Healthcare Agent Relationship Communication Des Yang Jr. Spouse Primary Decision Maker Michelet Yang Child Secondary Decision Maker Date Activated Date Inactivated Comments 06/17/2022 9:17 AM 06/18/2022 1:06 PM Date Activated Date Inactivated Comments 02/02/2018 9:06 PM 02/03/2018 3:08 PM Date Activated Date Inactivated Comments 02/02/2018 3:45 PM 02/02/2018 9:06 PM Date Activated Date Inactivated Comments 02/02/2018 9:09 AM 02/02/2018 3:45 PM Date Activated Date Inactivated Comments 04/20/2017 1:32 PM 04/23/2017 2:41 AM Healthcare Agents on File Name Relationship Healthcare Agent Relationship Communication Des Yang Jr. Spouse Primary Decision Maker Michelet Yang Child Secondary Decision Maker Documents on File Type Date Recorded Patient Airline Radio Operator Expl anation Advance Directives and Living Will 01/23/2020 [id number] Wi ll Advance Directives and Living Will 01/23/2020 [id number] Date Activated Date Inactivated Comments 06/17/2022 9:17 AM 06/18/2022 1:06 PM Date Activated Date Inactivated Comments 02/02/2018 9:06 PM 02/03/2018 3:08 PM Date Activated Date Inactivated Comments 02/02/2018 3:45 PM 02/02/2018 9:06 PM Date Activated Date Inactivated Comments 02/02/2018 9:09 AM 02/02/2018 3:45 PM Date Activated Date Inactivated Comments 04/20/2017 1:32 PM 04/23/2017 2:41 AM Healthcare Agents on File Name Relationship Healthcare Agent Relationship Communication Des Mauro Yang Jr. Spouse Primary Decision Maker Michelet Yang Child Secondary Decision Maker Reason for Referral Status Reason Specialty Diagnoses / Procedures Referre d By Contact Referred To Contact Closed Radiology Diagnoses Screening breast examination Procedures PETRONA DIGITAL SCREEN W OR WO CAD BILATERAL Rine, Lillian L [address] [place] [address] Status Reason Specialty Diagnoses / Procedures Re ferred By Contact Referred To Contact Open Radiology Diagnoses Asymptomatic age-related postmenopausal state Procedures DEXA BONE DENSITY AXIAL SKELETON Rine, Lillian L [address] [place] [address] Status Reason Specialty Diagnoses / Procedures Referred By Contact Referred To Contact Pending Review Radiology Diagnoses DUB (dysfunctional uterine bleeding) Procedures US NON OB TRANSVAGINAL Rine, Lillian L [address] [place] [address] Status Reason Specialty Diagnoses / Procedures Referre d By Contact Referred To Contact Open Radiology Diagnoses DUB (dysfunctional uterine bleeding) Procedures US PELVIS COMPLETE Rine, Lillian L [address] [place] [address] Status Reason Specialty Diagnoses / Procedures Referre d By Contact Referred To Contact Closed Radiology Diagnoses Encounter for screening breast examination Procedures PETRONA WALTER DIGITAL SCREEN BILATERAL Rine, Lillian L [address] [place] [address] Status Reason Specialty Diagnoses / Procedures Referre d By Contact Referred To Contact Closed EKG Diagnoses Tachycardia Abnormal heart rate Procedures Holter Monitor 48 Hour Lillian Inman L [address] [place] [address] [facility] [address] [place] [address] Specialty Diagnoses / Procedures Referred By Contac t Referred To Contact Radiology Diagnoses Breast cancer screening by mammogram Procedures PETRONA WALTER DIGITAL SCREEN SELF REFERRAL W OR WO CAD BILATERAL Luis Antonio Inmanri L [address] [place] [phone] Referral ID Status Reason Start Date Expiration Date Visits Re quested Visits Authorized [id number] Closed 05/07/2021 05/07/2022 1 1 Specialty Diagnoses / Procedures Referred By Contac t Referred To Contact Radiology Diagnoses Routine general medical examination at a health care facility Menopause Procedures DEXA BONE DENSITY AXIAL SKELETON Lillian Inman L [address] [place] [phone] Referral ID Status Reason Start Date Expiration Date Visits Re quested Visits Authorized [id number] Closed 06/19/2021 06/19/2022 1 1 Specialty Diagnoses / Procedures Referred By Contac t Referred To Contact Radiology Diagnoses Left leg pain Procedures VL DUP LOWER EXTREMITY VENOUS LEFT Lillian Inman L [address] [place] [id number] Referral ID Status Reason Start Date Expiration Date Visits Re quested Visits Authorized [id number] Closed 04/09/2022 04/09/2023 1 1 Specialty Diagnoses / Procedures Referred By Contac t Referred To Contact Radiology Diagnoses Venous reflux Procedures CTA ABDOMEN PELVIS W WO CONTRAST Fabiano Nicolas MD [address] [address] [id number] [place] [address] Referral ID Status Reason Start Date Expiration Date Visits Re quested Visits Authorized [id number] Closed 04/16/2022 04/16/2023 1 1 Specialty Diagnoses / Procedures Referred By Contac t Referred To Contact Radiology Diagnoses Encounter for screening mammogram for malignant neoplasm of breast Procedures PETRONA WALTER DIGITAL SCREEN BILATERAL Lillian Inman Joel, [employer] [address] [place] [phone] Referral ID Status Reason Start Date Expiration Date Visits Re quested Visits Authorized [id number] Closed 08/15/2023 08/14/2024 1 1 Assessments Diagnosis Screening breast examination Other screening breast examination Diagnosis Asymptomatic age-related postmenopausal state Diagnosis DUB (dysfunctional uterine bleeding) Other disorder of menstruation and other abnormal bleeding from female genital tract Diagnosis Encounter for screening breast examination History of Present Illness * Kavitha Lambert RN - 03/21/2019 10:30 AM EST Pulmonary Rehab Individualized Treatment Plan-30 day Patient Name: Jose Yang Date of Initial Assessment: 03/21/2019 Diagnosis: COPD Date of last Visit 02/2019 Onset Date: 2017 Referring Physician: Dr Waters Risk Stratification: High Session Number: 8 EXERCISE Stages of Change: [] pre-contemplation [x] Action [] Contemplate [] Maintainence [x] Prep [] Relapse Exercise Prescription: Mode: [x] TM [x] B [x] STP [] EL [x] R Frequency: 3 x week Duration: 31-60 min Intensity: METS 3.1 Progression: Progressed from 2.4 to 3.1 and increased time on both machines. SPO2: 92-94 on RA [] O2 - Liters: [] Resistance Training Weights (lbs): 1 Reps: 10-15 Hypertension: [x] Yes [] No Resting BP: 122/72 Peak Exercise BP: 136/74 [] Med change? Intervention: Home Exercise: Type: walking Duration: 30 min Frequency: Daily-pt is walking more each day O2 (L/min): [] Resistance Training Education: [x] Equipment [place] [x] PLB [x] Ex Safety [x] S/S to report [x] Warm up/ Cool down [] O2 Therapy [x] RPE Scale [x] Energy conservation [x] Dyspnea scale [x] medical staff specialist class-Home exercise Target Goal: - SPO2 > 92 during exercise - Individual exercise Rx Nutrition Stages of Change: [] pre-contemplation [x] Action [] Contemplate [] Maintainence [x] Prep [] Relapse Diabetes: [] Yes [x] No BS: HbA1c: Random BS: BS in range: [] yes [] no [] Med change? Weight Management: Current Wt: 141.2 Wt Goal: Maintain Dietary Goal: Intervention: [x] Dietitian Consult [x] Nurse/Patient Discussion [] Diet Class Education: [x] S&S hypo/hyperglycemia [] Relate diabetes to pulmonary disease [x] Healthy/balanced eating habits Target Goal: -HbA1c < 7% -BMI < 25 Education Stages of Change: [] pre-contemplation [x] Action [] Contemplate [] Maintainence [x] Prep [] Relapse Family support: [x] Yes [] No Tobacco use: [] Yes [x] No Date quit:2014 Quit date set: # cigarettes smoked per day: [] smokeless tobacco Amount: Breath sounds: [] chest physio [] Flutter [] Acapella Intervention: [] Referred to smoking cessation counselor [] Individual education and counseling [] Tobacco adjunct [] Informed of education classes Education: [] Dangers of smoking [x] Dyspnea management [x] Meds/MDI [x] Pulmonary and secretion A&P; specific disease [x] signs of infection [x] Diaphragmatic Breathing [] Traveling [x] Care of Home equipment Target Goal: -Complete cessation of tobacco use (if applicable) -Self-man and prevention exacerbation -Restore to highest level of independance Psychosocial Stages of Change: [] pre-contemplation [x] Action [] Contemplate [] Maintainence [x] Prep [] Relapse Intervention: [] Psych Consult/social studies department chair [x] Uses stress management [] Physician Referral [] Stress management class [] Med change? Education: [x] Coping with Chronic illness [x] Relaxation techniques [] S/S of Depression [] Support system Target Goal: -Assess presence or absence of depression using a valid screening tool. -Maximize coping skills. -Positive support system. Patient/Program goal: Increased stamina/strength to 30-50min total exercise by increasing 1-2 level/wk-Pt is up to 3.1 from 2.4 and increased time on both machines. and/or 1-2min/wk to maintain SaO2 > 90%, achieve THR and RPE 11-13.-working at RPE of12 Introduce weights/ therabands 1-2# for 5-10 reps.-1-2 lb x 10-15 reps. Less SOB on exertion by utilizing pursed-lip breathing.- no acute dypsnea. Proper use of inhalers, O2 therapy and meds. Increased knowledge of COPD and optimal management. [place] with chronic health changes. Manage stress by utilizing relaxation techniques. Increased knowledge of health eating. Improve/Maintain quality of life. Manage/Control blood pressure. Physician Changes/Comments: Pulmonary Rehab Staff documented in this encounter* Gita Smith, NURSE INFORMATICS EDUCATOR - 05/16/2019 10:30 AM EDT Pulmonary Rehab Individualized Treatment Plan-90 day Patient Name: Jose Yang Date of Initial Assessment: 03/21/2019 Diagnosis: COPD Date of last Visit 04/09/2019- due to Covid 19 stay at home requirements Onset Date: 02/05/19 Referring Physician: Dr Waters Risk Stratification: low Session Number: 22 EXERCISE Stages of Change: []?? pre-contemplation [x]?? Action []?? Contemplate []?? Maintainence [x]?? Prep []?? Relapse Exercise Prescription: Mode: [x]?? TM [x]?? B [x]?? STP []?? EL [x]?? R Frequency: 3 x week Duration: 31-60 min Intensity: METS 3.5-4.8 Progression: Mets have progressed from an initial of 2.4 to a current METS of 4.8 and increased time on both machines. Speed has increased from an initial of 1.8 to a current speed of 3.2 with a 3% incline. SPO2: 92-96 on RA []?? O2 - Liters: [x]?? Resistance Training Weights (lbs): 5 Reps: 10-15 Hypertension: [x]?? Yes []?? No Resting BP: 130/74 Peak Exercise BP: 132/74 []?? Med change? Intervention: Home Exercise: Type: walking Duration: 30 min Frequency: Staff encourages Daily-pt is walking more each day O2 (L/min): []?? Resistance Training Education: [x]?? Equipment [place] [x]?? PLB [x]?? Ex Safety [x]?? S/S to report [x]?? Warm up/ Cool down []?? O2 Therapy [x]?? RPE Scale [x]?? Energy conservation [x]?? Dyspnea scale [x]?? medical staff specialist class-Home exercise Target Goal: - SPO2 > 92 during exercise - Individual exercise Rx Nutrition Stages of Change: []?? pre-contemplation [x]?? Action []?? Contemplate []?? Maintainence [x]?? Prep []?? Relapse Diabetes: []?? Yes [x]?? No BS: HbA1c: Random BS: BS in range: []?? yes []?? no []?? Med change? Weight Management: Current Wt: 140.8 Wt Goal: Maintain Dietary Goal: Intervention: [x]?? Dietitian Consult Rate your plate completed and sent to General Car Yard Supervisor. All recommendations from Dietican given to pt. One on one appt. with General Car Yard Supervisor offered pt. Pt will think about it and let us know. [x]?? Nurse/Patient Discussion []?? Diet Class Education: [x]?? S&S hypo/hyperglycemia []?? Relate diabetes to pulmonary disease [x]?? Healthy/balanced eating habits Target Goal: -HbA1c < 7% -BMI < 25 Education Stages of Change: []?? pre-contemplation [x]?? Action []?? Contemplate []?? Maintainence [x]?? Prep []?? Relapse Family support: [x]?? Yes []?? No Tobacco use: []?? Yes [x]?? No Date quit:2014 Quit date set: # cigarettes smoked per day: []?? smokeless tobacco Amount: Breath sounds: []?? chest physio []?? Flutter []?? Acapella Intervention: []?? Referred to smoking cessation counselor []?? Individual education and counseling []?? Tobacco adjunct [x]?? Informed of education classes Education: [x]?? Dangers of smoking [x]?? Dyspnea management [x]?? Meds/MDI [x]?? Pulmonary and secretion A&P; specific disease [x]?? signs of infection [x]?? Diaphragmatic Breathing [x]?? Traveling [x]?? Care of Home equipment Target Goal: -Complete cessation of tobacco use (if applicable) -Self-man and prevention exacerbation -Restore to highest level of independance Psychosocial Stages of Change: []?? pre-contemplation [x]?? Action []?? Contemplate []?? Maintainence [x]?? Prep []?? Relapse Intervention: []?? Psych Consult/social studies department chair [x]?? Uses stress management []?? Physician Referral []?? Stress management class []?? Med change? Education: [x]?? Coping with Chronic illness [x]?? Relaxation techniques []?? S/S of Depression []?? Support system Target Goal: -Assess presence or absence of depression using a valid screening tool. -Maximize coping skills. -Positive support system. Patient/Program goal: Increased stamina/strength to 30-50min total exercise by increasing 1-2 level/wk and/or 1-2min/wk to maintain SaO2 > 90%, achieve THR and RPE 11-13.-working at RPE of12 Mets have progressed from an initial of 2.4 to a current METS of 4.4 with increased time on both machines. Speed has increased from an initial of 1.8 to a current speed of 3.2 with a 3% incline. Pt has not been attending rehab d /t the Coronavirus outbreak. Introduce weights/ therabands 1-2# for 5-10 reps.- 2-5 lb x 10-15 reps at every session. Less SOB on exertion by utilizing pursed-lip breathing.- no acute dypsnea noted. Discussed PLB which pt utilizes when appropriate. Proper use of inhalers, O2 therapy and meds. All medications reviewed. All questions answered. Increased knowledge of COPD and optimal management. Education continues. Eighty Four with chronic health changes. Education continues. Manage stress by utilizing relaxation techniques. Deep breathing and stress management tools discussed with pt. Increased knowledge of health eating. Rate your plate completed and sent to General Car Yard Supervisor. All recommendations from Dietican given to pt. One on one appt. with General Car Yard Supervisor offered pt. Pt will think about it and le tus know. Improve/Maintain quality of life. Maintain at current. Manage/Control blood pressure. BP remains WNL. Physician Changes/Comments: Pulmonary Rehab Staff documented in this encounter* Gita Smith, NURSE INFORMATICS EDUCATOR - 07/30/2019 1:00 PM EDT Pulmonary Rehab Individualized Treatment Plan-Discharge Patient Name: Jose Yang Date of Initial Assessment: 03/21/2019 Diagnosis: COPD Date of last Visit 04/09/2019- due to Covid 19 stay at home requirements Onset Date: 02/05/19 Referring Physician: Dr Waters Risk Stratification: low Session Number: 36 EXERCISE Stages of Change: [] pre-contemplation [x] Action [] Contemplate [] Maintainence [] Prep [] Relapse [x] 6-MWT [] Stress test [] Other: Walked ft: 1267.2 Max HR: 114 O2: none RPE: 12 SPO2: 92%-94% MET Level: 3.53 Exercise Prescription: Mode: [x] TM [x] B [x] STP [] EL [x] R Frequency: 3 times weekly Duration: 31-60 minutes Intensity: 3.5-4.2 Progression: Mets have progressed from an initial of 2.4 to a current METS of 4.2. Speed has increased from an initial of 1.8 to a current of 3.0 with a 2% incline. Pt has continued to increase speedand METS as tolerated SPO2: >90% [] O2 - Liters: [x] Resistance Training Weight (lbs):3 Reps: 5-10 Hypertension: [x] Yes [] No Resting BP: 134/82 Peak Exercise BP: 154/80 [] med change? Intervention: Home Exercise: Type: walking Duration: 30 minutes Frequency: staff encourages daily; patient states she does walking and exercise ball at home O2 (L/min): [x] Resistance Training Education: [x] Education goals met Target Goal: - SPO2 > 90 during exercise - Individual exercise Rx Nutrition Stages of Change: [] pre-contemplation [x] Action [] Contemplate [] Maintainence [] Prep [] Relapse Diabetes: [] Yes [x] No FBS: HbA1c: Random BS: BS in Range: [] Yes [] No [] Med change? Weight Management: Weight:141.4 Height: 5'4 BMI: 24.1 Wt Goal: 1-2 lbs/wk Intervention: [x] Dietitian Consult Rate your plate completed and sent to General Car Yard Supervisor. All recommendations from Dietican given to pt. One on one appt. with General Car Yard Supervisor offered pt. Pt denied need. [x] Nurse/Patient Discussion Dietary Goal: [] Diet Class [] Referred to Diabetes Education Education: [] Education goals met Target Goal: -HbA1c < 7% -BMI < 25 Education Stages of Change: [] pre-contemplation [x] Action [] Contemplate [] Maintainence [] Prep [] Relapse Knowledge test score: Family support: [x] Yes [] No Tobacco use: [] Yes [x] No Date quit:2014 Quit: [] < 6 mos. [x] > 6 mos. Quit date set: # cigarettes smoked per day: [] smokeless tobacco Amount: [] Pulmonary function test Breath sounds:Clear & Dim. bilat [] chest physio [] Flutter [] Acapella Intervention: [] Referred to smoking cessation counselor [] Individual education and counseling [] Tobacco adjunct [] Informed of education class schedule Education: [x] Education goals met Target Goal: -Complete cessation of tobacco use (if applicable) -Self-man and prevention exacerbation -Restore to highest level of independance Psychosocial Stages of Change: [] pre-contemplation [x] Action [] Contemplate [] Maintainence [] Prep [] Relapse Psychosocial Test: Yousif Quality of Life: 20.57 Depression screening score: 07/23 Intervention: [] Psych Consult/social studies department chair [x] Uses stress management skills [] Physician Referral [] Stress management class [] Med change? Depression Screening: [] Have you been feeling sad...down in the dumps? [] Have you lost interest in your job, sports, hobbies, friends? [x] Do you often feel tired? [x] Do you have trouble sleeping or do you sleep too much? [] Have you been gaining or losing weight? [] Do you often feel down on yourself, that everything is your fault? [x] Do you have troubled making decisions or concentrating on your work? [] Do you often feel agitated or like you can barely move? [] Do you ever feel that life isn't worth living? *If greater than 5 symptoms listed, social media campaign manager notified. Post- Program Assessment 1. The primary purpose of the lungs is to: [] A. Bring in fresh air [] B. Breathe out stale air [] C. Pump blood to our body [x] D. A and B 2. The muscle that does most of the work of breathing is the diaphragm? [x] True [] False [] Undecided 3. Smoking: [] A. Damages the lining of the lungs. [] B. Paralyzes cilia [] C. May increase mucous production. [x] D. All of the above 4. My illness makes me feel helpless, confused, and out of control of my life at times. [] True [x] False [] Undecided 5. What is your current Diet? : regular 6. Parts of a treatment plan may include all of the following except: [] A. Bronchodilator medication. [x] B. Jogging at a fast pace. [] C. Drinking lots of fluid. [] D. Stop smoking. 7. Pursed lip breathing helps you to slow your breathing rate. [x] True [] False [] Undecided 8. Pursed lip breathing helps to prevent collapse of the airways. [x] True [] False [] Undecided 9. With diaphragmatic breathing your stomach moved out as you inhale. [x] True [] False [] Undecided 10. The environment around you does not affect your breathing. [] True [x] False [] Undecided 11. Signs of infection include: [] Normal temperature [] Increased fatigue and lack of energy [] Change in amount of sputum [] Increase appetite [x] B and C 12. Feeling full after a meal is normal and does not affect breathing. [] True [x] False [] Undecided 13. Smoking can cause lung disease. [x] True [] False [] Undecided 14. Work efficiency involves making tasks easier. [x] True [] False [] Undecided 15. If a little oxygen is good, then more is even better. [x] True [] False [] Undecided 16. I know the purpose for each of my medications. [x] True [] False [] Undecided 17. Relaxation makes you breath better. [x] True [] False [] Undecided 18. Drinking water has no effect on the mucous produced in your lungs. [] True [x] False [] Undecided 19. Exercise does not help people with lung disease. [] True [x] False [] Undecided 20. Cleaning my home equipment at least every 2 days with white vinegar and water (1:2) is vital toreduce the change of using contaminated equipment. [x] True [] False [] Undecided 21. If I take more than 1 inhaler, I know in which order to take them. [x] True [] False [] Undecided 22. Family communication promotes closeness and decreases fear for everyone. [x] True [] False [] Undecided 23. Nutrition labels on food packages contain. [] A. Calories [] B. Fat [] C. Protein [] D. Carbohydrates [x] E. All of the above Comments: Education: [x] Education goals met Target Goal: -Assess presence or absence of depression using a valid screening tool. -Maximize coping skills. -Positive support system. Patient/Program goal: Increased stamina/strength to 30-50min total exercise by increasing 1-2 level/wk and/or 1-2min/wk to maintain SaO2 > 90%, achieve THR and RPE 11-13.-working at RPE of12 Mets have progressed from an initial of 2.4 to a current METS of 4.2. Pt continues to increase speed & METS as tolerated. Introduce weights/ therabands 1-2# for 5-10 reps.- 2-5 lb x 10-15 reps at every session. No Thera-bands at this time d/t COVID restrictions. Less SOB on exertion by utilizing pursed-lip breathing.- no acute dypsnea noted. Discussed PLB which pt utilizes when appropriate Proper use of inhalers, O2 therapy and meds. All medications reviewed. All questions answered. Increased knowledge of COPD and optimal management. Education complete. Eighty Four with chronic health changes. Education complete Manage stress by utilizing relaxation techniques. Deep breathing and stress management tools discussed with pt. Increased knowledge of health eating. Rate your plate completed and sent to General Car Yard Supervisor. All recommendations from Dietican given to pt. One on one appt. with General Car Yard Supervisor offered pt. Pt denied need at this time. Improve/Maintain quality of life. Pt states that she has increased speed and staimina in her everyday activities. Manage/Control blood pressure. BP remains WNL. Pulmonary Rehab Staff Physician Changes/Comments: documented in this encounter* Jose Houston, BOTANY PROFESSOR - 01/05/2019 11:00 AM EST [facility] Outpatient Physical Therapy Daily Note Patient: Jose Yang : 1950 CSN #: [id number] Referring Practitioner: Lakeisha Jasso MD Referral Date : 12/25/18 Date: 01/05/2019 Diagnosis: Trochanteric bursitis right hip, M70.61; Lumbar pain, M54.5; Lumbar degenrative disc disease, M51.36; Left hip pain, M25.552 Treatment Diagnosis: low back pain, right LE pain Onset Date: 12/25/18 PT Insurance Information: ([employer]R-25 visits then Med Necissity Review) Total # of Visits Approved: 18 Per Physician Order Total # of Visits to Date: 4 No Show: 0 Canceled Appointment: 0 Pre-Treatment Pain: 6/10 Subjective: Pt states she is a little tight in her legs today but wouldnt call it pain. Pt rates current pain a 6/10. Pt asks to leave today by 1135 d/t field trip at school. Exercises: Exercise 1: HEP - hip ER in hooklying with blue tband while maintaining TA and pelvic floor contraction Exercise 3: LAE/Rows GTB 15x ea Exercise 5: Hooklying blue TB ER Exercise 6: Bridges 15x2 Exercise 7: PPT, PPT april 28x ea Exercise 9: Sit<>stands 2x20 (cues for vlgus) Manual: PROM: Mauro quad/ hip flexor/ hip IR/ ER stretching. Assessment Assessment: Pt reports pain on average ranges 2-6/10 on day to day basis but is getting much better than it was . Patient Education Cont current HEP. Pt verbalized/demonstrated good understanding: [x] Yes [] No, pt required further clarification. Post Treatment Pain: 5/10 Plan Times per week: 2-3 Plan weeks: 6 Goals (Total # of Visits to Date: 4) Short Term Goals - Time Frame for Short term goals: 3 weeks Short term goal 1: Pt to be instructed in home program. -MET [x]Met []Partially met []Not met Short term goal 2: Pt to report pain no greater than 7/10 in low back and right LE with ADL's. -MET[x]Met []Partially met []Not met Short term goal 3: Pt to begin core strengthening program for improved lumbar mobility. -MET [x]Met []Partially met []Not met []Met []Partially met []Not met Hotel Administrative Assistant Goals - Time Frame for jail goals : 6 weeks jail goal 1: Pt to report independence and compliance with home program. []Met []Partially met [x]Not met terminal worker goal 2: Pt to report pain no greater than 4/10 in low back and right LE with prolong standing activities. []Met []Partially met [x]Not met terminal worker goal 3: Pt to demonstrate good core strength for improved lumbar mobility. []Met []Partially met [x]Not met terminal worker goal 4: Pt to achieve 4+/5 bilateral hip ER strength to assist with ADL's. []Met []Partially met [x]Not met []Met []Partially met []Not met Minutes Tracking: Time In: 1102 Time Out: 1132 Minutes: 30 Jose Houston PTA Date: 01/05/2019 * Mahnaz Zee - 01/05/2019 11:00 AM EST Insurance- [employer] Deductible Met Coverage 80% after deductible 25 visits then Medical review Needed. Ref #[id number] 01/05/19 documented in this encounter* Brooke Palafox PT - 01/12/2019 7:45 AM EST [facility] Outpatient Physical Therapy Daily Note Patient: Jose Yang : 1950 CSN #: [id number] Referring Practitioner: Lakeisha Jasso MD Referral Date : 12/25/18 Date: 01/12/2019 Diagnosis: Trochanteric bursitis right hip, M70.61; Lumbar pain, M54.5; Lumbar degenrative disc disease, M51.36; Left hip pain, M25.552 Treatment Diagnosis: low back pain, right LE pain Onset Date: 12/25/18 PT Insurance Information: [employer]MR-25 visits then Med Necissity Review Total # of Visits Approved: 18 Per Physician Order Total # of Visits to Date: 6 No Show: 0 Canceled Appointment: 0 Pre-Treatment Pain: 2/10 Subjective: Pt states she overslept and is a few minutes late. Has a cold so has not been feeling too well. Was a little sore following last session in her low back, more in her arms. Exercises: Exercise 2: SciFit bike 8 mins 2.5 Exercise 3: LAE/Rows purple TB 15x ea Exercise 4: Standing ab iso 10x 10sec Exercise 10: cable column - chest 6 plates, hips 5 plates - 1a95-65 Exercise 11: joystick - 15x Exercise 12: prone alt hip ext on libyan ball / alt UE's on libyan ball - 10x Assessment Assessment: Limited progression of exercises this date due to c/o soreness following last session and pt not feeling well. Less cueing needed during exercises this date. Will continue. Patient Education Patient Education: continue HEP Pt verbalized/demonstrated good understanding: [x] Yes [] No, pt required further clarification. Post Treatment Pain: 2/10 Plan Times per week: 2-3 Plan weeks: 6 Goals (Total # of Visits to Date: 6) Short Term Goals - Time Frame for Short term goals: 3 weeks Short term goal 1: Pt to be instructed in home program. -MET []Met []Partially met []Not met Short term goal 2: Pt to report pain no greater than 7/10 in low back and right LE with ADL's. -MET[]Met []Partially met []Not met Short term goal 3: Pt to begin core strengthening program for improved lumbar mobility. -MET []Met []Partially met []Not met []Met []Partially met []Not met Halfway Goals - Time Frame for jail goals : 6 weeks jail goal 1: Pt to report independence and compliance with home program. []Met []Partially met []Not met terminal worker goal 2: Pt to report pain no greater than 4/10 in low back and right LE with prolong standing activities. []Met []Partially met []Not met terminal worker goal 3: Pt to demonstrate good core strength for improved lumbar mobility. []Met []Partially met []Not met terminal worker goal 4: Pt to achieve 4+/5 bilateral hip ER strength to assist with ADL's. []Met []Partially met []Not met []Met []Partially met []Not met Minutes Tracking: Time In: 748 Time Out: 827 Minutes: 39 Timed Code Treatment Minutes: 38 Minutes Brooke Palafox PT, DPT, CMPT Date: 01/12/2019 documented in this encounter* Maria Victoria Toledo, PT - 01/19/2019 3:30 PM EST [facility] Out[facility] Physical Therapy Daily Note Patient: Jose Yang : 1950 CSN #: [id number] Referring Practitioner: Lakeisha Jasso MD Referral Date : 12/25/18 Date: 01/19/2019 Diagnosis: Trochanteric bursitis right hip, M70.61; Lumbar pain, M54.5; Lumbar degenrative disc disease, M51.36; Left hip pain, M25.552 Treatment Diagnosis: low back pain, right LE pain Onset Date: 12/25/18 PT Insurance Information: UMR-25 visits then Med Necissity Review Total # of Visits Approved: 18 Per Physician Order Total # of Visits to Date: 9 No Show: 0 Canceled Appointment: 0 Pre-Treatment Pain: 2/10 Subjective: Patient reports R knee soreness about 2/10 and was a little sore after last time but itwent away the next day. Exercises: Exercise 1: HEP - hip ER in hooklying with blue tband while maintaining TA and pelvic floor contraction; 01/09 rows and ext Exercise 2: SciFit bike 10 mins 3.5 Exercise 3: LAE/Rows purple TB 15x ea Exercise 4: Standing ab iso 15x 10sec Exercise 5: Hooklying blue TB ER 3x10 Exercise 6: Bridges with alt leg lifts 3x3 Exercise 8: Vaughn taps 15x 6 inch Exercise 9: Wall squats x10 with GTB to cue for R hip abduction Exercise 11: joystick - 15x Exercise 12: prone alt hip ext on libyan ball / alt UE's on libyan ball / opp LE and UE alternating -15x Seated march/ small crunch Exercise 13: supine double knee to chest with ball between knees 2x10 Assessment Assessment: Added wall squats to progress functional strength with fair tolerance from patient; used GTB to cue to avoid R knee valgus; patient still demo's lean to the R with squats with R knee valgus mild. Increased reps of core strengthening exercises as tolerated. Will progress as able. Patient Education Exercise technique Pt verbalized/demonstrated good understanding: [x] Yes [] No, pt required further clarification. Post Treatment Pain: 1-2/10 Plan Times per week: 2-3 Plan weeks: 6 Goals (Total # of Visits to Date: 9) Short Term Goals - Time Frame for Short term goals: 3 weeks Short term goal 1: Pt to be instructed in home program. -MET []Met []Partially met []Not met Short term goal 2: Pt to report pain no greater than 7/10 in low back and right LE with ADL's. -MET[]Met []Partially met []Not met Short term goal 3: Pt to begin core strengthening program for improved lumbar mobility. -MET []Met []Partially met []Not met []Met []Partially met []Not met [facility] Goals - Time Frame for terminal worker goals : 6 weeks jail goal 1: Pt to report independence and compliance with home program. []Met []Partially met []Not met terminal worker goal 2: Pt to report pain no greater than 4/10 in low back and right LE with prolong standing activities. []Met []Partially met []Not met jail goal 3: Pt to demonstrate good core strength for improved lumbar mobility. []Met []Partially met []Not met terminal worker goal 4: Pt to achieve 4+/5 bilateral hip ER strength to assist with ADL's. []Met []Partially met []Not met []Met []Partially met []Not met Minutes Tracking: Time In: 1530 Time Out: 1611 Minutes: 41 Timed Code Treatment Minutes: 39 Minutes Maria Victoria Toledo PT, DPT Date: 01/19/2019 documented in this encounter Additional Source Comments INFORMATION SOURCE (unrecogn ized section and content) DATE CREATED AUTHOR 08/19/2017 [facility] DATE CREATED AUTHOR AUTHOR'S ORGANIZ ATION 04/26/2021 Pathology [facility] DATE CREATED AUTHOR AUTHOR'S ORGANIZ ATION 06/17/2021 [facility] DATE CREATED AUTHOR AUTHOR'S ORGANIZ ATION 12/13/2021 [facility] DATE CREATED AUTHOR AUTHOR'S ORGANIZ ATION 04/30/2022 [facility] DATE CREATED AUTHOR AUTHOR'S ORGANIZ ATION 04/06/2023 [facility] DATE CREATED AUTHOR AUTHOR'S ORGANIZ ATION 05/05/2023 [place] DATE CREATED AUTHOR AUTHOR'S ORGANIZ ATION 01/01/2024 [facility] EPIC DATE CREATED AUTHOR AUTHOR'S ORGANIZ ATION 01/28/2024 [facility] Reason for Visit (unrecogniz ed section and content) Status Reason Specialty Diagnoses / Procedures Referre d By Contact Referred To Contact Closed Radiology Diagnoses Screening breast examination Procedures PETRONA DIGITAL SCREEN W OR WO CAD BILATERAL Lillian Inman [address] [place] [id number] Status Reason Specialty Diagnoses / Procedures Referred By Contact Referred To Contact Not Required - Recondo Radiology Diagnoses Screening for osteoporosis Procedures HC DEXA AXIAL SKELETON Lillian Inman [address] [place] [address] [facility] [address] [address] Status Reason Specialty Diagnoses / Procedures Referre d By Contact Referred To Contact Closed Radiology Diagnoses DUB (dysfunctional uterine bleeding) Procedures HC US PELVIS COMPLETE Lillian Inman [address] [place] [address] [facility] [address] [phone] Status Reason Specialty Diagnoses / Procedures Referre d By Contact Referred To Contact Open Radiology Diagnoses Encounter for screening mammogram for malignant neoplasm of breast Procedures HC MAMMO SCREENING INCL CAD IF PERF Lillian Inman Joel [address] [place] [address] [facility] [address] [place] [address] Status Reason Specialty Diagnoses / Procedures Referre d By Contact Referred To Contact Closed EKG Diagnoses Tachycardia Abnormal heart rate Procedures Holter Monitor 48 Hour Lillian Inman Joel [address] [phone] [facility] Ekg [address] [place] [address] Status Reason Specialty Diagnoses / Procedures Referre d By Contact Referred To Contact Open Radiology Diagnoses Arthritis of right hip Procedures IR INJ ARTHROGRAM HIP RIGHT IR FLUORO GUIDED NEEDLE PLACEMENT Hiren Gary MD [address] [place] [address] Specialty Diagnoses / Procedures Referred By Contac t Referred To Contact Radiology Diagnoses Breast cancer screening by mammogram Procedures PETRONA WALTER DIGITAL SCREEN SELF REFERRAL W OR WO CAD BILATERAL Lillian Inman Joel [address] [place] [address] Referral ID Status Reason Start Date Expiration Date Visits Re quested Visits Authorized [id number] Closed 05/07/2021 05/07/2022 1 1 Specialty Diagnoses / Procedures Referred By Tulioac t Referred To Contact Radiology Diagnoses Routine general medical examination at a health care facility Menopause Procedures DEXA BONE DENSITY AXIAL SKELETON Lillian Inman Joel [address] [place] [address] Referral ID Status Reason Start Date Expiration Date Visits Re quested Visits Authorized [id number] Closed 06/19/2021 06/19/2022 1 1 Specialty Diagnoses / Procedures Referred By Contac t Referred To Contact Radiology Diagnoses Left leg pain Procedures VL DUP LOWER EXTREMITY VENOUS LEFT Lillian Inman [address] [place] [address] Referral ID Status Reason Start Date Expiration Date Visits Re quested Visits Authorized [id number] Closed 04/09/2022 04/09/2023 1 1 Specialty Diagnoses / Procedures Referred By Contac t Referred To Contact Radiology Diagnoses Venous reflux Procedures CTA ABDOMEN PELVIS W WO CONTRAST Fabiano Nicolas MD [address] [id number] [place] [address] Referral ID Status Reason Start Date Expiration Date Visits Re quested Visits Authorized [id number] Closed 04/16/2022 04/16/2023 1 1 Specialty Diagnoses / Procedures Referred By Contac t Referred To Contact Oncology Diagnoses Lymphedema of both lower extremities Fabiano Nicolas MD [address] [id number] [place] [address] [facility] Lymphedema Ther [address] [facility] [place] 1st Floor, [place] [address] Referral ID Status Reason Start Date Expiration Date Visits Requested Visits Authorized [id number] Authorized Specialty Services Required Occupational Therapy 05/04/2022 05/04/2023 1 99 Specialty Diagnoses / Procedures Referred By Contac t Referred To Contact Diagnoses Chronic pain of left knee Primary osteoarthritis of left knee Rheumatoid arthritis involving left knee, unspecified whether rheumatoid factor present (HCC) Chronic pain of left knee [M25.562, G89.29], Primary osteoarthritis of left knee [M17.12], Rheumatoid arthritis involving left knee [M06.9] Procedures MT ARTHRP KNE CONDYLE&PLATU MEDIAL&LAT COMPARTMENTS KNEE TOTAL ARTHROPLASTY Hiren Gary MD [address] [place] [address] [facility] [address] [place] [address] Referral ID Status Reason Start Date Expiration Date Visits Re quested Visits Authorized [id number] 1 1 Specialty Diagnoses / Procedures Referred By Bobo t Referred To Contact Radiology Diagnoses Encounter for screening mammogram for malignant neoplasm of breast Procedures PETRONA WALTER DIGITAL SCREEN BILATERAL Lillian Inman L, [employer] - MANAGER SOCIAL SERVICES [address] [place] [address] Referral ID Status Reason Start Date Expiration Date Visits Re quested Visits Authorized [id number] Closed 08/15/2023 08/14/2024 1 1 Reason Comments Follow-up Just found out her b est friend past away suddenly Reason Comments Med Refill Reason Comments Tick Removal Removed Tick about a week ago Tuesday however feels it had been in for over a week feeding Reason Comments Fall Patient was letting her dog out and her legs gave out and she fell landing on her left leg/knee. It on blood thinners, denies hitting her head. Pain 06/23/ Reason Onset Date Comments Med Refill 10/31/2023 Reason Onset Date Comments URI 01/24/2024 Care Teams (unrecognized sec tion and content) Shift Superintendent Relationship Specialty Start Date End Date Kika Patrick, DO [address] [place] [address] PCP - General 02/25/16 Shift Superintendent Relationship Specialty Start Date End Date Kika Patrick DO [address] [place] [address] PCP - General 02/25/16 Shift Superintendent Relationship Specialty Start Date End Date Kika Patrick, DO [address] [place] [address] PCP - General 02/25/16 Shift Superintendent Relationship Specialty Start Date End Date Kika Patrick, DO [address] [place] [address] PCP - General 02/25/16 Shift Superintendent Relationship Specialty Start Date End Date Kika Patrick, DO [address] [place] [address] PCP - General 02/25/16 Shift Superintendent Relationship Specialty Start Date End Date Kika Patrick, DO [address] [place] [address] PCP - General 02/25/16 Shift Superintendent Relationship Specialty Start Date End Date Kika Patrick, DO [address] [place] [address] PCP - General 02/25/16 Shift Superintendent Relationship Specialty Start Date End Date Kika Patrick, DO [address] [place] [address] PCP - General 02/25/16 Shift Superintendent Relationship Specialty Start Date End Date Kika Patrick, DO [address] [place] [address] PCP - General 02/25/16 Shift Superintendent Relationship Specialty Start Date End Date Kika Patrick, DO [address] [place] [address] PCP - General 02/25/16 Shift Superintendent Relationship Specialty Start Date End Date Kika Patrick, DO [address] [place] [address] PCP - General 02/25/16 Shift Superintendent Relationship Specialty Start Date End Date Kika Patrick, DO [address] [place] [address] PCP - General 02/25/16 Shift Superintendent Relationship Specialty Start Date End Date Kika Patrick, DO [address] [place] [address] PCP - General 02/25/16 Shift Superintendent Relationship Specialty Start Date End Date Kika Patrick, DO [address] [place] [address] PCP - General 02/25/16 Shift Superintendent Relationship Specialty Start Date End Date Kika Patrick, DO [address] [place] [address] PCP - General 02/25/16 Shift Superintendent Relationship Specialty Start Date End Date Kika Patrick, DO [address] [place] [address] PCP - General 02/25/16 Shift Superintendent Relationship Specialty Start Date End Date Kika Patrick, DO [address] [place] [address] PCP - General 02/25/16 Shift Superintendent Relationship Specialty Start Date End Date Kika Patrick, DO [address] [place] [address] PCP - General 02/25/16 Shift Superintendent Relationship Specialty Start Date End Date Kika Patrick, DO [address] [place] [address] PCP - General 02/25/16 Shift Superintendent Relationship Specialty Start Date End Date Kika Patrick, DO [address] [place] [address] PCP - General 02/25/16 Shift Superintendent Relationship Specialty Start Date End Date Kika Patrick, DO [address] [place] [address] PCP - General 02/25/16 Shift Superintendent Relationship Specialty Start Date End Date Kika Patrick, DO [address] [place] [address] PCP - General 02/25/16 Shift Superintendent Relationship Specialty Start Date End Date Kika Patrick, DO [address] [place] [address] PCP - General 02/25/16 Shift Superintendent Relationship Specialty Start Date End Date Kika Patrick DO [address] [place] [address] PCP - General 02/25/16 Shift Superintendent Relationship Specialty Start Date End Date Kika Patrick DO [address] [place] [address] PCP - General 02/25/16 Shift Superintendent Relationship Specialty Start Date End Date Kika Patrick DO [address] [place] [address] PCP - General 02/25/16 Shift Superintendent Relationship Specialty Start Date End Date Kika Patrick DO [address] [place] [address] PCP - General 02/25/16 Shift Superintendent Relationship Specialty Start Date End Date Kika Patrick DO [address] [place] [address] PCP - General 02/25/16 Shift Superintendent Relationship Specialty Start Date End Date Kika Patrick DO [address] [place] [address] PCP - General 02/25/16 Shift Superintendent Relationship Specialty Start Date End Date Kika Patrick DO [address] [place] [address] PCP - General Family Medicine 07/26/22 Kika Patrick DO [address] [place] [address] PCP - ACO Reach 04/15/23 Lillian Inman, MANAGER SOCIAL SERVICES [address] [place] [address] Nurse Practitioner Family Medicine 07/26/22 Shift Superintendent Relationship Specialty Start Date End Date Kika Patrick DO [address] [place] [address] PCP - General Family Medicine 07/26/22 Kika Patrick DO [address] [place] [address] PCP - ACO Reach 04/15/23 Lillian Inman MANAGER SOCIAL SERVICES [address] [place] [address] Nurse Practitioner Family Medicine 07/26/22 Shift Superintendent Relationship Specialty Start Date End Date Kika Patrick DO [address] [place] [address] PCP - General Family Medicine 07/26/22 Kika Ptarick DO [address] [place] [address] PCP - ACO Reach 04/15/23 Lillian Inman MANAGER SOCIAL SERVICES [address] [place] [address] Nurse Practitioner Family Medicine 07/26/22 Shift Superintendent Relationship Specialty Start Date End Date Kika Patrick DO [address] [place] [address] PCP - General Family Medicine 07/26/22 Kika Patrick DO [address] [place] [address] PCP - ACO Reach 04/15/23 Lillian Inman, MANAGER SOCIAL SERVICES [address] [place] [address] Nurse Practitioner Family Medicine 07/26/22 Shift Superintendent Relationship Specialty Start Date End Date Kika Patrick DO [address] [place], [place] [id number] PCP - General Family Medicine 07/26/22 Kika Patrick DO [address] [place] [address] PCP - ACO Reach 04/15/23 Lillian Inman, MANAGER SOCIAL SERVICES [address] [place] [address] Nurse Practitioner Family Medicine 07/26/22 Shift Superintendent Relationship Specialty Start Date End Date Lillian Inman, [employer] - MANAGER SOCIAL SERVICES [address] [place] [address] PCP - General Nurse Practitioner 01/19/24 Shift Superintendent Relationship Specialty Start Date End Date Kika Patrick DO [address] [place] [address] PCP - General Family Medicine 07/26/22 Kika Patrick DO [address] [place] [address] PCP - ACO Reach 04/15/23 Lillian Inman, MANAGER SOCIAL SERVICES [address] [place] [address] Nurse Practitioner Family Medicine 07/26/22 Shift Superintendent Relationship Specialty Start Date End Date Kika Patrick DO [address] [place] [address] PCP - General Family Medicine 07/26/22 Kika Patrick DO [address] [place] [address] PCP - ACO Reach 04/15/23 Lillian Inman MANAGER SOCIAL SERVICES [address] [place] [address] Nurse Practitioner Family Medicine 07/26/22 Ordered Prescriptions (unrec ognized section and content) Prescription Sig Dispensed Refills Start Date End Da te pregabalin (LYRICA) 75 MG capsuleIndications:S/P total knee arthroplasty, left Take 1 capsule by mouth 2 times daily as needed (breakthrough pain) for up to 14 days. Max Daily Amount: 150 mg 28 capsule 0 06/17/2022 07/01/2022 oxyCODONE (ROXICODONE) 5 MG immediate release tabletIndications:S/P total knee arthroplasty, left Take 1 tablet by mouth every 6 hours as needed for Pain for up to 5 days. Intended supply: 5 days. Take lowest dose possible to manage pain Max Daily Amount: 20 mg 20 tablet 0 06/17/2022 06/22/2022 Prescription Sig Dispensed Refills Start Date End Da te HYDROcodone-acetaminophe n (NORCO) 5-325 MG per tabletIndications:Sprain of left foot, initial encounter,Contusion of left knee, initial encounter,Contusion of back, unspecified laterality, initial encounter Take 1 tablet by mouth every 6 hours as needed for Pain for up to 3 days. Intended supply: 3 days. Take lowest dose possible to manage pain Max Daily Amount: 4 tablets 12 tablet 01/19/2024 01/22/2024 Scheduled Active and Recently Administ ered Medications (unrecognized section and content) Medication Order 06/16/2022 06/17/2022 06/18/2022 acetaminophen (TYLENOL) tablet 1,000 mg (COMPLETED) 1,000 mg, Oral, ONCE, 1 dose, On Nisreen 06/17/22 at 0945, Administer 60 minutes prior to surgery., Pre-op (day of surgery) 938 (Given - Provider: Yolie Jarquin RN) acetaminophen (TYLENOL) tablet 650 mg 650 mg, Oral, EVERY 6 HOURS, First dose on Nisreen 06/17/22 at 1500, Until Discontinued, Maximum dose of acetaminophen is 4000 mg from all sources in 24 hours., Post-op 144 (Given - Provider: Michaela Demarco RN)2007 (Given - Provider: Michelle Fleming RN) 230 (Given - Provider: Michelle Fleming RN)0857 (Given - Provider: Fay Alford RN)1500 (Due)2100 (Due) apixaban (ELIQUIS) tablet 5 mg 5 mg, Oral, 2 TIMES DAILY, First dose (after last modification) on Tue06/18/22 at 0900, Until Discontinued, Indication of Use: History of DVT/PE (indefinite), ANTICOAGULANT 856 (Given - Provid er: Fay Alford RN)2099 (Due) atorvastatin (LIPITOR) tablet 10 mg 10 mg, Oral, DAILY, First dose on Nisreen 06/17/22 at 1430, Until Discontinued 144 (Given - Provider: Michaela Demarco RN) 0857 (Given - Provider: Fay Alford RN) calcium carbonate (TUMS) chewable tablet 500 mg 500 mg, Oral, EVERY MORNING, First dose on Tue06/18/22 at 0900, Until Discontinued 0857 (Given - Provid er: Fay Alford RN) celecoxib (CELEBREX) capsule 100 mg (COMPLETED) 100 mg, Oral, ONCE, 1 dose, On Nisreen 06/17/22 at 0945, Administer 60 minutes prior to surgery., Pre-op (day of surgery) 938 (Given - Provider: Yolie Jarquin RN) cetirizine (ZYRTEC) tablet 10 mg 10 mg, Oral, DAILY, First dose on Nisreen 06/17/22 at 2100, Until Discontinued, Substituted for Loratadine (CLARITIN). 2040 (Not Given - Provider: Michelle Fleming RN - Reason: Patient/family refused) 0857 (Given - Provider: Fay Alford RN) clindamycin (CLEOCIN) 600 mg in dextrose 5 % 50 mL IVPB 600 mg, IntraVENous, EVERY 8 HOURS, 3 doses, First dose on Nisreen 06/17/22 at 1830, Last dose on Tue06/18/22 at 1030, Antimicrobial Indications: Surgical Prophylaxis 1750 (New Bag - Provider: Michaela Demarco RN)1820 (Stopped - Provider: Michelle Fleming RN) 0230 (New Bag - Provider: Michelle Fleming RN)0300 (Stopped - Provider: Michelle Fleming RN)1030 (Due) clindamycin (CLEOCIN) 900 mg in dextrose 5 % 50 mL IVPB (COMPLETED) 900 mg, IntraVENous, ONCE, 1 dose, On Nisreen 06/17/22 at 1045, Antimicrobial Indications: Surgical Prophylaxis 1025 (New Bag - Provider: Yolie Jarquin RN)1044 (Canceled Entry - Provider: JEREMIE Gambino DELTA SYSTEM FREIGHT CAR CLEANER)1055 (Stopped - Provider: JEREMIE Gambino CRNA) dimenhyDRINATE (DRAMAMINE) tablet 50 mg (COMPLETED) 50 mg, Oral, ONCE, 1 dose, On Nisreen 06/17/22 at 0945, Pre-op (day of surgery) 0939 (Given - Provider: Yolie Jarquin RN) DULoxetine (CYMBALTA) extended release capsule 30 mg 30 mg, Oral, Nightly, First dose (after last modification) on Nisreen 06/17/22 at 2100, Until Discontinued, Do not crush or break. May add contents of capsule to apple juice or apple sauce, but not chocolate. 2007 (Given - Provider: Michelle Fleming RN) 2100 (Due) gabapentin (NEURONTIN) capsule 300 mg (COMPLETED) 300 mg, Oral, ONCE, 1 dose, On Nisreen 06/17/22 at 0945, Pre-op (day of surgery) 0939 (Given - Provider: Yolie Jarquin RN) metFORMIN (GLUCOPHAGE-XR) extended release tablet 500 mg 500 mg, Oral, EVERY EVENING, First dose on Nisreen 06/17/22 at 1800, Until Discontinued, Do not crush or break. 1708 (Given - Provider: Michaela Demarco RN) 1800 (Due) pantoprazole (PROTONIX) tablet 40 mg 40 mg, Oral, DAILY BEFORE BREAKFAST, First dose on Tue06/18/22 at 0700, Until Discontinued, Do not crush or break. Substituted for Omeprazole (PRILOSEC). 0714 (Given - Provid er: Fay Alford RN) sodium chloride flush 0.9 % injection 5-40 mL 5-40 mL, IntraVENous, EVERY 12 HOURS SCHEDULED (2 times per day), First dose on Nisreen 06/17/22 at 2100, Until Discontinued, For Line Patency: Peripheral IV = 5 mL; Midline or Central Line = 10 mL/lumen. If following IV push medication, administer flush at same rate as the IV push. Flush volume is determined by type of infusion therapy being given. For non-viscous solutions use: Peripheral IV = 5 mL Midline or Central Line = 10 mL/lumen For viscous solutions (i.e. blood components, parenteral nutrition, contrast media, or after obtaining blood sample) use: Peripheral IV = 10 mL Midline or Central Line = 20 mL/lumen, Post-op 2009 (Not Given - Provider: Michelle Fleming RN - Reason: IV Fluid Infusing) 0858 (Not Given - Provider: Fay Alford RN - Reason: Loss of IV access)2100 (Due) tiotropium-olodaterol (STIOLTO) 2.5-2.5 MCG/ACT inhaler 2 puff 2 puff, Inhalation, DAILY, First dose on Tue06/17/22 at 1430, Until Discontinued, Substituted for Umeclidinium-Vilanterol (ANORO ELLIPTA). 1538 (Not Given - Provider: Sakina Avery RCP - Reason: Patient took at home) 0900 (Due) tranexamic acid (CYKLOKAPRON) 1,000 mg in sodium chloride 0.9 % 100 mL IVPB (COMPLETED) 1,000 mg, IntraVENous, at 400 mL/hr, Administer over 15 Minutes, HOME CARE ASSOCIATE TO O.R., On Nisreen 06/17/22 at 0945, For 1 dose, To be administered by anesthesia staff. Give one dose after induction of anesthesia following antibiotic but prior to tourniquet inflation and incision then, if ordered, give second dose at time of deflation of tourniquet of the second total knee arthroplasty., Pre-op (day of surgery) 1044 (New Bag - Provider: JEREMIE Gambino CRNA - Comment: over 10 minutes)1231 (Bolus - Provider: JEREMIE Gambino CRNA)1405 (Stopped - Provider: Michaela Demarco RN - Comment: unknown stop time) vancomycin 1000 mg IVPB in 250 mL NS addavial (COMPLETED) 1,000 mg (14.5 mg/kg), IntraVENous, at 250 mL/hr, Administer over 60 Minutes, ONCE, On Nisreen 06/17/22 at 1045, For 1 dose 1044 (New Bag - Provider: JEREMIE Gambino CRNA - Comment: over 60 minutes)1405 (Stopped - Provider: Michaela Demarco RN - Comment: unknown stop time) Vitamin D (CHOLECALCIFEROL) tablet 2,000 Units 2,000 Units, Oral, EVERY EVENING, First dose on Nisreen 06/17/22 at 2100, Until Discontinued 2039 (Given - Provider: Michelle Fleming, NOVA) 1800 (Due) Continuous Medication Order 06/16/2022 06/17/2022 06/18/2022 0.9 % sodium chloride infusion IntraVENous, at 100 mL/hr, CONTINUOUS, Starting on Nisreen 06/17/22 at 1430, May convert to saline lock once PO intake >500mL in 8 hours, Post-op 1450 (New Bag - Provider: Norma Demarco, RN)2312 (Stopped - Provider: Michelle Fleming RN - Comment: Patient tolerating PO) lactated ringers IV soln infusion (CANCELED) IntraVENous, at 100 mL/hr, CONTINUOUS, Starting on Nisreen 06/17/22 at 0945, Pre-op (day of surgery) 0946 (New Bag - Provider: Yolie Jarquin, NOVA)1030 (NoRateChange - Provider: JEREMIE Gambino CRNA)1241 (Paused - Provider: JEREMIE Mata CRNA - Comment: Switch to gravity)1242 (Restarted - Provider: JEREMIE Mata CRNA)1243 (Stopped - Provider: JEREMIE Mata CRNA) PRN Medication Order 06/16/2022 06/17/202206/1806/18/2022 0.9 % sodium chloride infusion IntraVENous, at 5-250 mL/hr, PRN, if patient receiving piggyback infusions and maintenance fluids are not ordered OR KVO fluids to protect IV site / prevent frequent line interruptions/ long duration, Starting on Nisreen 06/17/22 at 1407, For piggyback infusion, administer at same rate as piggyback for a total of 25 mL. Enter 25 mL into dose field and piggyback rate into rate field of order. If piggyback is infusing at a rate less than 100 mL/hr, enter 25 mL into dose field and 100 mL/hr into rate field of order. For KVO fluids, enter rate of 20 mL/hr or less into rate field of order., Post-op bisacodyl (DULCOLAX) EC tablet 5 mg 5 mg, Oral, DAILY PRN, Starting on Nisreen 06/17/22 at 1407, Until Discontinued, Constipation, First line therapy for constipation., Post-op diphenhydrAMINE (BENADRYL) capsule 25 mg(Linked Group 1) 25 mg, Oral, EVERY 6 HOURS PRN, Starting on Nisreen 06/17/22 at 1407, Until Discontinued, Itching, Post-op diphenhydrAMINE (BENADRYL) injection 25 mg(Linked Group 1) 25 mg, IntraVENous, EVERY 6 HOURS PRN, Starting on Nisreen 06/17/22 at 1407, Until Discontinued, Itching, Administer if oral route cannot be used., Post-op fluticasone (FLONASE) 50 MCG/ACT nasal spray 1 spray 1 spray, Nasal, PRN, Starting on Nisreen 06/17/22 at 2032, Until Discontinued, Rhinitis, Allergies ofkaxfguu-erikdmelxmp-wpiinq ne 60-150-60 MG/50ML injection (CANCELED) PRN, Starting on Nisreen 06/17/22 at 1218, Until Nisreen 06/17/22 at 1240, Intra-op 1218 (Given - Provider: Hirne Gary MD) labetalol (NORMODYNE;TRANDATE) injection 10 mg (COMPLETED) 10 mg, IntraVENous, EVERY 15 MIN PRN, 2 doses, Starting on Nisreen 06/17/22 at 1253, Until Nisreen 06/17/22 at 1320, High Blood Pressure, for SBP greater than 180 mmHg for 2 consecutive measurements taken from different sites., If heart rate is 60 bpm or less hold labetalol and use hydralazine if ordered, otherwise contact provider. Inform provider if SBP is still greater than 180 mmHg, 10 minutes after second antihypertensive dose is administered., PACU only 1257 (Given - Provider: June Yang, NOVA)1320 (Given - Provider: June Yang RN) metoprolol (LOPRESSOR) injection 5 mg 5 mg, IntraVENous, EVERY 12 HOURS PRN, Starting on Nisreen 06/17/22 at 2045, Until Discontinued, High Blood Pressure, SBP greater than 150, DO NOT ADMINISTER IF HEART RATE LESS THAN 60 ondansetron (ZOFRAN) injection 4 mg(Linked Group 2) 4 mg, IntraVENous, EVERY 6 HOURS PRN, Starting on Nisreen 06/17/22 at 1407, Until Discontinued, Nausea, Vomiting, Administer if oral route cannot be used., Post-op ondansetron (ZOFRAN-ODT) disintegrating tablet 4 mg(Linked Group 2) 4 mg, Oral, EVERY 8 HOURS PRN, Starting on Nisreen 06/17/22 at 1407, Until Discontinued, Nausea, Vomiting, Post-op oxyCODONE (ROXICODONE) immediate release tablet 10 mg(Linked Group 3) 10 mg, Oral, EVERY 4 HOURS PRN, Starting on Nisreen 06/17/22 at 1407, Until Discontinued, Pain Severe (7-10), Post-op 1555 (See Alternative - Provider: Michaela Demarco RN)2007 (See Alternative - Provider: Michelle Fleming RN) 427 (See Alternative - Provider: Michelle Fleming RN)0844 (Given - Provider: Khushbu Watkins RN) oxyCODONE (ROXICODONE) immediate release tablet 5 mg(Linked Group 3) 5 mg, Oral, EVERY 4 HOURS PRN, Starting on Nisreen 06/17/22 at 1407, Until Discontinued, Pain Moderate (4-6), Post-op 1555 (Given - Provider: Michaela Demarco RN)2007 (Given - Provider: Michelle Fleming, NOVA) 427 (Given - Provider: Michelle Fleming RN)0844 (See Alternative - Provider: Khushbu Watkins RN) pregabalin (LYRICA) capsule 75 mg 75 mg, Oral, 2 TIMES DAILY PRN, Starting on Nisreen 06/17/22 at 1407, Until Discontinued, breakthrough pain senna (SENOKOT) tablet 8.6 mg 8.6 mg (1 tablet), Oral, DAILY PRN, Starting on Nisreen 06/17/22 at 1407, Until Discontinued, Constipation, Second line therapy for constipation, After 24 hours, if no result from first line PRN therapy, give second line therapy in combination with first line therapy., Post-op sodium chloride flush 0.9 % injection 5-40 mL 5-40 mL, IntraVENous, PRN, Starting on Nisreen 06/17/22 at 1407, Until Discontinued, Line Care, After every IV line use, For Line Patency: Peripheral IV = 5 mL; Midline or Central Line = 10 mL/lumen. If following IV push medication, administer flush at same rate as the IV push. Flush volume is determined by type of infusion therapy being given. For non-viscous solutions use: Peripheral IV = 5 mL Midline or Central Line = 10 mL/lumen For viscous solutions (i.e. blood components, parenteral nutrition, contrast media, or after obtaining blood sample) use: Peripheral IV = 10 mL Midline or Central Line = 20 mL/lumen, Post-op Linked Groups Order Group 1: diphenhydrAMINE (BENADRYL) capsule 25 mgJump to med 25 mg, Oral, EVERY 6 HOURS PRN, Starting on Nisreen 06/17/22 at 1407, Until Discontinued, Itching, Post-op Or diphenhydrAMINE (BENADRYL) injection 25 mgJump to med 25 mg, IntraVENous, EVERY 6 HOURS PRN, Starting on Nisreen 06/17/22 at 1407, Until Discontinued, Itching
Administer if oral route cannot be used.
Post-op Group 2: ondansetron (ZOFRAN-ODT) disintegrating tablet 4 mgJump to med 4 mg, Oral, EVERY 8 HOURS PRN, Starting on Nisreen 06/17/22 at 1407, Until Discontinued, Nausea, Vomiting, Post-op Or ondansetron (ZOFRAN) injection 4 mgJump to med 4 mg, IntraVENous, EVERY 6 HOURS PRN, Starting on Nisreen 5/4/23 at 1407, Until Discontinued, Nausea, Vomiting
Administer if oral route cannot be used.
Post-op Group 3: oxyCODONE (ROXICODONE) immediate release tablet 5 mgJump to med 5 mg, Oral, EVERY 4 HOURS PRN, Starting on Nisreen 06/17/22 at 1407, Until Discontinued, Pain Moderate (4-6), Post-op Or oxyCODONE (ROXICODONE) immediate release tablet 10 mgJump to med 10 mg, Oral, EVERY 4 HOURS PRN, Starting on Nisreen 06/17/22 at 1407, Until Discontinued, Pain Severe (7-10), Post-op Scheduled Medication Order 01/17/2024 01/18/2024 01/19/2024 HYDROcodone-acetaminophen (NORCO) 5-325 MG per tablet 1 tablet (COMPLETED) 1 tablet, Oral, ONCE, 1 dose, On Nisreen 01/19/24 at 2030 2100 (Given - Provid er: Patricia Castellanos RN) FOR RECORDS PERTAINING TO PATIENTS WHO ARE OR HAVE BEEN ENROLLED IN A CHEMICAL DEPENDENCY/SUBSTANCEABUSE PROGRAM, SOME INFORMATION MAY BE OMITTED. This clinical summary was aggregated from multiple sources. Caution should be exercised in using it in the provision of clinical care. This summary normalizes information from multiple sources, and as a consequence, information in this document may materially change the coding, format and clinical context of patient data. In addition, data may be omitted in some cases. CLINICAL DECISIONS SHOULD BE BASED ON THE PRIMARY CLINICAL RECORDS. [employer] [facility]. provides no warranty or guarantee of the accuracy or completeness of information in this document.
== END 2024-02-28 13:31 | disposition home or self-care (01) ==
LOC: RAD 13:30
PROVIDERS: Visit Provider Podiatrist Foot & Ankle Surgery
DX: M79.672 Pain in left foot (principal); Z98.890 Other specified postprocedural states
CPT/HCPCS: 73630

== ENCOUNTER 2024-03-27 13:10 | Outpatient (OUT) | payer MEDICARE, BC, SELFPAY ==
--- NOTE | 2024-03-27 | XR_ITS ---
The [address] [address] Patient Name: JOSE YANG MRN: [id number] date: 1950 Sex: F Assigned Patient Location: [facility] Current Patient Location: Accession/Order Number: [id number] Exam Date: 03/27/2024 13:11 Report Date: 03/28/2024 12:56 At the request of: GALINA HDEZ Procedure: XR foot LT min 3V PROCEDURE: XR foot LT min 3V COMPARISON: 02/28/2024 HISTORY: LEFT FOOT PAIN FINDINGS: BONES:Stable fusion first metatarsal-phalangeal joint with a dorsal plate and screws. Incomplete bony bridging. No new fracture or dislocation. SOFT TISSUES:Negative. No visible soft tissue swelling. EFFUSION:None visible. OTHER: Negative. XR/XR foot LT min 3V IMPRESSION: Stable first metatarsal-phalangeal joint fusion. Electronically authenticated by: BORIS GUTHRIE Date: 03/28/2024 12:56
== END 2024-03-27 13:11 | disposition home or self-care (01) ==
LOC: RAD 13:10
PROVIDERS: Visit Provider Podiatrist Foot & Ankle Surgery
DX: M79.672 Pain in left foot (principal); M24.675 Ankylosis, left foot
CPT/HCPCS: 73630